=== PATIENT | female | born 1975 | race Caucasian/White ===

== ENCOUNTER 2017-01-28 07:38 | Inpatient (IN) | payer MEDICARE, OTHER ==
[~2017-01-28] VITALS: Ht 162.6 cm; Wt 118.2 kg
[2017-01-28] VITALS (16 sets, daily range): BP systolic 86–174; BP diastolic 74–104; PULSE 77–117; RESP 10–33; Ht 162.6 cm; Wt 118.2 kg
[~2017-01-28 07:38] MED LIST: CEFAZOLIN 1 GM INJ ONE
[2017-01-28] MEDS ORDERED: CARI350T29 PO (08:25)
[2017-01-28] MEDS ORDERED: HYDR-902 PO (08:25)
[2017-01-28] MEDS ORDERED: DIAZ10TA4 PO (08:25)
[2017-01-28] MEDS ORDERED: NORT75CA PO (08:26)
[2017-01-28] MEDS ORDERED: PRAZ2CAP2 PO (08:26)
[2017-01-28] MEDS ORDERED: BUPIVACAINE 0.25% (MPF) 30 ML INJ ONE (09:27)
[2017-01-28] MEDS ORDERED: GELATIN SIZE 100 SPONGE ONE (09:27)
[2017-01-28] MEDS ORDERED: THROMBIN 5000 UNIT VIAL ONE (09:28)
[2017-01-28] MEDS ORDERED: GLYCOPYRROLATE 0.4 MG INJ ONE ×3 (09:31→09:35)
[2017-01-28] MEDS ORDERED: LIDOCAINE 2% (SDV) 5 ML INJ ONE (09:31)
[2017-01-28] MEDS ORDERED: PROPOFOL 20 ML ONE (09:31)
[2017-01-28] MEDS ORDERED: MEPERIDINE 100 MG INJ ONE (09:31)
[2017-01-28] MEDS ORDERED: NEOSTIGMINE 3 MG/3 ML SYRINGE ONE ×2 (09:31→09:35)
[2017-01-28] MEDS ORDERED: ROCURONIUM 50 MG INJ ONE ×3 (09:31→11:40)
[2017-01-28] MEDS ORDERED: SUCCINYLCHOLINE CHLORIDE 100 MG/5 ML SYG IV ONE (09:31)
[2017-01-28] MEDS ORDERED: ONDANSETRON 4 MG INJ ONE (09:35)
[2017-01-28] MEDS ORDERED: METOCLOPRAMIDE 10 MG INJ ONE (09:35)
--- NOTE | 2017-01-28 09:44 | HPN ---
Date/Time of Note Date/Time of Note DATE: 01/28/17 TIME: 09:42 Interval H&P Admission Note Pt. seen H&P reviewed: No system changes Neurosurgery Preop Note No Significant Change Extensive d/w patient in detail at preop appointment about all available options including surgery vs no surgery. Overall risk/complications 3-5% overall thoroughly discussed. All questions answered and no guarantees given. Dispo: ICU RUPA REYES MD Jan 28, 2017 09:44
[2017-01-28] MEDS ORDERED: POLYMYXIN/BACITRACIN 1L IRRIG ONE (09:58)
[2017-01-28] MEDS ORDERED: DEXAMETHASONE 4 MG/ML 1 ML INJ ONE (11:23)
[2017-01-28] MEDS ORDERED: ROPIVACAINE 0.5 % 30 ML VIAL ONE (11:29)
[2017-01-28] MEDS ORDERED: PHENYLephrine (100 MCG/ML) 5ML SYG ONE (12:07)
--- NOTE | 2017-01-28 12:13 | RADRPT ---
PROCEDURE: XR Cervical Spine. CLINICAL INDICATION: POSTERIOR CERVICAL LAMI AND FORAMINOTOMIES W/INSTRUMENTATION TECHNIQUE: Single limited intraorbital lateral view. The image was reviewed on a PACS workstation. COMPARISON: None. FINDINGS: The patient demonstrates posterior instrumentation, with localization at the C2-C3 level and retract ors at the C3-C6 levels. There is reversal of the cervical lordosis and mild anterolisthesis at C3-C 4. The lower cervical spine is not well seen. IMPRESSION: Single intraoperative limited lateral view, with posterior instrumentation as noted. Images obtained: 1 RPTAT: DD .Chaitanya oPlo MD, MD Date Time Electronically viewed and signed by .Chaitanya Polo MD, MD on 01/28/2017 12:12 .T/
--- NOTE | 2017-01-28 13:12 | OPPN ---
Date/Time of Note Date/Time of Note DATE: 01/28/17 TIME: 13:11 Operative Report Preoperative Diagnosis Cervical Myelopathy Postoperative Diagnosis same Operation/Procedure Performed PCDF C3-7 Surgeon see signature line community relations assistant UDAY Jay, ACNP-BC Anesthesia: general Estimated blood loss: 50 - 100 ml's Transfusion Required none Specimen none Grafts/Implants none Complications none RUPA REYES MD Jan 28, 2017 13:12
[2017-01-28] MEDS: DOCUSATE SODIUM 100 MG CAP PO SCH ×2 (13:30→21:00)
[2017-01-28] MEDS ORDERED: CEFAZOLIN 1 GM/50 ML (PMX) 50 ML IVPB SCH (13:30)
[2017-01-28] MEDS ORDERED: NALOXONE (0.4 MG/ML) INJ IV PRN (13:30)
[2017-01-28] MEDS: HYDROmorphONE 0.5 MG/0.5 ML SYG IV PRN ×3 (13:35→14:00)
[2017-01-28] MEDS ORDERED: FENTAnyl 50 MCG/ML VIAL IV PRN ×2 (14:00)
[2017-01-28] MEDS ORDERED: LABETALOL HCL 20MG INJ IV PRN (14:00)
[2017-01-28] MEDS ORDERED: HYDROmorphONE 0.5 MG/0.5 ML SYG IV PRN (14:00)
[2017-01-28] MEDS ORDERED: hydrALAzine 20 MG INJ IV PRN (14:00)
[2017-01-28] MEDS ORDERED: EPHEDrine SULFATE 50 MG/5 ML SYG IV PRN (14:00)
[2017-01-28] MEDS: NS + KCL 20 MEQ 1,000 ML IV SCH (14:04)
[2017-01-28] MEDS: HYDROmorphONE 1 MG/ML SYG IV PRN ×2 (14:12→14:38)
--- NOTE | 2017-01-28 14:20 | HP ---
Date/Time of Note Date/Time of Note DATE: 01/28/17 TIME: 14:09 Assessment/Plan VTE Prophylaxis VTE Prophylaxis Intervention: SCD's Lines/Catheters IV Catheter Type (from Nrsg): A Line Assessment/Plan Assessment/Plan -Cervical myelopathy and cervical disc displacement, s/p posterior cervical laminectomy and foraminotomies with instrumental fusion of C3-C7. Continue ICU care TRAVEL ATTENDANTS Dilaudid for pain and Zofran as needed for nausea. Follow up surgical recommendations. -Depression -Morbid obesity with BMI 44.7. Further recommendations based on clinical course. Plan of care discussed with Dr. Zhu HPI/ROS Admit Date/Time Admit Date/Time Jan 28, 2017 at 07:38 Hx of Present Illness The patient is 41-year-old female with cervical myelopathy and cervical disc displacement. Patient was evaluated by Dr. Jordan in the neurosurgery consultation. Patient was brought to the hospital and underwent posterior cervical laminectomy and foraminotomies with instrumental fusion of C3-C7. Patient is admitted to intensive care unit for further management. Patient is currently a complaints of severe pain and unable to provide detailed medical history. ROS Per HPI PMH/Family/Social Past Medical History Chronic back pain Past Surgical History Status post cholecystectomy status post hysterectomy status post lumbar and cervical spine surgeries Family History Significant Family History: no pertinent family hx Social History Alcohol Use: none Smoking Status: Never smoker Drug Use: none Exam/Review of Systems Vital Signs Vitals Vital Signs Date Time Temp Pulse Resp B/P Pulse Ox O2 Delivery O2 Flow Rate FiO2 01/28/17 13:39 98.0 01/28/17 09:14 99 18 147/90 100 Exam Constitutional: alert, oriented Head: normocephalic Neck: other, supple Respiratory: normal air movement Cardiovascular: nl pulses, regular rate and rhythm Gastrointestinal: non-tender, soft Musculoskeletal: nl extremities to inspection Extremities: normal pulses Neurological: nl mental status Skin: nl turgor Medications Medications Current Medications Cefazolin Sodium (Ancef 1 Gm/50 ml (Pmx)) 50 ml @ 100 mls/hr Q6 IVPB ; Start 01/28/17 at 13:30; Stop 01/29/17 at 06:29 Docusate Sodium (Colace) 100 mg BID PO ; Start 01/28/17 at 13:30 Hydromorphone HCl (Dilaudid TRAVEL ATTENDANTS) Q4PCA IV ; Start 01/28/17 at 13:30 Naloxone HCl 0.2 mg 0.2 mg Q2M PRN IV RR 8 BREATHS/MIN OR LESS; Start at 13:30 Potassium Chloride/Sodium Chloride (NS-KCl 20 Meq) 1,000 ml @ 100 mls/hr Q10H IV Last administered on 01/28/17t 14:04; Admin Dose 100 MLS/HR; Start at 13:30 JÚNIOR DOLAN Jan 28, 2017 14:20
[2017-01-28] MEDS: FENTAnyl 50 MCG/ML VIAL IV PRN ×2 (14:52→18:10)
[2017-01-28] MEDS: HYDROmorphONE 0.2 MG/ML PCA IV SCH ×2 (15:03→20:10)
[2017-01-28] MEDS: CEFAZOLIN 1 GM/50 ML (PMX) 50 ML IVPB SCH (18:16)
--- NOTE | 2017-01-28 18:18 | RADRPT ---
PROCEDURE: CT Cervical Spine without contrast. CLINICAL INDICATION: Postoperative fusion TECHNIQUE: A CT of the cervical spine was performed on a CT scanner utilizing thin section axial images from the skull base through the thoracic inlet. Sagittal and coronal reformatted images were made. The CTDIvol is 36.84 mGy and the DLP is 849.37 mGycm. One or more of the following dose redu ction techniques were utilized: Automated exposure control, adjustment of the mA and/or kV accordin g to patient size, use of iterative reconstruction technique. COMPARISON: No prior studies are available for comparison. FINDINGS: Anterior cervical discectomy and fusion of C 5 through C7 with intact posterior fusion of C3-C7 with intact posterior fusion rods and lateral mass screws and decompression laminectomies from C3-C7. St raightening of the cervical spine. No evidence of vertebral body subluxation or dislocation. Surgica l drain in place within the midline posterior surgical bed . Gas and postsurgical changes within the posterior midline soft tissues and laminectomy bed. No fracture is evident. C1-2: Normal atlanto-occipital and atlantoaxial articulation. C2-3: The disc is normal in height. No significant disk bulge or protrusion is evident. There is no central canal stenosis or foraminal narrowing. C3-4: Mild disc space narrowing Mild left foraminal stenosis without significant right foraminal megan nosis. Decompression laminectomy. C4-5: Intact ACDF with normal alignment. Decompression laminectomy without foraminal stenosis. C5-6: Intact ACDF with normal alignment. Decompression laminectomy without foraminal stenosis. C6-7: Intact ACDF with normal alignment . Decompression laminectomy without foraminal stenosis. C7-T1: Intact ACDF with normal alignment. Decompression laminectomy without foraminal stenosis. The prevertebral soft tissues are unremarkable. The lung apices demonstrate left apical pleuroparenc hymal thickening. IMPRESSION: 1. Intact anterior cervical discectomy and fusion of C5-C7 with posterior decompression laminectomie s, lateral mass screws and posterior fusion rods from C3-C7 with surgical drain within the midline s urgical bed. 2. Mild left foraminal stenosis C3-C4. No right foraminal stenosis. Decompression laminectomy. 3. No prevertebral soft tissue abnormality. RPTAT:AAJJ Sanchez Flores Physician Date Time Electronically viewed and signed by Sanhcez Flores Physician on 01/28/2017 18:18 ROWENA/
[2017-01-28] MEDS ORDERED: INFLUENZA VIRUS VACCINE 0.5 ML (DISPENSING) IM* ONE (20:30)
[2017-01-28] MEDS ORDERED: HYDROmorphONE 0.2 MG/ML PCA IV ONE (22:40)
[2017-01-28] MEDS ORDERED: HYDROmorphONE 1 MG/ML SYG IV ONE (22:55)
[2017-01-29] VITALS (17 sets, daily range): BP systolic 102–165; BP diastolic 55–144; PULSE 81–120; RESP 10–23
[2017-01-29] MEDS: HYDROmorphONE 0.2 MG/ML PCA IV SCH ×6 (00:17→22:16)
[2017-01-29] MEDS: CEFAZOLIN 1 GM/50 ML (PMX) 50 ML IVPB SCH ×3 (00:37→11:42)
[2017-01-29] MEDS: NS + KCL 20 MEQ 1,000 ML IV SCH ×2 (00:41→09:53)
[2017-01-29 06:26] LABS: BASOPHIL # 0.1 10^3/ul (0.0-0.1); BASOPHILS % 0.4 % (0.0-2.0); EOSINOPHILS % 0.2 % (0.0-7.0); HEMATOCRIT 34.8 % (37.0-47.0); HEMOGLOBIN 11.1 g/dl (12.0-16.0); LYMPHOCYTES # 2.8 10^3/ul (0.8-2.9); LYMPHOCYTES % 21.7 % (15.0-51.0); MEAN CORPUSCULAR HEMOGLOBIN 29.8 pg (29.0-33.0); MEAN CORPUSCULAR HGB CONC 31.9 g/dl (32.0-37.0); MEAN CORPUSCULAR VOLUME 93.5 fl (82.0-101.0); MEAN PLATELET VOLUME 9.8 fl (7.4-10.4); MONOCYTE # 1.2 10^3/ul (0.3-0.9); MONOCYTES % 9.2 % (0.0-11.0); NEUTROPHIL # 8.7 10^3/ul (1.6-7.5); NEUTROPHILS % 68.1 % (39.0-77.0); PLATELET COUNT 349 10^3/UL (140-415); RED BLOOD COUNT 3.72 10^6/ul (4.20-5.40); WHITE BLOOD COUNT 12.8 10^3/ul (4.8-10.8)
[2017-01-29] MEDS ORDERED: HYDROmorphONE 0.2 MG/ML PCA IV SCH ×2 (06:30→09:00)
[2017-01-29 07:09] LABS: CALCIUM 8.7 mg/dl (8.4-10.2); CREATININE 0.71 mg/dl (0.44-1.00); POTASSIUM 4.2 mmol/L (3.5-5.1)
[2017-01-29] MEDS: ACETAMINOPHEN 325 MG TAB PO PRN ×3 (07:53→23:57)
[2017-01-29] MEDS ORDERED: HYDROCODONE/APAP (10/325) TAB PO PRN (08:00)
[2017-01-29] MEDS: CARISOPRODOL 350 MG TAB PO PRN ×2 (08:01→15:49)
[2017-01-29] MEDS: DIAZEPAM 5 MG TAB PO PRN (08:01)
[2017-01-29] MEDS: DOCUSATE SODIUM 100 MG CAP PO SCH ×2 (08:01→20:31)
--- NOTE | 2017-01-29 09:12 | PN ---
Date/Time of Note Date/Time of Note DATE: 01/29/17 TIME: 09:09 Assessment/Plan VTE Prophylaxis VTE Prophylaxis Intervention: SCD's Lines/Catheters IV Catheter Type (from Nrsg): A Line Central line still needed: No Urinary Cath still in place: No Assessment/Plan Assessment/Plan s/p pcdf c3-7. POD #[address] post op ct cspine stable with well placed lateral mass screws plan dc jamey in am pt/ot RN to order aspen collar okay to downgrade from NS point of view Subjective 24 Hr Interval Summary Free Text/Dictation S: s/p PCDF C3-7. POD #1 doing well bilat UE strength improving JAMEY with moderate drainage Exam/Review of Systems Vital Signs Vitals Vital Signs Date Time Temp Pulse Resp B/P Pulse Ox O2 Delivery O2 Flow Rate FiO2 01/29/17 06:09 20 01/29/17 05:00 100 155/107 95 Nasal Cannula 01/29/17 04:00 98.8 01/28/17 20:00 4.0 Intake and Output 01/28/17 01/28/17 01/29/17 15:00 23:00 07:00 Intake Total 650 ml 860 ml 900 ml Output Total 260 ml 680 ml 400 ml Balance 390 ml 180 ml 500 ml Exam vss [id number] perrl fc x 4 , improving strength surgical site: CDI Results Result Diagram: 01/29/17 0554 01/29/17 0554 Results 24 hrs Laboratory Tests Test 01/29/17 05:54 White Blood Count 12.8 H Red Blood Count 3.72 L Hemoglobin 11.1 L Hematocrit 34.8 L Mean Corpuscular Volume 93.5 Mean Corpuscular Hemoglobin 29.8 Mean Corpuscular Hemoglobin Concent 31.9 L Red Cell Distribution Width 13.0 Platelet Count 349 Mean Platelet Volume 9.8 Neutrophils % 68.1 Lymphocytes % 21.7 Monocytes % 9.2 Eosinophils % 0.2 Basophils % 0.4 Nucleated Red Blood Cells % 0.0 Neutrophils # 8.7 H Lymphocytes # 2.8 Monocytes # 1.2 H Eosinophils # 0.0 Basophils # 0.1 Nucleated Red Blood Cells # 0.0 Sodium Level 145 H Potassium Level 4.2 Chloride Level 109 Carbon Dioxide Level 29 Anion Gap 11 Blood Urea Nitrogen 9 Creatinine 0.71 Glucose Level 89 Calcium Level 8.7 Medications Medications Current Medications Docusate Sodium (Colace) 100 mg BID PO Last administered on 01/29/17 08:01; Admin Dose 100 MG; Start 01/28/17 at 13:30 Naloxone HCl 0.2 mg 0.2 mg Q2M PRN IV RR 8 BREATHS/MIN OR LESS; Start at 13:30 Potassium Chloride/Sodium Chloride 1,000 ml @ 100 mls/hr Q10H IV Last administered on 01/29/17 00:41; Admin Dose 100 MLS/HR; Start 01/28/17 at 13: 30 Cefazolin Sodium (Ancef 1 Gm/50 ml (Pmx)) 50 ml @ 100 mls/hr Q6H IVPB Last administered on 01/29/17 05:59; Admin Dose 100 MLS/HR; Start 01/28/17 at 17: 00; Stop 01/29/17 at 11:29 Acetaminophen (Tylenol Tab) 650 mg Q4H PRN PO PAIN AND OR ELEVATED TEMP Last administered on 01/29/17 07:53; Admin Dose 650 MG; Start 01/29/17 at 08:00 Carisoprodol (Soma) 350 mg Q8 PRN PO MUSCLE SPASMS Last administered on 08:01; Admin Dose 350 MG; Start 01/29/17 at 08:00 Diazepam (Valium) 10 mg DAILY PRN PO MUSCLE SPASMS Last administered on 08:01; Admin Dose 10 MG; Start 01/29/17 at 08:00 Acetaminophen/ Hydrocodone Bitart ([place] (10/325)) 1 tab Q12 PRN PO SEVERE PAIN LEVEL 7-10; Start 01/29/17 at 08:00; Status UNV Nortriptyline HCl (Aventyl) 75 mg HS PO ; Start 01/29/17 at 21:00 Prazosin HCl (Minipres) 2 mg HS PO ; Start 01/29/17 at 21:00 Hydromorphone HCl (Dilaudid PANTRY STEWARD/STEWARDESS) give one mg dilau... Q4PCA IV ; Start at 09:00; Status UNV OLAYINKA COLIN NP Jan 29, 2017 09:12
[2017-01-29] MEDS ORDERED: ACETAMINOPHEN 1000MG/100ML IV 100 ML IVPB PRN (10:30)
[2017-01-29] MEDS ORDERED: NORTRIPTYLINE 25 MG CAP PO ONE (10:30)
[2017-01-29] MEDS ORDERED: PRAZOSIN 1 MG CAP PO ONE (10:30)
[2017-01-29] MEDS ORDERED: hydrALAzine 20 MG INJ IV PRN (10:30)
[2017-01-29] MEDS ORDERED: KETOROLAC 30 MG INJ ONE (11:39)
[2017-01-29] MEDS: 1/2 NS + KCL 20 MEQ 1,000 ML IV SCH ×2 (11:42→17:45)
[2017-01-29] MEDS: KETOROLAC 30 MG INJ IV PRN ×2 (11:42→17:55)
[2017-01-29] MEDS ORDERED: CEPASTAT LOZENGE MT PRN (13:00)
[2017-01-29] MEDS: NORTRIPTYLINE 25 MG CAP PO SCH (20:31)
[2017-01-29] MEDS ORDERED: PRAZOSIN 1 MG CAP PO SCH (21:00)
[2017-01-30 02:23] VITALS: BP 126/72; RESP 18
[2017-01-30] MEDS: KETOROLAC 30 MG INJ IV PRN ×4 (04:21→23:40)
[2017-01-30] MEDS: HYDROmorphONE 0.2 MG/ML PCA IV SCH (04:38)
[2017-01-30] MEDS: 1/2 NS + KCL 20 MEQ 1,000 ML IV SCH ×2 (06:12→19:55)
[2017-01-30 07:50] VITALS: BP 138/60; RESP 20
[2017-01-30] MEDS: DOCUSATE SODIUM 100 MG CAP PO SCH ×2 (08:31→21:15)
[2017-01-30] MEDS: ACETAMINOPHEN 325 MG TAB PO PRN (08:31)
[2017-01-30] MEDS: CARISOPRODOL 350 MG TAB PO PRN (08:31)
[2017-01-30 09:01] LABS: BASOPHIL # 0.1 10^3/ul (0.0-0.1); BASOPHILS % 0.5 % (0.0-2.0); EOSINOPHILS # 0.5 10^3/ul (0.0-0.5); EOSINOPHILS % 3.8 % (0.0-7.0); HEMATOCRIT 35.9 % (37.0-47.0); HEMOGLOBIN 11.6 g/dl (12.0-16.0); LYMPHOCYTES # 2.7 10^3/ul (0.8-2.9); LYMPHOCYTES % 22.6 % (15.0-51.0); MEAN CORPUSCULAR HEMOGLOBIN 30.1 pg (29.0-33.0); MEAN CORPUSCULAR HGB CONC 32.3 g/dl (32.0-37.0); MEAN PLATELET VOLUME 9.8 fl (7.4-10.4); MONOCYTE # 0.9 10^3/ul (0.3-0.9); MONOCYTES % 7.4 % (0.0-11.0); NEUTROPHIL # 7.9 10^3/ul (1.6-7.5); NEUTROPHILS % 65.4 % (39.0-77.0); PLATELET COUNT 331 10^3/UL (140-415); RED BLOOD COUNT 3.86 10^6/ul (4.20-5.40); RED CELL DISTRIBUTION WIDTH 12.2 % (11.5-14.5)
[2017-01-30 09:24] LABS: CALCIUM 8.6 mg/dl (8.4-10.2); CREATININE 0.71 mg/dl (0.44-1.00); MAGNESIUM 1.9 mg/dl (1.7-2.5); POTASSIUM 4.5 mmol/L (3.5-5.1)
[2017-01-30] MEDS: HYDROCODONE/APAP (10/325) TAB PO PRN ×4 (10:10→22:31)
[2017-01-30] MEDS: HYDROmorphONE 1 MG/ML SYG IV PRN ×3 (11:25→19:50)
[2017-01-30 15:18] VITALS: BP 132/70; RESP 18
--- NOTE | 2017-01-30 15:57 | PN ---
Date/Time of Note Date/Time of Note DATE: 01/30/17 TIME: 15:54 Assessment/Plan VTE Prophylaxis VTE Prophylaxis Intervention: SCD's Lines/Catheters IV Catheter Type (from Nrsg): Peripheral IV Urinary Cath still in place: Yes Reason Cath still needed: urinary retention Assessment/Plan Assessment/Plan -Cervical myelopathy and cervical disc displacement - s/p posterior cervical laminectomy and foraminotomies with instrumental fusion of C3-C7. - Dilaudid for pain and Zofran as needed for nausea. - Follow up surgical recommendations. -Depression -Morbid obesity with BMI 44.7. - dietary consult Further recommendations based on clinical course. Plan of care discussed with Dr. Zhu Subjective 24 Hr Interval Summary Free Text/Dictation c/o neck pain, got pain med, cont to monitor, afebrile, wbc sightly elevated, dw staff Constitutional: requiring IVF Eyes: no complaints Respiratory: no complaints Cardiovascular: no complaints Gastrointestinal: no complaints Musculoskeletal: neck pain Exam/Review of Systems Vital Signs Vitals Vital Signs Date Time Temp Pulse Resp B/P Pulse Ox O2 Delivery O2 Flow Rate FiO2 01/30/17 15:18 98.2 96 18 132/70 96 01/29/17 20:10 Nasal Cannula 2.0 Intake and Output 01/29/17 01/29/17 01/30/17 15:00 23:00 07:00 Intake Total 1545 ml 375 ml 1480 ml Output Total 655 ml 635 ml 2640 ml Balance 890 ml -260 ml -1160 ml Exam Constitutional: alert, well developed Neck: other (sp cervica rediculopathy- derssing noted- intact, ROWENA loretta - bloody drainage noted) Respiratory: clear to auscultation, diminished breath sounds Cardiovascular: nl pulses, other (s1s2) Gastrointestinal: non-tender, soft Musculoskeletal: nl extremities to inspection Extremities: normal pulses Neurological: nl mental status, nl speech Results Result Diagram: 01/30/17 0831 01/30/17 0832 Results 24 hrs Laboratory Tests Test 01/30/17 08:31 01/30/17 08:32 White Blood Count 12.0 H Red Blood Count 3.86 L Hemoglobin 11.6 L Hematocrit 35.9 L Mean Corpuscular Volume 93.0 Mean Corpuscular Hemoglobin 30.1 Mean Corpuscular Hemoglobin Concent 32.3 Red Cell Distribution Width 12.2 Platelet Count 331 Mean Platelet Volume 9.8 Neutrophils % 65.4 Lymphocytes % 22.6 Monocytes % 7.4 Eosinophils % 3.8 Basophils % 0.5 Nucleated Red Blood Cells % 0.0 Neutrophils # 7.9 H Lymphocytes # 2.7 Monocytes # 0.9 Eosinophils # 0.5 Basophils # 0.1 Nucleated Red Blood Cells # 0.0 Sodium Level 141 Potassium Level 4.5 Chloride Level 100 Carbon Dioxide Level 33 H Anion Gap 13 Blood Urea Nitrogen 7 Creatinine 0.71 Glucose Level 94 Calcium Level 8.6 Magnesium Level 1.9 Medications Medications Current Medications Docusate Sodium (Colace) 100 mg BID PO Last administered on 01/30/17 08:31; Admin Dose 100 MG; Start 01/28/17 at 13:30 Naloxone HCl (Narcan) 0.2 mg Q2M PRN IV RR 8 BREATHS/MIN OR LESS; Start at 13:30 Acetaminophen (Tylenol Tab) 650 mg Q4H PRN PO PAIN AND OR ELEVATED TEMP Last administered on 01/30/17 08:31; Admin Dose 650 MG; Start 01/29/17 at 08:00 Carisoprodol (Soma) 350 mg Q8 PRN PO MUSCLE SPASMS Last administered on 08:31; Admin Dose 350 MG; Start 01/29/17 at 08:00 Diazepam (Valium) 10 mg DAILY PRN PO MUSCLE SPASMS Last administered on 08:01; Admin Dose 10 MG; Start 01/29/17 at 08:00 Acetaminophen/ Hydrocodone Bitart ([place] (10/325)) 1 tab Q12H PRN PO SEVERE PAIN LEVEL 7-10; Start 01/29/17 at 08:00; Status Future Hold Nortriptyline HCl (Aventyl) 75 mg HS PO Last administered on 01/29/17 20:31; Admin Dose 75 MG; Start 01/29/17 at 21:00 Carvedilol (Coreg) 3.125 mg BID PO Last administered on 01/30/17 08:31; Admin Dose 3.125 MG; Start 01/29/17 at 10:30 Hydralazine HCl 10 mg 10 mg Q4H PRN IV SBP>160, DBP>100; Start 01/29/17 at 10: 30 Potassium Chloride/Sodium Chloride (1/2 NS + KCl 20 Meq) 1,000 ml @ 75 mls/hr [id number] IV Last administered on 01/30/17 06:12; Admin Dose 75 MLS/HR; Start 01/29/17 at 11:00 Ketorolac Tromethamine (Toradol) 30 mg Q6H PRN IV PAIN Last administered on 10:38; Admin Dose 30 MG; Start 01/29/17 at 12:00; Stop 02/01/17 at 11: 59 Phenol (Cepastat Lozenge) 1 lozenge Q1H PRN MT SORE THROAT; Start 01/29/17 at 13:00 Hydromorphone HCl (Dilaudid) 1 mg Q4H PRN IV SEVERE PAIN LEVEL 7-10 Last administered on 01/30/17 15:27; Admin Dose 1 MG; Start 01/30/17 at 09:20 Acetaminophen/ Hydrocodone Bitart ([place] (10/325)) 1 tab Q4H PRN PO PAIN LEVEL 1-6 Last administered on 01/30/17 13:34; Admin Dose 1 TAB; Start 01/30/17 at 09:20 ANTIONE GARCIA Jan 30, 2017 15:57
--- NOTE | 2017-01-30 19:17 | PN ---
Date/Time of Note Date/Time of Note DATE: 01/30/17 TIME: 19:17 Assessment/Plan VTE Prophylaxis VTE Prophylaxis Intervention: SCD's Lines/Catheters IV Catheter Type (from Nrsg): Saline Lock Central line still needed: No Urinary Cath still in place: No Assessment/Plan Assessment/Plan Impression s/p PCDF C3-7. POD #2 Pt did well with pt/ot x 2 Pt on dilaudid iv, toradol, norco, and states pain still uncontrolled Plan pt/ot collar when oob x 6 weeks dc jamey drain Pain Management consult in am CT cspine in am Subjective 24 Hr Interval Summary Free Text/Dictation S: s/p PCDF C3-7 . POD #2 Exam/Review of Systems Vital Signs Vitals Vital Signs Date Time Temp Pulse Resp B/P Pulse Ox O2 Delivery O2 Flow Rate FiO2 01/30/17 15:18 98.2 96 18 132/70 96 01/29/17 20:10 Nasal Cannula 2.0 Intake and Output 01/29/17 01/29/17 01/30/17 15:00 23:00 07:00 Intake Total 1545 ml 375 ml 1480 ml Output Total 655 ml 635 ml 2640 ml Balance 890 ml -260 ml -1160 ml Exam Neurological: other (MS: AAOX4 CN: PERRL M: fC x 4 ) Results Result Diagram: 01/30/17 0831 01/30/17 0832 Results 24 hrs Laboratory Tests Test 01/30/17 08:31 01/30/17 08:32 White Blood Count 12.0 H Red Blood Count 3.86 L Hemoglobin 11.6 L Hematocrit 35.9 L Mean Corpuscular Volume 93.0 Mean Corpuscular Hemoglobin 30.1 Mean Corpuscular Hemoglobin Concent 32.3 Red Cell Distribution Width 12.2 Platelet Count 331 Mean Platelet Volume 9.8 Neutrophils % 65.4 Lymphocytes % 22.6 Monocytes % 7.4 Eosinophils % 3.8 Basophils % 0.5 Nucleated Red Blood Cells % 0.0 Neutrophils # 7.9 H Lymphocytes # 2.7 Monocytes # 0.9 Eosinophils # 0.5 Basophils # 0.1 Nucleated Red Blood Cells # 0.0 Sodium Level 141 Potassium Level 4.5 Chloride Level 100 Carbon Dioxide Level 33 H Anion Gap 13 Blood Urea Nitrogen 7 Creatinine 0.71 Glucose Level 94 Calcium Level 8.6 Magnesium Level 1.9 Medications Medications Current Medications Docusate Sodium (Colace) 100 mg BID PO Last administered on 01/30/17 08:31; Admin Dose 100 MG; Start 01/28/17 at 13:30 Naloxone HCl (Narcan) 0.2 mg Q2M PRN IV RR 8 BREATHS/MIN OR LESS; Start at 13:30 Acetaminophen (Tylenol Tab) 650 mg Q4H PRN PO PAIN AND OR ELEVATED TEMP Last administered on 01/30/17 08:31; Admin Dose 650 MG; Start 01/29/17 at 08:00 Carisoprodol (Soma) 350 mg Q8 PRN PO MUSCLE SPASMS Last administered on 08:31; Admin Dose 350 MG; Start 01/29/17 at 08:00 Diazepam (Valium) 10 mg DAILY PRN PO MUSCLE SPASMS Last administered on 08:01; Admin Dose 10 MG; Start 01/29/17 at 08:00 Acetaminophen/ Hydrocodone Bitart ([place] (10/325)) 1 tab Q12H PRN PO SEVERE PAIN LEVEL 7-10; Start 01/29/17 at 08:00; Status Future Hold Nortriptyline HCl (Aventyl) 75 mg HS PO Last administered on 01/29/17 20:31; Admin Dose 75 MG; Start 01/29/17 at 21:00 Carvedilol (Coreg) 3.125 mg BID PO Last administered on 01/30/17 08:31; Admin Dose 3.125 MG; Start 01/29/17 at 10:30 Hydralazine HCl 10 mg 10 mg Q4H PRN IV SBP>160, DBP>100; Start 01/29/17 at 10: 30 Potassium Chloride/Sodium Chloride (1/2 NS + KCl 20 Meq) 1,000 ml @ 75 mls/hr [id number] IV Last administered on 01/30/17 06:12; Admin Dose 75 MLS/HR; Start 01/29/17 at 11:00 Ketorolac Tromethamine (Toradol) 30 mg Q6H PRN IV PAIN Last administered on 17:06; Admin Dose 30 MG; Start 01/29/17 at 12:00; Stop 11/21/17 at 11: 59 Phenol (Cepastat Lozenge) 1 lozenge Q1H PRN MT SORE THROAT; Start 01/29/17 at 13:00 Hydromorphone HCl (Dilaudid) 1 mg Q4H PRN IV SEVERE PAIN LEVEL 7-10 Last administered on 01/30/17 15:27; Admin Dose 1 MG; Start 01/30/17 at 09:20 Acetaminophen/ Hydrocodone Bitart ([place] (10325)) 1 tab Q4H PRN PO PAIN LEVEL 1-6 Last administered on 01/30/17 18:31; Admin Dose 1 TAB; Start 01/30/17 at 09:20 OLAYINKA COLIN CORPORATE DRIVER Jan 30, 2017 19:17
[2017-01-30] MEDS: oxyCODONE (CR) 20 MG TAB [oxyCONTIN] PO SCH ×2 (19:48→20:43)
[2017-01-30 20:25] VITALS: BP 138/89; RESP 20
[2017-01-30] MEDS: NORTRIPTYLINE 25 MG CAP PO SCH (21:15)
[2017-01-30] MEDS: DIAZEPAM 5 MG TAB PO PRN (23:46)
[2017-01-31] MEDS: HYDROmorphONE 1 MG/ML SYG IV PRN ×4 (03:34→20:21)
[2017-01-31 05:06] LABS: BASOPHIL # 0.1 10^3/ul (0.0-0.1); BASOPHILS % 0.5 % (0.0-2.0); EOSINOPHILS # 0.6 10^3/ul (0.0-0.5); EOSINOPHILS % 6.1 % (0.0-7.0); HEMATOCRIT 35.8 % (37.0-47.0); LYMPHOCYTES # 2.8 10^3/ul (0.8-2.9); LYMPHOCYTES % 27.2 % (15.0-51.0); MEAN CORPUSCULAR HEMOGLOBIN 30.4 pg (29.0-33.0); MEAN CORPUSCULAR HGB CONC 33.5 g/dl (32.0-37.0); MEAN CORPUSCULAR VOLUME 90.6 fl (82.0-101.0); MONOCYTE # 0.8 10^3/ul (0.3-0.9); MONOCYTES % 7.9 % (0.0-11.0); PLATELET COUNT 344 10^3/UL (140-415); RED BLOOD COUNT 3.95 10^6/ul (4.20-5.40); RED CELL DISTRIBUTION WIDTH 12.3 % (11.5-14.5); WHITE BLOOD COUNT 10.3 10^3/ul (4.8-10.8)
[2017-01-31] MEDS: HYDROCODONE/APAP (10/325) TAB PO PRN ×4 (05:24→22:11)
[2017-01-31 05:37] LABS: CALCIUM 8.9 mg/dl (8.4-10.2); CREATININE 0.72 mg/dl (0.44-1.00)
--- NOTE | 2017-01-31 07:30 | PN ---
DATE: 01/29/2017 SUBJECTIVE AND INTERVAL HISTORY: The patient is a 41-year-old female status post surgery for cervic al myelopathy. The patient underwent posterior cervical laminectomy and foraminotomy with instrumen tation fusion C3 through C7. The patient had significant postoperative pain yesterday and I had to increase her baseline Dilaudid COREMAKING SUPERVISOR. After giving a bolus of 1 mg Dilaudid, the patient's postoperat laurie pain has improved now, but she is complaining of a headache. We will give a trial of IV Tylenol and if it does not work, we will try Toradol. The patient denies any chest pain, is breathi ng comfortably. No reported abdominal pain. No reported vomiting, no report of any focal weakness. The patient is able to move all extremities. PHYSICAL EXAMINATION: GENERAL: The patient is conscious, awake. VITAL SIGNS: Temperature 98.3, pulse 100, respirations 18, blood pressure 140/95, O2 sat 98% on 2 l iters nasal cannula. HENT: Conjunctivae and lids normal. Nose and ears normal. NECK: No obvious mass. CHEST: Fairly clear. No use of accessory muscles. CARDIOVASCULAR: S1, S2 normal. No murmur. ABDOMEN: Soft, nontender. Bowel sounds. EXTREMITIES: No leg edema. Pedal pulses palpable. SKIN: Without acute rash. NEUROLOGIC: The patient is awake, alert, follows simple commands and moves all extremities. LABORATORY DATA: Sodium 145, potassium 4.2, BUN 9, creatinine 0.7, glucose 89, calcium 8.7. WBC 12 .8, hemoglobin 11.1, platelets 349. IMPRESSION: 1. Cervical myelopathy and cervical disk displacement, status post posterior cervical laminectomy a nd fusion C3 through C7. 2. Depression. 3. Hypertension. 4. Obesity. PLAN: The patient prior to admission was on prazosin for hypertension. Blood pressure is still out of control. We will add beta dewayne. Due to hypernatremia, we will change her IV fluid to half N S. We will continue Dilaudid COREMAKING SUPERVISOR for now. We will also add IV hydralazine on p.r.n. basis. Plan o f care discussed with nursing staff and the patient's daughter. We will monitor in ICU. Total critical care time spent 30 minutes. Dictated By: LEILA TOSCANO/DIAZ Conf#: [id number] DID#: [id number] CC: RUPA REYES MD;*[facility]*
[2017-01-31] MEDS: KETOROLAC 30 MG INJ IV PRN ×3 (07:36→19:37)
[2017-01-31 07:42] VITALS: BP 141/76; RESP 18
[2017-01-31] MEDS: oxyCODONE (CR) 20 MG TAB [oxyCONTIN] PO SCH ×2 (08:22→21:00)
[2017-01-31] MEDS: DOCUSATE SODIUM 100 MG CAP PO SCH ×2 (08:22→21:00)
--- NOTE | 2017-01-31 11:28 | RADRPT ---
PROCEDURE: CT Cervical Spine without intravenous contrast CLINICAL INDICATION: Pain following neck surgery. COMPARISON: CT from 01/28/2017. TECHNIQUE: Axial noncontrast CT images of the cervical spine with coronal and sagittal reformats. DOSE ESTIMATE: CTDI vol = 30 mGy. DLP = 661 mGy-cm. One or more of the following dose reduction te chniques were used: automated exposure control, adjustment of the mA and/or kV according to patient size, or use of iterative reconstruction. FINDINGS: Alignment: The usual cervical lordosis is straightened. No subluxation. Vertebrae: Bilateral laminectomies and posterior fusion of C3 - C7 using rods and bilateral articula r mass screws. Anterior cervical discectomy and interbody fusion of C5-C7. Interval removal of epidu ral drain.No hardware fracture. No suspicious mauricio-hardware lucency. Discs: Mild disc height loss at C4-C5 and C7-T1. Degenerative change: C2-C3 : No uncovertebral or facet joint arthropathy. No central canal or foraminal narrowing. C3-C4 : Mild anterior endplate spurring. No foraminal narrowing. The spinal canal is decompressed. C4-C5 : Mild anterior endplate spurring. No foraminal narrowing. The spinal canal is decompressed. C5-C6 : No foraminal narrowing. The spinal canal is decompressed. C6-C7 : No foraminal narrowing. The spinal canal is decompressed. C7-T1 : No foraminal narrowing. The spinal canal is decompressed. Paraspinal soft tissues: Expected surgical related changes including subcutaneous edema and emphysem a. A midline fluid collection at C7-T1 measures approximately 3.2 x 3.0 x 3.8 cm, presumably a posto perative seroma. This collection appears new since 01/28/2017. Visualized posterior fossa: Normal. Visualized neck: Normal. Visualized lung apices: Normal. Additional comment: None. IMPRESSION: 1. Expected changes related to anterior cervical discectomy and fusion of C5-C7 and posterior fusio n of C3 - C7. 2. Interval removal of epidural drain. 3. New fluid collection within the midline paraspinous soft tissues of C7-T1 measuring about 3.2 x 3 .0 x 3.8 cm, presumably a surgical-related seroma. Infection cannot be excluded on the basis of imag ing alone. RPTAT: PP Angeles Gordon Physician Date Time Electronically viewed and signed by Angeles Gordon Physician on 01/31/2017 11:28 LG/
[2017-01-31] MEDS: 1/2 NS + KCL 20 MEQ 1,000 ML IV SCH (12:08)
[2017-01-31 16:05] VITALS: BP 133/80; RESP 18
[2017-01-31] MEDS: ACETAMINOPHEN 325 MG TAB PO PRN (18:24)
[2017-01-31 18:44] VITALS: BP 122/77; PULSE 87; RESP 17
--- NOTE | 2017-01-31 19:35 | RADRPT ---
PROCEDURE: XR Chest AP portable CLINICAL INDICATION: Fever TECHNIQUE: An AP portable radiograph of the chest was submitted. COMPARISON: None. FINDINGS: Support Hardware: None Cardiovascular: The cardiovascular silhouette appears unremarkable. Lung Mccracken: The lung mccracken appear clear with no nodule, alveolar infiltrate, or interstitial promi nence evident. Pleural Spaces: No pneumothorax or pleural effusion is identified. Osseous Structures: A compression plate and fixation rods project through the inferior cervical spin e. Mild degenerative changes are seen to the thoracic spine. Soft Tissues: The soft tissues appear generous. IMPRESSION: 1. Fixation hardware projects to the inferior cervical spine and degenerative thoracic spine change s are noted. 2. No evidence of acute cardiopulmonary disease. Physician Nata Date Time Electronically viewed and signed by Kristi Thakkar Physician on 01/31/2017 19:35 RH/
[2017-01-31 20:00] VITALS: BP 129/65; RESP 20
[2017-01-31 20:26] LABS: BASOPHILS % 0.3 % (0.0-2.0); EOSINOPHILS # 0.7 10^3/ul (0.0-0.5); EOSINOPHILS % 6.7 % (0.0-7.0); HEMATOCRIT 36.4 % (37.0-47.0); HEMOGLOBIN 12.1 g/dl (12.0-16.0); LYMPHOCYTES # 2.4 10^3/ul (0.8-2.9); LYMPHOCYTES % 22.2 % (15.0-51.0); MEAN CORPUSCULAR HGB CONC 33.2 g/dl (32.0-37.0); MEAN CORPUSCULAR VOLUME 90.1 fl (82.0-101.0); MEAN PLATELET VOLUME 9.7 fl (7.4-10.4); MONOCYTE # 0.9 10^3/ul (0.3-0.9); MONOCYTES % 8.6 % (0.0-11.0); NEUTROPHIL # 6.7 10^3/ul (1.6-7.5); NEUTROPHILS % 61.9 % (39.0-77.0); PLATELET COUNT 383 10^3/UL (140-415); RED BLOOD COUNT 4.04 10^6/ul (4.20-5.40); RED CELL DISTRIBUTION WIDTH 12.3 % (11.5-14.5); WHITE BLOOD COUNT 10.8 10^3/ul (4.8-10.8)
[2017-01-31 20:36] LABS: ADD UMIC YES; UR ASCORBIC ACID NEGATIVE (NEGATIVE); UR BACTERIA FEW /HPF (NONE SEEN); UR BILIRUBIN (Dip) NEGATIVE (NEGATIVE); UR BLOOD (Dip) 2+ mg/dL (NEGATIVE); UR CLARITY CLEAR (CLEAR); UR COLOR STRAW (YELLOW); UR GLUCOSE (Dip) NEGATIVE (NEGATIVE); UR KETONES (Dip) NEGATIVE (NEGATIVE); UR LEUKOCYTE ESTERASE (Dip) NEGATIVE Leu/ul (NEGATIVE); UR NITRITE (Dip) NEGATIVE (NEGATIVE); UR RBC 6 /HPF (0-5); UR SPECIFIC GRAVITY (Dip) 1.004 (1.003-1.030); UR TOTAL PROTEIN (Dip) NEGATIVE (NEGATIVE); UR UROBILINOGEN (Dip) NEGATIVE (NEGATIVE)
[2017-01-31] MEDS: NORTRIPTYLINE 25 MG CAP PO SCH (21:00)
[2017-02-01] MEDS: HYDROmorphONE 1 MG/ML SYG IV PRN ×6 (00:28→19:53)
[2017-02-01] MEDS: KETOROLAC 30 MG INJ IV PRN ×2 (02:24→10:24)
[2017-02-01 02:25] VITALS: BP 121/75; RESP 20
[2017-02-01 07:35] VITALS: BP 139/87; RESP 19
[2017-02-01] MEDS: DOCUSATE SODIUM 100 MG CAP PO SCH (08:36)
[2017-02-01] MEDS: oxyCODONE (CR) 20 MG TAB [oxyCONTIN] PO SCH (08:37)
[2017-02-01] MEDS: 1/2 NS + KCL 20 MEQ 1,000 ML IV SCH (08:43)
[2017-02-01 10:17] LABS: CALCIUM 9.1 mg/dl (8.4-10.2); CREATININE 0.74 mg/dl (0.44-1.00); POTASSIUM 4.1 mmol/L (3.5-5.1)
[2017-02-01] MEDS: DIAZEPAM 5 MG TAB PO PRN (12:46)
--- NOTE | 2017-02-01 14:13 | PN ---
Date/Time of Note Date/Time of Note DATE: 02/01/17 TIME: 14:10 Assessment/Plan VTE Prophylaxis VTE Prophylaxis Intervention: SCD's Lines/Catheters IV Catheter Type (from Nrs): Peripheral IV Urinary Cath still in place: No Assessment/Plan Chief Complaint/Hosp Course Patient's continues to complain of significant amount of pain, continues on OxyContin and Dilaudid. Pending pain management consult from Dr. Pabon. Assessment/Plan -Cervical myelopathy and cervical disc displacement, s/p posterior cervical laminectomy and foraminotomies with instrumental fusion of C3-C7. Dilaudid for pain and Zofran as needed for nausea. Follow up surgical recommendations. -Hypertension, continue Coreg. -Depression -Morbid obesity with BMI 44.7. Further recommendations based on clinical course. Plan of care discussed with Dr. Zhu Problems: Exam/Review of Systems Vital Signs Vitals Vital Signs Date Time Temp Pulse Resp B/P Pulse Ox O2 Delivery O2 Flow Rate FiO2 02/01/17 07:35 98.0 102 19 139/87 98 01/31/17 18:44 Room Air 01/29/17 20:10 2.0 Intake and Output 01/31/17 01/31/17 02/01/17 14:59 22:59 06:59 Intake Total 400 ml 1710 ml 1100 ml Output Total 1550 ml 200 ml Balance 400 ml 160 ml 900 ml Results Result Diagram: 01/31/17201402/01/17 0931 Results 24 hrs Laboratory Tests Test 01/31/17 18:15 01/31/17 20:15 02/01/17 09:31 Urine Color STRAW Urine Clarity CLEAR Urine pH 7.0 Urine Specific [place] 1.004 Urine Ketones NEGATIVE Urine Nitrite NEGATIVE Urine Bilirubin NEGATIVE Urine Urobilinogen NEGATIVE Urine Leukocyte Esterase NEGATIVE Urine Microscopic RBC 6 H Urine Microscopic WBC 1 Urine Bacteria FEW A Urine Hemoglobin 2+ H Urine Glucose NEGATIVE Urine Total Protein NEGATIVE White Blood Count 10.8 Red Blood Count 4.04 L Hemoglobin 12.1 Hematocrit 36.4 L Mean Corpuscular Volume 90.1 Mean Corpuscular Hemoglobin 30.0 Mean Corpuscular Hemoglobin Concent 33.2 Red Cell Distribution Width 12.3 Platelet Count 383 Mean Platelet Volume 9.7 Neutrophils % 61.9 Lymphocytes % 22.2 Monocytes % 8.6 Eosinophils % 6.7 Basophils % 0.3 Nucleated Red Blood Cells % 0.0 Neutrophils # 6.7 Lymphocytes # 2.4 Monocytes # 0.9 Eosinophils # 0.7 H Basophils # 0.0 Nucleated Red Blood Cells # 0.0 Sodium Level 139 Potassium Level 4.1 Chloride Level 100 Carbon Dioxide Level 33 H Anion Gap 10 Blood Urea Nitrogen 8 Creatinine 0.74 Glucose Level 93 Calcium Level 9.1 Medications Medications Current Medications Docusate Sodium (Colace) 100 mg BID PO Last administered on 02/01/17 08:36; Admin Dose 100 MG; Start 01/28/17 at 13:30 Naloxone HCl (Narcan) 0.2 mg Q2M PRN IV RR 8 BREATHS/MIN OR LESS; Start at 13:30 Acetaminophen (Tylenol Tab) 650 mg Q4H PRN PO PAIN AND OR ELEVATED TEMP Last administered on 01/31/17 18:24; Admin Dose 650 MG; Start 01/29/17 at 08:00 Carisoprodol (Soma) 350 mg Q8 PRN PO MUSCLE SPASMS Last administered on 08:31; Admin Dose 350 MG; Start 01/29/17 at 08:00 Diazepam (Valium) 10 mg DAILY PRN PO MUSCLE SPASMS Last administered on 12:46; Admin Dose 10 MG; Start 01/29/17 at 08:00 Acetaminophen/ Hydrocodone Bitart ([place] (10/325)) 1 tab Q12H PRN PO SEVERE PAIN LEVEL 7-10; Start 01/29/17 at 08:00; Status Future Hold Nortriptyline HCl (Aventyl) 75 mg HS PO Last administered on 01/31/17 21:00; Admin Dose 75 MG; Start 01/29/17 at 21:00 Carvedilol (Coreg) 3.125 mg BID PO Last administered on 02/01/17 08:37; Admin Dose 3.125 MG; Start 01/29/17 at 10:30 Hydralazine HCl 10 mg 10 mg Q4H PRN IV SBP>160, DBP>100; Start 01/29/17 at 10: 30 Potassium Chloride/Sodium Chloride (1/2 NS + KCl 20 Meq) 1,000 ml @ 50 mls/hr Q20H IV Last administered on 02/01/17 08:43; Admin Dose 50 MLS/HR; Start at 11:00 Phenol (Cepastat Lozenge) 1 lozenge Q1H PRN MT SORE THROAT Last administered on 01/30/17 19:55; Admin Dose 1 LOZENGE; Start 01/29/17 at 13:00 Hydromorphone HCl (Dilaudid) 1 mg Q4H PRN IV SEVERE PAIN LEVEL 7-10 Last administered on 02/01/17 12:33; Admin Dose 1 MG; Start 01/30/17 at 09:20 Acetaminophen/ Hydrocodone Bitart ([place] (10/325)) 1 tab Q4H PRN PO PAIN LEVEL 1-6 Last administered on 01/31/17 22:11; Admin Dose 1 TAB; Start 01/30/17 at 09:20 Oxycodone HCl (Oxycontin) 20 mg BID PO Last administered on 02/01/17 08:37; Admin Dose 20 MG; Start 01/30/17 at 20:00 JÚNIOR DOLAN Feb 01, 2017 14:13
--- NOTE | 2017-02-01 14:37 | PN ---
Date/Time of Note Date/Time of Note DATE: 02/01/17 TIME: 14:37 Assessment/Plan VTE Prophylaxis VTE Prophylaxis Intervention: SCD's Lines/Catheters IV Catheter Type (from Nrsg): Peripheral IV Central line still needed: No Urinary Cath still in place: No Assessment/Plan Assessment/Plan s/p PCDF C3-7 Pt appears calm but states pain is still 9/10 Surgical site appears CDI Follow up CT cspine shows expected surgical changes Hardware intact high opiate tolerance. plan cont supportive care IS x 10 pt/ot with collar x 6 weeks pain management consult pending rehab vs home okay with NS once pain controlled follow up with Dr. Jordan in 2weeks Subjective 24 Hr Interval Summary Free Text/Dictation S: s/p PCDF C3-7. Upon entering room pt appeared calm but states " Im in so much pain" denies new focal weakness and/or radic to ext. surgical site: CDI Exam/Review of Systems Vital Signs Vitals Vital Signs Date Time Temp Pulse Resp B/P Pulse Ox O2 Delivery O2 Flow Rate FiO2 02/01/17 07:35 98.0 102 19 139/87 98 01/31/17 18:44 Room Air 01/29/17 20:10 2.0 Intake and Output 01/31/17 01/31/17 02/01/17 15:00 23:00 07:00 Intake Total 400 ml 1710 ml 1100 ml Output Total 1550 ml 200 ml Balance 400 ml 160 ml 900 ml Exam Neurological: other (MS: [id number] CN: Perrl M; FC x 4 , 5/5 strength Surgical site: CDI ) Results Result Diagram: 01/31/17201402/01/17 0931 Results 24 hrs Laboratory Tests Test 01/31/17 18:15 01/31/17 20:15 02/01/17 09:31 Urine Color STRAW Urine Clarity CLEAR Urine pH 7.0 Urine Specific [place] 1.004 Urine Ketones NEGATIVE Urine Nitrite NEGATIVE Urine Bilirubin NEGATIVE Urine Urobilinogen NEGATIVE Urine Leukocyte Esterase NEGATIVE Urine Microscopic RBC 6 H Urine Microscopic WBC 1 Urine Bacteria FEW A Urine Hemoglobin 2+ H Urine Glucose NEGATIVE Urine Total Protein NEGATIVE White Blood Count 10.8 Red Blood Count 4.04 L Hemoglobin 12.1 Hematocrit 36.4 L Mean Corpuscular Volume 90.1 Mean Corpuscular Hemoglobin 30.0 Mean Corpuscular Hemoglobin Concent 33.2 Red Cell Distribution Width 12.3 Platelet Count 383 Mean Platelet Volume 9.7 Neutrophils % 61.9 Lymphocytes % 22.2 Monocytes % 8.6 Eosinophils % 6.7 Basophils % 0.3 Nucleated Red Blood Cells % 0.0 Neutrophils # 6.7 Lymphocytes # 2.4 Monocytes # 0.9 Eosinophils # 0.7 H Basophils # 0.0 Nucleated Red Blood Cells # 0.0 Sodium Level 139 Potassium Level 4.1 Chloride Level 100 Carbon Dioxide Level 33 H Anion Gap 10 Blood Urea Nitrogen 8 Creatinine 0.74 Glucose Level 93 Calcium Level 9.1 Medications Medications Current Medications Docusate Sodium (Colace) 100 mg BID PO Last administered on 02/01/17 08:36; Admin Dose 100 MG; Start 01/28/17 at 13:30 Naloxone HCl (Narcan) 0.2 mg Q2M PRN IV RR 8 BREATHS/MIN OR LESS; Start at 13:30 Acetaminophen (Tylenol Tab) 650 mg Q4H PRN PO PAIN AND OR ELEVATED TEMP Last administered on 01/31/17 18:24; Admin Dose 650 MG; Start 01/29/17 at 08:00 Carisoprodol (Soma) 350 mg Q8 PRN PO MUSCLE SPASMS Last administered on 08:31; Admin Dose 350 MG; Start 01/29/17 at 08:00 Diazepam (Valium) 10 mg DAILY PRN PO MUSCLE SPASMS Last administered on 12:46; Admin Dose 10 MG; Start 01/29/17 at 08:00 Acetaminophen/ Hydrocodone Bitart ([place] (10/325)) 1 tab Q12H PRN PO SEVERE PAIN LEVEL 7-10; Start 01/29/17 at 08:00; Status Future Hold Nortriptyline HCl (Aventyl) 75 mg HS PO Last administered on 01/31/17 21:00; Admin Dose 75 MG; Start 01/29/17 at 21:00 Carvedilol (Coreg) 3.125 mg BID PO Last administered on 02/01/17 08:37; Admin Dose 3.125 MG; Start 01/29/17 at 10:30 Hydralazine HCl 10 mg 10 mg Q4H PRN IV SBP>160, DBP>100; Start 01/29/17 at 10: 30 Potassium Chloride/Sodium Chloride (1/2 NS + KCl 20 Meq) 1,000 ml @ 50 mls/hr Q20H IV Last administered on 02/01/17 08:43; Admin Dose 50 MLS/HR; Start at 11:00 Phenol (Cepastat Lozenge) 1 lozenge Q1H PRN MT SORE THROAT Last administered on 01/30/17 19:55; Admin Dose 1 LOZENGE; Start 01/29/17 at 13:00 Hydromorphone HCl (Dilaudid) 1 mg Q4H PRN IV SEVERE PAIN LEVEL 7-10 Last administered on 02/01/17 12:33; Admin Dose 1 MG; Start 01/30/17 at 09:20 Acetaminophen/ Hydrocodone Bitart ([place] (10/325)) 1 tab Q4H PRN PO PAIN LEVEL 1-6 Last administered on 01/31/17 22:11; Admin Dose 1 TAB; Start 01/30/17 at 09:20 Oxycodone HCl (Oxycontin) 20 mg BID PO Last administered on 02/01/17 08:37; Admin Dose 20 MG; Start 01/30/17 at 20:00 OLAYINKA COLIN NP Feb 01, 2017 14:37
[2017-02-01 14:53] VITALS: BP 126/73; RESP 18
[2017-02-01] MEDS ORDERED: HYDROmorphONE 2 MG TAB PO PRN (16:30)
[2017-02-01 19:50] VITALS: BP 141/74; PULSE 100; RESP 18
[2017-02-01] MEDS: ACETAMINOPHEN 325 MG TAB PO PRN (19:57)
[2017-02-01 20:00] VITALS: BP 141/74; RESP 18
[2017-02-01 20:20] VITALS: BP 131/79
[2017-02-01] MEDS ORDERED: oxyCODONE (CR) 15 MG TAB [oxyCONTIN] PO SCH (21:00)
[2017-02-01] MEDS ORDERED: DULOXETINE 30 MG CAP DR PO SCH (21:00)
[2017-02-01] MEDS ORDERED: NORTRIPTYLINE 25 MG CAP PO SCH (21:00)
[2017-02-01] MEDS ORDERED: oxyCODONE (CR) 20 MG TAB [oxyCONTIN] PO SCH ×2 (21:00)
--- NOTE | 2017-02-02 17:21 | DS ---
Date/Time of Note Date/Time of Note DATE: 02/02/17 TIME: 17:20 Discharge Summary Admission/Discharge Info Admit Date/Time Jan 28, 2017 at 07:38 Discharge Date/Time Feb 01, 2017 at 21:00 Patient Condition: Stable Hx of Present Illness The patient is 41-year-old female with cervical myelopathy and cervical disc displacement. Patient was evaluated by Dr. Jordan in the neurosurgery consultation. Patient was brought to the hospital and underwent posterior cervical laminectomy and foraminotomies with instrumental fusion of C3-C7. Patient is admitted to intensive care unit for further management. Patient is currently a complaints of severe pain and unable to provide detailed medical history. Hospital Course Patient transferred to acute rehabilitation unit -Cervical myelopathy and cervical disc displacement, s/p posterior cervical laminectomy and foraminotomies with instrumental fusion of C3-C7. Dilaudid for pain and Zofran as needed for nausea. Follow up surgical recommendations. -Hypertension, continue Coreg. -Depression -Morbid obesity with BMI 44.7. Home Meds Reported Medications Nortriptyline Hcl* (Nortriptyline Hcl*) 75 Mg Capsule, 75 MG PO HS, TAB 01/28/17 Prazosin Hcl* (Prazosin Hcl*) 2 Mg Capsule, 2 MG PO HS, CAP 01/28/17 Diazepam* (Diazepam*) 10 Mg Tablet, 10 MG PO DAILY Y for MUSCLE SPASMS, TAB 01/28/17 Carisoprodol* (Carisoprodol*) 350 Mg Tablet, 350 MG PO Q8 Y for MUSCLE SPASMS, TAB 01/28/17 Hydrocodone/Acetaminophen ([place] 10-325 Tablet) 1 Each Tablet, 1 EACH PO Q12 Y for SEVERE PAIN LEVEL 7-10, TAB 01/28/17 Primary Care Provider John Green Time spent on discharge: > 30 minutes JÚNIOR DOLAN Feb 02, 2017 17:21
== END 2017-02-01 21:00 | disposition short-term general hospital (02) | DRG 472 ==
LOC: REC 07:38 → ICU 13:32 → MS1 01-29 15:02
PROVIDERS: ADMIT Neurological Surgery; ATTEND Neurological Surgery
PROC: 01N10ZZ Release Cervical Nerve, Open Approach (ICD-10-PCS; 2017-01-28)
PROC: 4A11X4G Monitoring of Peripheral Nervous Electrical Activity, Intraoperative, External Approach (ICD-10-PCS; 2017-01-28)
PROC: 0RG2071 Fusion of 2 or more Cervical Vertebral Joints with Autologous Tissue Substitute, Posterior Approach, Posterior Column, Open Approach (ICD-10-PCS; principal; 2017-01-28 09:30)
DX: M50.01 Cervical disc disorder with myelopathy, high cervical region (principal); Z68.41 Body mass index [BMI] 40.0-44.9, adult; I10 Essential (primary) hypertension; M54.12 Radiculopathy, cervical region; G89.18 Other acute postprocedural pain; E66.01 Morbid (severe) obesity due to excess calories; F32.9 Major depressive disorder, single episode, unspecified; Z71.3 Dietary counseling and surveillance
CPT/HCPCS: 71010; 72020; 72125; 80048; 81001; 83735; 85025; 86850; 86900; 86901; 87086; 90686; 97116; 97161; 97530; J0131; J0690; J1100; J1170; J1644; J1885; J2175; J2370; J2405; J2710; J2765; J2795; J3010; J3480

== ENCOUNTER 2017-02-01 21:00 | Inpatient (IN) | payer MEDICARE, OTHER ==
[~2017-02-01] VITALS: Ht 160 cm; Wt 118.0 kg
[~2017-02-01 21:00] MED LIST changes: +CARI350T29 PO; -CEFAZOLIN 1 GM INJ ONE; +DIAZ10TA4 PO; +HYDR-902 PO; +NORT75CA PO; +PRAZ2CAP2 PO
[2017-02-01] MEDS ORDERED: hydrALAzine 20 MG INJ IV PRN (22:00)
[2017-02-01] MEDS ORDERED: NALOXONE (0.4 MG/ML) INJ IV PRN (22:00)
[2017-02-01] MEDS ORDERED: 1/2 NS + KCL 20 MEQ 1,000 ML IV SCH (22:00)
[2017-02-01 22:03] VITALS: BP 133/80; RESP 20
[2017-02-01] MEDS: DULOXETINE 30 MG CAP DR PO SCH (22:03)
[2017-02-01] MEDS: DOCUSATE SODIUM 100 MG CAP PO SCH (22:03)
[2017-02-01] MEDS: oxyCODONE (CR) 10 MG TAB [oxyCONTIN] PO SCH (22:04)
[2017-02-01] MEDS ORDERED: oxyCODONE (CR) 15 MG TAB [oxyCONTIN] PO SCH (22:30)
[2017-02-01] MEDS: NORTRIPTYLINE 25 MG CAP PO SCH (22:42)
[2017-02-01] MEDS ORDERED: BISACODYL 10 MG SUPP PR PRN (23:00)
[2017-02-01] MEDS ORDERED: MAGNESIUM HYDROXIDE 30ML CUP PO PRN (23:00)
[2017-02-01] MEDS: HYDROmorphONE 1 MG/ML SYG IV PRN (23:19)
[2017-02-02] MEDS ORDERED: CEPASTAT LOZENGE MT PRN (00:30)
[2017-02-02] MEDS ORDERED: **FLU VACCINE PREVIOUSLY DISPENSED XX PRN (00:30)
[2017-02-02 03:48] VITALS: BP 120/74; PULSE 104; RESP 20
[2017-02-02] MEDS: HYDROmorphONE 1 MG/ML SYG IV PRN ×6 (03:48→23:41)
[2017-02-02 05:49] VITALS: Ht 160 cm; Wt 118.0 kg
[2017-02-02 06:57] LABS: BASOPHILS % 0.3 % (0.0-2.0); EOSINOPHILS # 0.9 10^3/ul (0.0-0.5); EOSINOPHILS % 8.9 % (0.0-7.0); HEMATOCRIT 34.1 % (37.0-47.0); HEMOGLOBIN 11.2 g/dl (12.0-16.0); LYMPHOCYTES # 2.7 10^3/ul (0.8-2.9); LYMPHOCYTES % 25.9 % (15.0-51.0); MEAN CORPUSCULAR HGB CONC 32.8 g/dl (32.0-37.0); MEAN CORPUSCULAR VOLUME 91.4 fl (82.0-101.0); MEAN PLATELET VOLUME 9.7 fl (7.4-10.4); MONOCYTE # 1.1 10^3/ul (0.3-0.9); NEUTROPHIL # 5.7 10^3/ul (1.6-7.5); NEUTROPHILS % 54.4 % (39.0-77.0); PLATELET COUNT 365 10^3/UL (140-415); RED BLOOD COUNT 3.73 10^6/ul (4.20-5.40); RED CELL DISTRIBUTION WIDTH 12.5 % (11.5-14.5); WHITE BLOOD COUNT 10.5 10^3/ul (4.8-10.8)
[2017-02-02 07:23] LABS: ALBUMIN 3.4 g/dl (3.3-4.9); ALBUMIN/GLOBULIN RATIO 1.03; BILIRUBIN,INDIRECT 0.3 mg/dl (0-1.1); BILIRUBIN,TOTAL 0.3 mg/dl (0.2-1.3); CALCIUM 8.7 mg/dl (8.4-10.2); CREATININE 0.74 mg/dl (0.44-1.00); POTASSIUM 4.5 mmol/L (3.5-5.1); TOTAL PROTEIN 6.7 g/dl (6.1-8.1)
[2017-02-02 07:30] VITALS: BP 122/57; RESP 18
[2017-02-02] MEDS: DOCUSATE SODIUM 100 MG CAP PO SCH ×2 (08:39→21:28)
[2017-02-02] MEDS: DULOXETINE 30 MG CAP DR PO SCH ×2 (08:40→21:27)
[2017-02-02] MEDS: LACTULOSE 30ML CUP PO PRN (08:40)
[2017-02-02] MEDS: oxyCODONE (CR) 10 MG TAB [oxyCONTIN] PO SCH ×2 (08:40→21:28)
[2017-02-02] MEDS: HYDROmorphONE 2 MG TAB PO PRN ×2 (09:52→14:06)
[2017-02-02] MEDS ORDERED: HYDROCODONE/APAP (10/325) TAB PO PRN (10:00)
--- NOTE | 2017-02-02 10:34 | CONS ---
DATE OF ADMISSION: 02/01/2017 DATE OF CONSULTATION: 02/02/2017 TYPE OF CONSULTATION: Rehabilitation post-admission physician evaluation REHABILITATION PRIMARY DIAGNOSIS: Cervical myelopathy status post decompressive laminectomy and fusion. ACTIVE COMORBIDITIES: 1. Acute pain syndrome. 2. Constipation. 3. Morbid obesity. 4. Depression. 5. Hypertension. 6. History of lumbar surgery. 7. History of cholecystectomy. 8. History of hysterectomy. 9. Impairments in self-care and mobility. HISTORY OF PRESENT ILLNESS: The patient is a 41-year-old right-handed female with a history of depression, morbid obesity, hypertension, and notable cervical myelopathy who had been noting increasing pain, in addition to weakness and impairments in self-care and mobility despite conservative measures. The patient underwent a posterior cervical laminectomy, foraminotomy and fusion with postoperative course notable for significant pain, constipation , and impairments in self-care and mobility as compared to baseline. The patient has been cleared to transfer to the rehabilitation unit for comprehensive interdisciplinary rehab care. FUNCTIONAL HISTORY: Prior to recent events, she was independent in self-care tasks and mobility. Currently, she requires moderate assist for self-care and mobility tasks. I have reviewed the preadmission screen and patient's current functional status is consistent with the preadmission screen. SOCIAL HISTORY: The patient reports living at home with family and hopes to return there upon discharge. PAST MEDICAL HISTORY: 1. Obesity. 2. Hypertension. 3. History of lumbar surgery. 4. History of cholecystectomy. 5. History of hysterectomy. CURRENT MEDICATIONS: 1. Tylenol p.r.n. 2. Coreg 3.125 mg p.o. b.i.d. 3. Valium p.r.n. 4. Colace 100 mg b.i.d. 5. Dilaudid p.r.n. 6. q.h.s. 7. OxyContin. 8. Cymbalta 30 mg b.i.d. ALLERGIES: THE PATIENT WITH NO KNOWN DRUG ALLERGIES. PHYSICAL EXAMINATION: VITAL SIGNS: The patient is currently afebrile. Stable vital signs. HEENT: The extraocular motions are intact. Oropharynx is clear. NECK: Supple. LUNGS: Clear anteriorly. CARDIAC: S1, S2. ABDOMEN: Soft, nontender, positive bowel sounds. NEUROLOGIC: She is awake and alert and oriented x3. She can follow simple 1- step commands. Cranial nerves are grossly intact. She has antigravity strength in the left upper and bilateral lower extremities. She does have decreased forward flexion and abduction on the right. PLAN: The patient has been admitted for comprehensive interdisciplinary acute rehab and is anticipated to tolerate 3 hours of daily therapy in divided doses for at least 5/7 days a week. The treatment plan will include: 1. Physical therapy to focus on bed mobility, transfers and household ambulation with the goal of having the patient reach a standby assist level. 2. Occupational therapy to focus on hygiene, grooming, dressing, bathing and toileting activities with the goal of having the patient reach a standby assist level. 3. Rehabilitation nursing for carryover of therapeutic interventions, the goal of continent of bowel and bladder, and the goal of pain adequately managed on oral medications. REHABILITATION BARRIER: Pain. INTERVENTION FOR BARRIER: Interdisciplinary approach. ESTIMATED LENGTH OF STAY: 10 days. DISPOSITION GOAL: Home. I acknowledge that I performed a full physical examination on this patient within 24 hours of admission to the rehabilitation unit and believe the patient is a good candidate for comprehensive interdisciplinary rehab care and is anticipated to make reasonable goals in a reasonable period of time as outlined above. Dictated By: NANNETTE GARRETT/DIAZ Conf#: [id number] DID#: [id number] MTDD
[2017-02-02 14:00] VITALS: BP 123/58; RESP 20
--- NOTE | 2017-02-02 17:19 | HP ---
Date/Time of Note Date/Time of Note DATE: 02/02/17 TIME: 17:13 Assessment/Plan VTE Prophylaxis VTE Prophylaxis Intervention: SCD's Lines/Catheters IV Catheter Type (from Nrs): [place] Urinary Cath still in place: No Assessment/Plan Chief Complaint/Hosp Course Assessment/Plan -Cervical myelopathy and cervical disc displacement, s/p posterior cervical laminectomy and foraminotomies with instrumental fusion of C3-C7. -Hypertension, continue Coreg. -Depression -Morbid obesity with BMI 44.7. -Acute on chronic back pain. Further recommendations based on clinical course. Plan of care discussed with Dr. Zhu Problems: HPI/ROS Admit Date/Time Admit Date/Time Feb 01, 2017 at 21:00 Hx of Present Illness The patient is 41-year-old female with cervical myelopathy and cervical disc displacement. Patient underwent posterior cervical laminectomy and foraminotomies with instrumental fusion of C3-C7 by Dr. Jordan on 01/31. Patient experienced significant pain postoperatively and was evaluated by parking line painter. patient underwent physical therapy evaluation was noted to have mobility impairment. Patient is admitted to acute rehabilitation center for further physical and occupational therapy. ROS Point review of system is negative unless what mentioned in HPI PMH/Family/Social Past Medical History Chronic back pain Past Surgical History Status post cholecystectomy, status post hysterectomy, status post cervical and lumbar spine surgery Family History Significant Family History: no pertinent family hx Social History Alcohol Use: none Smoking Status: Never smoker Drug Use: none Exam/Review of Systems Vital Signs Vitals Vital Signs Date Time Temp Pulse Resp B/P Pulse Ox O2 Delivery O2 Flow Rate FiO2 02/02/17 14:00 98.7 75 20 123/58 91 02/02/17 03:48 Room Air Intake and Output 02/01/17 02/01/17 02/02/17 15:00 23:00 07:00 Intake Total 400 ml Output Total 750 ml Balance -350 ml Exam Constitutional: alert, oriented Head: atraumatic, normocephalic Neck: other (This post surgery) Respiratory: clear to auscultation Cardiovascular: nl pulses Gastrointestinal: non-tender, soft Extremities: normal pulses Neurological: nl mental status Skin: nl turgor Labs Result Diagram: 02/02/17 0647 02/02/17 0648 Medications Medications Current Medications Docusate Sodium (Colace) 100 mg BID PO Last administered on 02/02/17 08:39; Admin Dose 100 MG; Start 02/01/17 at 22:00 Hydralazine HCl (Apresoline) 10 mg Q4H PRN IV SBP>160, DBP>100; Start at 22:00 Hydromorphone HCl (Dilaudid) 1 mg Q4H PRN IV SEVERE PAIN LEVEL 7-10 Last administered on 02/02/17 15:18; Admin Dose 1 MG; Start 02/01/17 at 22:00 Naloxone HCl (Narcan) 0.2 mg Q2M PRN IV RR 8 BREATHS/MIN OR LESS; Start at 22:00 Nortriptyline HCl (Aventyl) 25 mg HS PO Last administered on 02/01/17 22:42; Admin Dose 25 MG; Start 02/01/17 at 22:30 Acetaminophen (Tylenol Tab) 650 mg Q4H PRN PO PAIN AND OR ELEVATED TEMP; Start 02/01/17 at 22:00 Carvedilol (Coreg) 3.125 mg BID PO Last administered on 02/02/17 08:40; Admin Dose 3.125 MG; Start 02/01/17 at 22:00 Diazepam (Valium) 10 mg DAILY PRN PO MUSCLE SPASMS; Start 02/01/17 at 22:00 Duloxetine HCl (Cymbalta) 30 mg BID PO Last administered on 02/02/17 08:40; Admin Dose 30 MG; Start 02/01/17 at 22:00 Oxycodone HCl (Oxycontin) 30 mg BID PO Last administered on 02/02/17 08:40; Admin Dose 30 MG; Start 02/01/17 at 22:00 Senna (Senokot) 1 tab HS PO ; Start 02/02/17 at 21:00 Magnesium Hydroxide (Milk Of Mag) 30 ml BID PRN PO CONSTIPATION; Start at 23:00 Lactulose (Enulose) 20 gm DAILY PRN PO CONSTIPATION Last administered on 08:40; Admin Dose 20 GM; Start 02/01/17 at 23:00 Bisacodyl (Dulcolax Supp) 10 mg DAILY PRN [place] CONSTIPATION; Start 02/01/17 at 23:00 Miscellaneous Information (Flu Vaccine Previously Dispensed) FLU VACCINE PREVIOU... NOTE PRN XX NOTE; Start 02/02/17 at 00:30 Phenol (Cepastat Lozenge) 1 lozenge Q1H PRN MT SORE THROAT; Start 02/02/17 at 00:30 Hydromorphone HCl (Dilaudid) 2 mg Q4H PRN PO PAIN Last administered on t 14:06; Admin Dose 2 MG; Start 02/02/17 at 10:00 JÚNIOR DOLAN Feb 02, 2017 17:19
[2017-02-02] MEDS: DIAZEPAM 5 MG TAB PO PRN (17:43)
[2017-02-02 20:00] VITALS: BP 108/62; RESP 18
[2017-02-02] MEDS: NORTRIPTYLINE 25 MG CAP PO SCH (21:27)
[2017-02-02] MEDS: SENNA TAB PO SCH (21:28)
[2017-02-03 02:10] VITALS: BP 118/65; RESP 18
[2017-02-03] MEDS: HYDROmorphONE 1 MG/ML SYG IV PRN ×5 (04:09→21:37)
--- NOTE | 2017-02-03 06:27 | CONS ---
Date/Time of Note Date/Time of Note DATE: 02/03/17 TIME: 06:17 Assessment/Plan Assessment/Plan Additional Assessment/Plan 1. Severe myelopathy of the cervical spine #2 status post C-spine surgical stabilization #3 acute on chronic pain control [id number] #4 obesity #5 hyperlipidemia We will start patient off on OxyContin 15 mg p.o. twice daily continue with p.o. Dilaudid at this time will not adjust Dilaudid until patient has taken OxyContin for 4 half-lives. Consultation Date/Type/Reason Admit Date/Time Feb 01, 2017 at 21:00 Type of Consultation: Pain management Hx of Present Illness 41-year-old female status post cervical spine surgical procedure please refer to the dictated note by orthopedics. Patient complains of severe posterior spine discomfort she described in the spasmy type pain which is radiating down into her right shoulder. She describes the pain is 9/10 with medications 5/10 but medications do not last more than 2 hours intravenously. Denies any side effects associated with current pain control medications of nausea vomiting dizziness diplopia disorientation. Patient was taking [id number] pain control medications and on a bad day [place] for pain management. She has had 2 prior surgical procedures of her cervical spine this time precipitated by increasing right arm discomfort and muscle weakness. There is no past medical history of suicide suicidal ideation purposeful oversedation she is non-smoker nondrinker she does not appear to be unkempt she is not asked for frequent early renewals of her current pain control medication I do not get the impression uses pain medication response to situational stressors she is not asked for certain pain control medications there is no past medical history of alcohol or drug abuse pain control is difficult at this time she states not controlling her pain is interfering with her physical function she is not participating in physical therapy effectively. Her sleeping patterns and her mood is depressed secondary to the above overall functioning is poor. Current pain control medications include p.o. and IV Dilaudid in addition to Toradol. Social History Alcohol Use: none Smoking Status: Never smoker Drug Use: none Exam/Review of Systems Vital Signs Vitals Vital Signs Date Time Temp Pulse Resp B/P Pulse Ox O2 Delivery O2 Flow Rate FiO2 02/03/17 02:10 98.4 87 18 118/65 95 02/02/17 03:48 Room Air Intake and Output 02/02/17 02/02/17 02/03/17 15:00 23:00 07:00 Intake Total 300 ml 960 ml Balance 300 ml 960 ml Exam Constitutional: distress Psych: anxiety, No confusion, No depression, No nl mood/affect, No no complaints, No other, No suicidal Neck: bruits, jvd, masses, non-tender, nuchal rigidity, other, supple, thyromegaly Cardiovascular: nl pulses, regular rate and rhythm Gastrointestinal: nl liver, spleen, non-tender, soft Neurological: [employer]ER II-XII intact, nl mental status, nl speech, nl strength, No DTR's symmetric, No confused, No focal weakness, No lethargic, No numbness , No other, No reflexes, No unresponsive Results Result Diagram: 02/02/17 0647 02/02/17 0648 Results 24 hrs Laboratory Tests Test 02/02/17 06:47 02/02/17 06:48 White Blood Count 10.5 Red Blood Count 3.73 L Hemoglobin 11.2 L Hematocrit 34.1 L Mean Corpuscular Volume 91.4 Mean Corpuscular Hemoglobin 30.0 Mean Corpuscular Hemoglobin Concent 32.8 Red Cell Distribution Width 12.5 Platelet Count 365 Mean Platelet Volume 9.7 Neutrophils % 54.4 Lymphocytes % 25.9 Monocytes % 10.0 Eosinophils % 8.9 H Basophils % 0.3 Nucleated Red Blood Cells % 0.0 Neutrophils # 5.7 Lymphocytes # 2.7 Monocytes # 1.1 H Eosinophils # 0.9 H Basophils # 0.0 Nucleated Red Blood Cells # 0.0 Sodium Level 139 Potassium Level 4.5 Chloride Level 100 Carbon Dioxide Level 33 H Anion Gap 11 Blood Urea Nitrogen 8 Creatinine 0.74 Glucose Level 112 Calcium Level 8.7 Total Bilirubin 0.3 Direct Bilirubin 0.00 Indirect Bilirubin 0.3 Aspartate Amino Transf (AST/SGOT) 76 H Alanine Aminotransferase (ALT/SGPT) 82 H Alkaline Phosphatase 119 Total Protein 6.7 Albumin 3.4 Globulin 3.30 H Albumin/Globulin Ratio 1.03 Medications Medications Current Medications Docusate Sodium (Colace) 100 mg BID PO Last administered on 02/02/17t 21:28; Admin Dose 100 MG; Start 02/01/17 at 22:00 Hydralazine HCl (Apresoline) 10 mg Q4H PRN IV SBP>160, DBP>100; Start at 22:00 Hydromorphone HCl (Dilaudid) 1 mg Q4H PRN IV SEVERE PAIN LEVEL 7-10 Last administered on 02/03/17 04:09; Admin Dose 1 MG; Start 02/01/17 at 22:00 Naloxone HCl (Narcan) 0.2 mg Q2M PRN IV RR 8 BREATHS/MIN OR LESS; Start at 22:00 Nortriptyline HCl (Aventyl) 25 mg HS PO Last administered on 02/02/17 21:27; Admin Dose 25 MG; Start 02/01/17 at 22:30 Acetaminophen (Tylenol Tab) 650 mg Q4H PRN PO PAIN AND OR ELEVATED TEMP; Start 02/01/17 at 22:00 Carvedilol (Coreg) 3.125 mg BID PO Last administered on 02/02/17 21:31; Admin Dose 3.125 MG; Start 02/01/17 at 22:00 Diazepam (Valium) 10 mg DAILY PRN PO MUSCLE SPASMS Last administered on 17:43; Admin Dose 10 MG; Start 02/01/17 at 22:00 Duloxetine HCl (Cymbalta) 30 mg BID PO Last administered on 02/02/17 21:27; Admin Dose 30 MG; Start 02/01/17 at 22:00 Oxycodone HCl (Oxycontin) 30 mg BID PO Last administered on 02/02/17 21:28; Admin Dose 30 MG; Start 02/01/17 at 22:00 Senna (Senokot) 1 tab HS PO Last administered on 02/02/17 21:28; Admin Dose 1 TAB; Start 02/02/17 at 21:00 Magnesium Hydroxide (Milk Of Mag) 30 ml BID PRN PO CONSTIPATION; Start at 23:00 Lactulose (Enulose) 20 gm DAILY PRN PO CONSTIPATION Last administered on 08:40; Admin Dose 20 GM; Start 02/01/17 at 23:00 Bisacodyl (Dulcolax Supp) 10 mg DAILY PRN [place] CONSTIPATION; Start 02/01/17 at 23:00 Miscellaneous Information (Flu Vaccine Previously Dispensed) FLU VACCINE PREVIOU... NOTE PRN XX NOTE; Start 02/02/17 at 00:30 Phenol (Cepastat Lozenge) 1 lozenge Q1H PRN [place] SORE THROAT; Start 02/02/17 at 00:30 Hydromorphone HCl (Dilaudid) 2 mg Q4H PRN PO PAIN Last administered on t 14:06; Admin Dose 2 MG; Start 02/02/17 at 10:00 BRUCE WISE Feb 03, 2017 06:27
[2017-02-03 07:00] VITALS: BP 115/90; RESP 18
[2017-02-03] MEDS: HYDROmorphONE 2 MG TAB PO PRN ×3 (07:10→23:27)
[2017-02-03] MEDS: DOCUSATE SODIUM 100 MG CAP PO SCH ×2 (08:29→20:09)
[2017-02-03] MEDS: DULOXETINE 30 MG CAP DR PO SCH ×2 (08:29→20:10)
[2017-02-03] MEDS: oxyCODONE (CR) 10 MG TAB [oxyCONTIN] PO SCH ×2 (08:29→20:15)
--- NOTE | 2017-02-03 10:10 | CONS ---
Date/Time of Note Date/Time of Note DATE: 02/03/17 TIME: 10:09 Consult Date/Type/Reason Admit Date/Time Feb 01, 2017 at 21:00 Initial Consult Date Type of Consultation: Pain management Objective Vital Signs Date Time Temp Pulse Resp B/P Pulse Ox O2 Delivery O2 Flow Rate FiO2 02/03/17 02:10 98.4 87 18 118/65 95 02/02/17 03:48 Room Air Intake and Output 02/02/17 02/02/17 02/03/17 15:00 23:00 07:00 Intake Total 300 ml 960 ml 1100 ml Output Total 600 ml Balance 300 ml 960 ml 500 ml Results/Medications Result Diagram: 02/02/17 0647 02/02/17 0648 Medications Current Medications Docusate Sodium (Colace) 100 mg BID PO Last administered on 02/03/17 08:29; Admin Dose 100 MG; Start 02/01/17 at 22:00 Hydralazine HCl (Apresoline) 10 mg Q4H PRN IV SBP>160, DBP>100; Start at 22:00 Hydromorphone HCl (Dilaudid) 1 mg Q4H PRN IV SEVERE PAIN LEVEL 7-10 Last administered on 02/03/17 08:28; Admin Dose 1 MG; Start 02/01/17 at 22:00 Naloxone HCl (Narcan) 0.2 mg Q2M PRN IV RR 8 BREATHS/MIN OR LESS; Start at 22:00 Nortriptyline HCl (Aventyl) 25 mg HS PO Last administered on 02/02/17 21:27; Admin Dose 25 MG; Start 02/01/17 at 22:30 Acetaminophen (Tylenol Tab) 650 mg Q4H PRN PO PAIN AND OR ELEVATED TEMP; Start 02/01/17 at 22:00 Carvedilol (Coreg) 3.125 mg BID PO Last administered on 02/03/17 08:28; Admin Dose 3.125 MG; Start 02/01/17 at 22:00 Diazepam (Valium) 10 mg DAILY PRN PO MUSCLE SPASMS Last administered on 17:43; Admin Dose 10 MG; Start 02/01/17 at 22:00 Duloxetine HCl (Cymbalta) 30 mg BID PO Last administered on 02/03/17 08:29; Admin Dose 30 MG; Start 02/01/17 at 22:00 Oxycodone HCl (Oxycontin) 30 mg BID PO Last administered on 02/03/17 08:29; Admin Dose 30 MG; Start 02/01/17 at 22:00 Senna (Senokot) 1 tab HS PO Last administered on 02/02/17 21:28; Admin Dose 1 TAB; Start 02/02/17 at 21:00 Magnesium Hydroxide (Milk Of Mag) 30 ml BID PRN PO CONSTIPATION; Start at 23:00 Lactulose (Enulose) 20 gm DAILY PRN PO CONSTIPATION Last administered on 08:40; Admin Dose 20 GM; Start 02/01/17 at 23:00 Bisacodyl (Dulcolax Supp) 10 mg DAILY PRN [place] CONSTIPATION Last administered on 02/03/17 10:06; Admin Dose 10 MG; Start 02/01/17 at 23:00 Miscellaneous Information (Flu Vaccine Previously Dispensed) FLU VACCINE PREVIOU... NOTE PRN XX NOTE; Start 02/02/17 at 00:30 Phenol (Cepastat Lozenge) 1 lozenge Q1H PRN [place] SORE THROAT; Start 02/02/17 at 00:30 Hydromorphone HCl (Dilaudid) 2 mg Q4H PRN PO PAIN Last administered on 07:10; Admin Dose 2 MG; Start 02/02/17 at 10:00 Assessment/Plan Additional Assessment/Plan Rehab- Cervical myelopathy status post decompressive laminectomy and fusion. Continue interdisciplinary rehab program Acute pain syndrome. Constipation-bowel program Morbid obesity. Depression. Hypertension. History of lumbar surgery. History of cholecystectomy. History of hysterectomy. NANNETTE LAZARO MD Feb 03, 2017 10:10
--- NOTE | 2017-02-03 11:05 | PN ---
Date/Time of Note Date/Time of Note DATE: 02/03/17 TIME: 11:01 Assessment/Plan Lines/Catheters IV Catheter Type (from Nrsg): Saline Lock Urinary Cath still in place: No Assessment/Plan Assessment/Plan -Cervical myelopathy and cervical disc displacement, s/p posterior cervical laminectomy and foraminotomies with instrumental fusion of C3-C7. -Hypertension, continue Coreg. -Depression -Morbid obesity with BMI 44.7. -Acute on chronic back pain. Further recommendations based on clinical course. Plan of care discussed with Dr. Zhu Subjective 24 Hr Interval Summary Free Text/Dictation resting in bed, feels dizzy when standing up, getting PT. DW STAFF ENT: no complaints Respiratory: no complaints Cardiovascular: no complaints Genitourinary: no complaints Musculoskeletal: neck pain Exam/Review of Systems Vital Signs Vitals Vital Signs Date Time Temp Pulse Resp B/P Pulse Ox O2 Delivery O2 Flow Rate FiO2 02/03/17 02:10 98.4 87 18 118/65 95 02/02/17 03:48 Room Air Intake and Output 02/02/17 02/02/17 02/03/17 14:59 22:59 06:59 Intake Total 300 ml 960 ml 1100 ml Output Total 600 ml Balance 300 ml 960 ml 500 ml Exam Constitutional: alert, oriented, well developed Neck: other (s/p posterior cervical laminectomy and foraminotomies with instrumental fusion of C3-C7. No dressing.) Respiratory: clear to auscultation, diminished breath sounds Cardiovascular: nl pulses Gastrointestinal: non-tender, soft Musculoskeletal: nl extremities to inspection Extremities: normal pulses Neurological: nl mental status, nl speech Results Result Diagram: 02/02/17 0647 02/02/17 0648 Medications Medications Current Medications Docusate Sodium (Colace) 100 mg BID PO Last administered on 02/03/17 08:29; Admin Dose 100 MG; Start 02/01/17 at 22:00 Hydralazine HCl (Apresoline) 10 mg Q4H PRN IV SBP>160, DBP>100; Start at 22:00 Hydromorphone HCl (Dilaudid) 1 mg Q4H PRN IV SEVERE PAIN LEVEL 7-10 Last administered on 02/03/17 08:28; Admin Dose 1 MG; Start 02/01/17 at 22:00 Naloxone HCl (Narcan) 0.2 mg Q2M PRN IV RR 8 BREATHS/MIN OR LESS; Start at 22:00 Nortriptyline HCl (Aventyl) 25 mg HS PO Last administered on 02/02/17 21:27; Admin Dose 25 MG; Start 02/01/17 at 22:30 Acetaminophen (Tylenol Tab) 650 mg Q4H PRN PO PAIN AND OR ELEVATED TEMP; Start 02/01/17 at 22:00 Carvedilol (Coreg) 3.125 mg BID PO Last administered on 02/03/17 08:28; Admin Dose 3.125 MG; Start 02/01/17 at 22:00 Diazepam (Valium) 10 mg DAILY PRN PO MUSCLE SPASMS Last administered on 17:43; Admin Dose 10 MG; Start 02/01/17 at 22:00 Duloxetine HCl (Cymbalta) 30 mg BID PO Last administered on 02/03/17 08:29; Admin Dose 30 MG; Start 02/01/17 at 22:00 Oxycodone HCl (Oxycontin) 30 mg BID PO Last administered on 02/03/17 08:29; Admin Dose 30 MG; Start 02/01/17 at 22:00 Senna (Senokot) 1 tab HS PO Last administered on 02/02/17 21:28; Admin Dose 1 TAB; Start 02/02/17 at 21:00 Magnesium Hydroxide (Milk Of Mag) 30 ml BID PRN PO CONSTIPATION; Start at 23:00 Lactulose (Enulose) 20 gm DAILY PRN PO CONSTIPATION Last administered on 08:40; Admin Dose 20 GM; Start 02/01/17 at 23:00 Bisacodyl (Dulcolax Supp) 10 mg DAILY PRN [place] CONSTIPATION Last administered on 02/03/17 10:06; Admin Dose 10 MG; Start 02/01/17 at 23:00 Miscellaneous Information (Flu Vaccine Previously Dispensed) FLU VACCINE PREVIOU... NOTE PRN XX NOTE; Start 02/02/17 at 00:30 Phenol (Cepastat Lozenge) 1 lozenge Q1H PRN [place] SORE THROAT; Start 02/02/17 at 00:30 Hydromorphone HCl (Dilaudid) 2 mg Q4H PRN PO PAIN Last administered on t 07:10; Admin Dose 2 MG; Start 02/02/17 at 10:00 ANTIONE GARCIA Feb 03, 2017 11:05
[2017-02-03] MEDS: ACETAMINOPHEN 325 MG TAB PO PRN (11:26)
[2017-02-03 14:00] VITALS: BP 112/66; RESP 18
[2017-02-03 19:33] VITALS: BP 100/62; RESP 19
[2017-02-03] MEDS: SENNA TAB PO SCH (20:09)
[2017-02-03] MEDS: NORTRIPTYLINE 25 MG CAP PO SCH (20:16)
[2017-02-03] MEDS: DIAZEPAM 5 MG TAB PO PRN (23:27)
[2017-02-04] MEDS: HYDROmorphONE 1 MG/ML SYG IV PRN ×3 (01:51→22:05)
[2017-02-04 02:34] VITALS: BP 124/66; RESP 19
[2017-02-04 07:30] VITALS: BP 122/65; RESP 18
[2017-02-04] MEDS: HYDROmorphONE 2 MG TAB PO PRN ×2 (07:38→12:41)
[2017-02-04] MEDS ORDERED: HYDROmorphONE 1 MG/ML SYG IV STA (08:14)
--- NOTE | 2017-02-04 08:33 | CONS ---
Date/Time of Note Date/Time of Note DATE: 02/04/17 TIME: 08:32 Consult Date/Type/Reason Admit Date/Time Feb 01, 2017 at 21:00 Type of Consultation: Pain management Subjective Needs encouragement for activities Did have the results with bowel program Objective Abdomen soft Vital Signs Date Time Temp Pulse Resp B/P Pulse Ox O2 Delivery O2 Flow Rate FiO2 02/04/17 02:34 98.7 89 19 124/66 99 02/02/17 03:48 Room Air Intake and Output 02/03/17 02/03/17 02/04/17 15:00 23:00 07:00 Intake Total 1800 ml 300 ml Output Total 900 ml 1500 ml Balance 900 ml -1200 ml Results/Medications Result Diagram: 02/02/17 0647 02/02/17 0648 Medications Current Medications Docusate Sodium (Colace) 100 mg BID PO Last administered on 02/03/17 20:09; Admin Dose 100 MG; Start 02/01/17 at 22:00 Hydralazine HCl (Apresoline) 10 mg Q4H PRN IV SBP>160, DBP>100; Start at 22:00 Hydromorphone HCl (Dilaudid) 1 mg Q4H PRN IV SEVERE PAIN LEVEL 7-10 Last administered on 02/04/17 05:56; Admin Dose 1 MG; Start 02/01/17 at 22:00 Naloxone HCl (Narcan) 0.2 mg Q2M PRN IV RR 8 BREATHS/MIN OR LESS; Start at 22:00 Nortriptyline HCl (Aventyl) 25 mg HS PO Last administered on 02/03/17 20:16; Admin Dose 25 MG; Start 02/01/17 at 22:30 Acetaminophen (Tylenol Tab) 650 mg Q4H PRN PO PAIN AND OR ELEVATED TEMP Last administered on 02/03/17 11:26; Admin Dose 650 MG; Start 02/01/17 at 22:00 Carvedilol (Coreg) 3.125 mg BID PO Last administered on 02/03/17 08:28; Admin Dose 3.125 MG; Start 02/01/17 at 22:00 Diazepam (Valium) 10 mg DAILY PRN PO MUSCLE SPASMS Last administered on 23:27; Admin Dose 10 MG; Start 02/01/17 at 22:00 Duloxetine HCl (Cymbalta) 30 mg BID PO Last administered on 02/03/17 20:10; Admin Dose 30 MG; Start 02/01/17 at 22:00 Oxycodone HCl (Oxycontin) 30 mg BID PO Last administered on 02/03/17 20:15; Admin Dose 30 MG; Start 02/01/17 at 22:00 Senna (Senokot) 1 tab HS PO Last administered on 02/03/17 20:09; Admin Dose 1 TAB; Start 02/02/17 at 21:00 Magnesium Hydroxide (Milk Of Mag) 30 ml BID PRN PO CONSTIPATION Last administered on 02/04/17 06:01; Admin Dose 30 ML; Start 02/01/17 at 23:00 Lactulose (Enulose) 20 gm DAILY PRN PO CONSTIPATION Last administered on 08:40; Admin Dose 20 GM; Start 02/01/17 at 23:00 Bisacodyl (Dulcolax Supp) 10 mg DAILY PRN [place] CONSTIPATION Last administered on 02/03/17 10:06; Admin Dose 10 MG; Start 02/01/17 at 23:00 Miscellaneous Information (Flu Vaccine Previously Dispensed) FLU VACCINE PREVIOU... NOTE PRN XX NOTE; Start 02/02/17 at 00:30 Phenol (Cepastat Lozenge) 1 lozenge Q1H PRN [place] SORE THROAT; Start 02/02/17 at 00:30 Hydromorphone HCl (Dilaudid) 2 mg Q4H PRN PO PAIN Last administered on 07:38; Admin Dose 2 MG; Start 02/02/17 at 10:00 Hydromorphone HCl (Dilaudid) 2 mg Q4H PRN IV PAIN; Start 02/04/17 at 08:30 Assessment/Plan Additional Assessment/Plan Rehab- Cervical myelopathy status post decompressive laminectomy and fusion. Continue interdisciplinary rehab program with encouragement for all activities and premedication prior to therapies Acute pain syndrome-adjusted pain medications for increased participation Constipation-bowel program Morbid obesity. Depression. Hypertension. History of lumbar surgery. History of cholecystectomy. History of hysterectomy. NANNETTE LAZARO MD Feb 04, 2017 08:33
[2017-02-04] MEDS: oxyCODONE (CR) 10 MG TAB [oxyCONTIN] PO SCH ×2 (09:35→20:31)
[2017-02-04] MEDS: DOCUSATE SODIUM 100 MG CAP PO SCH ×2 (09:35→20:30)
[2017-02-04] MEDS: DULOXETINE 30 MG CAP DR PO SCH ×2 (09:36→20:31)
[2017-02-04] MEDS: HYDROmorphONE 2 MG/ML SYG IV PRN ×3 (10:01→17:59)
--- NOTE | 2017-02-04 12:57 | PN ---
Date/Time of Note Date/Time of Note DATE: 02/04/17 TIME: 12:55 Assessment/Plan VTE Prophylaxis VTE Prophylaxis Intervention: SCD's Lines/Catheters IV Catheter Type (from Nrs): Saline Lock Urinary Cath still in place: No Assessment/Plan Chief Complaint/Hosp Course Assessment/Plan -Cervical myelopathy and cervical disc displacement, s/p posterior cervical laminectomy and foraminotomies with instrumental fusion of C3-C7. -Hypertension, continue Coreg. -Depression -Morbid obesity with BMI 44.7. -Acute on chronic back pain. -Urine cultures positive for ESBL E. coli, patient denies any dysuria has a history of ESBL E. coli in the past, most likely colonization. Further recommendations based on clinical course. Plan of care discussed with Dr. Zhu Problems: Exam/Review of Systems Vital Signs Vitals Vital Signs Date Time Temp Pulse Resp B/P Pulse Ox O2 Delivery O2 Flow Rate FiO2 02/04/17 07:30 97.9 77 18 122/65 95 02/02/17 03:48 Room Air Intake and Output 02/03/17 02/03/17 02/04/17 15:00 23:00 07:00 Intake Total 1800 ml 300 ml Output Total 900 ml 1500 ml Balance 900 ml -1200 ml Exam Constitutional: alert, oriented Neck: other (s/p surgery) Respiratory: clear to auscultation Cardiovascular: nl pulses Gastrointestinal: non-tender, soft Extremities: normal pulses Results Result Diagram: 02/02/17 0647 02/02/17 0648 Medications Medications Current Medications Docusate Sodium (Colace) 100 mg BID PO Last administered on 02/04/17 09:35; Admin Dose 100 MG; Start 02/01/17 at 22:00 Hydralazine HCl (Apresoline) 10 mg Q4H PRN IV SBP>160, DBP>100; Start at 22:00 Hydromorphone HCl (Dilaudid) 1 mg Q4H PRN IV SEVERE PAIN LEVEL 7-10 Last administered on 02/04/17 05:56; Admin Dose 1 MG; Start 02/01/17 at 22:00 Naloxone HCl (Narcan) 0.2 mg Q2M PRN IV RR 8 BREATHS/MIN OR LESS; Start at 22:00 Nortriptyline HCl (Aventyl) 25 mg HS PO Last administered on 02/03/17 20:16; Admin Dose 25 MG; Start 02/01/17 at 22:30 Acetaminophen (Tylenol Tab) 650 mg Q4H PRN PO PAIN AND OR ELEVATED TEMP Last administered on 02/03/17 11:26; Admin Dose 650 MG; Start 02/01/17 at 22:00 Carvedilol (Coreg) 3.125 mg BID PO Last administered on 02/04/17 09:36; Admin Dose 3.125 MG; Start 02/01/17 at 22:00 Diazepam (Valium) 10 mg DAILY PRN PO MUSCLE SPASMS Last administered on 23:27; Admin Dose 10 MG; Start 02/01/17 at 22:00 Duloxetine HCl (Cymbalta) 30 mg BID PO Last administered on 02/04/17 09:36; Admin Dose 30 MG; Start 02/01/17 at 22:00 Oxycodone HCl (Oxycontin) 30 mg BID PO Last administered on 02/04/17 09:35; Admin Dose 30 MG; Start 02/01/17 at 22:00 Senna (Senokot) 1 tab HS PO Last administered on 02/03/17 20:09; Admin Dose 1 TAB; Start 02/02/17 at 21:00 Magnesium Hydroxide (Milk Of Mag) 30 ml BID PRN PO CONSTIPATION Last administered on 02/04/17 06:01; Admin Dose 30 ML; Start 02/01/17 at 23:00 Lactulose (Enulose) 20 gm DAILY PRN PO CONSTIPATION Last administered on 08:40; Admin Dose 20 GM; Start 02/01/17 at 23:00 Bisacodyl (Dulcolax Supp) 10 mg DAILY PRN [place] CONSTIPATION Last administered on 02/03/17 10:06; Admin Dose 10 MG; Start 02/01/17 at 23:00 Miscellaneous Information (Flu Vaccine Previously Dispensed) FLU VACCINE PREVIOU... NOTE PRN XX NOTE; Start 02/02/17 at 00:30 Phenol (Cepastat Lozenge) 1 lozenge Q1H PRN [place] SORE THROAT; Start 02/02/17 at 00:30 Hydromorphone HCl (Dilaudid) 2 mg Q4H PRN PO PAIN Last administered on 12:41; Admin Dose 2 MG; Start 02/02/17 at 10:00 Hydromorphone HCl (Dilaudid) 2 mg Q4H PRN IV PAIN Last administered on 10:01; Admin Dose 2 MG; Start 02/04/17 at 08:30 JÚNIOR DOLAN Feb 04, 2017 12:57
[2017-02-04 14:00] VITALS: BP 104/60; RESP 20
[2017-02-04 20:00] VITALS: BP 107/63; RESP 18
[2017-02-04] MEDS: NORTRIPTYLINE 25 MG CAP PO SCH (20:30)
[2017-02-04] MEDS: SENNA TAB PO SCH (20:30)
[2017-02-05 02:00] VITALS: BP 120/65; RESP 18
[2017-02-05] MEDS: HYDROmorphONE 1 MG/ML SYG IV PRN ×5 (02:02→22:03)
[2017-02-05 07:30] VITALS: BP 116/82; RESP 20
[2017-02-05 08:00] VITALS: BP 116/80; RESP 20
[2017-02-05] MEDS: HYDROmorphONE 2 MG TAB PO PRN (08:10)
[2017-02-05] MEDS: DOCUSATE SODIUM 100 MG CAP PO SCH ×2 (08:39→20:30)
[2017-02-05] MEDS: DULOXETINE 30 MG CAP DR PO SCH ×2 (08:39→20:30)
[2017-02-05] MEDS: oxyCODONE (CR) 10 MG TAB [oxyCONTIN] PO SCH ×2 (08:40→20:30)
[2017-02-05] MEDS: HYDROmorphONE 2 MG/ML SYG IV PRN (10:05)
--- NOTE | 2017-02-05 10:13 | CONS ---
Date/Time of Note Date/Time of Note DATE: 02/05/17 TIME: 10:12 Consult Date/Type/Reason Admit Date/Time Feb 01, 2017 at 21:00 Type of Consultation: Pain management Subjective Patient requires encouragement for activities Objective pulm-cta min assist ambulation with PT Vital Signs Date Time Temp Pulse Resp B/P Pulse Ox O2 Delivery O2 Flow Rate FiO2 02/05/17 07:30 97.9 81 20 116/82 95 02/02/17 03:48 Room Air Intake and Output 02/04/17 02/04/17 02/05/17 15:00 23:00 07:00 Intake Total 980 ml 1050 ml Balance 980 ml 1050 ml Results/Medications Result Diagram: 02/02/17 0647 02/02/17 0648 Medications Current Medications Docusate Sodium (Colace) 100 mg BID PO Last administered on 02/05/17 08:39; Admin Dose 100 MG; Start 02/01/17 at 22:00 Hydralazine HCl (Apresoline) 10 mg Q4H PRN IV SBP>160, DBP>100; Start at 22:00 Hydromorphone HCl (Dilaudid) 1 mg Q4H PRN IV SEVERE PAIN LEVEL 7-10 Last administered on 02/05/17 06:01; Admin Dose 1 MG; Start 02/01/17 at 22:00 Naloxone HCl (Narcan) 0.2 mg Q2M PRN IV RR 8 BREATHS/MIN OR LESS; Start at 22:00 Nortriptyline HCl (Aventyl) 25 mg HS PO Last administered on 02/04/17 20:30; Admin Dose 25 MG; Start 02/01/17 at 22:30 Acetaminophen (Tylenol Tab) 650 mg Q4H PRN PO PAIN AND OR ELEVATED TEMP Last administered on 02/03/17 11:26; Admin Dose 650 MG; Start 02/01/17 at 22:00 Carvedilol (Coreg) 3.125 mg BID PO Last administered on 02/05/17 08:40; Admin Dose 3.125 MG; Start 02/01/17 at 22:00 Diazepam (Valium) 10 mg DAILY PRN PO MUSCLE SPASMS Last administered on 23:27; Admin Dose 10 MG; Start 02/01/17 at 22:00 Duloxetine HCl (Cymbalta) 30 mg BID PO Last administered on 02/05/17 08:39; Admin Dose 30 MG; Start 02/01/17 at 22:00 Oxycodone HCl (Oxycontin) 30 mg BID PO Last administered on 02/05/17 08:40; Admin Dose 30 MG; Start 02/01/17 at 22:00 Senna (Senokot) 1 tab HS PO Last administered on 02/04/17 20:30; Admin Dose 1 TAB; Start 02/02/17 at 21:00 Magnesium Hydroxide (Milk Of Mag) 30 ml BID PRN PO CONSTIPATION Last administered on 02/04/17 06:01; Admin Dose 30 ML; Start 02/01/17 at 23:00 Lactulose (Enulose) 20 gm DAILY PRN PO CONSTIPATION Last administered on 08:40; Admin Dose 20 GM; Start 02/01/17 at 23:00 Bisacodyl (Dulcolax Supp) 10 mg DAILY PRN [place] CONSTIPATION Last administered on 02/03/17 10:06; Admin Dose 10 MG; Start 02/01/17 at 23:00 Miscellaneous Information (Flu Vaccine Previously Dispensed) FLU VACCINE PREVIOU... NOTE PRN XX NOTE; Start 02/02/17 at 00:30 Phenol (Cepastat Lozenge) 1 lozenge Q1H PRN [place] SORE THROAT; Start 02/02/17 at 00:30 Hydromorphone HCl (Dilaudid) 2 mg Q4H PRN PO PAIN Last administered on 08:10; Admin Dose 2 MG; Start 02/02/17 at 10:00 Hydromorphone HCl (Dilaudid) 2 mg QAM PRN IV PAIN Last administered on 10:05; Admin Dose 2 MG; Start 02/05/17 at 09:00 Assessment/Plan Additional Assessment/Plan Rehab- Cervical myelopathy status post decompressive laminectomy and fusion. Continue rehab with premedication prior to therapies. Improved participation today Acute pain syndrome- still adjusting pain medications Constipation-bowel program Morbid obesity. Depression. Hypertension. History of lumbar surgery. History of cholecystectomy. History of hysterectomy. NANNETTE LAZARO MD Feb 05, 2017 10:13
[2017-02-05] MEDS: ACETAMINOPHEN 325 MG TAB PO PRN (12:28)
--- NOTE | 2017-02-05 12:28 | PN ---
Date/Time of Note Date/Time of Note DATE: 02/05/17 TIME: 12:27 Assessment/Plan VTE Prophylaxis VTE Prophylaxis Intervention: other Lines/Catheters IV C[facility] Type ([facility] Saline Lock Urinary Cath still in place: No Assessment/Plan Chief Complaint/Hosp Course -Cervical myelopathy and cervical disc displacement, s/p posterior cervical laminectomy and foraminotomies with instrumental fusion of C3-C7. -Hypertension, continue Coreg. -Depression -Morbid obesity with BMI 44.7. -Acute on chronic back pain. -Urine cultures positive for ESBL E. coli, patient denies any dysuria has a history of ESBL E. coli in the past, most likely colonization. Problems: Subjective 24 Hr Interval Summary Free Text/Dictation Patient complain of pain in neck and shoulders. Exam/Review of Systems Vital Signs Vitals Vital Signs Date Time Temp Pulse Resp B/P Pulse Ox O2 Delivery O2 Flow Rate FiO2 02/05/17 08:00 97.9 20 116/80 95 Room Air 02/05/17 07:30 81 Intake and Output 02/04/17 02/04/17 02/05/17 15:00 23:00 07:00 Intake Total 980 ml 1050 ml Balance 980 ml 1050 ml Exam Constitutional: well developed Head: atraumatic, normocephalic Neck: supple Respiratory: clear to auscultation Cardiovascular: regular rate and rhythm Gastrointestinal: non-tender, soft Extremities: normal pulses Results Result Diagram: 02/02/17 0647 02/02/17 0648 Medications Medications Current Medications Docusate Sodium (Colace) 100 mg BID PO Last administered on 02/05/17 08:39; Admin Dose 100 MG; Start 02/01/17 at 22:00 Hydralazine HCl (Apresoline) 10 mg Q4H PRN IV SBP>160, DBP>100; Start at 22:00 Hydromorphone HCl (Dilaudid) 1 mg Q4H PRN IV SEVERE PAIN LEVEL 7-10 Last administered on 02/05/17 06:01; Admin Dose 1 MG; Start 02/01/17 at 22:00 Naloxone HCl (Narcan) 0.2 mg Q2M PRN IV RR 8 BREATHS/MIN OR LESS; Start at 22:00 Nortriptyline HCl (Aventyl) 25 mg HS PO Last administered on 02/04/17 20:30; Admin Dose 25 MG; Start 02/01/17 at 22:30 Acetaminophen (Tylenol Tab) 650 mg Q4H PRN PO PAIN AND OR ELEVATED TEMP Last administered on 02/03/17 11:26; Admin Dose 650 MG; Start 02/01/17 at 22:00 Carvedilol (Coreg) 3.125 mg BID PO Last administered on 02/05/17 08:40; Admin Dose 3.125 MG; Start 02/01/17 at 22:00 Diazepam (Valium) 10 mg DAILY PRN PO MUSCLE SPASMS Last administered on 23:27; Admin Dose 10 MG; Start 02/01/17 at 22:00 Duloxetine HCl (Cymbalta) 30 mg BID PO Last administered on 02/05/17 08:39; Admin Dose 30 MG; Start 02/01/17 at 22:00 Oxycodone HCl (Oxycontin) 30 mg BID PO Last administered on 02/05/17 08:40; Admin Dose 30 MG; Start 02/01/17 at 22:00 Senna (Senokot) 1 tab HS PO Last administered on 02/04/17 20:30; Admin Dose 1 TAB; Start 02/02/17 at 21:00 Magnesium Hydroxide (Milk Of Mag) 30 ml BID PRN PO CONSTIPATION Last administered on 02/04/17 06:01; Admin Dose 30 ML; Start 02/01/17 at 23:00 Lactulose (Enulose) 20 gm DAILY PRN PO CONSTIPATION Last administered on 08:40; Admin Dose 20 GM; Start 02/01/17 at 23:00 Bisacodyl (Dulcolax Supp) 10 mg DAILY PRN [place] CONSTIPATION Last administered on 02/03/17 10:06; Admin Dose 10 MG; Start 02/01/17 at 23:00 Miscellaneous Information (Flu Vaccine Previously Dispensed) FLU VACCINE PREVIOU... NOTE PRN XX NOTE; Start 02/02/17 at 00:30 Phenol (Cepastat Lozenge) 1 lozenge Q1H PRN [place] SORE THROAT; Start 02/02/17 at 00:30 Hydromorphone HCl (Dilaudid) 2 mg Q4H PRN PO PAIN Last administered on 08:10; Admin Dose 2 MG; Start 02/02/17 at 10:00 Hydromorphone HCl (Dilaudid) 2 mg QAM PRN IV PAIN Last administered on 10:05; Admin Dose 2 MG; Start 02/05/17 at 09:00 SISSY GOMES Feb 05, 2017 12:28
[2017-02-05 20:03] VITALS: BP 147/80; RESP 18
[2017-02-05] MEDS: NORTRIPTYLINE 25 MG CAP PO SCH (20:29)
[2017-02-05] MEDS: SENNA TAB PO SCH (20:30)
[2017-02-06] MEDS: HYDROmorphONE 1 MG/ML SYG IV PRN ×4 (01:56→20:03)
[2017-02-06 08:00] VITALS: BP 116/62; RESP 18
[2017-02-06] MEDS: DOCUSATE SODIUM 100 MG CAP PO SCH ×2 (08:33→20:06)
[2017-02-06] MEDS: DULOXETINE 30 MG CAP DR PO SCH ×2 (08:34→20:05)
[2017-02-06] MEDS: oxyCODONE (CR) 10 MG TAB [oxyCONTIN] PO SCH ×2 (08:34→21:08)
[2017-02-06] MEDS: HYDROmorphONE 2 MG/ML SYG IV PRN ×3 (09:37→16:11)
--- NOTE | 2017-02-06 12:13 | PN ---
Date/Time of Note Date/Time of Note DATE: 02/06/17 TIME: 12:13 Assessment/Plan VTE Prophylaxis VTE Prophylaxis Intervention: other Lines/Catheters IV Catheter Type (from Nrs): Saline Lock Urinary Cath still in place: No Assessment/Plan Chief Complaint/Hosp Course -Cervical myelopathy and cervical disc displacement, s/p posterior cervical laminectomy and foraminotomies with instrumental fusion of C3-C7. -Hypertension, continue Coreg. -Depression -Morbid obesity with BMI 44.7. -Acute on chronic back pain. -Urine cultures positive for ESBL E. coli, patient denies any dysuria has a history of ESBL E. coli in the past, most likely colonization. Problems: Subjective 24 Hr Interval Summary Free Text/Dictation Patient complains of pain at site of incision, on pain medications still Exam/Review of Systems Vital Signs Vitals Vital Signs Date Time Temp Pulse Resp B/P Pulse Ox O2 Delivery O2 Flow Rate FiO2 02/06/17 08:00 97.8 18 116/62 Room Air 02/05/17 20:03 90 98 Intake and Output 02/05/17 02/05/17 02/06/17 15:00 23:00 07:00 Intake Total 500 ml Balance 500 ml Exam Constitutional: well developed Head: atraumatic, normocephalic Neck: supple Respiratory: clear to auscultation Cardiovascular: regular rate and rhythm Gastrointestinal: non-tender, soft Extremities: normal pulses Results Result Diagram: 02/02/17 0647 02/02/17 0648 Medications Medications Current Medications Docusate Sodium (Colace) 100 mg BID PO Last administered on 02/06/17 08:33; Admin Dose 100 MG; Start 02/01/17 at 22:00 Hydralazine HCl (Apresoline) 10 mg Q4H PRN IV SBP>160, DBP>100; Start at 22:00 Hydromorphone HCl (Dilaudid) 1 mg Q4H PRN IV SEVERE PAIN LEVEL 7-10 Last administered on 02/06/17 06:03; Admin Dose 1 MG; Start 02/01/17 at 22:00 Naloxone HCl (Narcan) 0.2 mg Q2M PRN IV RR 8 BREATHS/MIN OR LESS; Start at 22:00 Nortriptyline HCl (Aventyl) 25 mg HS PO Last administered on 02/05/17 20:29; Admin Dose 25 MG; Start 02/01/17 at 22:30 Acetaminophen (Tylenol Tab) 650 mg Q4H PRN PO PAIN AND OR ELEVATED TEMP Last administered on 02/05/17 12:28; Admin Dose 650 MG; Start 02/01/17 at 22:00 Carvedilol (Coreg) 3.125 mg BID PO Last administered on 02/06/17 08:34; Admin Dose 3.125 MG; Start 02/01/17 at 22:00 Diazepam (Valium) 10 mg DAILY PRN PO MUSCLE SPASMS Last administered on 23:27; Admin Dose 10 MG; Start 02/01/17 at 22:00 Duloxetine HCl (Cymbalta) 30 mg BID PO Last administered on 02/06/17 08:34; Admin Dose 30 MG; Start 02/01/17 at 22:00 Oxycodone HCl (Oxycontin) 30 mg BID PO Last administered on 02/06/17 08:34; Admin Dose 30 MG; Start 02/01/17 at 22:00 Senna (Senokot) 1 tab HS PO Last administered on 02/04/17 20:30; Admin Dose 1 TAB; Start 02/02/17 at 21:00 Magnesium Hydroxide (Milk Of Mag) 30 ml BID PRN PO CONSTIPATION Last administered on 02/04/17 06:01; Admin Dose 30 ML; Start 02/01/17 at 23:00 Lactulose (Enulose) 20 gm DAILY PRN PO CONSTIPATION Last administered on 08:40; Admin Dose 20 GM; Start 02/01/17 at 23:00 Bisacodyl (Dulcolax Supp) 10 mg DAILY PRN [place] CONSTIPATION Last administered on 02/03/17 10:06; Admin Dose 10 MG; Start 02/01/17 at 23:00 Miscellaneous Information (Flu Vaccine Previously Dispensed) FLU VACCINE PREVIOU... NOTE PRN XX NOTE; Start 02/02/17 at 00:30 Phenol (Cepastat Lozenge) 1 lozenge Q1H PRN [place] SORE THROAT; Start 02/02/17 at 00:30 Hydromorphone HCl (Dilaudid) 2 mg Q4H PRN PO PAIN Last administered on 08:10; Admin Dose 2 MG; Start 02/02/17 at 10:00 Hydromorphone HCl (Dilaudid) 2 mg QAM PRN IV PAIN Last administered on 09:37; Admin Dose 2 MG; Start 02/05/17 at 09:00 SISSY GOMES Feb 06, 2017 12:13
[2017-02-06] MEDS: DIAZEPAM 5 MG TAB PO PRN (16:11)
[2017-02-06 19:40] VITALS: BP 118/61; RESP 18
[2017-02-06] MEDS: NORTRIPTYLINE 25 MG CAP PO SCH (20:05)
[2017-02-06] MEDS: SENNA TAB PO SCH (20:06)
[2017-02-07] MEDS: HYDROmorphONE 1 MG/ML SYG IV PRN ×5 (00:09→22:30)
[2017-02-07 04:09] VITALS: BP 102/65; RESP 16
[2017-02-07] MEDS: HYDROmorphONE 2 MG/ML SYG IV PRN ×2 (07:56→10:59)
[2017-02-07 08:01] VITALS: BP 124/69; PULSE 73; RESP 18
[2017-02-07] MEDS: DOCUSATE SODIUM 100 MG CAP PO SCH ×2 (08:38→20:14)
[2017-02-07] MEDS: oxyCODONE (CR) 10 MG TAB [oxyCONTIN] PO SCH ×2 (08:39→20:19)
[2017-02-07] MEDS: DULOXETINE 30 MG CAP DR PO SCH ×2 (08:39→20:14)
--- NOTE | 2017-02-07 12:19 | CONS ---
Date/Time of Note Date/Time of Note DATE: 02/07/17 TIME: 12:18 Consult Date/Type/Reason Admit Date/Time Feb 01, 2017 at 21:00 Type of Consultation: Pain management Objective Vital Signs Date Time Temp Pulse Resp B/P Pulse Ox O2 Delivery O2 Flow Rate FiO2 02/07/17 08:01 97.9 73 18 124/69 97 Room Air Intake and Output 02/06/17 02/06/17 02/07/17 15:00 23:00 07:00 Intake Total 600 ml 400 ml Balance 600 ml 400 ml INTERDISCIPLINARY TEAM CONFERENCE BOWEL- Cont BLADDER-Cont SKIN- intact OT- DRESSING-min/mod BATHING-min//mod TOILETING-min/mod PT- BED MOBILITY-min TRANSFERS-min AMBULATION-min 100 A/P- Interdisciplinary team conference held today. Please see interdisciplinary sheet. Working toward d.c. on 02/16 with post discharge follow up of physical therapy, occupational therapy. Results/Medications Medications Current Medications Docusate Sodium (Colace) 100 mg BID PO Last administered on 02/07/17 08:38; Admin Dose 100 MG; Start 02/01/17 at 22:00 Hydralazine HCl (Apresoline) 10 mg Q4H PRN IV SBP>160, DBP>100; Start at 22:00 Hydromorphone HCl (Dilaudid) 1 mg Q4H PRN IV SEVERE PAIN LEVEL 7-10 Last administered on 02/07/17 04:06; Admin Dose 1 MG; Start 02/01/17 at 22:00 Naloxone HCl (Narcan) 0.2 mg Q2M PRN IV RR 8 BREATHS/MIN OR LESS; Start at 22:00 Nortriptyline HCl (Aventyl) 25 mg HS PO Last administered on 02/06/17 20:05; Admin Dose 25 MG; Start 02/01/17 at 22:30 Acetaminophen (Tylenol Tab) 650 mg Q4H PRN PO PAIN AND OR ELEVATED TEMP Last administered on 02/05/17 12:28; Admin Dose 650 MG; Start 02/01/17 at 22:00 Carvedilol (Coreg) 3.125 mg BID PO Last administered on 02/07/17 08:39; Admin Dose 3.125 MG; Start 02/01/17 at 22:00 Diazepam (Valium) 10 mg DAILY PRN PO MUSCLE SPASMS Last administered on 16:11; Admin Dose 10 MG; Start 02/01/17 at 22:00 Duloxetine HCl (Cymbalta) 30 mg BID PO Last administered on 02/07/17 08:39; Admin Dose 30 MG; Start 02/01/17 at 22:00 Oxycodone HCl (Oxycontin) 30 mg BID PO Last administered on 02/07/17 08:39; Admin Dose 30 MG; Start 02/01/17 at 22:00 Senna (Senokot) 1 tab HS PO Last administered on 02/04/17 20:30; Admin Dose 1 TAB; Start 02/02/17 at 21:00 Magnesium Hydroxide (Milk Of Mag) 30 ml BID PRN PO CONSTIPATION Last administered on 02/04/17 06:01; Admin Dose 30 ML; Start 02/01/17 at 23:00 Lactulose (Enulose) 20 gm DAILY PRN PO CONSTIPATION Last administered on 08:40; Admin Dose 20 GM; Start 02/01/17 at 23:00 Bisacodyl (Dulcolax Supp) 10 mg DAILY PRN [place] CONSTIPATION Last administered on 02/03/17 10:06; Admin Dose 10 MG; Start 02/01/17 at 23:00 Miscellaneous Information (Flu Vaccine Previously Dispensed) FLU VACCINE PREVIOU... NOTE PRN XX NOTE; Start 02/02/17 at 00:30 Phenol (Cepastat Lozenge) 1 lozenge Q1H PRN [place] SORE THROAT; Start 02/02/17 at 00:30 Hydromorphone HCl (Dilaudid) 2 mg Q4H PRN PO PAIN Last administered on 08:10; Admin Dose 2 MG; Start 02/02/17 at 10:00 Hydromorphone HCl (Dilaudid) 2 mg QAM PRN IV PAIN Last administered on 10:59; Admin Dose 2 MG; Start 02/05/17 at 09:00 NANNETTE LAZARO MD Feb 07, 2017 12:19
[2017-02-07] MEDS: HYDROmorphONE 2 MG TAB PO PRN (17:32)
--- NOTE | 2017-02-07 17:45 | PN ---
Date/Time of Note Date/Time of Note DATE: 02/07/17 TIME: 17:43 Assessment/Plan VTE Prophylaxis VTE Prophylaxis Intervention: SCD's Lines/Catheters [facility] Type [facility] Saline Lock Urinary Cath still in place: No Assessment/Plan Chief Complaint/Hosp Course Pt denies any dysuria, participate in physical therapy was improvement Assessment/Plan -Cervical myelopathy and cervical disc displacement, s/p posterior cervical laminectomy and foraminotomies with instrumental fusion of C3-C7. -Hypertension, continue Coreg. -Depression -Morbid obesity with BMI 44.7. -Acute on chronic back pain. -Urine cultures positive for ESBL E. coli, patient denies any dysuria has a history of ESBL E. coli in the past,repeat cultures negative Further recommendations based on clinical course. Plan of care discussed with Dr. Zhu Problems: Exam/Review of Systems Vital Signs Vitals Vital Signs Date Time Temp Pulse Resp B/P Pulse Ox O2 Delivery O2 Flow Rate FiO2 02/07/17 08:01 97.9 73 18 124/69 97 Room Air Intake and Output 02/06/17 02/06/17 02/07/17 15:00 23:00 07:00 Intake Total 600 ml 400 ml Balance 600 ml 400 ml Exam Constitutional: alert, oriented Neck: other (s/p surgery) Respiratory: clear to auscultation Cardiovascular: nl pulses Gastrointestinal: non-tender, soft Extremities: normal pulses Medications Medications Current Medications Docusate Sodium (Colace) 100 mg BID PO Last administered on 02/07/17 08:38; Admin Dose 100 MG; Start 02/01/17 at 22:00 Hydralazine HCl (Apresoline) 10 mg Q4H PRN IV SBP>160, DBP>100; Start at 22:00 Hydromorphone HCl (Dilaudid) 1 mg Q4H PRN IV SEVERE PAIN LEVEL 7-10 Last administered on 02/07/17 14:20; Admin Dose 1 MG; Start 02/01/17 at 22:00 Naloxone HCl (Narcan) 0.2 mg Q2M PRN IV RR 8 BREATHS/MIN OR LESS; Start at 22:00 Nortriptyline HCl (Aventyl) 25 mg HS PO Last administered on 02/06/17 20:05; Admin Dose 25 MG; Start 02/01/17 at 22:30 Acetaminophen (Tylenol Tab) 650 mg Q4H PRN PO PAIN AND OR ELEVATED TEMP Last administered on 02/05/17 12:28; Admin Dose 650 MG; Start 02/01/17 at 22:00 Carvedilol (Coreg) 3.125 mg BID PO Last administered on 02/07/17 08:39; Admin Dose 3.125 MG; Start 02/01/17 at 22:00 Diazepam (Valium) 10 mg DAILY PRN PO MUSCLE SPASMS Last administered on 16:11; Admin Dose 10 MG; Start 02/01/17 at 22:00 Duloxetine HCl (Cymbalta) 30 mg BID PO Last administered on 02/07/17 08:39; Admin Dose 30 MG; Start 02/01/17 at 22:00 Oxycodone HCl (Oxycontin) 30 mg BID PO Last administered on 02/07/17 08:39; Admin Dose 30 MG; Start 02/01/17 at 22:00 Senna (Senokot) 1 tab HS PO Last administered on 02/04/17 20:30; Admin Dose 1 TAB; Start 02/02/17 at 21:00 Magnesium Hydroxide (Milk Of Mag) 30 ml BID PRN PO CONSTIPATION Last administered on 02/04/17 06:01; Admin Dose 30 ML; Start 02/01/17 at 23:00 Lactulose (Enulose) 20 gm DAILY PRN PO CONSTIPATION Last administered on 08:40; Admin Dose 20 GM; Start 02/01/17 at 23:00 Bisacodyl (Dulcolax Supp) 10 mg DAILY PRN [place] CONSTIPATION Last administered on 02/03/17 10:06; Admin Dose 10 MG; Start 02/01/17 at 23:00 Miscellaneous Information (Flu Vaccine Previously Dispensed) FLU VACCINE PREVIOU... NOTE PRN XX NOTE; Start 02/02/17 at 00:30 Phenol (Cepastat Lozenge) 1 lozenge Q1H PRN MT SORE THROAT; Start 02/02/17 at 00:30 Hydromorphone HCl (Dilaudid) 2 mg Q4H PRN PO PAIN Last administered on 17:32; Admin Dose 2 MG; Start 02/02/17 at 10:00 Hydromorphone HCl (Dilaudid) 2 mg QAM PRN IV PAIN Last administered on t 10:59; Admin Dose 2 MG; Start 02/05/17 at 09:00 JÚNIOR DOLAN Feb 07, 2017 17:45
[2017-02-07 20:00] VITALS: BP 110/66; PULSE 84; RESP 18
[2017-02-07] MEDS: SENNA TAB PO SCH (20:15)
[2017-02-07] MEDS: NORTRIPTYLINE 25 MG CAP PO SCH (20:15)
[2017-02-08 02:00] VITALS: BP 134/74; PULSE 84; RESP 16
[2017-02-08] MEDS: HYDROmorphONE 1 MG/ML SYG IV PRN ×5 (02:36→20:41)
[2017-02-08] MEDS: HYDROmorphONE 2 MG/ML SYG IV PRN (08:05)
[2017-02-08 09:00] VITALS: BP 123/67; PULSE 88; RESP 20
[2017-02-08] MEDS: DULOXETINE 30 MG CAP DR PO SCH ×2 (09:41→20:35)
[2017-02-08] MEDS: oxyCODONE (CR) 10 MG TAB [oxyCONTIN] PO SCH ×2 (09:42→20:35)
[2017-02-08] MEDS: DOCUSATE SODIUM 100 MG CAP PO SCH ×2 (09:43→20:34)
--- NOTE | 2017-02-08 11:13 | CONS ---
Date/Time of Note Date/Time of Note DATE: 02/08/17 TIME: 11:09 Consult Date/Type/Reason Admit Date/Time Feb 01, 2017 at 21:00 Type of Consultation: Pain management Subjective Patient reportsshe would like to go home tomorrow. She has family able to assist at home. Objective pulm-cta sba ambulation with PT Vital Signs Date Time Temp Pulse Resp B/P Pulse Ox O2 Delivery O2 Flow Rate FiO2 02/08/17 02:00 97.5 84 16 134/74 96 Room Air Intake and Output 02/07/17 02/07/17 02/08/17 15:00 23:00 07:00 Intake Total 1200 ml 500 ml Balance 1200 ml 500 ml Results/Medications Medications Current Medications Docusate Sodium (Colace) 100 mg BID PO Last administered on 02/08/17 09:43; Admin Dose 100 MG; Start 02/01/17 at 22:00 Hydralazine HCl (Apresoline) 10 mg Q4H PRN IV SBP>160, DBP>100; Start at 22:00 Hydromorphone HCl (Dilaudid) 1 mg Q4H PRN IV SEVERE PAIN LEVEL 7-10 Last administered on 02/08/17 06:38; Admin Dose 1 MG; Start 02/01/17 at 22:00 Naloxone HCl (Narcan) 0.2 mg Q2M PRN IV RR 8 BREATHS/MIN OR LESS; Start at 22:00 Nortriptyline HCl (Aventyl) 25 mg HS PO Last administered on 02/07/17 20:15; Admin Dose 25 MG; Start 02/01/17 at 22:30 Acetaminophen (Tylenol Tab) 650 mg Q4H PRN PO PAIN AND OR ELEVATED TEMP Last administered on 02/05/17 12:28; Admin Dose 650 MG; Start 02/01/17 at 22:00 Carvedilol (Coreg) 3.125 mg BID PO Last administered on 02/08/17 09:43; Admin Dose 3.125 MG; Start 02/01/17 at 22:00 Diazepam (Valium) 10 mg DAILY PRN PO MUSCLE SPASMS Last administered on 16:11; Admin Dose 10 MG; Start 02/01/17 at 22:00 Duloxetine HCl (Cymbalta) 30 mg BID PO Last administered on 02/08/17 09:41; Admin Dose 30 MG; Start 02/01/17 at 22:00 Oxycodone HCl (Oxycontin) 30 mg BID PO Last administered on 02/08/17 09:42; Admin Dose 30 MG; Start 02/01/17 at 22:00 Senna (Senokot) 1 tab HS PO Last administered on 02/07/17 20:15; Admin Dose 1 TAB; Start 02/02/17 at 21:00 Magnesium Hydroxide (Milk Of Mag) 30 ml BID PRN PO CONSTIPATION Last administered on 02/04/17 06:01; Admin Dose 30 ML; Start 02/01/17 at 23:00 Lactulose (Enulose) 20 gm DAILY PRN PO CONSTIPATION Last administered on 08:40; Admin Dose 20 GM; Start 02/01/17 at 23:00 Bisacodyl (Dulcolax Supp) 10 mg DAILY PRN [place] CONSTIPATION Last administered on 02/03/17 10:06; Admin Dose 10 MG; Start 02/01/17 at 23:00 Miscellaneous Information (Flu Vaccine Previously Dispensed) FLU VACCINE PREVIOU... NOTE PRN XX NOTE; Start 02/02/17 at 00:30 Phenol (Cepastat Lozenge) 1 lozenge Q1H PRN MT SORE THROAT; Start 02/02/17 at 00:30 Hydromorphone HCl (Dilaudid) 2 mg Q4H PRN PO PAIN Last administered on 17:32; Admin Dose 2 MG; Start 02/02/17 at 10:00 Hydromorphone HCl (Dilaudid) 2 mg QAM PRN IV PAIN Last administered on 08:05; Admin Dose 2 MG; Start 02/05/17 at 09:00 Assessment/Plan Additional Assessment/Plan Rehab- Cervical myelopathy status post decompressive laminectomy and fusion. Work towards home tomorrow with family Constipation-results with bowel program Morbid obesity. Depression. Hypertension. History of lumbar surgery. History of cholecystectomy. History of hysterectomy. NANNETTE LAZARO MD Feb 08, 2017 11:13
[2017-02-08] MEDS: HYDROmorphONE 2 MG TAB PO PRN (18:08)
--- NOTE | 2017-02-08 18:27 | PN ---
Date/Time of Note Date/Time of Note DATE: 02/08/17 TIME: 18:25 Assessment/Plan VTE Prophylaxis VTE Prophylaxis Intervention: SCD's Lines/Catheters IV Catheter Type (from Nrs): Saline Lock Urinary Cath still in place: No Assessment/Plan Chief Complaint/Hosp Course Pt is a small area of skin opening on surgical incision patient's complains of increased pain, started on broad-spectrum antibiotics by neurosurgery Assessment/Plan -Cervical myelopathy and cervical disc displacement, s/p posterior cervical laminectomy and foraminotomies with instrumental fusion of C3-C7. -Hypertension, continue Coreg. -Depression -Morbid obesity with BMI 44.7. -Acute on chronic back pain. -Urine cultures positive for ESBL E. coli, patient denies any dysuria has a history of ESBL E. coli in the past,repeat cultures negative Further recommendations based on clinical course. Plan of care discussed with Dr. Zhu Problems: Exam/Review of Systems Vital Signs Vitals Vital Signs Date Time Temp Pulse Resp B/P Pulse Ox O2 Delivery O2 Flow Rate FiO2 02/08/17 09:00 98.1 88 20 123/67 95 Room Air Intake and Output 02/07/17 02/07/17 02/08/17 14:59 22:59 06:59 Intake Total 1200 ml 500 ml Balance 1200 ml 500 ml Exam Constitutional: alert, oriented Neck: other (s/p surgery) Respiratory: clear to auscultation Cardiovascular: nl pulses Gastrointestinal: non-tender, soft Extremities: normal pulses Medications Medications Current Medications Docusate Sodium (Colace) 100 mg BID PO Last administered on 02/08/17 09:43; Admin Dose 100 MG; Start 02/01/17 at 22:00 Hydralazine HCl (Apresoline) 10 mg Q4H PRN IV SBP>160, DBP>100; Start at 22:00 Hydromorphone HCl (Dilaudid) 1 mg Q4H PRN IV SEVERE PAIN LEVEL 7-10 Last administered on 02/08/17 16:41; Admin Dose 1 MG; Start 02/01/17 at 22:00 Naloxone HCl (Narcan) 0.2 mg Q2M PRN IV RR 8 BREATHS/MIN OR LESS; Start at 22:00 Nortriptyline HCl (Aventyl) 25 mg HS PO Last administered on 02/07/17 20:15; Admin Dose 25 MG; Start 02/01/17 at 22:30 Acetaminophen (Tylenol Tab) 650 mg Q4H PRN PO PAIN AND OR ELEVATED TEMP Last administered on 02/05/17 12:28; Admin Dose 650 MG; Start 02/01/17 at 22:00 Carvedilol (Coreg) 3.125 mg BID PO Last administered on 02/08/17 09:43; Admin Dose 3.125 MG; Start 02/01/17 at 22:00 Diazepam (Valium) 10 mg DAILY PRN PO MUSCLE SPASMS Last administered on 16:11; Admin Dose 10 MG; Start 02/01/17 at 22:00 Duloxetine HCl (Cymbalta) 30 mg BID PO Last administered on 02/08/17 09:41; Admin Dose 30 MG; Start 02/01/17 at 22:00 Oxycodone HCl (Oxycontin) 30 mg BID PO Last administered on 02/08/17 09:42; Admin Dose 30 MG; Start 02/01/17 at 22:00 Senna (Senokot) 1 tab HS PO Last administered on 02/07/17 20:15; Admin Dose 1 TAB; Start 02/02/17 at 21:00 Magnesium Hydroxide (Milk Of Mag) 30 ml BID PRN PO CONSTIPATION Last administered on 02/04/17 06:01; Admin Dose 30 ML; Start 02/01/17 at 23:00 Lactulose (Enulose) 20 gm DAILY PRN PO CONSTIPATION Last administered on 08:40; Admin Dose 20 GM; Start 02/01/17 at 23:00 Bisacodyl (Dulcolax Supp) 10 mg DAILY PRN [place] CONSTIPATION Last administered on 02/03/17 10:06; Admin Dose 10 MG; Start 02/01/17 at 23:00 Miscellaneous Information (Flu Vaccine Previously Dispensed) FLU VACCINE PREVIOU... NOTE PRN XX NOTE; Start 02/02/17 at 00:30 Phenol (Cepastat Lozenge) 1 lozenge Q1H PRN MT SORE THROAT; Start 02/02/17 at 00:30 Hydromorphone HCl (Dilaudid) 2 mg Q4H PRN PO PAIN Last administered on 18:08; Admin Dose 2 MG; Start 02/02/17 at 10:00 Hydromorphone HCl 2 mg 2 mg QAM PRN IV PAIN Last administered on 02/08/17 08: 05; Admin Dose 2 MG; Start 02/05/17 at 09:00 Cefazolin Sodium/ Dextrose (Ancef 2 Gm/50 ml (Pmx)) 50 ml @ 100 mls/hr Q8 IVPB ; Start 02/08/17 at 22:00; Stop 02/11/17 at 21:59 JÚNIOR DOLAN Feb 08, 2017 18:27
[2017-02-08] MEDS: SENNA TAB PO SCH (20:34)
[2017-02-08] MEDS: NORTRIPTYLINE 25 MG CAP PO SCH (20:35)
[2017-02-08 20:38] VITALS: BP 117/73; PULSE 78; RESP 18
[2017-02-08] MEDS: CEFAZOLIN 2 GM/50 ML (PMX) 50 ML IVPB SCH (22:05)
[2017-02-09] MEDS: HYDROmorphONE 1 MG/ML SYG IV PRN ×5 (00:38→22:50)
[2017-02-09 02:07] VITALS: BP 101/61; PULSE 71; RESP 18
[2017-02-09] MEDS: CEFAZOLIN 2 GM/50 ML (PMX) 50 ML IVPB SCH ×3 (05:37→21:35)
[2017-02-09] MEDS: HYDROmorphONE 2 MG/ML SYG IV PRN ×3 (07:57→13:01)
[2017-02-09 08:00] VITALS: BP 126/76; PULSE 76; RESP 18
[2017-02-09] MEDS: DOCUSATE SODIUM 100 MG CAP PO SCH ×2 (09:11→21:33)
[2017-02-09] MEDS: DULOXETINE 30 MG CAP DR PO SCH ×2 (09:11→21:34)
[2017-02-09] MEDS: oxyCODONE (CR) 10 MG TAB [oxyCONTIN] PO SCH ×2 (09:11→21:35)
--- NOTE | 2017-02-09 12:33 | PN ---
Date/Time of Note Date/Time of Note DATE: 02/09/17 TIME: 12:30 Assessment/Plan VTE Prophylaxis VTE Prophylaxis Intervention: SCD's Lines/Catheters IV C[facility]ter Type (from [facility] Saline Lock Urinary Cath still in place: No Assessment/Plan Chief Complaint/Hosp Course Pt is a small area of skin opening on surgical incision, complains of pain, continues to participate in physical therapy Assessment/Plan -Cervical myelopathy and cervical disc displacement, s/p posterior cervical laminectomy and foraminotomies with instrumental fusion of C3-C7. -Possible soft tissue infection at the surgical site, patient was evaluated by neurosurgeon, will continue antibiotics and intravenous and topical. -Hypertension, continue Coreg. -Depression -Morbid obesity with BMI 44.7. -Acute on chronic back pain. -Urine cultures positive for ESBL E. coli, patient denies any dysuria has a history of ESBL E. coli in the past,repeat cultures negative Further recommendations based on clinical course. Plan of care discussed with Dr. Zhu Problems: Exam/Review of Systems Vital Signs Vitals Vital Signs Date Time Temp Pulse Resp B/P Pulse Ox O2 Delivery O2 Flow Rate FiO2 02/09/17 08:00 98.3 76 18 126/76 98 Room Air Intake and Output 02/08/17 02/08/17 02/09/17 15:00 23:00 07:00 Intake Total 450 ml Balance 450 ml Exam Constitutional: alert, oriented Neck: other (s/p surgery,) Respiratory: clear to auscultation Cardiovascular: nl pulses Gastrointestinal: non-tender, soft Extremities: normal pulses Medications Medications Current Medications Docusate Sodium (Colace) 100 mg BID PO Last administered on 02/09/17 09:11; Admin Dose 100 MG; Start 02/01/17 at 22:00 Hydralazine HCl (Apresoline) 10 mg Q4H PRN IV SBP>160, DBP>100; Start at 22:00 Hydromorphone HCl (Dilaudid) 1 mg Q4H PRN IV SEVERE PAIN LEVEL 7-10 Last administered on 02/09/17 04:44; Admin Dose 1 MG; Start 02/01/17 at 22:00 Naloxone HCl (Narcan) 0.2 mg Q2M PRN IV RR 8 BREATHS/MIN OR LESS; Start at 22:00 Nortriptyline HCl (Aventyl) 25 mg HS PO Last administered on 02/08/17 20:35; Admin Dose 25 MG; Start 02/01/17 at 22:30 Acetaminophen (Tylenol Tab) 650 mg Q4H PRN PO PAIN AND OR ELEVATED TEMP Last administered on 02/05/17 12:28; Admin Dose 650 MG; Start 02/01/17 at 22:00 Carvedilol (Coreg) 3.125 mg BID PO Last administered on 02/09/17 09:12; Admin Dose 3.125 MG; Start 02/01/17 at 22:00 Diazepam (Valium) 10 mg DAILY PRN PO MUSCLE SPASMS Last administered on 16:11; Admin Dose 10 MG; Start 02/01/17 at 22:00 Duloxetine HCl (Cymbalta) 30 mg BID PO Last administered on 02/09/17 09:11; Admin Dose 30 MG; Start 02/01/17 at 22:00 Oxycodone HCl (Oxycontin) 30 mg BID PO Last administered on 02/09/17 09:11; Admin Dose 30 MG; Start 02/01/17 at 22:00 Senna (Senokot) 1 tab HS PO Last administered on 02/08/17 20:34; Admin Dose 1 TAB; Start 02/02/17 at 21:00 Magnesium Hydroxide (Milk Of Mag) 30 ml BID PRN PO CONSTIPATION Last administered on 02/04/17 06:01; Admin Dose 30 ML; Start 02/01/17 at 23:00 Lactulose (Enulose) 20 gm DAILY PRN PO CONSTIPATION Last administered on 08:40; Admin Dose 20 GM; Start 02/01/17 at 23:00 Bisacodyl (Dulcolax Supp) 10 mg DAILY PRN [place] CONSTIPATION Last administered on 02/03/17 10:06; Admin Dose 10 MG; Start 02/01/17 at 23:00 Miscellaneous Information (Flu Vaccine Previously Dispensed) FLU VACCINE PREVIOU... NOTE PRN XX NOTE; Start 02/02/17 at 00:30 Phenol (Cepastat Lozenge) 1 lozenge Q1H PRN [place] SORE THROAT; Start 02/02/17 at 00:30 Hydromorphone HCl (Dilaudid) 2 mg Q4H PRN PO PAIN Last administered on 18:08; Admin Dose 2 MG; Start 02/02/17 at 10:00 Hydromorphone HCl 2 mg 2 mg QAM PRN IV PAIN LEVEL 7-10 Last administered on 10:45; Admin Dose 2 MG; Start 02/05/17 at 09:00 Cefazolin Sodium/ Dextrose (Ancef 2 Gm/50 ml (Pmx)) 50 ml @ 100 mls/hr Q8 IVPB Last administered on 02/09/17 05:37; Admin Dose 100 MLS/HR; Start 02/08/17 at 22:00; Stop 02/11/17 at 21:59 Neomycin/ Polymyxin/ Bacitracin (Neosporin Topical Oint) 1 applic TID TOP ; Start 02/09/17 at 13:00 JÚNIOR DOLAN Feb 09, 2017 12:33
--- NOTE | 2017-02-09 12:53 | CONS ---
Date/Time of Note Date/Time of Note DATE: 02/09/17 TIME: 12:53 Consult Date/Type/Reason Admit Date/Time Feb 01, 2017 at 21:00 Type of Consultation: Pain management Subjective RN reports patient with slight wound dehiscence and drainage Objective min assist transfer cga ambulation Vital Signs Date Time Temp Pulse Resp B/P Pulse Ox O2 Delivery O2 Flow Rate FiO2 02/09/17 08:00 98.3 76 18 126/76 98 Room Air Intake and Output 02/08/17 02/08/17 02/09/17 15:00 23:00 07:00 Intake Total 450 ml Balance 450 ml Results/Medications Medications Current Medications Docusate Sodium (Colace) 100 mg BID PO Last administered on 02/09/17 09:11; Admin Dose 100 MG; Start 02/01/17 at 22:00 Hydralazine HCl (Apresoline) 10 mg Q4H PRN IV SBP>160, DBP>100; Start at 22:00 Hydromorphone HCl (Dilaudid) 1 mg Q4H PRN IV SEVERE PAIN LEVEL 7-10 Last administered on 02/09/17 04:44; Admin Dose 1 MG; Start 02/01/17 at 22:00 Naloxone HCl (Narcan) 0.2 mg Q2M PRN IV RR 8 BREATHS/MIN OR LESS; Start at 22:00 Nortriptyline HCl (Aventyl) 25 mg HS PO Last administered on 02/08/17 20:35; Admin Dose 25 MG; Start 02/01/17 at 22:30 Acetaminophen (Tylenol Tab) 650 mg Q4H PRN PO PAIN AND OR ELEVATED TEMP Last administered on 02/05/17 12:28; Admin Dose 650 MG; Start 02/01/17 at 22:00 Carvedilol (Coreg) 3.125 mg BID PO Last administered on 02/09/17 09:12; Admin Dose 3.125 MG; Start 02/01/17 at 22:00 Diazepam (Valium) 10 mg DAILY PRN PO MUSCLE SPASMS Last administered on 16:11; Admin Dose 10 MG; Start 02/01/17 at 22:00 Duloxetine HCl (Cymbalta) 30 mg BID PO Last administered on 02/09/17 09:11; Admin Dose 30 MG; Start 02/01/17 at 22:00 Oxycodone HCl (Oxycontin) 30 mg BID PO Last administered on 02/09/17 09:11; Admin Dose 30 MG; Start 02/01/17 at 22:00 Senna (Senokot) 1 tab HS PO Last administered on 02/08/17 20:34; Admin Dose 1 TAB; Start 02/02/17 at 21:00 Magnesium Hydroxide (Milk Of Mag) 30 ml BID PRN PO CONSTIPATION Last administered on 02/04/17 06:01; Admin Dose 30 ML; Start 02/01/17 at 23:00 Lactulose (Enulose) 20 gm DAILY PRN PO CONSTIPATION Last administered on 08:40; Admin Dose 20 GM; Start 02/01/17 at 23:00 Bisacodyl (Dulcolax Supp) 10 mg DAILY PRN [place] CONSTIPATION Last administered on 02/03/17 10:06; Admin Dose 10 MG; Start 02/01/17 at 23:00 Miscellaneous Information (Flu Vaccine Previously Dispensed) FLU VACCINE PREVIOU... NOTE PRN XX NOTE; Start 02/02/17 at 00:30 Phenol (Cepastat Lozenge) 1 lozenge Q1H PRN [place] SORE THROAT; Start 02/02/17 at 00:30 Hydromorphone HCl (Dilaudid) 2 mg Q4H PRN PO PAIN Last administered on 18:08; Admin Dose 2 MG; Start 02/02/17 at 10:00 Hydromorphone HCl 2 mg 2 mg QAM PRN IV PAIN LEVEL 7-10 Last administered on 10:45; Admin Dose 2 MG; Start 02/05/17 at 09:00 Cefazolin Sodium/ Dextrose (Ancef 2 Gm/50 ml (Pmx)) 50 ml @ 100 mls/hr Q8 IVPB Last administered on 02/09/17 05:37; Admin Dose 100 MLS/HR; Start 02/08/17 at 22:00; Stop 02/11/17 at 21:59 Neomycin/ Polymyxin/ Bacitracin (Neosporin Topical Oint) 1 applic TID TOP ; Start 02/09/17 at 13:00 Assessment/Plan Additional Assessment/Plan Rehab- Cervical myelopathy status post decompressive laminectomy and fusion. Hold discharge due to wound drainage. Continue activities as tolerated ID- abx due to wound drainage. GI-continue bowel program Morbid obesity. Depression. Hypertension. History of lumbar surgery. History of cholecystectomy. History of hysterectomy. NANNETTE LAZARO MD Feb 09, 2017 12:53
[2017-02-09] MEDS: NEOMYC/POLYMYX/BACIT 30 GM OINT TOP SCH ×2 (13:00→21:00)
[2017-02-09] MEDS: HYDROmorphONE 2 MG TAB PO PRN (15:59)
[2017-02-09] MEDS ORDERED: HYDROmorphONE 1 MG/ML SYG IV PRN (18:00)
[2017-02-09 20:00] VITALS: BP 110/62; PULSE 80; RESP 18
[2017-02-09] MEDS: NORTRIPTYLINE 25 MG CAP PO SCH (21:33)
[2017-02-09] MEDS: SENNA TAB PO SCH (21:35)
[2017-02-10] MEDS: HYDROmorphONE 1 MG/ML SYG IV PRN ×5 (01:55→21:01)
[2017-02-10 02:00] VITALS: BP_SYST 104; BP_SYST 142; BP_DIAS 62; BP_DIAS 72; PULSE 68; PULSE 76; RESP 16; RESP 18
[2017-02-10] MEDS: CEFAZOLIN 2 GM/50 ML (PMX) 50 ML IVPB SCH ×3 (05:00→22:09)
[2017-02-10 08:00] VITALS: BP 124/88; PULSE 74; RESP 18
[2017-02-10] MEDS: HYDROmorphONE 2 MG/ML SYG IV PRN ×2 (08:12→11:02)
[2017-02-10] MEDS: DULOXETINE 30 MG CAP DR PO SCH ×2 (08:17→21:12)
[2017-02-10] MEDS: NEOMYC/POLYMYX/BACIT 30 GM OINT TOP SCH ×3 (08:17→21:13)
[2017-02-10] MEDS: DOCUSATE SODIUM 100 MG CAP PO SCH ×3 (08:17→21:12)
[2017-02-10] MEDS: oxyCODONE (CR) 10 MG TAB [oxyCONTIN] PO SCH ×2 (09:32→22:10)
--- NOTE | 2017-02-10 12:50 | CONS ---
Date/Time of Note Date/Time of Note DATE: 02/10/17 TIME: 12:49 Consult Date/Type/Reason Admit Date/Time Feb 01, 2017 at 21:00 Type of Consultation: Pain management Subjective feeling slightly better Objective pulm-cta sba/cga ambulation Vital Signs Date Time Temp Pulse Resp B/P Pulse Ox O2 Delivery O2 Flow Rate FiO2 02/10/17 08:00 98.3 74 18 124/88 97 Room Air Intake and Output 02/09/17 02/09/17 02/10/17 15:00 23:00 07:00 Intake Total 700 ml 400 ml Output Total 750 ml Balance 700 ml -350 ml Results/Medications Medications Current Medications Docusate Sodium (Colace) 100 mg BID PO Last administered on 02/09/17 21:33; Admin Dose 100 MG; Start 02/01/17 at 22:00 Hydralazine HCl (Apresoline) 10 mg Q4H PRN IV SBP>160, DBP>100; Start at 22:00 Naloxone HCl (Narcan) 0.2 mg Q2M PRN IV RR 8 BREATHS/MIN OR LESS; Start at 22:00 Nortriptyline HCl (Aventyl) 25 mg HS PO Last administered on 02/09/17 21:33; Admin Dose 25 MG; Start 02/01/17 at 22:30 Acetaminophen (Tylenol Tab) 650 mg Q4H PRN PO PAIN AND OR ELEVATED TEMP Last administered on 02/05/17 12:28; Admin Dose 650 MG; Start 02/01/17 at 22:00 Carvedilol (Coreg) 3.125 mg BID PO Last administered on 02/10/17 08:17; Admin Dose 3.125 MG; Start 02/01/17 at 22:00 Diazepam (Valium) 10 mg DAILY PRN PO MUSCLE SPASMS Last administered on 16:11; Admin Dose 10 MG; Start 02/01/17 at 22:00 Duloxetine HCl (Cymbalta) 30 mg BID PO Last administered on 02/10/17 08:17; Admin Dose 30 MG; Start 02/01/17 at 22:00 Oxycodone HCl (Oxycontin) 30 mg BID PO Last administered on 02/10/17 09:32; Admin Dose 30 MG; Start 02/01/17 at 22:00 Senna (Senokot) 1 tab HS PO Last administered on 02/09/17 21:35; Admin Dose 1 TAB; Start 02/02/17 at 21:00 Magnesium Hydroxide (Milk Of Mag) 30 ml BID PRN PO CONSTIPATION Last administered on 02/04/17 06:01; Admin Dose 30 ML; Start 02/01/17 at 23:00 Lactulose (Enulose) 20 gm DAILY PRN PO CONSTIPATION Last administered on 08:40; Admin Dose 20 GM; Start 02/01/17 at 23:00 Bisacodyl (Dulcolax Supp) 10 mg DAILY PRN [place] CONSTIPATION Last administered on 02/03/17 10:06; Admin Dose 10 MG; Start 02/01/17 at 23:00 Miscellaneous Information (Flu Vaccine Previously Dispensed) FLU VACCINE PREVIOU... NOTE PRN XX NOTE; Start 02/02/17 at 00:30 Phenol (Cepastat Lozenge) 1 lozenge Q1H PRN [place] SORE THROAT; Start 02/02/17 at 00:30 Hydromorphone HCl (Dilaudid) 2 mg Q4H PRN PO PAIN Last administered on 15:59; Admin Dose 2 MG; Start 02/02/17 at 10:00 Hydromorphone HCl 2 mg 2 mg QAM PRN IV PAIN LEVEL 7-10 Last administered on 11:02; Admin Dose 2 MG; Start 02/05/17 at 09:00 Cefazolin Sodium/ Dextrose (Ancef 2 Gm/50 ml (Pmx)) 50 ml @ 100 mls/hr Q8 IVPB Last administered on 02/10/17 05:00; Admin Dose 100 MLS/HR; Start 02/08/17 at 22:00; Stop 02/11/17 at 21:59 Neomycin/ Polymyxin/ Bacitracin (Neosporin Topical Oint) 1 applic TID TOP Last administered on 02/10/17 08:17; Admin Dose 1 APPLIC; Start 02/09/17 at 13:00 Hydromorphone HCl (Dilaudid) 1 mg Q3H PRN IV SEVERE PAIN LEVEL 7-10 Last administered on 02/10/17 04:57; Admin Dose 1 MG; Start 02/09/17 at 16:00 Assessment/Plan Additional Assessment/Plan Rehab- Cervical myelopathy status post decompressive laminectomy and fusion. Continue rehab activities as tolerated Integ- continue abx and woundcare GI-continue bowel program Morbid obesity. Depression. Hypertension. History of lumbar surgery. History of cholecystectomy. History of hysterectomy. NANNETTE LAZARO MD Feb 10, 2017 12:50
--- NOTE | 2017-02-10 14:46 | PN ---
Date/Time of Note Date/Time of Note DATE: 02/10/17 TIME: 14:45 Assessment/Plan VTE Prophylaxis VTE Prophylaxis Intervention: SCD's Lines/Catheters IV Catheter Type (from Nrs): Saline Lock Urinary Cath still in place: No Assessment/Plan Chief Complaint/Hosp Course Pt is a small area of skin opening on surgical incision with small amount of drainage, complains of pain still requiring IV Dilaudid, participates in physical therapy Assessment/Plan -Cervical myelopathy and cervical disc displacement, s/p posterior cervical laminectomy and foraminotomies with instrumental fusion of C3-C7. -Possible soft tissue infection at the surgical site, patient was evaluated by neurosurgeon, will continue antibiotics and intravenous and topical. -Hypertension, continue Coreg. -Depression -Morbid obesity with BMI 44.7. -Acute on chronic back pain. -Urine cultures positive for ESBL E. coli, patient denies any dysuria has a history of ESBL E. coli in the past,repeat cultures negative Further recommendations based on clinical course. Plan of care discussed with Dr. Zhu Problems: Exam/Review of Systems Vital Signs Vitals Vital Signs Date Time Temp Pulse Resp B/P Pulse Ox O2 Delivery O2 Flow Rate FiO2 02/10/17 08:00 98.3 74 18 124/88 97 Room Air Intake and Output 02/09/17 02/09/17 02/10/17 14:59 22:59 06:59 Intake Total 700 ml 400 ml Output Total 750 ml Balance 700 ml -350 ml Exam Constitutional: alert, oriented Neck: other (s/p surgery) Respiratory: clear to auscultation Cardiovascular: nl pulses Gastrointestinal: non-tender, soft Extremities: normal pulses Medications Medications Current Medications Docusate Sodium (Colace) 100 mg BID PO Last administered on 02/09/17 21:33; Admin Dose 100 MG; Start 02/01/17 at 22:00 Hydralazine HCl (Apresoline) 10 mg Q4H PRN IV SBP>160, DBP>100; Start at 22:00 Naloxone HCl (Narcan) 0.2 mg Q2M PRN IV RR 8 BREATHS/MIN OR LESS; Start at 22:00 Nortriptyline HCl (Aventyl) 25 mg HS PO Last administered on 02/09/17 21:33; Admin Dose 25 MG; Start 02/01/17 at 22:30 Acetaminophen (Tylenol Tab) 650 mg Q4H PRN PO PAIN AND OR ELEVATED TEMP Last administered on 02/05/17 12:28; Admin Dose 650 MG; Start 02/01/17 at 22:00 Carvedilol (Coreg) 3.125 mg BID PO Last administered on 02/10/17 08:17; Admin Dose 3.125 MG; Start 02/01/17 at 22:00 Diazepam (Valium) 10 mg DAILY PRN PO MUSCLE SPASMS Last administered on 16:11; Admin Dose 10 MG; Start 02/01/17 at 22:00 Duloxetine HCl (Cymbalta) 30 mg BID PO Last administered on 02/10/17 08:17; Admin Dose 30 MG; Start 02/01/17 at 22:00 Oxycodone HCl (Oxycontin) 30 mg BID PO Last administered on 02/10/17 09:32; Admin Dose 30 MG; Start 02/01/17 at 22:00 Senna (Senokot) 1 tab HS PO Last administered on 02/09/17 21:35; Admin Dose 1 TAB; Start 02/02/17 at 21:00 Magnesium Hydroxide (Milk Of Mag) 30 ml BID PRN PO CONSTIPATION Last administered on 02/04/17 06:01; Admin Dose 30 ML; Start 02/01/17 at 23:00 Lactulose (Enulose) 20 gm DAILY PRN PO CONSTIPATION Last administered on 08:40; Admin Dose 20 GM; Start 02/01/17 at 23:00 Bisacodyl (Dulcolax Supp) 10 mg DAILY PRN [place] CONSTIPATION Last administered on 02/03/17 10:06; Admin Dose 10 MG; Start 02/01/17 at 23:00 Miscellaneous Information (Flu Vaccine Previously Dispensed) FLU VACCINE PREVIOU... NOTE PRN XX NOTE; Start 02/02/17 at 00:30 Phenol (Cepastat Lozenge) 1 lozenge Q1H PRN [place] SORE THROAT; Start 02/02/17 at 00:30 Hydromorphone HCl (Dilaudid) 2 mg Q4H PRN PO PAIN Last administered on 15:59; Admin Dose 2 MG; Start 02/02/17 at 10:00 Hydromorphone HCl 2 mg 2 mg QAM PRN IV PAIN LEVEL 7-10 Last administered on 11:02; Admin Dose 2 MG; Start 02/05/17 at 09:00 Cefazolin Sodium/ Dextrose (Ancef 2 Gm/50 ml (Pmx)) 50 ml @ 100 mls/hr Q8 IVPB Last administered on 02/10/17 14:22; Admin Dose 100 MLS/HR; Start 02/08/17 at 22:00; Stop 02/11/17 at 21:59 Neomycin/ Polymyxin/ Bacitracin (Neosporin Topical Oint) 1 applic TID TOP Last administered on 02/10/17 08:17; Admin Dose 1 APPLIC; Start 02/09/17 at 13:00 Hydromorphone HCl (Dilaudid) 1 mg Q3H PRN IV SEVERE PAIN LEVEL 7-10 Last administered on 02/10/17 04:57; Admin Dose 1 MG; Start 02/09/17 at 16:00 JÚNIOR DOLAN Feb 10, 2017 14:46
[2017-02-10 20:00] VITALS: BP 100/57; PULSE 74; RESP 18
[2017-02-10] MEDS: NORTRIPTYLINE 25 MG CAP PO SCH (21:11)
[2017-02-10] MEDS: SENNA TAB PO SCH (21:12)
[2017-02-11] MEDS: HYDROmorphONE 1 MG/ML SYG IV PRN ×7 (00:04→23:25)
[2017-02-11 02:00] VITALS: BP 96/69; PULSE 86; RESP 16
[2017-02-11] MEDS: CEFAZOLIN 2 GM/50 ML (PMX) 50 ML IVPB SCH ×2 (06:13→14:27)
[2017-02-11 08:01] VITALS: BP 110/64; PULSE 77; RESP 18
[2017-02-11] MEDS: NEOMYC/POLYMYX/BACIT 30 GM OINT TOP SCH ×3 (08:41→20:25)
[2017-02-11] MEDS: DULOXETINE 30 MG CAP DR PO SCH ×2 (08:41→20:24)
[2017-02-11] MEDS: LACTULOSE 30ML CUP PO PRN (08:41)
[2017-02-11] MEDS: HYDROmorphONE 2 MG/ML SYG IV PRN ×2 (08:41→11:34)
[2017-02-11] MEDS: DOCUSATE SODIUM 100 MG CAP PO SCH ×2 (08:42→20:24)
[2017-02-11] MEDS: oxyCODONE (CR) 10 MG TAB [oxyCONTIN] PO SCH ×2 (08:43→21:29)
--- NOTE | 2017-02-11 12:31 | CONS ---
Date/Time of Note Date/Time of Note DATE: 02/11/17 TIME: 12:30 Consult Date/Type/Reason Admit Date/Time Feb 01, 2017 at 21:00 Type of Consultation: Pain management Subjective Overall functional status improving Objective sba transfer and ambulation Vital Signs Date Time Temp Pulse Resp B/P Pulse Ox O2 Delivery O2 Flow Rate FiO2 02/11/17 08:01 98.3 77 18 110/64 96 Room Air Intake and Output 02/10/17 02/10/17 02/11/17 15:00 23:00 07:00 Intake Total 1650 ml 770 ml Output Total 900 ml Balance 1650 ml -130 ml Results/Medications Medications Current Medications Docusate Sodium (Colace) 100 mg BID PO Last administered on 02/11/17 08:42; Admin Dose 100 MG; Start 02/01/17 at 22:00 Hydralazine HCl (Apresoline) 10 mg Q4H PRN IV SBP>160, DBP>100; Start at 22:00 Naloxone HCl (Narcan) 0.2 mg Q2M PRN IV RR 8 BREATHS/MIN OR LESS; Start at 22:00 Nortriptyline HCl (Aventyl) 25 mg HS PO Last administered on 02/10/17 21:11; Admin Dose 25 MG; Start 02/01/17 at 22:30 Acetaminophen (Tylenol Tab) 650 mg Q4H PRN PO PAIN AND OR ELEVATED TEMP Last administered on 02/05/17 12:28; Admin Dose 650 MG; Start 02/01/17 at 22:00 Carvedilol (Coreg) 3.125 mg BID PO Last administered on 02/11/17 08:42; Admin Dose 3.125 MG; Start 02/01/17 at 22:00 Diazepam (Valium) 10 mg DAILY PRN PO MUSCLE SPASMS Last administered on 16:11; Admin Dose 10 MG; Start 02/01/17 at 22:00 Duloxetine HCl (Cymbalta) 30 mg BID PO Last administered on 02/11/17 08:41; Admin Dose 30 MG; Start 02/01/17 at 22:00 Oxycodone HCl (Oxycontin) 30 mg BID PO Last administered on 02/11/17 08:43; Admin Dose 30 MG; Start 02/01/17 at 22:00 Senna (Senokot) 1 tab HS PO Last administered on 02/10/17 21:12; Admin Dose 1 TAB; Start 02/02/17 at 21:00 Magnesium Hydroxide (Milk Of Mag) 30 ml BID PRN PO CONSTIPATION Last administered on 02/04/17 06:01; Admin Dose 30 ML; Start 02/01/17 at 23:00 Lactulose (Enulose) 20 gm DAILY PRN PO CONSTIPATION Last administered on 08:41; Admin Dose 20 GM; Start 02/01/17 at 23:00 Bisacodyl (Dulcolax Supp) 10 mg DAILY PRN [place] CONSTIPATION Last administered on 02/03/17 10:06; Admin Dose 10 MG; Start 02/01/17 at 23:00 Miscellaneous Information (Flu Vaccine Previously Dispensed) FLU VACCINE PREVIOU... NOTE PRN XX NOTE; Start 02/02/17 at 00:30 Phenol (Cepastat Lozenge) 1 lozenge Q1H PRN [place] SORE THROAT; Start 02/02/17 at 00:30 Hydromorphone HCl (Dilaudid) 2 mg Q4H PRN PO PAIN Last administered on 15:59; Admin Dose 2 MG; Start 02/02/17 at 10:00 Hydromorphone HCl 2 mg 2 mg QAM PRN IV PAIN LEVEL 7-10 Last administered on 11:34; Admin Dose 2 MG; Start 02/05/17 at 09:00 Cefazolin Sodium/ Dextrose (Ancef 2 Gm/50 ml (Pmx)) 50 ml @ 100 mls/hr Q8 IVPB Last administered on 02/11/17 06:13; Admin Dose 100 MLS/HR; Start 02/08/17 at 22:00; Stop 02/11/17 at 21:59 Neomycin/ Polymyxin/ Bacitracin (Neosporin Topical Oint) 1 applic TID TOP Last administered on 02/11/17 08:41; Admin Dose 1 APPLIC; Start 02/09/17 at 13:00 Hydromorphone HCl (Dilaudid) 1 mg Q3H PRN IV SEVERE PAIN LEVEL 7-10 Last administered on 02/11/17 06:13; Admin Dose 1 MG; Start 02/09/17 at 16:00 Assessment/Plan Additional Assessment/Plan Rehab- Cervical myelopathy status post decompressive laminectomy and fusion. Steady progress with rehab program. Pain- encourge po pain meds versus IV. Integ- continue abx and woundcare GI-continue bowel program Morbid obesity. Depression. Hypertension. History of lumbar surgery. History of cholecystectomy. History of hysterectomy. NANNETTE LAZARO MD Feb 11, 2017 12:31
--- NOTE | 2017-02-11 14:47 | PN ---
Date/Time of Note Date/Time of Note DATE: 02/11/17 TIME: 14:46 Assessment/Plan VTE Prophylaxis VTE Prophylaxis Intervention: SCD's Lines/Catheters IV [facility] Type [facility] Saline Lock Urinary Cath still in place: No Assessment/Plan Chief Complaint/Hosp Course Neurosurgery Progress Note Pt seen and examined Wound evaluated, appears to have slight superficial wound infection Plan wound care consult triple ointment antibx with wound care Ancef x 72 hours Problems: Exam/Review of Systems Vital Signs Vitals Vital Signs Date Time Temp Pulse Resp B/P Pulse Ox O2 Delivery O2 Flow Rate FiO2 02/11/17 08:01 98.3 77 18 110/64 96 Room Air Intake and Output 02/10/17 02/10/17 02/11/17 15:00 23:00 07:00 Intake Total 1650 ml 770 ml Output Total 900 ml Balance 1650 ml -130 ml Medications Medications Current Medications Docusate Sodium (Colace) 100 mg BID PO Last administered on 02/11/17 08:42; Admin Dose 100 MG; Start 02/01/17 at 22:00 Hydralazine HCl (Apresoline) 10 mg Q4H PRN IV SBP>160, DBP>100; Start at 22:00 Naloxone HCl (Narcan) 0.2 mg Q2M PRN IV RR 8 BREATHS/MIN OR LESS; Start at 22:00 Nortriptyline HCl (Aventyl) 25 mg HS PO Last administered on 02/10/17 21:11; Admin Dose 25 MG; Start 02/01/17 at 22:30 Acetaminophen (Tylenol Tab) 650 mg Q4H PRN PO PAIN AND OR ELEVATED TEMP Last administered on 02/05/17 12:28; Admin Dose 650 MG; Start 02/01/17 at 22:00 Carvedilol (Coreg) 3.125 mg BID PO Last administered on 02/11/17 08:42; Admin Dose 3.125 MG; Start 02/01/17 at 22:00 Diazepam (Valium) 10 mg DAILY PRN PO MUSCLE SPASMS Last administered on 16:11; Admin Dose 10 MG; Start 02/01/17 at 22:00 Duloxetine HCl (Cymbalta) 30 mg BID PO Last administered on 02/11/17 08:41; Admin Dose 30 MG; Start 02/01/17 at 22:00 Oxycodone HCl (Oxycontin) 30 mg BID PO Last administered on 02/11/17 08:43; Admin Dose 30 MG; Start 02/01/17 at 22:00 Senna (Senokot) 1 tab HS PO Last administered on 02/10/17 21:12; Admin Dose 1 TAB; Start 02/02/17 at 21:00 Magnesium Hydroxide (Milk Of Mag) 30 ml BID PRN PO CONSTIPATION Last administered on 02/04/17 06:01; Admin Dose 30 ML; Start 02/01/17 at 23:00 Lactulose (Enulose) 20 gm DAILY PRN PO CONSTIPATION Last administered on 08:41; Admin Dose 20 GM; Start 02/01/17 at 23:00 Bisacodyl (Dulcolax Supp) 10 mg DAILY PRN [place] CONSTIPATION Last administered on 02/03/17 10:06; Admin Dose 10 MG; Start 02/01/17 at 23:00 Miscellaneous Information (Flu Vaccine Previously Dispensed) FLU VACCINE PREVIOU... NOTE PRN XX NOTE; Start 02/02/17 at 00:30 Phenol (Cepastat Lozenge) 1 lozenge Q1H PRN [place] SORE THROAT; Start 02/02/17 at 00:30 Hydromorphone HCl (Dilaudid) 2 mg Q4H PRN PO PAIN Last administered on 15:59; Admin Dose 2 MG; Start 02/02/17 at 10:00 Hydromorphone HCl 2 mg 2 mg QAM PRN IV PAIN LEVEL 7-10 Last administered on 11:34; Admin Dose 2 MG; Start 02/05/17 at 09:00 Cefazolin Sodium/ Dextrose (Ancef 2 Gm/50 ml (Pmx)) 50 ml @ 100 mls/hr Q8 IVPB Last administered on 02/11/17 14:27; Admin Dose 100 MLS/HR; Start 02/08/17 at 22:00; Stop 02/11/17 at 21:59 Neomycin/ Polymyxin/ Bacitracin (Neosporin Topical Oint) 1 applic TID TOP Last administered on 12/1/17at 14:27; Admin Dose 1 APPLIC; Start 02/09/17 at 13:00 Hydromorphone HCl (Dilaudid) 1 mg Q3H PRN IV SEVERE PAIN LEVEL 7-10 Last administered on 02/11/17t 14:27; Admin Dose 1 MG; Start 02/09/17 at 16:00 RUPA REYES MD Feb 11, 2017 14:47
[2017-02-11 16:13] VITALS: BP 98/56; RESP 18
--- NOTE | 2017-02-11 17:27 | PN ---
Date/Time of Note Date/Time of Note DATE: 02/11/17 TIME: 17:25 Assessment/Plan VTE Prophylaxis VTE Prophylaxis Intervention: SCD's Lines/Catheters IV [facility] Type (from [facility] Saline Lock Urinary Cath still in place: No Assessment/Plan Chief Complaint/Hosp Course Patient stated some improvement in pain, continue physical therapy Assessment/Plan -Cervical myelopathy and cervical disc displacement, s/p posterior cervical laminectomy and foraminotomies with instrumental fusion of C3-C7. -Possible soft tissue infection at the surgical site, patient was evaluated by neurosurgeon, continue intravenous and topical antibiotics. -Hypertension, continue Coreg. -Depression -Morbid obesity with BMI 44.7. -Acute on chronic back pain. -Urine cultures positive for ESBL E. coli, patient denies any dysuria has a history of ESBL E. coli in the past,repeat cultures negative Further recommendations based on clinical course. Plan of care discussed with Dr. Zhu Problems: Exam/Review of Systems Vital Signs Vitals Vital Signs Date Time Temp Pulse Resp B/P Pulse Ox O2 Delivery O2 Flow Rate FiO2 02/11/17 16:13 97.9 72 18 98/56 93 02/11/17 08:01 Room Air Intake and Output 02/10/17 02/10/17 02/11/17 15:00 23:00 07:00 Intake Total 1650 ml 770 ml Output Total 900 ml Balance 1650 ml -130 ml Exam Constitutional: alert, oriented Neck: other (s/p surgery) Respiratory: clear to auscultation Cardiovascular: nl pulses Gastrointestinal: non-tender, soft Extremities: normal pulses Medications Medications Current Medications Docusate Sodium (Colace) 100 mg BID PO Last administered on 02/11/17 08:42; Admin Dose 100 MG; Start 02/01/17 at 22:00 Hydralazine HCl (Apresoline) 10 mg Q4H PRN IV SBP>160, DBP>100; Start at 22:00 Naloxone HCl (Narcan) 0.2 mg Q2M PRN IV RR 8 BREATHS/MIN OR LESS; Start at 22:00 Nortriptyline HCl (Aventyl) 25 mg HS PO Last administered on 02/10/17 21:11; Admin Dose 25 MG; Start 02/01/17 at 22:30 Acetaminophen (Tylenol Tab) 650 mg Q4H PRN PO PAIN AND OR ELEVATED TEMP Last administered on 02/05/17 12:28; Admin Dose 650 MG; Start 02/01/17 at 22:00 Carvedilol (Coreg) 3.125 mg BID PO Last administered on 02/11/17 08:42; Admin Dose 3.125 MG; Start 02/01/17 at 22:00 Diazepam (Valium) 10 mg DAILY PRN PO MUSCLE SPASMS Last administered on 16:11; Admin Dose 10 MG; Start 02/01/17 at 22:00 Duloxetine HCl (Cymbalta) 30 mg BID PO Last administered on 02/11/17 08:41; Admin Dose 30 MG; Start 02/01/17 at 22:00 Oxycodone HCl (Oxycontin) 30 mg BID PO Last administered on 02/11/17 08:43; Admin Dose 30 MG; Start 02/01/17 at 22:00 Senna (Senokot) 1 tab HS PO Last administered on 02/10/17 21:12; Admin Dose 1 TAB; Start 02/02/17 at 21:00 Magnesium Hydroxide (Milk Of Mag) 30 ml BID PRN PO CONSTIPATION Last administered on 02/04/17 06:01; Admin Dose 30 ML; Start 02/01/17 at 23:00 Lactulose (Enulose) 20 gm DAILY PRN PO CONSTIPATION Last administered on 08:41; Admin Dose 20 GM; Start 02/01/17 at 23:00 Bisacodyl (Dulcolax Supp) 10 mg DAILY PRN [place] CONSTIPATION Last administered on 02/03/17 10:06; Admin Dose 10 MG; Start 02/01/17 at 23:00 Miscellaneous Information (Flu Vaccine Previously Dispensed) FLU VACCINE PREVIOU... NOTE PRN XX NOTE; Start 02/02/17 at 00:30 Phenol (Cepastat Lozenge) 1 lozenge Q1H PRN [place] SORE THROAT; Start 02/02/17 at 00:30 Hydromorphone HCl (Dilaudid) 2 mg Q4H PRN PO PAIN Last administered on 15:59; Admin Dose 2 MG; Start 02/02/17 at 10:00 Hydromorphone HCl 2 mg 2 mg QAM PRN IV PAIN LEVEL 7-10 Last administered on 11:34; Admin Dose 2 MG; Start 02/05/17 at 09:00 Cefazolin Sodium/ Dextrose (Ancef 2 Gm/50 ml (Pmx)) 50 ml @ 100 mls/hr Q8 IVPB Last administered on 02/11/17 14:27; Admin Dose 100 MLS/HR; Start 02/08/17 at 22:00; Stop 02/11/17 at 21:59 Neomycin/ Polymyxin/ Bacitracin (Neosporin Topical Oint) 1 applic TID TOP Last administered on 02/11/17 14:27; Admin Dose 1 APPLIC; Start 02/09/17 at 13:00 Hydromorphone HCl (Dilaudid) 1 mg Q3H PRN IV SEVERE PAIN LEVEL 7-10 Last administered on 02/11/17 14:27; Admin Dose 1 MG; Start 02/09/17 at 16:00 JÚNIOR DOLAN Feb 11, 2017 17:27
[2017-02-11 20:09] VITALS: BP 110/58; RESP 18
[2017-02-11] MEDS: NORTRIPTYLINE 25 MG CAP PO SCH (20:24)
[2017-02-11] MEDS: SENNA TAB PO SCH (20:25)
[2017-02-12 02:00] VITALS: BP 108/60; RESP 18
[2017-02-12] MEDS: HYDROmorphONE 1 MG/ML SYG IV PRN ×6 (02:33→23:28)
[2017-02-12 07:30] VITALS: BP 131/71; RESP 20
[2017-02-12 08:00] VITALS: BP 131/71; PULSE 83; RESP 20
[2017-02-12] MEDS: HYDROmorphONE 2 MG/ML SYG IV PRN ×2 (08:32→11:26)
[2017-02-12] MEDS: DULOXETINE 30 MG CAP DR PO SCH ×2 (08:32→20:45)
[2017-02-12] MEDS: oxyCODONE (CR) 10 MG TAB [oxyCONTIN] PO SCH ×3 (08:33→21:55)
[2017-02-12] MEDS: DOCUSATE SODIUM 100 MG CAP PO SCH ×2 (08:34→20:46)
[2017-02-12] MEDS: NEOMYC/POLYMYX/BACIT 30 GM OINT TOP SCH ×3 (08:40→20:47)
--- NOTE | 2017-02-12 11:22 | CONS ---
Date/Time of Note Date/Time of Note DATE: 02/12/17 TIME: :22 Consult Date/Type/Reason Admit Date/Time Feb 01, 2017 at 21:00 Type of Consultation: Pain management Subjective Overall improving Objective pulm-cta sba ambulation Vital Signs Date Time Temp Pulse Resp B/P Pulse Ox O2 Delivery O2 Flow Rate FiO2 02/12/17 07:30 98.1 83 20 131/71 97 02/11/17 08:01 Room Air Intake and Output 02/11/17 02/11/17 02/12/17 14:59 22:59 06:59 Intake Total 50 ml 1150 ml 800 ml Balance 50 ml 1150 ml 800 ml Results/Medications Medications Current Medications Docusate Sodium (Colace) 100 mg BID PO Last administered on 02/12/17 08:34; Admin Dose 100 MG; Start 02/01/17 at 22:00 Hydralazine HCl (Apresoline) 10 mg Q4H PRN IV SBP>160, DBP>100; Start at 22:00 Naloxone HCl (Narcan) 0.2 mg Q2M PRN IV RR 8 BREATHS/MIN OR LESS; Start at 22:00 Nortriptyline HCl (Aventyl) 25 mg HS PO Last administered on 02/11/17 20:24; Admin Dose 25 MG; Start 02/01/17 at 22:30 Acetaminophen (Tylenol Tab) 650 mg Q4H PRN PO PAIN AND OR ELEVATED TEMP Last administered on 02/05/17 12:28; Admin Dose 650 MG; Start 02/01/17 at 22:00 Carvedilol (Coreg) 3.125 mg BID PO Last administered on 02/12/17 08:34; Admin Dose 3.125 MG; Start 02/01/17 at 22:00 Diazepam (Valium) 10 mg DAILY PRN PO MUSCLE SPASMS Last administered on 16:11; Admin Dose 10 MG; Start 02/01/17 at 22:00 Duloxetine HCl (Cymbalta) 30 mg BID PO Last administered on 02/12/17 08:32; Admin Dose 30 MG; Start 02/01/17 at 22:00 Senna (Senokot) 1 tab HS PO Last administered on 11/30/17at 21:12; Admin Dose 1 TAB; Start 02/02/17 at 21:00 Magnesium Hydroxide (Milk Of Mag) 30 ml BID PRN PO CONSTIPATION Last administered on 02/04/17 06:01; Admin Dose 30 ML; Start 02/01/17 at 23:00 Lactulose (Enulose) 20 gm DAILY PRN PO CONSTIPATION Last administered on 08:41; Admin Dose 20 GM; Start 02/01/17 at 23:00 Bisacodyl (Dulcolax Supp) 10 mg DAILY PRN [place] CONSTIPATION Last administered on 02/03/17 10:06; Admin Dose 10 MG; Start 02/01/17 at 23:00 Miscellaneous Information (Flu Vaccine Previously Dispensed) FLU VACCINE PREVIOU... NOTE PRN XX NOTE; Start 02/02/17 at 00:30 Phenol (Cepastat Lozenge) 1 lozenge Q1H PRN [place] SORE THROAT; Start 02/02/17 at 00:30 Hydromorphone HCl (Dilaudid) 2 mg Q4H PRN PO PAIN Last administered on 15:59; Admin Dose 2 MG; Start 02/02/17 at 10:00 Hydromorphone HCl (Dilaudid) 2 mg QAM PRN IV PAIN LEVEL 7-10 Last administered on 02/12/17 08:32; Admin Dose 2 MG; Start 02/05/17 at 09:00 Neomycin/ Polymyxin/ Bacitracin (Neosporin Topical Oint) 1 applic TID TOP Last administered on 02/12/17 08:40; Admin Dose 1 APPLIC; Start 02/09/17 at 13:00 Hydromorphone HCl (Dilaudid) 1 mg Q3H PRN IV SEVERE PAIN LEVEL 7-10 Last administered on 02/12/17 05:27; Admin Dose 1 MG; Start 02/09/17 at 16:00 Oxycodone HCl (Oxycontin) 20 mg Q8 PO ; Start 02/12/17 at 14:00 Assessment/Plan Additional Assessment/Plan Rehab- Cervical myelopathy s/p lami Progressing well with rehab pain- transitioning to oral meds HTn obesity NANNETTE LAZARO MD Feb 12, 2017 11:22
[2017-02-12 14:00] VITALS: BP 118/68; RESP 18
[2017-02-12] MEDS ORDERED: oxyCODONE (CR) 20 MG TAB [oxyCONTIN] PO SCH (14:00)
--- NOTE | 2017-02-12 15:19 | PN ---
Date/Time of Note Date/Time of Note DATE: 02/12/17 TIME: 15:17 Assessment/Plan Lines/Catheters IV Catheter Type (from [facility]): Saline Lock Urinary Cath still in place: No Assessment/Plan Assessment/Plan -Cervical myelopathy and cervical disc displacement, s/p posterior cervical laminectomy and foraminotomies with instrumental fusion of C3-C7. -Possible soft tissue infection at the surgical site, patient was evaluated by neurosurgeon, continue intravenous and topical antibiotics. -Hypertension, continue Coreg. -Depression -Morbid obesity with BMI 44.7. -Acute on chronic back pain. -Urine cultures positive for ESBL E. coli, patient denies any dysuria has a history of ESBL E. coli in the past,repeat cultures negative Further recommendations based on clinical course. Plan of care discussed with Dr. Zhu Subjective 24 Hr Interval Summary Free Text/Dictation - nad - afebrile - possible DC on Tuesday - no new issues reported overnight. - dw staff Respiratory: no complaints Cardiovascular: no complaints Gastrointestinal: no complaints Genitourinary: no complaints Musculoskeletal: no complaints Neurologic: other Exam/Review of Systems Vital Signs Vitals Vital Signs Date Time Temp Pulse Resp B/P Pulse Ox O2 Delivery O2 Flow Rate FiO2 02/12/17 08:00 98.1 83 20 131/71 97 Room Air Intake and Output 02/11/17 02/11/17 02/12/17 14:59 22:59 06:59 Intake Total 50 ml 1150 ml 800 ml Balance 50 ml 1150 ml 800 ml Exam Neck: other Respiratory: clear to auscultation, diminished breath sounds Cardiovascular: nl pulses Gastrointestinal: non-tender, soft Medications Medications Current Medications Docusate Sodium (Colace) 100 mg BID PO Last administered on 02/12/17 08:34; Admin Dose 100 MG; Start 02/01/17 at 22:00 Hydralazine HCl (Apresoline) 10 mg Q4H PRN IV SBP>160, DBP>100; Start at 22:00 Naloxone HCl (Narcan) 0.2 mg Q2M PRN IV RR 8 BREATHS/MIN OR LESS; Start at 22:00 Nortriptyline HCl (Aventyl) 25 mg HS PO Last administered on 02/11/17 20:24; Admin Dose 25 MG; Start 02/01/17 at 22:30 Acetaminophen (Tylenol Tab) 650 mg Q4H PRN PO PAIN AND OR ELEVATED TEMP Last administered on 02/05/17 12:28; Admin Dose 650 MG; Start 02/01/17 at 22:00 Carvedilol (Coreg) 3.125 mg BID PO Last administered on 02/12/17 08:34; Admin Dose 3.125 MG; Start 02/01/17 at 22:00 Diazepam (Valium) 10 mg DAILY PRN PO MUSCLE SPASMS Last administered on 16:11; Admin Dose 10 MG; Start 02/01/17 at 22:00 Duloxetine HCl (Cymbalta) 30 mg BID PO Last administered on 02/12/17 08:32; Admin Dose 30 MG; Start 02/01/17 at 22:00 Senna (Senokot) 1 tab HS PO Last administered on 02/10/17 21:12; Admin Dose 1 TAB; Start 02/02/17 at 21:00 Magnesium Hydroxide (Milk Of Mag) 30 ml BID PRN PO CONSTIPATION Last administered on 02/04/17 06:01; Admin Dose 30 ML; Start 02/01/17 at 23:00 Lactulose (Enulose) 20 gm DAILY PRN PO CONSTIPATION Last administered on 08:41; Admin Dose 20 GM; Start 02/01/17 at 23:00 Bisacodyl (Dulcolax Supp) 10 mg DAILY PRN [place] CONSTIPATION Last administered on 02/03/17 10:06; Admin Dose 10 MG; Start 02/01/17 at 23:00 Miscellaneous Information (Flu Vaccine Previously Dispensed) FLU VACCINE PREVIOU... NOTE PRN XX NOTE; Start 02/02/17 at 00:30 Phenol (Cepastat Lozenge) 1 lozenge Q1H PRN [place] SORE THROAT; Start 02/02/17 at 00:30 Hydromorphone HCl (Dilaudid) 2 mg Q4H PRN PO PAIN Last administered on 15:59; Admin Dose 2 MG; Start 02/02/17 at 10:00 Hydromorphone HCl (Dilaudid) 2 mg QAM PRN IV PAIN LEVEL 7-10 Last administered on 02/12/17 11:26; Admin Dose 2 MG; Start 02/05/17 at 09:00 Neomycin/ Polymyxin/ Bacitracin (Neosporin Topical Oint) 1 applic TID TOP Last administered on 02/12/17 13:00; Admin Dose 1 APPLIC; Start 02/09/17 at 13:00 Hydromorphone HCl (Dilaudid) 1 mg Q3H PRN IV SEVERE PAIN LEVEL 7-10 Last administered on 02/12/17 14:31; Admin Dose 1 MG; Start 02/09/17 at 16:00 Oxycodone HCl (Oxycontin) 20 mg Q8 PO ; Start 02/12/17 at 14:00 ANTIONE GARCIA Feb 12, 2017 15:19
[2017-02-12 20:01] VITALS: BP 117/67; RESP 18
[2017-02-12] MEDS: NORTRIPTYLINE 25 MG CAP PO SCH (20:45)
[2017-02-12] MEDS: SENNA TAB PO SCH (20:46)
[2017-02-13] MEDS: HYDROmorphONE 1 MG/ML SYG IV PRN ×8 (02:26→23:25)
[2017-02-13 02:52] VITALS: BP 99/58; RESP 18
[2017-02-13] MEDS: oxyCODONE (CR) 10 MG TAB [oxyCONTIN] PO SCH ×3 (06:34→21:59)
[2017-02-13] MEDS: DOCUSATE SODIUM 100 MG CAP PO SCH ×2 (08:33→20:27)
[2017-02-13] MEDS: NEOMYC/POLYMYX/BACIT 30 GM OINT TOP SCH ×3 (08:35→20:26)
[2017-02-13] MEDS: DULOXETINE 30 MG CAP DR PO SCH ×2 (08:35→20:27)
[2017-02-13 08:37] VITALS: BP 114/72; PULSE 101; RESP 18
--- NOTE | 2017-02-13 15:32 | PN ---
Date/Time of Note Date/Time of Note DATE: 02/13/17 TIME: 15:30 Assessment/Plan Lines/Catheters IV Catheter Type (from Nrs): Saline Lock Urinary Cath still in place: No Assessment/Plan Assessment/Plan -Cervical myelopathy and cervical disc displacement, s/p posterior cervical laminectomy and foraminotomies with instrumental fusion of C3-C7. -Possible soft tissue infection at the surgical site, patient was evaluated by neurosurgeon, continue intravenous and topical antibiotics. -Hypertension, continue Coreg. -Depression -Morbid obesity with BMI 44.7. -Acute on chronic back pain. -Urine cultures positive for ESBL E. coli, patient denies any dysuria has a history of ESBL E. coli in the past,repeat cultures negative Subjective 24 Hr Interval Summary Free Text/Dictation - nad; afebrile -seems c omfortable.c/o neck pain on movements , beeter at rest - possible DC on Tuesday - no new issues reported overnight. - dw staff Exam/Review of Systems Vital Signs Vitals Vital Signs Date Time Temp Pulse Resp B/P Pulse Ox O2 Delivery O2 Flow Rate FiO2 02/13/17 08:37 98.5 101 18 114/72 95 Room Air Intake and Output 02/12/17 02/12/17 02/13/17 15:00 23:00 07:00 Intake Total 680 ml 360 ml Balance 680 ml 360 ml Medications Medications Current Medications Docusate Sodium (Colace) 100 mg BID PO Last administered on 02/13/17 08:33; Admin Dose 100 MG; Start 02/01/17 at 22:00 Hydralazine HCl (Apresoline) 10 mg Q4H PRN IV SBP>160, DBP>100; Start at 22:00 Naloxone HCl (Narcan) 0.2 mg Q2M PRN IV RR 8 BREATHS/MIN OR LESS; Start at 22:00 Nortriptyline HCl (Aventyl) 25 mg HS PO Last administered on 02/12/17 20:45; Admin Dose 25 MG; Start 02/01/17 at 22:30 Acetaminophen (Tylenol Tab) 650 mg Q4H PRN PO PAIN AND OR ELEVATED TEMP Last administered on 02/05/17 12:28; Admin Dose 650 MG; Start 02/01/17 at 22:00 Carvedilol (Coreg) 3.125 mg BID PO Last administered on 02/13/17 08:34; Admin Dose 3.125 MG; Start 02/01/17 at 22:00 Diazepam (Valium) 10 mg DAILY PRN PO MUSCLE SPASMS Last administered on 16:11; Admin Dose 10 MG; Start 02/01/17 at 22:00 Duloxetine HCl (Cymbalta) 30 mg BID PO Last administered on 02/13/17 08:35; Admin Dose 30 MG; Start 02/01/17 at 22:00 Senna (Senokot) 1 tab HS PO Last administered on 02/10/17 21:12; Admin Dose 1 TAB; Start 02/02/17 at 21:00 Magnesium Hydroxide (Milk Of Mag) 30 ml BID PRN PO CONSTIPATION Last administered on 02/04/17 06:01; Admin Dose 30 ML; Start 02/01/17 at 23:00 Lactulose (Enulose) 20 gm DAILY PRN PO CONSTIPATION Last administered on 08:41; Admin Dose 20 GM; Start 02/01/17 at 23:00 Bisacodyl (Dulcolax Supp) 10 mg DAILY PRN [place] CONSTIPATION Last administered on 02/03/17 10:06; Admin Dose 10 MG; Start 02/01/17 at 23:00 Miscellaneous Information (Flu Vaccine Previously Dispensed) FLU VACCINE PREVIOU... NOTE PRN XX NOTE; Start 02/02/17 at 00:30 Phenol (Cepastat Lozenge) 1 lozenge Q1H PRN [place] SORE THROAT; Start 02/02/17 at 00:30 Hydromorphone HCl (Dilaudid) 2 mg Q4H PRN PO PAIN Last administered on 15:59; Admin Dose 2 MG; Start 02/02/17 at 10:00 Hydromorphone HCl (Dilaudid) 2 mg QAM PRN IV PAIN LEVEL 7-10 Last administered on 02/12/17 11:26; Admin Dose 2 MG; Start 02/05/17 at 09:00 Neomycin/ Polymyxin/ Bacitracin (Neosporin Topical Oint) 1 applic TID TOP Last administered on 02/13/17 12:46; Admin Dose 1 APPLIC; Start 02/09/17 at 13:00 Hydromorphone HCl (Dilaudid) 1 mg Q3H PRN IV SEVERE PAIN LEVEL 7-10 Last administered on 02/13/17 14:28; Admin Dose 1 MG; Start 02/09/17 at 16:00 Oxycodone HCl (Oxycontin) 20 mg Q8 PO Last administered on 02/13/17 13:57; Admin Dose 20 MG; Start 02/12/17 at 14:00 ANTIONE GARCIA Feb 13, 2017 15:32
[2017-02-13 20:00] VITALS: BP 115/56; RESP 18
[2017-02-13] MEDS: NORTRIPTYLINE 25 MG CAP PO SCH (20:27)
[2017-02-13] MEDS: SENNA TAB PO SCH (20:27)
[2017-02-14 02:00] VITALS: BP 123/69; RESP 18
[2017-02-14] MEDS: HYDROmorphONE 2 MG/ML SYG IV PRN ×2 (02:30→08:31)
[2017-02-14] MEDS: HYDROmorphONE 1 MG/ML SYG IV PRN ×2 (05:38→11:47)
[2017-02-14] MEDS: oxyCODONE (CR) 10 MG TAB [oxyCONTIN] PO SCH (06:17)
[2017-02-14 08:00] VITALS: BP 124/61; RESP 18
[2017-02-14] MEDS: NEOMYC/POLYMYX/BACIT 30 GM OINT TOP SCH ×2 (08:31→11:49)
[2017-02-14] MEDS: DOCUSATE SODIUM 100 MG CAP PO SCH (08:31)
[2017-02-14] MEDS: DULOXETINE 30 MG CAP DR PO SCH (08:31)
--- NOTE | 2017-02-14 12:28 | PN ---
Date/Time of Note Date/Time of Note DATE: 02/14/17 TIME: 12:28 Assessment/Plan VTE Prophylaxis VTE Prophylaxis Intervention: SCD's Lines/Catheters IV [facility] Type (from [facility]): Saline Lock Urinary Cath still in place: No Assessment/Plan Chief Complaint/Hosp Course Patient remains hemodynamically stable, pain is well controlled. Assessment/Plan -Cervical myelopathy and cervical disc displacement, s/p posterior cervical laminectomy and foraminotomies with instrumental fusion of C3-C7. -Possible soft tissue infection at the surgical site, patient was evaluated by neurosurgeon, continue intravenous and topical antibiotics. -Hypertension, continue Coreg. -Depression -Morbid obesity with BMI 44.7. -Acute on chronic back pain. -Urine cultures positive for ESBL E. coli, patient denies any dysuria has a history of ESBL E. coli in the past,repeat cultures negative Further recommendations based on clinical course. Plan of care discussed with Dr. Zhu Problems: Exam/Review of Systems Vital Signs Vitals Vital Signs Date Time Temp Pulse Resp B/P Pulse Ox O2 Delivery O2 Flow Rate FiO2 02/14/17 02:00 98.2 75 18 123/69 96 02/13/17 08:37 Room Air Intake and Output 02/13/17 02/13/17 02/14/17 15:00 23:00 07:00 Intake Total 1600 ml 350 ml Output Total 1200 ml 600 ml Balance 400 ml -250 ml Exam Constitutional: alert, oriented Neck: other (s/p surgery) Respiratory: clear to auscultation Cardiovascular: nl pulses Gastrointestinal: non-tender, soft Extremities: normal pulses Medications Medications Current Medications Docusate Sodium (Colace) 100 mg BID PO Last administered on 02/14/17 08:31; Admin Dose 100 MG; Start 02/01/17 at 22:00 Hydralazine HCl (Apresoline) 10 mg Q4H PRN IV SBP>160, DBP>100; Start at 22:00 Naloxone HCl (Narcan) 0.2 mg Q2M PRN IV RR 8 BREATHS/MIN OR LESS; Start at 22:00 Nortriptyline HCl (Aventyl) 25 mg HS PO Last administered on 02/13/17 20:27; Admin Dose 25 MG; Start 02/01/17 at 22:30 Acetaminophen (Tylenol Tab) 650 mg Q4H PRN PO PAIN AND OR ELEVATED TEMP Last administered on 02/05/17 12:28; Admin Dose 650 MG; Start 02/01/17 at 22:00 Carvedilol (Coreg) 3.125 mg BID PO Last administered on 02/14/17 08:31; Admin Dose 3.125 MG; Start 02/01/17 at 22:00 Diazepam (Valium) 10 mg DAILY PRN PO MUSCLE SPASMS Last administered on 16:11; Admin Dose 10 MG; Start 02/01/17 at 22:00 Duloxetine HCl (Cymbalta) 30 mg BID PO Last administered on 02/14/17 08:31; Admin Dose 30 MG; Start 02/01/17 at 22:00 Senna (Senokot) 1 tab HS PO Last administered on 02/13/17 20:27; Admin Dose 1 TAB; Start 02/02/17 at 21:00 Magnesium Hydroxide (Milk Of Mag) 30 ml BID PRN PO CONSTIPATION Last administered on 02/04/17 06:01; Admin Dose 30 ML; Start 02/01/17 at 23:00 Lactulose (Enulose) 20 gm DAILY PRN PO CONSTIPATION Last administered on 08:41; Admin Dose 20 GM; Start 02/01/17 at 23:00 Bisacodyl (Dulcolax Supp) 10 mg DAILY PRN [place] CONSTIPATION Last administered on 02/03/17 10:06; Admin Dose 10 MG; Start 02/01/17 at 23:00 Miscellaneous Information (Flu Vaccine Previously Dispensed) FLU VACCINE PREVIOU... NOTE PRN XX NOTE; Start 02/02/17 at 00:30 Phenol (Cepastat Lozenge) 1 lozenge Q1H PRN [place] SORE THROAT; Start 02/02/17 at 00:30 Hydromorphone HCl (Dilaudid) 2 mg Q4H PRN PO PAIN Last administered on 15:59; Admin Dose 2 MG; Start 02/02/17 at 10:00 Hydromorphone HCl (Dilaudid) 2 mg QAM PRN IV PAIN LEVEL 7-10 Last administered on 02/14/17 08:31; Admin Dose 2 MG; Start 02/05/17 at 09:00 Neomycin/ Polymyxin/ Bacitracin (Neosporin Topical Oint) 1 applic TID TOP Last administered on 02/14/17 11:49; Admin Dose 1 APPLIC; Start 02/09/17 at 13:00 Hydromorphone HCl (Dilaudid) 1 mg Q3H PRN IV SEVERE PAIN LEVEL 7-10 Last administered on 02/14/17 11:47; Admin Dose 1 MG; Start 02/09/17 at 16:00 Oxycodone HCl (Oxycontin) 20 mg Q8 PO Last administered on 02/14/17 06:17; Admin Dose 20 MG; Start 02/12/17 at 14:00 JÚNIOR DOLAN Feb 14, 2017 12:28
--- NOTE | 2017-02-14 13:14 | DS ---
Date/Time of Note Date/Time of Note DATE: 02/14/17 TIME: 13:14 Discharge Summary Admission/Discharge Info Admit Date/Time Feb 01, 2017 at 21:00 Discharge Date/Time Discharge Diagnosis 1. Cervical myelopathy status post decompressive laminectomy and fusion. 2. Acute pain syndrome, improved 3. Morbid obesity. 4. Depression. 5. Hypertension. 6. History of lumbar surgery. 7. History of cholecystectomy. 8. History of hysterectomy. 9. Improvements in self-care and mobility. Patient Condition: Good Hospital Course Patient was admitted for comprehensive interdisciplinary acute rehabilitation. Patient made steady functional gains and improved from a mod level to a Supervised level for self care and mobility, including ambulating over 150 feet with the use of a front wheeled walker. Patient is being discharged home with recommendations for home health PT and OT follow up. DME recommendations: FWW; BSC; Shower Chair Patient will follow up with PMD upon DC. Home Meds Reported Medications Nortriptyline Hcl* (Nortriptyline Hcl*) 75 Mg Capsule, 75 MG PO HS, TAB 01/28/17 Prazosin Hcl* (Prazosin Hcl*) 2 Mg Capsule, 2 MG PO HS, CAP 01/28/17 Diazepam* (Diazepam*) 10 Mg Tablet, 10 MG PO DAILY Y for MUSCLE SPASMS, TAB 01/28/17 Carisoprodol* (Carisoprodol*) 350 Mg Tablet, 350 MG PO Q8 Y for MUSCLE SPASMS, TAB 01/28/17 Hydrocodone/Acetaminophen ([place] 10-325 Tablet) 1 Each Tablet, 1 EACH PO Q12 Y for SEVERE PAIN LEVEL 7-10, TAB 01/28/17 Primary Care Provider NANNETTE Walter MD Feb 14, 2017 13:14
== END 2017-02-14 13:15 | disposition home health service (06) | DRG 560 ==
LOC: VRC 21:00
PROVIDERS: ADMIT Internal Medicine; ATTEND Internal Medicine
DX: Z47.89 Encounter for other orthopedic aftercare (principal); Z68.42 Body mass index [BMI] 45.0-49.9, adult; I10 Essential (primary) hypertension; K59.00 Constipation, unspecified; E66.01 Morbid (severe) obesity due to excess calories; F32.9 Major depressive disorder, single episode, unspecified; Z74.09 Other reduced mobility; R52 Pain, unspecified; M54.9 Dorsalgia, unspecified; G89.29 Other chronic pain; L08.89 Other specified local infections of the skin and subcutaneous tissue
CPT/HCPCS: 80053; 85025; 87081; 87086; 97110; 97112; 97116; 97150; 97167; 97530; 97535; A4310; J0690; J1170; J3480

== ENCOUNTER 2017-02-17 14:15 | Inpatient (IN) | payer MEDICARE, OTHER ==
[~2017-02-17] VITALS: Ht 162.6 cm; Wt 119.6 kg
--- NOTE | 2017-02-17 16:50 | ERD ---
ER Documentation Chief Complaint Chief Complaint sent by for admission infected wound surgical site (c-spine) HPI 41-year-old female with a history of hypertension, depression, morbid obesity with a history of cervical myelopathy and disc disease who is status post cervical laminectomy and foraminotomies C3-C7 presents to the ED complaining of worsening pain. Moderate to severe, sharp, achy, nonradiating cervical pain which is minimally relieved by Dilaudid and oxycodone. Pain is exacerbated by any kind of movement. Patient was seen by neurosurgery, Dr. Jordan earlier today and referred to the ED for further evaluation of wound infection. Since surgery she has had numbness left upper extremity which is unchanged. No new weakness or numbness. Denies chest pain, palpitations, cough, shortness of breath, abdominal pain, nausea, vomiting, dysuria or polyuria. But no fevers. ROS All systems reviewed and are negative except as per history of present illness. Medications Home Meds Reported Medications Nortriptyline Hcl* (Nortriptyline Hcl*) 75 Mg Capsule, 75 MG PO HS, TAB 01/28/17 Prazosin Hcl* (Prazosin Hcl*) 2 Mg Capsule, 2 MG PO HS, CAP 01/28/17 Diazepam* (Diazepam*) 10 Mg Tablet, 10 MG PO DAILY Y for MUSCLE SPASMS, TAB 01/28/17 Carisoprodol* (Carisoprodol*) 350 Mg Tablet, 350 MG PO Q8 Y for MUSCLE SPASMS, TAB 01/28/17 Hydrocodone/Acetaminophen ([place] 10-325 Tablet) 1 Each Tablet, 1 EACH PO Q12 Y for SEVERE PAIN LEVEL 7-10, TAB 01/28/17 Allergies Allergies: Coded Allergies: No Known Allergy (Unverified , 02/17/17) PMhx/Soc Reviewed in chart. As per HPI. History of Surgery: Yes (s/p cervical laminectomy + fusion c3-c7 ) Anesthesia Reaction: No Hx Neurological Disorder: No Hx Respiratory Disorders: No Hx Cardiac Disorders: Yes (HTN) Hx Psychiatric Problems: Yes (DEPRESSION) Hx Miscellaneous Medical Probl: Yes (morbid obesity, HTN, lumbar spinal surgery ) Hx Alcohol Use: No Hx Substance Use: No Hx Tobacco Use: No FmHx Family history relevant to presenting complaint. Physical Exam Vitals Vital Signs Date Time Temp Pulse Resp B/P Pulse Ox O2 Delivery O2 Flow Rate FiO2 02/17/17 16:45 104 15 149/88 97 Room Air 02/17/17 14:19 99.3 110 18 138/96 96 Physical Exam Const: Alert, moderate distress due to pain. Head: Atraumatic Eyes: Normal Conjunctiva ENT: Normal External Ears, Nose and Mouth. Neck: Posterior incision with tenderness, erythema and induration at approximately C4. No fluctuance or purulent drainage. Resp: Clear to auscultation bilaterally Cardio: Regular rate and rhythm, no murmurs Abd: Soft, obese, non tender, non distended. Normal bowel sounds Skin: No petechiae or rashes Back: No midline or flank tenderness Ext: No cyanosis, or edema Neur: Awake and alert cranial nerves II through XII are grossly intact. Psych: Normal Mood and Affect Result Diagram: 02/18/17 0600 02/18/17 0600 Results 24 hrs Laboratory Tests Test 02/17/17 16:50 02/17/17 17:00 White Blood Count 8.510^3/ul Red Blood Count 4.0310^6/ul Hemoglobin 12.0g/dl Hematocrit 37.7% Mean Corpuscular Volume 93.5fl Mean Corpuscular Hemoglobin 29.8pg Mean Corpuscular Hemoglobin Concent 31.8g/dl Red Cell Distribution Width 12.4% Platelet Count 75836^3/UL Mean Platelet Volume 10.3fl Neutrophils % 36.1% Lymphocytes % 39.1% Monocytes % 8.3% Eosinophils % 15.6% Basophils % 0.7% Nucleated Red Blood Cells % 0.0/100WBC Neutrophils # 3.110^3/ul Lymphocytes # 3.310^3/ul Monocytes # 0.710^3/ul Eosinophils # 1.310^3/ul Basophils # 0.110^3/ul Nucleated Red Blood Cells # 0.010^3/ul Prothrombin Time 14.3Sec Prothrombin Time Ratio 1.1 INR International Normalized Ratio 1.09 Activated Partial Thromboplast Time 30.3Sec Sodium Level 141mmol/L Potassium Level 3.9mmol/L Chloride Level 98mmol/L Carbon Dioxide Level 32mmol/L Anion Gap 15 Blood Urea Nitrogen 5mg/dl Creatinine 0.74mg/dl Glucose Level 107mg/dl Lactic Acid Level 2.9mmol/L Calcium Level 9.1mg/dl Total Bilirubin 0.0mg/dl Direct Bilirubin 0.00mg/dl Indirect Bilirubin 0.0mg/dl Aspartate Amino Transf (AST/SGOT) 35IU/L Alanine Aminotransferase (ALT/SGPT) 43IU/L Alkaline Phosphatase 160IU/L Total Protein 6.9g/dl Albumin 3.7g/dl Globulin 3.20g/dl Albumin/Globulin Ratio 1.15 Urine Color YELLOW Urine Clarity SLIGHTLY CLOUDY Urine pH 5.0 Urine Specific [place] 1.023 Urine Ketones TRACEmg/dL Urine Nitrite NEGATIVEmg/dL Urine Bilirubin NEGATIVEmg/dL Urine Urobilinogen 1+mg/dL Urine Leukocyte Esterase TRACELeu/ul Urine Microscopic RBC 26/HPF Urine Microscopic WBC 4/HPF Urine Squamous Epithelial Cells FEW/HPF Urine Bacteria FEW/HPF Urine Mucus FEW/HPF Urine Hemoglobin 2+mg/dL Urine Glucose NEGATIVEmg/dL Urine Total Protein NEGATIVEmg/dl Current Medications Medications (Trade) Dose Ordered Sig/Tuyet Route PRN Reason Start Time Stop Time Status Last Admin Dose Admin Levofloxacin/ Dextrose 100 ml @ 100 mls/hr ONCE STAT IVPB 02/17/17 16:57 02/17/17 17:56 DC 02/17/17 17:09 Vancomycin HCl (Vancocin) 250 ml @ 125 mls/hr ONCE STAT IVPB 02/17/17 16:57 02/17/17 18:56 DC 02/17/17 18:12 Hydromorphone HCl (Dilaudid) 1 mg ONCE STAT IV 02/17/17 16:57 02/17/17 17:00 DC 02/17/17 17:09 IMAGING: Chest AP portable: Status post cervical fusion. Cardiac silhouette is normal. The costophrenic angles are clear. No effusions or infiltrates. EP interpretation: No acute disease. PROCEDURE: CT Cervical Spine without contrast. CLINICAL INDICATION: Postoperative fluid collection, abscess. TECHNIQUE: A CT of the cervical spine was performed without intravenous contrast. Coronal and sagittal reformats were generated. DICOM images are available. CTDIvol: 22.24 mGy. DLP: 501.55 mGy-cm. One or more of the following dose reduction techniques were used: - Automated exposure control. - Adjustment of the mA and/or kV according to patient size. - Use of iterative reconstruction technique. COMPARISON: 01/31/2017 FINDINGS: There is a normal cervical lordosis. There is grade 1 C2 anterolisthesis (2 mm) . The vertebral body heights are maintained. No fracture or subluxation is seen. The patient is status post anterior cervical discectomy and fusion from C5-C7. There is also been wide posterior decompression and posterior fusion from C3-C7. There is borderline spinal canal stenosis at C2-C3. No significant neural foraminal narrowing is identified along the cervical spine. There are postoperative changes along the posterior neck at the operative levels. No fluid collection is identified. IMPRESSION: 1. Status post wide posterior decompression and posterior fusion from C3-C7. There are postoperative changes along the posterior neck at the operative levels. No fluid collection is identified, although evaluation for a small fluid collection is limited in a noncontrast CT scan. This could be further evaluated with contrast enhanced MRI if clinically warranted. 2. Status post anterior cervical discectomy and fusion from C5-C7. 3. Grade 1 C2 anterolisthesis and borderline spinal canal stenosis at C2-C3. RPTAT: HTAR .Shahid Call MD, MD Date Time Electronically viewed and signed by .Shahid Call MD, MD on 02/17/2017 17:36 .R/ Procedures/MDM DOCUMENTS REVIEWED: ED nurse, prior records. [employer] DECISION MAKIN-year-old female with a history of hypertension, depression, morbid obesity with a history of cervical myelopathy and disc disease who is status post cervical laminectomy and foraminotomies C3-C7 presents to the ED complaining of worsening pain. Tachycardia but no other criteria for systemic inflammatory response syndrome. Sepsis criteria as lactate is 2.9. Repeat 1.1. No hypotension or criteria for septic shock. Source is postop wound infection however osteomyelitis is not ruled out. No CT evidence of wound collection or abscess. Time of recognition of severe sepsis/ septic shock: 17:40. Within 3 hours NS 30cc/kg bolus completed and antibiotics initiated after cultures. Patient's infectious symptoms have not stabilized and the patient is at risk of rapid decompensation. The patient will be admitted for careful hydration, antibiotic therapy, and infectious source control. CRITICAL CARE TIME: Close monitoring and treatment of vital signs, cardiorespiratory, and neurologic status, while maintaining tight balance of fluid, respiratory, and cardiac interventions. This includes the administration of emergency fluid management while maintaining close respiratory support as well as the provision of immediate and broad-spectrum antibiotic therapy, while performing a simultaneous assessment for possible sources in order to direct targeted therapy. This time includes discussing the case with the patient and the patient's family. This time also includes the consideration for invasive and chemical support to prevent cardiopulmonary collapse. This time does not include all procedures stated elsewhere in this record. This time also includes reviewing old records, labs and radiological studies. This time includes examining and re-examining the patient. Additionally, this time also includes arranging care with admitting and consulting physicians. Total critical care time: 30 minutes. Counseled patient regarding diagnosis, diagnostic results and plan for admission. CALLS/CONSULTS: Time 17:50, Dr. Jordan, Recommends IV antibiotics and admission CALLS/CONSULTS: Time 16:54, Dr. Zhu, agrees with plan for admission to [facility]. PATIENT CARE TRANSITIONED: Time: 18:00, Dr. Zhu. Departure Diagnosis: Primary Impression: Severe sepsis Additional Impressions: Postoperative wound infection Encounter type: initial encounter Qualified Code: T81.4XXA - Postoperative wound infection, initial encounter Neck pain Condition: Serious TRAVIS MTZ MD Feb 17, 2017 16:45 include all procedures stated elsewhere in this record. This time also includes reviewing old records, labs and radiological studies. This time includes examining and re-examining the patient. Additionally, this time also includes arranging care with admitting and consulting physicians. Total critical care time: 30 minutes. Counseled patient regarding diagnosis, diagnostic results and plan for admission. CALLS/CONSULTS: Time 17:50, Dr. Jordan Recommends IV antibiotics and admission CALLS/CONSULTS: Time 16:54, Dr. Zhu, agrees with plan for admission to [facility]. PATIENT CARE TRANSITIONED: Time: 18:00, Dr. Zhu. Departure Diagnosis: Primary Impression: Severe sepsis Additional Impressions: Postoperative wound infection Encounter type: initial encounter Qualified Code: T81.4XXA - Postoperative wound infection, initial encounter Neck pain Condition: Serious TRAVIS MTZ MD Feb 17, 2017 16:45
[2017-02-17] MEDS ORDERED: HYDROmorphONE 1 MG/ML SYG IV STA (16:57)
[2017-02-17] MEDS ORDERED: VANCOMYCIN 1 GM (PMX) 250 ML IVPB STA (16:57)
[2017-02-17] MEDS ORDERED: LEVOFLOXACIN 500MG/D5W (PMX) 100 ML IVPB STA (16:57)
--- NOTE | 2017-02-17 17:21 | RADRPT ---
PROCEDURE: Chest x-ray CLINICAL INDICATION: Shortness of breath TECHNIQUE: Chest single view COMPARISON: None FINDINGS: The heart is normal in size. The pulmonary vessels are normal in caliber. The lungs are clear. Th e costophrenic angles are sharp. The visualized bony thorax is unremarkable. IMPRESSION: No acute cardiopulmonary disease. Cervical spine fusion RPTAT: HH .Cong Duval MD, Date Time Electronically viewed and signed by .Cong Duval MD, on 02/17/2017 17:20 .W/
[2017-02-17 17:24] LABS: ADD UMIC YES; UR ASCORBIC ACID NEGATIVE (NEGATIVE); UR BACTERIA FEW /HPF (NONE SEEN); UR BILIRUBIN (Dip) NEGATIVE (NEGATIVE); UR BLOOD (Dip) 2+ mg/dL (NEGATIVE); UR CLARITY SLIGHTLY CLOUDY (CLEAR); UR COLOR YELLOW (YELLOW); UR GLUCOSE (Dip) NEGATIVE (NEGATIVE); UR KETONES (Dip) TRACE mg/dL (NEGATIVE); UR LEUKOCYTE ESTERASE (Dip) TRACE Leu/ul (NEGATIVE); UR MUCUS FEW /HPF (NONE SEEN); UR NITRITE (Dip) NEGATIVE (NEGATIVE); UR RBC 26 /HPF (0-5); UR SPECIFIC GRAVITY (Dip) 1.023 (1.003-1.030); UR SQUAMOUS EPITHELIAL CELL FEW /HPF (FEW); UR TOTAL PROTEIN (Dip) NEGATIVE (NEGATIVE); UR UROBILINOGEN (Dip) 1+ mg/dL (NEGATIVE)
[2017-02-17 17:25] LABS: BASOPHIL # 0.1 10^3/ul (0.0-0.1); BASOPHILS % 0.7 % (0.0-2.0); EOSINOPHILS # 1.3 10^3/ul (0.0-0.5); EOSINOPHILS % 15.6 % (0.0-7.0); HEMATOCRIT 37.7 % (37.0-47.0); LYMPHOCYTES # 3.3 10^3/ul (0.8-2.9); LYMPHOCYTES % 39.1 % (15.0-51.0); MEAN CORPUSCULAR HEMOGLOBIN 29.8 pg (29.0-33.0); MEAN CORPUSCULAR HGB CONC 31.8 g/dl (32.0-37.0); MEAN CORPUSCULAR VOLUME 93.5 fl (82.0-101.0); MEAN PLATELET VOLUME 10.3 fl (7.4-10.4); MONOCYTE # 0.7 10^3/ul (0.3-0.9); MONOCYTES % 8.3 % (0.0-11.0); NEUTROPHIL # 3.1 10^3/ul (1.6-7.5); NEUTROPHILS % 36.1 % (39.0-77.0); PLATELET COUNT 330 10^3/UL (140-415); RED BLOOD COUNT 4.03 10^6/ul (4.20-5.40); RED CELL DISTRIBUTION WIDTH 12.4 % (11.5-14.5); WHITE BLOOD COUNT 8.5 10^3/ul (4.8-10.8)
[2017-02-17] MEDS ORDERED: ONDANSETRON 4 MG INJ IV PRN (17:30)
[2017-02-17] MEDS ORDERED: ACETAMINOPHEN 325 MG TAB PO PRN (17:30)
[2017-02-17 17:36] LABS: INR 1.09; PROTIME 14.3 Sec (11.9-14.9); PT RATIO 1.1
--- NOTE | 2017-02-17 17:36 | RADRPT ---
PROCEDURE: CT Cervical Spine without contrast. CLINICAL INDICATION: Postoperative fluid collection, abscess. TECHNIQUE: A CT of the cervical spine was performed without intravenous contrast. Coronal and sag ittal reformats were generated. DICOM images are available. CTDIvol: 22.24 mGy. DLP: 501.55 mGy-cm. One or more of the following dose reduction techniques were used: - Automated exposure control. - Adjustment of the mA and/or kV according to patient size. - Use of iterative reconstruction technique. COMPARISON: 01/31/2017 FINDINGS: There is a normal cervical lordosis. There is grade 1 C2 anterolisthesis (2 mm). The vertebral body heights are maintained. No fracture or subluxation is seen. The patient is status post anterior cervical discectomy and fusion from C5-C7. There is also been wi de posterior decompression and posterior fusion from C3-C7. There is borderline spinal canal stenosis at C2-C3. No significant neural foraminal narrowing is acosta ntified along the cervical spine. There are postoperative changes along the posterior neck at the operative levels. No fluid collectio n is identified. IMPRESSION: 1. Status post wide posterior decompression and posterior fusion from C3-C7. There are postoperativ e changes along the posterior neck at the operative levels. No fluid collection is identified, altho ugh evaluation for a small fluid collection is limited in a noncontrast CT scan. This could be furth er evaluated with contrast enhanced MRI if clinically warranted. 2. Status post anterior cervical discectomy and fusion from C5-C7. 3. Grade 1 C2 anterolisthesis and borderline spinal canal stenosis at C2-C3. RPTAT: HTAR .Shahid Call MD, Date Time Electronically viewed and signed by .Shahid Call MD, on 02/17/2017 17:36 .R/
[2017-02-17 17:37] LABS: ALBUMIN 3.7 g/dl (3.3-4.9); ALBUMIN/GLOBULIN RATIO 1.15; CALCIUM 9.1 mg/dl (8.4-10.2); CREATININE 0.74 mg/dl (0.44-1.00); PARTIAL THROMBOPLASTIN TIME 30.3 Sec (25.0-35.0); POTASSIUM 3.9 mmol/L (3.5-5.1); TOTAL PROTEIN 6.9 g/dl (6.1-8.1)
[2017-02-17] MEDS ORDERED: SODIUM CHLORIDE 0.9% 1L BAG IV* STA (17:46)
[2017-02-17 18:18] VITALS: BP 154/73; PULSE 91; RESP 20
[2017-02-17] MEDS ORDERED: VANCOMYCIN IV PER PHARMACY XX SCH (19:00)
[2017-02-17 19:53] VITALS: Ht 162.6 cm; Wt 119.6 kg
[2017-02-17 20:00] VITALS: BP 128/61; PULSE 102; RESP 20
[2017-02-17] MEDS ORDERED: VITAMIN A & D 5 GM OINT PACKET TOP ONE (20:02)
[2017-02-17] MEDS: DEXTROSE 5%-0.45% NACL 1,000 ML IV SCH (20:09)
[2017-02-17] MEDS: LEVOFLOXACIN 500MG/D5W (PMX) 100 ML IVPB SCH (20:09)
[2017-02-17] MEDS ORDERED: HYDROmorphONE 0.5 MG/0.5 ML SYG IV STA (20:22)
[2017-02-17] MEDS ORDERED: VANCOMYCIN 1 GM in NS 250 ML IVPB SCH (21:00)
--- NOTE | 2017-02-17 21:58 | HP ---
Date/Time of Note Date/Time of Note DATE: 02/17/17 TIME: 21:48 Assessment/Plan VTE Prophylaxis VTE Prophylaxis Intervention: other Lines/Catheters IV Catheter Type (from Nrsg): Peripheral IV Assessment/Plan Assessment/Plan - Severe sepsis sec to wound infection - admit to [facility] - ID consult- Dr Costello notified - S/p cervical laminectomy + fusion c3-c7 - Postoperative wound infection - on Vanco/Levo - wound care - Neck pain sec to wound - pain meds - Hypertension- stable - Hx Depression - no acute issue - Morbid obesity - weight management - SCD for DVT prophylaxis - PPI for GI prophylaxis Dw Dr Zhu/staff HPI/ROS Admit Date/Time Admit Date/Time Feb 17, 2017 at 17:25 Hx of Present Illness This is a 41-year-old female with past history of hypertension, depression, morbid obesity, cervical myelopathy and disc disease, status post cervical laminectomy and foraminotomies C3-C7 is admitted with c/o worsening neck pain. Patient described her pain as moderate to severe, sharp, achy, nonradiating cervical pain relieved by Dilaudid and oxycodone. Per patient , her pain Pain is exacerbated by any kind of movement. Patient was seen by neurosurgery, Dr. Jordan and he referred her to hospital for further evaluation of wound infection. Patient also c/o left upper extremity numbness which is unchanged. Refused any new weakness or numbness. During assessment, patient denies fever, chills, palpitations, chest pain, palpitations, cough, shortness of breath, abdominal pain, nausea, vomiting, dysuria or polyuria. Patient is admitted under Dr Zhu for further evaluation and treatment. ROS All systems reviewed and are negative except as per history of present illness. Allergies No Known Allergy (Unverified , 02/17/17) ROS Respiratory: no complaints Cardiovascular: no complaints Gastrointestinal: no complaints Genitourinary: no complaints Musculoskeletal: neck pain PMH/Family/Social Past Medical History PMhx/Soc Anesthesia Reaction: No Hx Neurological Disorder: No Hx Respiratory Disorders: No Hx Cardiac Disorders: Yes (HTN) Hx Psychiatric Problems: Yes (DEPRESSION) Hx Miscellaneous Medical Probl: Yes (morbid obesity, HTN, lumbar spinal surgery ) Hx Alcohol Use: No Hx Substance Use: No Hx Tobacco Use: No FmHx Family history relevant to presenting complaint. Past Surgical History s/p cervical laminectomy + fusion c3-c7 Family History Significant Family History: other Social History Alcohol Use: none Smoking Status: Never smoker Drug Use: none Exam/Review of Systems Vital Signs Vitals Vital Signs Date Time Temp Pulse Resp B/P Pulse Ox O2 Delivery O2 Flow Rate FiO2 02/17/17 20:00 98.2 102 20 128/61 100 Room Air Exam Constitutional: alert, well developed Psych: nl mood/affect Respiratory: clear to auscultation, normal air movement Cardiovascular: nl pulses, other (s1s2) Gastrointestinal: non-tender, soft Musculoskeletal: other, range of motion Neurological: other Labs Result Diagram: 02/17/17164902/17/171649 Medications Medications Current Medications Levofloxacin/ Dextrose 100 ml @ 100 mls/hr Q24H IVPB Last administered on 02/17 20:09; Admin Dose 100 MLS/HR; Start 02/17/17 at 20:00 Dextrose/Sodium Chloride (D5-1/2ns) 1,000 ml @ 50 mls/hr Q20H IV Last administered on 02/17/17 20:09; Admin Dose 50 MLS/HR; Start 02/17/17 at 20:00 Pantoprazole 40 mg 40 mg DAILY@06 IV ; Start 02/18/17 at 06:00 Vancomycin HCl 250 ml @ 125 mls/hr ONCE IVPB ; Start 02/17/17 at 21:00; Stop 02/17/17 at 23:56 Vancomycin HCl/ Sodium Chloride (Vancocin/NS) 250 ml @ 83.333 mls/ hr Q12H IVPB ; Start 02/18/17 at 06:00 Procedures Procedures PROCEDURE: CT Cervical Spine without contrast. CLINICAL INDICATION: Postoperative fluid collection, abscess. TECHNIQUE: A CT of the cervical spine was performed without intravenous contrast. Coronal and sagittal reformats were generated. DICOM images are available. CTDIvol: 22.24 mGy. DLP: 501.55 mGy-cm. One or more of the following dose reduction techniques were used: - Automated exposure control. - Adjustment of the mA and/or kV according to patient size. - Use of iterative reconstruction technique. COMPARISON: 01/31/2017 FINDINGS: There is a normal cervical lordosis. There is grade 1 C2 anterolisthesis (2 mm) . The vertebral body heights are maintained. No fracture or subluxation is seen. The patient is status post anterior cervical discectomy and fusion from C5-C7. There is also been wide posterior decompression and posterior fusion from C3-C7. There is borderline spinal canal stenosis at C2-C3. No significant neural foraminal narrowing is identified along the cervical spine. There are postoperative changes along the posterior neck at the operative levels. No fluid collection is identified. IMPRESSION: 1. Status post wide posterior decompression and posterior fusion from C3-C7. There are postoperative changes along the posterior neck at the operative levels. No fluid collection is identified, although evaluation for a small fluid collection is limited in a noncontrast CT scan. This could be further evaluated with contrast enhanced MRI if clinically warranted. 2. Status post anterior cervical discectomy and fusion from C5-C7. 3. Grade 1 C2 anterolisthesis and borderline spinal canal stenosis at C2-C3. ANTIONE GARCIA Feb 17, 2017 21:58
[2017-02-17] MEDS ORDERED: HYDROmorphONE 0.5 MG/0.5 ML SYG IV PRN (22:00)
[2017-02-17] MEDS ORDERED: DIAZEPAM 5 MG TAB PO PRN (22:00)
[2017-02-17] MEDS ORDERED: CARISOPRODOL 350 MG TAB PO PRN (22:00)
[2017-02-17] MEDS: HYDROCODONE/APAP (10/325) TAB PO PRN (23:03)
[2017-02-18] MEDS: HYDROmorphONE 1 MG/ML SYG IV PRN ×7 (00:39→23:10)
[2017-02-18 02:00] VITALS: BP 104/55; RESP 19
[2017-02-18] MEDS: NORTRIPTYLINE 25 MG CAP PO SCH ×2 (02:01→20:22)
[2017-02-18] MEDS: PRAZOSIN 1 MG CAP PO SCH ×2 (02:01→20:22)
[2017-02-18] MEDS: VANCOMYCIN 1.5 GM in SOD CHLORIDE 0.9% 250 ML IVPB SCH ×2 (05:58→18:23)
[2017-02-18] MEDS: PANTOPRAZOLE 40 MG INJ IV SCH (05:58)
[2017-02-18 06:26] LABS: BASOPHILS % 0.4 % (0.0-2.0); EOSINOPHILS # 1.2 10^3/ul (0.0-0.5); EOSINOPHILS % 14.8 % (0.0-7.0); HEMATOCRIT 34.2 % (37.0-47.0); LYMPHOCYTES # 2.6 10^3/ul (0.8-2.9); LYMPHOCYTES % 32.2 % (15.0-51.0); MEAN CORPUSCULAR HEMOGLOBIN 30.1 pg (29.0-33.0); MEAN CORPUSCULAR HGB CONC 32.2 g/dl (32.0-37.0); MEAN CORPUSCULAR VOLUME 93.7 fl (82.0-101.0); MEAN PLATELET VOLUME 10.3 fl (7.4-10.4); MONOCYTE # 0.9 10^3/ul (0.3-0.9); MONOCYTES % 10.9 % (0.0-11.0); NEUTROPHIL # 3.3 10^3/ul (1.6-7.5); NEUTROPHILS % 41.3 % (39.0-77.0); PLATELET COUNT 287 10^3/UL (140-415); RED BLOOD COUNT 3.65 10^6/ul (4.20-5.40); RED CELL DISTRIBUTION WIDTH 12.5 % (11.5-14.5)
[2017-02-18 07:16] LABS: CALCIUM 8.4 mg/dl (8.4-10.2); CREATININE 0.76 mg/dl (0.44-1.00); POTASSIUM 3.9 mmol/L (3.5-5.1)
[2017-02-18 08:04] VITALS: BP 104/56; RESP 20
[2017-02-18 15:30] VITALS: BP 117/59; RESP 19
[2017-02-18] MEDS: DEXTROSE 5%-0.45% NACL 1,000 ML IV SCH (16:00)
--- NOTE | 2017-02-18 16:50 | CONS ---
Date/Time of Note Date/Time of Note DATE: 02/18/17 TIME: 16:41 Assessment/Plan Assessment/Plan Chief Complaint/Hosp Course 1. Possible mild post-op cellulitis 2. s/p s/p posterior cervical laminectomy and foraminotomies with instrumental fusion of C3-C7 3. hx of obesity R: cont. current empiric abx monitor crcl closely procalc wound cx mrsa screen will follow closely with you Problems: Consultation Date/Type/Reason Admit Date/Time Feb 17, 2017 at 17:25 Date of Consultation: Feb 18, 2017 Reason for Consultation abx recs; s/p recent cervical laminectomy and some post op erythema noted Referring Provider: LEILA PERES MD Hx of Present Illness This is a very pleasant 41 yo female with a pmh of obesity s/p recent cervical laminectomy, recent admit at [facility] who has been admitted with concern for possible erythema at surgical site. She was recently given a short course of Keflex. She has noticed increased pain over last several days and was seen at her Neurosurgeons office. She has undergone CT scan w/o e/o abscess. She is on empiric Vanco/Levaquin Constitutional: other (pain at neck) Eyes: no complaints ENT: no complaints Respiratory: no complaints Cardiovascular: no complaints Gastrointestinal: no complaints Genitourinary: no complaints Musculoskeletal: no complaints Skin: no complaints Neurologic: no complaints Social History Smoking Status: Never smoker Exam/Review of Systems Vital Signs Vitals Vital Signs Date Time Temp Pulse Resp B/P Pulse Ox O2 Delivery O2 Flow Rate FiO2 02/18/17 08:04 98.9 89 20 104/56 96 02/17/17 20:00 Room Air Intake and Output 02/17/17 02/17/17 02/18/17 15:00 23:00 07:00 Intake Total 300 ml 1070 ml Balance 300 ml 1070 ml Exam Constitutional: alert, oriented Psych: nl mood/affect, no complaints Head: normocephalic Eyes: EOMI, nl conjunctiva Neck: supple Respiratory: clear to auscultation Cardiovascular: regular rate and rhythm Gastrointestinal: soft Results Result Diagram: 02/18/17 0600 02/18/17 0600 Results 24 hrs Laboratory Tests Test 02/17/17 16:50 02/17/17 17:00 02/17/17 19:20 02/17/17 21:00 White Blood Count 8.5 Red Blood Count 4.03 L Hemoglobin 12.0 Hematocrit 37.7 Mean Corpuscular Volume 93.5 Mean Corpuscular Hemoglobin 29.8 Mean Corpuscular Hemoglobin Concent 31.8 L Red Cell Distribution Width 12.4 Platelet Count 330 Mean Platelet Volume 10.3 Neutrophils % 36.1 L Lymphocytes % 39.1 Monocytes % 8.3 Eosinophils % 15.6 H Basophils % 0.7 Nucleated Red Blood Cells % 0.0 Neutrophils # 3.1 Lymphocytes # 3.3 H Monocytes # 0.7 Eosinophils # 1.3 H Basophils # 0.1 Nucleated Red Blood Cells # 0.0 Prothrombin Time 14.3 Prothrombin Time Ratio 1.1 INR International Normalized Ratio 1.09 Activated Partial Thromboplast Time 30.3 Sodium Level 141 Potassium Level 3.9 Chloride Level 98 Carbon Dioxide Level 32 H Anion Gap 15 Blood Urea Nitrogen 5 L Creatinine 0.74 Glucose Level 107 Lactic Acid Level 2.9 *H 1.1 1.9 Calcium Level 9.1 Total Bilirubin 0.0 L Direct Bilirubin 0.00 Indirect Bilirubin 0.0 Aspartate Amino Transf (AST/SGOT) 35 Alanine Aminotransferase (ALT/SGPT) 43 Alkaline Phosphatase 160 H Total Protein 6.9 Albumin 3.7 Globulin 3.20 Albumin/Globulin Ratio 1.15 Urine Color YELLOW Urine Clarity SLIGHTLY CLOUDY A Urine pH 5.0 Urine Specific [place] 1.023 Urine Ketones TRACE A Urine Nitrite NEGATIVE Urine Bilirubin NEGATIVE Urine Urobilinogen 1+ H Urine Leukocyte Esterase TRACE A Urine Microscopic RBC 26 H Urine Microscopic WBC 4 Urine Squamous Epithelial Cells FEW Urine Bacteria FEW A Urine Mucus FEW A Urine Hemoglobin 2+ H Urine Glucose NEGATIVE Urine Total Protein NEGATIVE Test 02/18/17 06:00 White Blood Count 8.0 Red Blood Count 3.65 L Hemoglobin 11.0 L Hematocrit 34.2 L Mean Corpuscular Volume 93.7 Mean Corpuscular Hemoglobin 30.1 Mean Corpuscular Hemoglobin Concent 32.2 Red Cell Distribution Width 12.5 Platelet Count 287 Mean Platelet Volume 10.3 Neutrophils % 41.3 Lymphocytes % 32.2 Monocytes % 10.9 Eosinophils % 14.8 H Basophils % 0.4 Nucleated Red Blood Cells % 0.0 Neutrophils # 3.3 Lymphocytes # 2.6 Monocytes # 0.9 Eosinophils # 1.2 H Basophils # 0.0 Nucleated Red Blood Cells # 0.0 Sodium Level 141 Potassium Level 3.9 Chloride Level 105 Carbon Dioxide Level 29 Anion Gap 11 Blood Urea Nitrogen 4 L Creatinine 0.76 Glucose Level 106 Calcium Level 8.4 Medications Medications Current Medications Levofloxacin/ Dextrose 100 ml @ 100 mls/hr Q24H IVPB Last administered on 02/17 20:09; Admin Dose 100 MLS/HR; Start 02/17/17 at 20:00 Dextrose/Sodium Chloride (D5-1/2ns) 1,000 ml @ 50 mls/hr Q20H IV Last administered on 02/17/17 20:09; Admin Dose 50 MLS/HR; Start 02/17/17 at 20:00 Pantoprazole 40 mg 40 mg DAILY@06 IV Last administered on 02/18/17 05:58; Admin Dose 40 MG; Start 02/18/17 at 06:00 Vancomycin HCl/ Sodium Chloride (Vancocin/NS) 250 ml @ 83.333 mls/ hr Q12H IVPB Last administered on 02/18/17 05:58; Admin Dose 83.333 MLS/HR; Start 02/18/17 at 06:00 Carisoprodol (Soma) 350 mg Q8 PRN PO MUSCLE SPASMS; Start 02/17/17 at 22:00 Diazepam (Valium) 10 mg DAILY PRN PO MUSCLE SPASMS; Start 02/17/17 at 22:00 Acetaminophen/ Hydrocodone Bitart ([place] (10/325)) 1 tab Q12 PRN PO SEVERE PAIN LEVEL 7-10 Last administered on 02/17/17 23:03; Admin Dose 1 TAB; Start 02/17/17 at 22:00 Nortriptyline HCl (Aventyl) 75 mg HS PO Last administered on 02/18/17 02:01; Admin Dose 75 MG; Start 02/17/17 at 22:00 Prazosin HCl (Minipres) 2 mg HS PO Last administered on 02/18/17 02:01; Admin Dose 2 MG; Start 02/17/17 at 22:00 Hydromorphone HCl (Dilaudid) 1 mg Q4H PRN IV pain Last administered on 13:03; Admin Dose 1 MG; Start 02/18/17 at 00:30 Miscellaneous Information (*Rx Drug Level Order Reminder*) 1 ONCE ONCE XX ; Start 02/19/17 at 05:00; Stop 02/19/17 at 05:01 ROBIN ROSSI MD Feb 18, 2017 16:49
--- NOTE | 2017-02-18 17:09 | PN ---
Date/Time of Note Date/Time of Note DATE: 02/18/17 TIME: 17:07 Assessment/Plan VTE Prophylaxis VTE Prophylaxis Intervention: SCD's Lines/Catheters IV Catheter Type (from Nrs): Peripheral IV Assessment/Plan Chief Complaint/Hosp Course Patient does complains of neck pain, denies any chest pain denies shortness of breath. Assessment/Plan -Postop soft tissue infection, continue broad-spectrum antibiotics. Dr. Costello is following in infection disease consultation. -S/p posterior cervical laminectomy and foraminotomies with instrumental fusion of C3-C7. -Hypertension, continue Coreg. -Depression -Morbid obesity with BMI 45. -Acute on chronic back pain. Further recommendations based on clinical course. Plan of care discussed with Dr. Zhu Problems: Exam/Review of Systems Vital Signs Vitals Vital Signs Date Time Temp Pulse Resp B/P Pulse Ox O2 Delivery O2 Flow Rate FiO2 02/18/17 08:04 98.9 89 20 104/56 96 02/17/17 20:00 Room Air Intake and Output 02/17/17 02/17/17 02/18/17 15:00 23:00 07:00 Intake Total 300 ml 1070 ml Balance 300 ml 1070 ml Exam Constitutional: alert, oriented Head: normocephalic Neck: other (Posterior neck incision with small amount of drainage) Respiratory: normal air movement Cardiovascular: nl pulses Gastrointestinal: non-tender, soft Extremities: normal pulses Results Result Diagram: 02/18/17 0600 02/18/17 0600 Results 24 hrs Laboratory Tests Test 02/17/17 19:20 02/17/17 21:00 02/18/17 06:00 Lactic Acid Level 1.1 1.9 White Blood Count 8.0 Red Blood Count 3.65 L Hemoglobin 11.0 L Hematocrit 34.2 L Mean Corpuscular Volume 93.7 Mean Corpuscular Hemoglobin 30.1 Mean Corpuscular Hemoglobin Concent 32.2 Red Cell Distribution Width 12.5 Platelet Count 287 Mean Platelet Volume 10.3 Neutrophils % 41.3 Lymphocytes % 32.2 Monocytes % 10.9 Eosinophils % 14.8 H Basophils % 0.4 Nucleated Red Blood Cells % 0.0 Neutrophils # 3.3 Lymphocytes # 2.6 Monocytes # 0.9 Eosinophils # 1.2 H Basophils # 0.0 Nucleated Red Blood Cells # 0.0 Sodium Level 141 Potassium Level 3.9 Chloride Level 105 Carbon Dioxide Level 29 Anion Gap 11 Blood Urea Nitrogen 4 L Creatinine 0.76 Glucose Level 106 Calcium Level 8.4 Medications Medications Current Medications Levofloxacin/ Dextrose 100 ml @ 100 mls/hr Q24H IVPB Last administered on 02/17 20:09; Admin Dose 100 MLS/HR; Start 02/17/17 at 20:00 Dextrose/Sodium Chloride (D5-1/2ns) 1,000 ml @ 50 mls/hr Q20H IV Last administered on 02/17/17 20:09; Admin Dose 50 MLS/HR; Start 02/17/17 at 20:00 Pantoprazole 40 mg 40 mg DAILY@06 IV Last administered on 02/18/17 05:58; Admin Dose 40 MG; Start 02/18/17 at 06:00 Vancomycin HCl/ Sodium Chloride (Vancocin/NS) 250 ml @ 83.333 mls/ hr Q12H IVPB Last administered on 02/18/17 05:58; Admin Dose 83.333 MLS/HR; Start 02/18/17 at 06:00 Carisoprodol (Soma) 350 mg Q8 PRN PO MUSCLE SPASMS; Start 02/17/17 at 22:00 Diazepam (Valium) 10 mg DAILY PRN PO MUSCLE SPASMS; Start 02/17/17 at 22:00 Acetaminophen/ Hydrocodone Bitart ([place] (10/325)) 1 tab Q12 PRN PO SEVERE PAIN LEVEL 7-10 Last administered on 02/17/17 23:03; Admin Dose 1 TAB; Start 02/17/17 at 22:00 Nortriptyline HCl (Aventyl) 75 mg HS PO Last administered on 02/18/17 02:01; Admin Dose 75 MG; Start 02/17/17 at 22:00 Prazosin HCl (Minipres) 2 mg HS PO Last administered on 02/18/17 02:01; Admin Dose 2 MG; Start 02/17/17 at 22:00 Hydromorphone HCl (Dilaudid) 1 mg Q4H PRN IV pain Last administered on 16:59; Admin Dose 1 MG; Start 02/18/17 at 00:30 Miscellaneous Information (*Rx Drug Level Order Reminder*) 1 ONCE ONCE XX ; Start 02/19/17 at 05:00; Stop 02/19/17 at 05:01 JÚNIOR DOLAN Feb 18, 2017 17:09
[2017-02-18 20:00] VITALS: BP 133/66; RESP 20
[2017-02-18] MEDS: LEVOFLOXACIN 500MG/D5W (PMX) 100 ML IVPB SCH (20:21)
[2017-02-19 02:00] VITALS: BP 165/78; RESP 20
[2017-02-19] MEDS: HYDROmorphONE 1 MG/ML SYG IV PRN ×7 (02:38→21:03)
[2017-02-19] MEDS: DEXTROSE 5%-0.45% NACL 1,000 ML IV SCH ×2 (02:40→12:00)
[2017-02-19 03:35] VITALS: BP 134/69
[2017-02-19] MEDS: PANTOPRAZOLE 40 MG INJ IV SCH (05:38)
[2017-02-19] MEDS: VANCOMYCIN 1.5 GM in SOD CHLORIDE 0.9% 250 ML IVPB SCH ×2 (05:40→18:40)
[2017-02-19 06:58] LABS: BASOPHILS % 0.5 % (0.0-2.0); EOSINOPHILS # 1.4 10^3/ul (0.0-0.5); EOSINOPHILS % 21.4 % (0.0-7.0); HEMATOCRIT 32.9 % (37.0-47.0); HEMOGLOBIN 10.8 g/dl (12.0-16.0); LYMPHOCYTES # 2.3 10^3/ul (0.8-2.9); LYMPHOCYTES % 36.2 % (15.0-51.0); MEAN CORPUSCULAR HEMOGLOBIN 30.2 pg (29.0-33.0); MEAN CORPUSCULAR HGB CONC 32.8 g/dl (32.0-37.0); MEAN CORPUSCULAR VOLUME 91.9 fl (82.0-101.0); MEAN PLATELET VOLUME 10.6 fl (7.4-10.4); MONOCYTE # 0.4 10^3/ul (0.3-0.9); MONOCYTES % 6.3 % (0.0-11.0); NEUTROPHIL # 2.3 10^3/ul (1.6-7.5); NEUTROPHILS % 35.4 % (39.0-77.0); PLATELET COUNT 299 10^3/UL (140-415); RED BLOOD COUNT 3.58 10^6/ul (4.20-5.40); RED CELL DISTRIBUTION WIDTH 12.4 % (11.5-14.5); WHITE BLOOD COUNT 6.5 10^3/ul (4.8-10.8)
[2017-02-19 07:47] VITALS: BP 158/82; RESP 22
[2017-02-19 07:54] LABS: ANION GAP 9 (8-16); CALCIUM 8.7 mg/dl (8.4-10.2); CARBON DIOXIDE 31 mmol/L (21-31); CHLORIDE 105 mmol/L (97-110); CREATININE 0.63 mg/dl (0.44-1.00); GLUCOSE 109 mg/dl (70-220); POTASSIUM 3.3 mmol/L (3.5-5.1); SODIUM 142 mmol/L (135-144)
[2017-02-19 07:55] LABS: BLOOD UREA NITROGEN < 2 mg/dl (7-20)
[2017-02-19] MEDS: HYDROCODONE/APAP (10/325) TAB PO PRN (08:34)
--- NOTE | 2017-02-19 10:37 | PN ---
Date/Time of Note Date/Time of Note DATE: 02/19/17 TIME: 10:37 Assessment/Plan VTE Prophylaxis VTE Prophylaxis Intervention: other Lines/Catheters IV Catheter Type (from Nrsg): Peripheral IV Assessment/Plan Chief Complaint/Hosp Course Severe sepsis - admit to [facility] - id CONSULT- Dr Costello notified Postoperative wound infection - Vanco/Levo Neck pain - pain meds - SCD - PPI Problems: Subjective 24 Hr Interval Summary Free Text/Dictation Patient complain of pain in neck Exam/Review of Systems Vital Signs Vitals Vital Signs Date Time Temp Pulse Resp B/P Pulse Ox O2 Delivery O2 Flow Rate FiO2 02/19/17 07:47 97.9 88 22 158/82 95 02/17/17 20:00 Room Air Intake and Output 02/18/17 02/18/17 02/19/17 14:59 22:59 06:59 Intake Total 1430 ml 1833 ml Balance 1430 ml 1833 ml Exam Constitutional: well developed Head: atraumatic, normocephalic Neck: supple Respiratory: diminished breath sounds Cardiovascular: regular rate and rhythm Gastrointestinal: non-tender, soft Extremities: normal pulses Results Result Diagram: 02/19/17 0555 02/19/17 0555 Results 24 hrs Laboratory Tests Test 02/19/17 05:55 White Blood Count 6.5 Red Blood Count 3.58 L Hemoglobin 10.8 L Hematocrit 32.9 L Mean Corpuscular Volume 91.9 Mean Corpuscular Hemoglobin 30.2 Mean Corpuscular Hemoglobin Concent 32.8 Red Cell Distribution Width 12.4 Platelet Count 299 Mean Platelet Volume 10.6 H Neutrophils % 35.4 L Lymphocytes % 36.2 Monocytes % 6.3 Eosinophils % 21.4 H Basophils % 0.5 Nucleated Red Blood Cells % 0.0 Neutrophils # 2.3 Lymphocytes # 2.3 Monocytes # 0.4 Eosinophils # 1.4 H Basophils # 0.0 Nucleated Red Blood Cells # 0.0 Sodium Level 142 Potassium Level 3.3 L Chloride Level 105 Carbon Dioxide Level 31 Anion Gap 9 Blood Urea Nitrogen < 2 L Creatinine 0.63 Glucose Level 109 Calcium Level 8.7 Medications Medications Current Medications Levofloxacin/ Dextrose 100 ml @ 100 mls/hr Q24H IVPB Last administered on 02/18t 20:21; Admin Dose 100 MLS/HR; Start 02/17/17 at 20:00 Dextrose/Sodium Chloride (D5-1/2ns) 1,000 ml @ 50 mls/hr Q20H IV Last administered on 02/19/17 02:40; Admin Dose 50 MLS/HR; Start 02/17/17 at 20:00 Pantoprazole 40 mg 40 mg DAILY@06 IV Last administered on 02/19/17 05:38; Admin Dose 40 MG; Start 02/18/17 at 06:00 Vancomycin HCl/ Sodium Chloride (Vancocin/NS) 250 ml @ 83.333 mls/ hr Q12H IVPB Last administered on 02/19/17 05:40; Admin Dose 83.333 MLS/HR; Start 02/18/17 at 06:00 Carisoprodol (Soma) 350 mg Q8 PRN PO MUSCLE SPASMS; Start 02/17/17 at 22:00 Diazepam (Valium) 10 mg DAILY PRN PO MUSCLE SPASMS; Start 02/17/17 at 22:00 Acetaminophen/ Hydrocodone Bitart ([place] (10/325)) 1 tab Q12 PRN PO SEVERE PAIN LEVEL 7-10 Last administered on 02/19/17 08:34; Admin Dose 1 TAB; Start 02/17/17 at 22:00 Nortriptyline HCl (Aventyl) 75 mg HS PO Last administered on 02/18/17 20:22; Admin Dose 75 MG; Start 02/17/17 at 22:00 Prazosin HCl (Minipres) 2 mg HS PO Last administered on 02/18/17 20:22; Admin Dose 2 MG; Start 02/17/17 at 22:00 Hydromorphone HCl (Dilaudid) 1 mg Q3 PRN IV pain Last administered on 08:49; Admin Dose 1 MG; Start 02/18/17 at 18:00 SISSY GOMES Feb 19, 2017 10:37
--- NOTE | 2017-02-19 13:14 | CONS ---
Date/Time of Note Date/Time of Note DATE: 02/19/17 TIME: 12:51 Assessment/Plan Assessment/Plan Additional Assessment/Plan - Possible mild post-op cellulitis - on Vanco/ Levofloxacin - s/p s/p posterior cervical laminectomy and foraminotomies with instrumental fusion of C3-C7 - URINE CULTURE Final Organism 1 LACTOBACILLUS SPECIES COLONY COUNT >100,000 CFU/ml - hx of obesity -Hypokalemia- replace per PMD R: cont. current empiric abx monitor crcl closely procalcitonin in am wound cx- pending mrsa screen- pending Dw gaston Juares/ Dr Cotton Consultation Date/Type/Reason Admit Date/Time Feb 17, 2017 at 17:25 Initial Consult Date 02/18/17 Referring Provider: LEILA PERES MD 24 HR Interval Summary Free Text/Dictation -c/o neck incision pain - afebrile - wbc wnl - uRINE C/S showed Lactobacillus >100,000 CFU/ml - Wound c/s pending - no events reported overnight Detailed Summary Respiratory: no complaints Cardiovascular: no complaints Gastrointestinal: no complaints Genitourinary: no complaints Musculoskeletal: neck pain (incsional pain) Exam/Review of Systems Vital Signs Vitals Vital Signs Date Time Temp Pulse Resp B/P Pulse Ox O2 Delivery O2 Flow Rate FiO2 02/19/17 07:47 97.9 88 22 158/82 95 02/17/17 20:00 Room Air Intake and Output 02/18/17 02/18/17 02/19/17 15:00 23:00 07:00 Intake Total 1430 ml 1833 ml Balance 1430 ml 1833 ml Exam Constitutional: alert, oriented Respiratory: clear to auscultation, diminished breath sounds Cardiovascular: nl pulses Gastrointestinal: non-tender, soft Musculoskeletal: nl extremities to inspection Extremities: normal pulses Neurological: nl mental status, nl speech Results Result Diagram: 02/19/17 0555 02/19/17 0555 Results 24 hrs Laboratory Tests Test 02/19/17 05:55 White Blood Count 6.5 Red Blood Count 3.58 L Hemoglobin 10.8 L Hematocrit 32.9 L Mean Corpuscular Volume 91.9 Mean Corpuscular Hemoglobin 30.2 Mean Corpuscular Hemoglobin Concent 32.8 Red Cell Distribution Width 12.4 Platelet Count 299 Mean Platelet Volume 10.6 H Neutrophils % 35.4 L Lymphocytes % 36.2 Monocytes % 6.3 Eosinophils % 21.4 H Basophils % 0.5 Nucleated Red Blood Cells % 0.0 Neutrophils # 2.3 Lymphocytes # 2.3 Monocytes # 0.4 Eosinophils # 1.4 H Basophils # 0.0 Nucleated Red Blood Cells # 0.0 Sodium Level 142 Potassium Level 3.3 L Chloride Level 105 Carbon Dioxide Level 31 Anion Gap 9 Blood Urea Nitrogen < 2 L Creatinine 0.63 Glucose Level 109 Calcium Level 8.7 Medications Medications Current Medications Levofloxacin/ Dextrose 100 ml @ 100 mls/hr Q24H IVPB Last administered on 02/18 20:21; Admin Dose 100 MLS/HR; Start 02/17/17 at 20:00 Dextrose/Sodium Chloride (D5-1/2ns) 1,000 ml @ 50 mls/hr Q20H IV Last administered on 02/19/17 02:40; Admin Dose 50 MLS/HR; Start 02/17/17 at 20:00 Pantoprazole 40 mg 40 mg DAILY@06 IV Last administered on 02/19/17 05:38; Admin Dose 40 MG; Start 02/18/17 at 06:00 Vancomycin HCl/ Sodium Chloride (Vancocin/NS) 250 ml @ 83.333 mls/ hr Q12H IVPB Last administered on 02/19/17 05:40; Admin Dose 83.333 MLS/HR; Start 02/18/17 at 06:00 Carisoprodol (Soma) 350 mg Q8 PRN PO MUSCLE SPASMS; Start 02/17/17 at 22:00 Diazepam (Valium) 10 mg DAILY PRN PO MUSCLE SPASMS; Start 02/17/17 at 22:00 Acetaminophen/ Hydrocodone Bitart ([place] (10/325)) 1 tab Q12 PRN PO SEVERE PAIN LEVEL 7-10 Last administered on 02/19/17 08:34; Admin Dose 1 TAB; Start 02/17/17 at 22:00 Nortriptyline HCl (Aventyl) 75 mg HS PO Last administered on 02/18/17 20:22; Admin Dose 75 MG; Start 02/17/17 at 22:00 Prazosin HCl (Minipres) 2 mg HS PO Last administered on 02/18/17 20:22; Admin Dose 2 MG; Start 02/17/17 at 22:00 Hydromorphone HCl (Dilaudid) 1 mg Q3 PRN IV pain Last administered on 12:09; Admin Dose 1 MG; Start 02/18/17 at 18:00 ANTIONE GARCIA Feb 19, 2017 13:02
[2017-02-19] MEDS ORDERED: POTASSIUM CHLORIDE (SR) 20 MEQ TAB PO ONE (13:30)
[2017-02-19 17:50] VITALS: BP 148/71; RESP 18
[2017-02-19] MEDS: NORTRIPTYLINE 25 MG CAP PO SCH (21:18)
[2017-02-19] MEDS: PRAZOSIN 1 MG CAP PO SCH (21:22)
[2017-02-19] MEDS: LEVOFLOXACIN 500MG/D5W (PMX) 100 ML IVPB SCH (21:22)
[2017-02-19 21:23] VITALS: BP 131/65; PULSE 85; RESP 18
[2017-02-20] MEDS: HYDROmorphONE 1 MG/ML SYG IV PRN ×8 (00:05→21:56)
[2017-02-20 02:30] VITALS: BP 127/71; PULSE 90; RESP 18
[2017-02-20] MEDS: VANCOMYCIN 1.5 GM in SOD CHLORIDE 0.9% 250 ML IVPB SCH ×2 (06:01→18:23)
[2017-02-20] MEDS: PANTOPRAZOLE 40 MG INJ IV SCH (06:01)
--- NOTE | 2017-02-20 10:54 | PN ---
Date/Time of Note Date/Time of Note DATE: 02/20/17 TIME: 10:53 Assessment/Plan VTE Prophylaxis VTE Prophylaxis Intervention: other Lines/Catheters IV Catheter Type (from Nrsg): Peripheral IV Assessment/Plan Chief Complaint/Hosp Course Severe sepsis - admit to [facility] - id CONSULT- Dr Costello notified Postoperative wound infection - Vanco/Levo Neck pain - pain meds - SCD - PPI Problems: Subjective 24 Hr Interval Summary Free Text/Dictation Patient has pain, not well controlled with current regimen Exam/Review of Systems Vital Signs Vitals Vital Signs Date Time Temp Pulse Resp B/P Pulse Ox O2 Delivery O2 Flow Rate FiO2 02/20/17 02:30 98.8 90 18 127/71 93 Room Air Intake and Output 02/19/17 02/19/17 02/20/17 15:00 23:00 07:00 Intake Total 2009 ml 540 ml Balance 2009 ml 540 ml Exam Constitutional: well developed Head: atraumatic, normocephalic Neck: supple Respiratory: clear to auscultation Cardiovascular: regular rate and rhythm Gastrointestinal: non-tender, soft Extremities: normal pulses Results Result Diagram: 02/19/17 0555 02/19/17 0555 Results 24 hrs Laboratory Tests Test 02/19/17 17:12 Vancomycin Level Trough 13.3 Medications Medications Current Medications Levofloxacin/ Dextrose 100 ml @ 100 mls/hr Q24H IVPB Last administered on 02/19 21:22; Admin Dose 100 MLS/HR; Start 02/17/17 at 20:00 Dextrose/Sodium Chloride (D5-1/2ns) 1,000 ml @ 50 mls/hr Q20H IV Last administered on 02/19/17 02:40; Admin Dose 50 MLS/HR; Start 02/17/17 at 20:00 Pantoprazole 40 mg 40 mg DAILY@06 IV Last administered on 02/20/17 06:01; Admin Dose 40 MG; Start 02/18/17 at 06:00 Vancomycin HCl/ Sodium Chloride (Vancocin/NS) 250 ml @ 83.333 mls/ hr Q12H IVPB Last administered on 02/20/17 06:01; Admin Dose 83.333 MLS/HR; Start at 06:00 Carisoprodol (Soma) 350 mg Q8 PRN PO MUSCLE SPASMS; Start 02/17/17 at 22:00 Diazepam (Valium) 10 mg DAILY PRN PO MUSCLE SPASMS; Start 02/17/17 at 22:00 Acetaminophen/ Hydrocodone Bitart ([place] (10)) 1 tab Q12 PRN PO SEVERE PAIN LEVEL 7-10 Last administered on 02/19/17 08:34; Admin Dose 1 TAB; Start 02/17/17 at 22:00 Nortriptyline HCl (Aventyl) 75 mg HS PO Last administered on 02/19/17 21:18; Admin Dose 75 MG; Start 02/17/17 at 22:00 Prazosin HCl (Minipres) 2 mg HS PO Last administered on 02/19/17 21:22; Admin Dose 2 MG; Start 02/17/17 at 22:00 Hydromorphone HCl (Dilaudid) 1 mg Q3 PRN IV pain Last administered on 09:06; Admin Dose 1 MG; Start 02/18/17 at 18:00 SISSY GOMES Feb 20, 2017 10:54
--- NOTE | 2017-02-20 12:18 | CONS ---
Date/Time of Note Date/Time of Note DATE: 02/20/17 TIME: 11:57 Assessment/Plan Assessment/Plan Additional Assessment/Plan - Possible mild post-op cellulitis - on Vanco/ Levofloxacin - Neck Wound showed No methicillin resistant staphylococcus aureus isolated - Procalcitonin - talked to lab - pending - s/p s/p posterior cervical laminectomy and foraminotomies with instrumental fusion of C3-C7 - URINE CULTURE Final - Organism 1 LACTOBACILLUS SPECIES COLONY COUNT >100,000 CFU/ml - hx of obesity -Hypokalemia- replace per PMD on 02/19/2017. No labs today - Neck Wound culture- talked to lab -pending R: cont. current empiric abx monitor cr cl closely procalcitonin - fu wound cx- pending mrsa screen- negative will follow closely with you Dw [place] ni/ Dr Cotton Consultation Date/Type/Reason Admit Date/Time Feb 17, 2017 at 17:25 Initial Consult Date 02/18/17 Referring Provider: LEILA PERES MD 24 HR Interval Summary Free Text/Dictation - afebrile - c/o neck pain- incisional pain, pain med inbreed by PMD- effective - talked to lab- procalcitonin- pending - wound culture received- result pending - no new events resorted overnight Detailed Summary Respiratory: no complaints Cardiovascular: no complaints Gastrointestinal: no complaints Genitourinary: no complaints Musculoskeletal: neck pain (inscional pain) Exam/Review of Systems Vital Signs Vitals Vital Signs Date Time Temp Pulse Resp B/P Pulse Ox O2 Delivery O2 Flow Rate FiO2 02/20/17 02:30 98.8 90 18 127/71 93 Room Air Intake and Output 02/19/17 02/19/17 02/20/17 15:00 23:00 07:00 Intake Total 2009 ml 540 ml Balance 2009 ml 540 ml Exam Constitutional: alert, oriented Psych: nl mood/affect Respiratory: diminished breath sounds, normal air movement Cardiovascular: nl pulses Gastrointestinal: non-tender, soft Musculoskeletal: nl extremities to inspection Extremities: normal pulses Neurological: nl mental status Results Result Diagram: 02/19/17 0555 02/19/17 0555 Results 24 hrs Laboratory Tests Test 02/19/17 17:12 Vancomycin Level Trough 13.3 Imaging Free Text/Dictation No methicillin resistant staphylococcus aureus isolated Medications Medications Current Medications Levofloxacin/ Dextrose 100 ml @ 100 mls/hr Q24H IVPB Last administered on 02/19 21:22; Admin Dose 100 MLS/HR; Start 02/17/17 at 20:00 Dextrose/Sodium Chloride (D5-1/2ns) 1,000 ml @ 50 mls/hr Q20H IV Last administered on 02/19/17 02:40; Admin Dose 50 MLS/HR; Start 02/17/17 at 20:00 Pantoprazole 40 mg 40 mg DAILY@06 IV Last administered on 02/20/17 06:01; Admin Dose 40 MG; Start 02/18/17 at 06:00 Vancomycin HCl/ Sodium Chloride (Vancocin/NS) 250 ml @ 83.333 mls/ hr Q12H IVPB Last administered on 02/20/17 06:01; Admin Dose 83.333 MLS/HR; Start at 06:00 Carisoprodol (Soma) 350 mg Q8 PRN PO MUSCLE SPASMS; Start 02/17/17 at 22:00 Diazepam (Valium) 10 mg DAILY PRN PO MUSCLE SPASMS; Start 02/17/17 at 22:00 Acetaminophen/ Hydrocodone Bitart ([place] (10/325)) 1 tab Q12 PRN PO SEVERE PAIN LEVEL 7-10 Last administered on 02/19/17 08:34; Admin Dose 1 TAB; Start 02/17/17 at 22:00 Nortriptyline HCl (Aventyl) 75 mg HS PO Last administered on 02/19/17 21:18; Admin Dose 75 MG; Start 02/17/17 at 22:00 Prazosin HCl (Minipres) 2 mg HS PO Last administered on 02/19/17 21:22; Admin Dose 2 MG; Start 02/17/17 at 22:00 Hydromorphone HCl (Dilaudid) 1.5 mg Q3 PRN IV pain; Start 02/20/17 at 11:00 ANTIONE GARCIA Feb 20, 2017 12:13
[2017-02-20] MEDS: DEXTROSE 5%-0.45% NACL 1,000 ML IV SCH (13:06)
[2017-02-20 20:00] VITALS: BP 129/72; RESP 18
[2017-02-20] MEDS: NORTRIPTYLINE 25 MG CAP PO SCH (21:03)
[2017-02-20] MEDS: PRAZOSIN 1 MG CAP PO SCH (21:03)
[2017-02-20] MEDS: LEVOFLOXACIN 500MG/D5W (PMX) 100 ML IVPB SCH (21:04)
[2017-02-21] MEDS: HYDROmorphONE 1 MG/ML SYG IV PRN ×6 (00:56→16:00)
[2017-02-21 02:22] VITALS: BP 143/88; RESP 18
[2017-02-21] MEDS: DEXTROSE 5%-0.45% NACL 1,000 ML IV SCH (03:22)
[2017-02-21] MEDS: VANCOMYCIN 1.5 GM in SOD CHLORIDE 0.9% 250 ML IVPB SCH (05:56)
[2017-02-21] MEDS: PANTOPRAZOLE 40 MG INJ IV SCH (05:56)
[2017-02-21 06:13] LABS: CREATININE 0.73 mg/dl (0.44-1.00)
[2017-02-21 08:00] VITALS: BP 129/73; RESP 16
[2017-02-21] MEDS ORDERED: HYDROmorphONE 2 MG/ML SYG ONE ×2 (12:59→15:53)
--- NOTE | 2017-02-21 13:11 | CONS ---
Date/Time of Note Date/Time of Note DATE: 02/21/17 TIME: 13:10 Assessment/Plan Assessment/Plan Chief Complaint/Hosp Course - Possible mild post-op cellulitis - Procalcitonin - talked to lab - pending - s/p s/p posterior cervical laminectomy and foraminotomies with instrumental fusion of C3-C7 - URINE CULTURE Final - Organism 1 LACTOBACILLUS SPECIES COLONY COUNT >100,000 CFU/ml - hx of obesity -Hypokalemia- replace per PMD on 02/19/2017. No labs today - Neck Wound culture- talked to lab -pending R: change to Keflex x 5- 7 more days ok for d/c from id standpoint probiotics Problems: Consultation Date/Type/Reason Admit Date/Time Feb 17, 2017 at 17:25 Initial Consult Date 02/18/17 Referring Provider: LEILA PERES MD 24 HR Interval Summary Free Text/Dictation she states she feels much better today. She is still having pain but it is much better. Exam/Review of Systems Vital Signs Vitals Vital Signs Date Time Temp Pulse Resp B/P Pulse Ox O2 Delivery O2 Flow Rate FiO2 02/21/17 08:00 98.7 85 16 129/73 94 02/20/17 02:30 Room Air Intake and Output 02/20/17 02/20/17 02/21/17 15:00 23:00 07:00 Intake Total 450 ml 1500 ml 1000 ml Balance 450 ml 1500 ml 1000 ml Exam Constitutional: alert, oriented, well developed Psych: nl mood/affect, no complaints Head: atraumatic, normocephalic Eyes: EOMI, PERRL, nl conjunctiva, nl lids, nl sclera ENMT: nl external ears & nose, nl lips & teeth, nl nasal mucosa & septum Respiratory: clear to auscultation, normal air movement Cardiovascular: nl pulses, regular rate and rhythm Gastrointestinal: nl liver, spleen, non-tender, soft Skin: other (wound cdi) Results Result Diagram: 02/19/17 0555 02/21/17 0522 Results 24 hrs Laboratory Tests Test 02/21/17 05:22 Blood Urea Nitrogen 3 L Creatinine 0.73 Medications Medications Current Medications Levofloxacin/ Dextrose 100 ml @ 100 mls/hr Q24H IVPB Last administered on t 21:04; Admin Dose 100 MLS/HR; Start 02/17/17 at 20:00 Dextrose/Sodium Chloride (D5-1/2ns) 1,000 ml @ 50 mls/hr Q20H IV Last administered on 02/20/17 13:06; Admin Dose 50 MLS/HR; Start 02/17/17 at 20:00 Pantoprazole 40 mg 40 mg DAILY@06 IV Last administered on 02/21/17 05:56; Admin Dose 40 MG; Start 02/18/17 at 06:00 Vancomycin HCl/ Sodium Chloride (Vancocin/NS) 250 ml @ 83.333 mls/ hr Q12H IVPB Last administered on 02/21/17 05:56; Admin Dose 83.333 MLS/HR; Start at 06:00 Carisoprodol (Soma) 350 mg Q8 PRN PO MUSCLE SPASMS; Start 02/17/17 at 22:00 Diazepam (Valium) 10 mg DAILY PRN PO MUSCLE SPASMS; Start 02/17/17 at 22:00 Acetaminophen/ Hydrocodone Bitart ([place] (10/325)) 1 tab Q12 PRN PO SEVERE PAIN LEVEL 7-10 Last administered on 02/19/17 08:34; Admin Dose 1 TAB; Start 02/17/17 at 22:00 Nortriptyline HCl (Aventyl) 75 mg HS PO Last administered on 02/20/17 21:03; Admin Dose 75 MG; Start 02/17/17 at 22:00 Prazosin HCl (Minipres) 2 mg HS PO Last administered on 02/20/17 21:03; Admin Dose 2 MG; Start 02/17/17 at 22:00 Hydromorphone HCl (Dilaudid) 1.5 mg Q3 PRN IV pain Last administered on 13:02; Admin Dose 1.5 MG; Start 02/20/17 at 11:00 ROBIN ROSSI MD Feb 21, 2017 13:11
[2017-02-21 14:34] VITALS: BP 135/87; RESP 18
[2017-02-21] MEDS ORDERED: CEPH500C PO (15:36)
[2017-02-21] MEDS ORDERED: CEPHALEXIN 500 MG CAP PO SCH (18:00)
--- NOTE | 2017-02-21 21:48 | DS ---
Date/Time of Note Date/Time of Note DATE: 02/21/17 TIME: 21:46 Discharge Summary Admission/Discharge Info Admit Date/Time Feb 17, 2017 at 17:25 Discharge Date/Time Feb 21, 2017 at 16:25 Patient Condition: Stable Hx of Present Illness The patient is a 41-year-old female with a history of hypertension, depression, morbid obesity with a history of cervical myelopathy and disc disease who is status post cervical laminectomy and foraminotomies C3-C7 presents to the ED complaining of worsening pain. Moderate to severe, sharp, achy, nonradiating cervical pain which is minimally relieved by Dilaudid and oxycodone. Pain is exacerbated by any kind of movement. Patient was seen by neurosurgery, Dr. Jordan earlier today and referred to the ED for further evaluation of wound infection. Since surgery she has had numbness left upper extremity which is unchanged. No new weakness or numbness. Denies chest pain, palpitations, cough , shortness of breath, abdominal pain, nausea, vomiting, dysuria or polyuria. But no fevers. Hospital Course -Postop soft tissue infection, continue broad-spectrum antibiotics. Dr. Costello is following in infection disease consultation. -S/p posterior cervical laminectomy and foraminotomies with instrumental fusion of C3-C7. -Hypertension, continue Coreg. -Depression -Morbid obesity with BMI 45. -Acute on chronic back pain. Plan of care discussed with Dr. Zhu [place] Meds Active Scripts Cephalexin* (Cephalexin*) 500 Mg Capsule, 500 MG PO Q6 for 7 Days, CAP Prov:CAMDEN DOLANLANA 02/21/17 Reported Medications Nortriptyline Hcl* (Nortriptyline Hcl*) 75 Mg Capsule, 75 MG PO HS, TAB 01/28/17 Prazosin Hcl* (Prazosin Hcl*) 2 Mg Capsule, 2 MG PO HS, CAP 01/28/17 Diazepam* (Diazepam*) 10 Mg Tablet, 10 MG PO DAILY Y for MUSCLE SPASMS, TAB 01/28/17 Carisoprodol* (Carisoprodol*) 350 Mg Tablet, 350 MG PO Q8 Y for MUSCLE SPASMS, TAB 01/28/17 Hydrocodone/Acetaminophen ([place] 10-325 Tablet) 1 Each Tablet, 1 EACH PO Q12 Y for SEVERE PAIN LEVEL 7-10, TAB 01/28/17 Follow-up Plan f/up with Dr Jordan in 2 weeks. Primary Care Provider Margarita Young Time spent on discharge: > 30 minutes Pending Labs Laboratory Tests Test 02/21/17 05:22 Blood Urea Nitrogen 3mg/dl (7-20) Creatinine 0.73mg/dl (0.44-1.00) JÚNIOR DOLAN Feb 21, 2017 21:48
== END 2017-02-21 16:25 | disposition home or self-care (01) | DRG 863 ==
LOC: E/R 14:15 → MS2 17:25
PROVIDERS: ADMIT Internal Medicine; ATTEND Internal Medicine
DX: T81.4XXA Infection following a procedure, initial encounter (principal); Z68.42 Body mass index [BMI] 45.0-49.9, adult; I10 Essential (primary) hypertension; L03.221 Cellulitis of neck; E66.01 Morbid (severe) obesity due to excess calories; E87.6 Hypokalemia; M54.9 Dorsalgia, unspecified; G89.29 Other chronic pain; F32.9 Major depressive disorder, single episode, unspecified
CPT/HCPCS: 36415; 71010; 72125; 80048; 80053; 80202; 81001; 82565; 83605; 84145; 84520; 85025; 85610; 85730; 87040; 87070; 87081; 87086; 96374; 96375; C9113; J1170; J1956; J3370; J7030; J7042; J7050

== ENCOUNTER 2018-07-27 05:44 | Inpatient (IN) | payer MEDICARE, OTHER ==
[2018-07-27] VITALS (27 sets, daily range): BP systolic 100–143; BP diastolic 62–92; PULSE 70–120; RESP 13–22; Ht 162.6 cm; Wt 73.3 kg
[~2018-07-27] VITALS: Ht 162.6 cm; Wt 73.3 kg
[~2018-07-27 05:44] MED LIST changes: +CEPH500C PO; +HYDR-3980 PO; -HYDR-902 PO
[2018-07-27] MEDS ORDERED: GELATIN SIZE 100 SPONGE ONE (06:53)
[2018-07-27] MEDS ORDERED: THROMBIN 5000 UNIT VIAL ONE (06:53)
[2018-07-27] MEDS ORDERED: SURGIFOAM POWDER 1 GM KIT ONE (06:53)
[2018-07-27] MEDS ORDERED: POLYMYXIN/BACITRACIN 1L IRRIG ONE (06:54)
[2018-07-27] MEDS ORDERED: ROPIVACAINE 0.5 % 30 ML VIAL ONE (06:54)
[2018-07-27] MEDS ORDERED: EPHEDrine 25 MG/5 ML SYG ONE (07:00)
[2018-07-27] MEDS ORDERED: PHENYLephrine (100 MCG/ML) 10ML SYG ONE (07:00)
[2018-07-27] MEDS ORDERED: CARI350T29 PO (07:14)
[2018-07-27] MEDS ORDERED: HYDR4TAB51 PO (07:14)
[2018-07-27] MEDS ORDERED: HYDR-3980 PO (07:15)
--- NOTE | 2018-07-27 07:33 | PREAC ---
Date/Time of Note Date/Time of Note DATE: 07/27/18 TIME: 07:32 Anesthesia Eval and Record Evaluation Time Pre-Procedure Interview DATE: 07/27/18 TIME: 07:32 Age 43 Sex female NPO: 8 hrs Preoperative diagnosis [id number] stenosis Planned procedure [id number] bilateral discectomy/decompression Past Medical History Past Medical History: None Surgery & Anesthesia Issues No known issue Meds Anticoagulation: No Beta Alisha within 24 hr: No Reason Beta Alisha not given: Pt. not on B-Alisha Reported Medications Hydrocodone/Acetaminophen ([place] 10-325 Tablet) 1 Each Tablet, 1 EACH PO Q4 PRN for PAIN, TAB 07/27/18 Hydromorphone Hcl* (Dilaudid*) 4 Mg Tablet, 4 MG PO Q4H PRN for PAIN, TAB 07/27/18 Carisoprodol* (Carisoprodol*) 350 Mg Tablet, 350 MG PO Q6 PRN for MUSCLE SPASMS, TAB 07/27/18 Discontinued Reported Medications Nortriptyline Hcl* (Nortriptyline Hcl*) 75 Mg Capsule, 75 MG PO HS, TAB 01/28/17 Prazosin Hcl* (Prazosin Hcl*) 2 Mg Capsule, 2 MG PO HS, CAP 01/28/17 Diazepam* (Diazepam*) 10 Mg Tablet, 10 MG PO DAILY PRN for MUSCLE SPASMS, TAB 01/28/17 Carisoprodol* (Carisoprodol*) 350 Mg Tablet, 350 MG PO Q8 PRN for MUSCLE SPASMS, TAB 01/28/17 Hydrocodone/Acetaminophen ([place] 10-325 Tablet) 1 Each Tablet, 1 EACH PO Q12 PRN for SEVERE PAIN LEVEL 7-10, TAB 01/28/17 Discontinued Scripts Cephalexin* (Cephalexin*) 500 Mg Capsule, 500 MG PO Q6 for 7 Days, CAP Prov:PHILLIPJÚNIOR BETTS 02/21/17 Meds reviewed: Yes Allergies Coded Allergies: No Known Allergy (Unverified , 07/27/18) Allergies Reviewed: Yes Labs/Studies Labs Reviewed: Reviewed by anesthesiologist Result Diagram: 07/27/1815 07/27/1815 Laboratory Tests 07/27/18 06:15 Blood Bank Test 07/27/18 06:15 Antibody Screen NEGATIVE Blood Type O POSITIVE test: N/A Pre-procedure Exam Last vitals Vital Signs Date Temp Pulse Resp B/P (MAP) Pulse Ox O2 O2 Flow FiO2 Time Delivery Rate 07/27/18 98.2 85 18 143/83 98 Room Air 06:30 (103) Airway: Adequate mouth opening, Adequate thyromental dist Mallampati: Mallampati IV Teeth: Normal Lung: Normal Heart: Normal ASA Physical Status ASA physical status: 2 Emergency: None Pre-operative Attestations Prior to commencing anesthesia and surgery, the patient was re-evaluated, there was verification of: *The patient's identity *The results of appropriate recent lab work and preoperative vital signs *The above evaluation not changing prior to induction *Anesthetic plan, risk benefits, alternative and complications discussed with patient/family; questions answered; patient/family understands, accepts and wishes to proceed. LEVI VALERIO DO July 27, 2018 07:33
[2018-07-27] MEDS ORDERED: ONDANSETRON 4 MG INJ ONE (07:49)
[2018-07-27] MEDS ORDERED: LIDOCAINE 1% (MDV) 20 ML INJ ONE (07:49)
[2018-07-27] MEDS ORDERED: MIDAZOLAM 1 MG/ML 2 ML INJ ONE (07:49)
[2018-07-27] MEDS ORDERED: SUCCINYLCHOLINE CHLORIDE 100 MG/5 ML SYG IV ONE (07:49)
[2018-07-27] MEDS ORDERED: DEXAMETHASONE 4 MG/ML 5 ML INJ ONE (07:49)
[2018-07-27] MEDS ORDERED: CEFAZOLIN 1 GM INJ ONE (07:49)
[2018-07-27] MEDS ORDERED: PROPOFOL 20 ML ONE (07:49)
[2018-07-27] MEDS ORDERED: ROCURONIUM 50 MG INJ ONE (07:49)
[2018-07-27] MEDS ORDERED: HYDROmorphONE 1 MG/5 ML IV SYRINGE IV PRN ×3 (08:00)
--- NOTE | 2018-07-27 08:25 | HPN ---
Date/Time of Note Date/Time of Note DATE: 07/27/18 TIME: 08:23 Interval H&P Admission Note Pt. seen H&P reviewed: No system changes Neurosurgery Preop Note Patient seen and examined Extensive d/w patient about all available options including surgery vs no surgery. Overall risk/complications 3-5% overall as preprinted in my office consent form thoroughly discussed. All Questions answered and no guarantees given Pt agrees and would like to proceed. RUPA REYES MD July 27, 2018 08:25
--- NOTE | 2018-07-27 11:02 | OPPN ---
Date/Time of Note Date/Time of Note DATE: 07/27/18 TIME: 10:59 Operative Report Preoperative Diagnosis Mechanical LBP with LE Radiculopathy Postoperative Diagnosis Same Operation/Procedure Performed 1. L5-S1 Lumbar Hardware removal 2. Left L5-S1 decompression 3. Left L4-5 Interbody fusion 4. Bilateral L4-S1 ISF Placement. Surgeon see signature line patient services assistant UDAY Jay, ACNP-BC Anesthesia: general Estimated blood loss: 50 - 100 ml's Transfusion Required none Specimen 1. L4-5 & L5-S1 Disc 2. Bones and ligaments 3. Explant Grafts/Implants none Complications none RUPA REYES MD July 27, 2018 11:02
[2018-07-27] MEDS ORDERED: FENTAnyl 50 MCG/ML VIAL ONE (11:06)
--- NOTE | 2018-07-27 11:19 | PAC ---
Date/Time of Note Date/Time of Note DATE: 07/27/18 TIME: 11:18 Post-Anesthesia Notes Post-Anesthesia Note Last documented vital signs Vital Signs Date Temp Pulse Resp B/P (MAP) Pulse Ox O2 O2 Flow FiO2 Time Delivery Rate 07/27/18 98.5 105 18 125/63 98 Room Air 1119 Activity: WNL Respiratory function: WNL Cardiovascular function: WNL Mental status: Baseline Pain reasonably controlled: Yes Hydration appropriate: Yes Nausea/Vomiting absent: Yes LEVI VALERIO DO July 27, 2018 11:19
[2018-07-27] MEDS ORDERED: AL HYDROX/MG HYDROX/SIMETH 30 ML CUP PO PRN (11:30)
[2018-07-27] MEDS ORDERED: ACETAMINOPHEN 325 MG TAB PO PRN (11:30)
[2018-07-27] MEDS ORDERED: NALOXONE (0.4 MG/ML) INJ IV PRN (11:30)
[2018-07-27] MEDS ORDERED: NACL 0.9% 3 ML SYG IV SCH (11:30)
[2018-07-27] MEDS ORDERED: ONDANSETRON 4 MG INJ IV PRN (11:30)
[2018-07-27] MEDS: HYDROCODONE/APAP (5/325) TAB PO PRN ×2 (11:43→23:22)
[2018-07-27] MEDS ORDERED: HYDROmorphONE 0.2 MG/ML PCA ONE (12:14)
[2018-07-27] MEDS ORDERED: HYDROmorphONE 0.2 MG/ML PCA IV SCH (12:30)
--- NOTE | 2018-07-27 13:43 | HP ---
Date/Time of Note Date/Time of Note DATE: 07/27/18 TIME: 13:40 Assessment/Plan VTE Prophylaxis SCD applied (from Nsg): Yes Pharmacological prophylaxis: NA/contraindicated Pharm contraindication: surgical contra Lines/Catheters IV Catheter Type (from Nrsg): Peripheral IV Central line still needed: Yes Urinary Cath still in place: Yes Reason Cath still needed: urinary retention Assessment/Plan Assessment/Plan -Mechanical LBP with LE Radiculopathy. Status post L5-S1 lumbar hardware removal with decompression and interbody fusion by Dr. Jordan on 07/27/2018. Continue IV fluids and postoperative antibiotics. Continue [place] Dilaudid as needed for pain and Zofran as needed for nausea. -Hx of Hypertension. -Depression -History of posterior cervical laminectomy and foraminotomies with instrumental fusion of C3-C7. -Obesity Further recommendations based on clinical course. Plan of care discussed with Dr. Zhu. Result Diagram: 07/27/18 0615 07/27/18 0615 Results 24hrs Laboratory Tests Test 07/27/18 06:15 White Blood Count 8.6 # Red Blood Count 4.29 Hemoglobin 13.0 # Hematocrit 40.3 # Mean Corpuscular Volume 93.9 Mean Corpuscular Hemoglobin 30.3 Mean Corpuscular Hemoglobin Concent 32.3 Red Cell Distribution Width 13.0 Platelet Count 351 Mean Platelet Volume 10.9 H Immature Granulocytes % 0.200 Neutrophils % 49.1 Lymphocytes % 39.0 Monocytes % 8.8 Eosinophils % 2.0 Basophils % 0.9 Nucleated Red Blood Cells % 0.0 Immature Granulocytes # 0.020 Neutrophils # 4.2 Lymphocytes # 3.3 H Monocytes # 0.8 Eosinophils # 0.2 Basophils # 0.1 Nucleated Red Blood Cells # 0.0 Prothrombin Time 13.9 Prothrombin Time Ratio 1.1 INR International Normalized Ratio 1.06 Activated Partial Thromboplast Time 28.5 Sodium Level 145 H Potassium Level 4.1 Chloride Level 108 Carbon Dioxide Level 30 Anion Gap 7 Blood Urea Nitrogen 11 Creatinine 0.62 Est Glomerular Filtrat Rate mL/min > 60 Glucose Level 98 Calcium Level 9.4 Total Bilirubin 0.5 Direct Bilirubin 0.00 Indirect Bilirubin 0.5 Aspartate Amino Transf (AST/SGOT) 33 Alanine Aminotransferase (ALT/SGPT) 27 Alkaline Phosphatase 108 Total Protein 7.4 Albumin 4.0 Globulin 3.40 H Albumin/Globulin Ratio 1.17 HPI/ROS Admit Date/Time Admit Date/Time July 27, 2018 at 05:44 Hx of Present Illness Patient is a 43-year-old female with history cervical surgery x2 and a lumbar surgery, history of hypertension, depression, and obesity. Patient was evaluated by Dr. Jordan and mechanical lower back pain with lower extremity radiculopathy. Patient was brought to the hospital and underwent-Mechanical LBP with LE Radiculopathy. Status post L5-S1 lumbar hardware removal with decompression and interbody fusion. Postoperative patient is experiencing pain and is currently on Dilaudid [place]. Patient is admitted for further evaluation and management to medical surgical floor.. PMH/Family/Social Past Medical History Medical History: hypertension, other (Back pain, history of obesity) Medications Current Medications Hydromorphone HCl (Dilaudid) 0.2 mg PACU PRN IV MILD PAIN 1-3; Start 07/27/18 at 08:00; Stop 07/27/18 at 16:00 Hydromorphone HCl (Dilaudid) 0.4 mg PACU PRN IV MOD PAIN 4-6 Last administered on 07/27/18at 11:35; Admin Dose 0.4 MG; Start 07/27/18 at 08:00; Stop 07/27/18 at 16:00 Hydromorphone HCl (Dilaudid) 0.6 mg PACU PRN IV SEVERE PAIN 7-10 Last administered on 07/27/18at 11:26; Admin Dose 0.6 MG; Start 07/27/18 at 08:00; Stop 07/27/18 at 16:00 Acetaminophen/ Hydrocodone Bitart ([place] (5/325)) 1 tab Q4H PRN PO .PAIN 1-5 Last administered on 07/27/18at 11:43; Admin Dose 1 TAB; Start 07/27/18 at 11:30 Ondansetron HCl (Zofran Inj) 4 mg Q6H PRN IV NAUSEA/VOMITING; Start 07/27/18 at 11:30 Al Hydrox/Mg Hydrox/Simethicone (Mag-Al Plus) 15 ml Q4H PRN PO .CONSTIPATION; Start 07/27/18 at 11:30 Docusate Sodium (Colace) 100 mg BID PO ; Start 07/27/18 at 11:30 Acetaminophen (Tylenol Tab) 650 mg Q4H PRN PO TEMP GREATER THAN 101F OR LINDA; Start 07/27/18 at 11:30 IV Flush (NS 3 ml) 3 ml PER PROTOCOL IV ; Start 07/27/18 at 11:30 Naloxone HCl (Narcan) 0.2 mg Q2M PRN IV RR 8 BREATHS/MIN OR LESS; Start 07/27/18 at 11:30 Potassium Chloride/Sodium Chloride 1,000 ml @ 100 mls/hr Q10H IV ; Start 07/27/18 at 11:30 Cefazolin Sodium/ Dextrose 50 ml @ 100 mls/hr Q8 IVPB ; Start 07/27/18 at 14 :00; Stop 07/29/18 at 14:00 Hydromorphone HCl (Dilaudid) 0.5 mg Q4H PRN IV SEVERE PAIN LEVEL 7-10; Start 07/27/18 at 11:30 Hydromorphone HCl (Dilaudid [place]) 6 mg Q4PCA IV Last administered on 07/27/18at 12:25; Admin Dose 6 MG; Start 07/27/18 at 12:30 Coded Allergies: No Known Allergy (Unverified , 07/27/18) Past Surgical History Past Surgical Hx: other (Status post cholecystectomy status post hysterectomy status post lumbar and cervical spine surgeries) Family History Significant Family History: other Social History Alcohol Use: none Smoking Status: Never smoker Drug Use: none Exam/Review of Systems Vital Signs Vitals Vital Signs Date Temp Pulse Resp B/P (MAP) Pulse Ox O2 O2 Flow FiO2 Time Delivery Rate 07/27/18 70 15 122/77 97 Room Air 12:57 (92) 07/27/18 98.0 11:16 Exam Constitutional: alert, oriented Head: normocephalic Neck: supple Respiratory: clear to auscultation Cardiovascular: regular rate and rhythm Gastrointestinal: soft, non-tender Musculoskeletal: other (Status post lumbar surgery, Hemovac) Extremities: normal pulses Neurological: nl mental status Skin: nl JÚNIOR Rutledge July 27, 2018 13:43
[2018-07-27] MEDS: NS + KCL 20 MEQ 1,000 ML IV SCH ×2 (14:02→20:54)
[2018-07-27] MEDS: DOCUSATE SODIUM 100 MG CAP PO SCH ×2 (14:14→20:54)
[2018-07-27] MEDS: CEFAZOLIN 2 GM/50 ML (PMX) 50 ML IVPB SCH ×2 (16:35→20:53)
[2018-07-27] MEDS: HYDROmorphONE 0.2 MG/ML PCA IV SCH (21:19)
[2018-07-27] MEDS: HYDROmorphONE 1 MG/ML SYG IV PRN (21:43)
[2018-07-28] VITALS (10 sets, daily range): BP systolic 117–130; BP diastolic 62–78; PULSE 69–94; RESP 18–20
[2018-07-28] MEDS: HYDROmorphONE 1 MG/ML SYG IV PRN ×7 (01:36→21:03)
[2018-07-28] MEDS: HYDROCODONE/APAP (5/325) TAB PO PRN ×2 (04:09→12:33)
[2018-07-28] MEDS: CEFAZOLIN 2 GM/50 ML (PMX) 50 ML IVPB SCH ×3 (05:51→21:00)
[2018-07-28] MEDS: DOCUSATE SODIUM 100 MG CAP PO SCH ×2 (08:17→20:59)
[2018-07-28] MEDS: KETOROLAC 30 MG INJ IV SCH ×4 (09:21→20:59)
--- NOTE | 2018-07-28 09:27 | PN ---
Date/Time of Note Date/Time of Note DATE: 07/28/18 TIME: 09:25 Assessment/Plan VTE Prophylaxis Risk score (from Nsg)>0 risk: 4 SCD applied (from Nsg): Yes SCD contraindicated: other Pharmacological prophylaxis: other Pharm contraindication: other Lines/Catheters IV Catheter Type (from Nrsg): Saline Lock Urinary Cath still in place: Yes Reason Cath still needed: urinary retention Assessment/Plan Assessment/Plan -Mechanical LBP with LE Radiculopathy. Status post L5-S1 lumbar hardware removal with decompression and interbody fusion by Dr. Jordan on 07/27/2018. Continue IV fluids and postoperative antibiotics. Continue [employer] Dilaudid as needed for pain and Zofran as needed for nausea. -Hx of Hypertension. -Depression -History of posterior cervical laminectomy and foraminotomies with instrumental fusion of C3-C7. -Obesity Further recommendations based on clinical course. Plan of care discussed with Dr. Zhu. Result Diagram: 07/28/18 0505 07/28/18 0505 Results 24hrs Laboratory Tests Test 07/28/18 05:05 Hemoglobin 10.2 #L Hematocrit 31.9 #L Sodium Level 141 Potassium Level 4.3 Chloride Level 107 Carbon Dioxide Level 30 Anion Gap 4 L Blood Urea Nitrogen 10 Creatinine 0.60 Est Glomerular Filtrat Rate mL/min > 60 Glucose Level 85 Calcium Level 8.5 Subjective 24 Hr Interval Summary Free Text/Dictation -c/o uncontrolled back pain but patient is on phone- doesn't see to be in pain. - concerned that she wont be able to do physical therapy 2/2 to [facility] - will get pain management consult on patient - no new events reported last night per staff Constitutional: requiring IVF Eyes: no complaints ENT: no complaints Respiratory: no complaints Cardiovascular: no complaints Gastrointestinal: no complaints Genitourinary: no complaints Musculoskeletal: bone/joint pain, restricted range of motion, other (sp bacl surgery) Skin: no complaints Exam/Review of Systems Exam Vitals Vital Signs Date Temp Pulse Resp B/P (MAP) Pulse Ox O2 O2 Flow FiO2 Time Delivery Rate 07/28/18 94 08:29 07/28/18 98.2 20 120/67 98 Room Air 07:06 (84) Intake and Output 07/27/18 07/27/18 07/28/18 1515:00 23:00 07:00 IntakeIntake Total 2000 ml 550 ml 450 ml OutputOutput Total 495 ml 900 ml 915 ml BalanceBalance 1505 ml -350 ml -465 ml Constitutional: alert, well developed Psych: nl mood/affect Eyes: nl lids, nl sclera ENMT: nl external ears & nose Neck: non-tender Respiratory: clear to auscultation Cardiovascular: nl pulses, other (S1S2) Gastrointestinal: soft, non-tender Musculoskeletal: nl extremities to inspection, joint tenderness, range of motion Extremities: normal pulses Neurological: nl mental status, nl speech, other (SP Lumbar SX- hEMOVAC) Skin: nl turgor Lymph: nontender Results Results 24hrs Laboratory Tests Test 07/28/18 05:05 Hemoglobin 10.2 #L Hematocrit 31.9 #L Sodium Level 141 Potassium Level 4.3 Chloride Level 107 Carbon Dioxide Level 30 Anion Gap 4 L Blood Urea Nitrogen 10 Creatinine 0.60 Est Glomerular Filtrat Rate mL/min > 60 Glucose Level 85 Calcium Level 8.5 Medications Medication Current Medications Acetaminophen/ Hydrocodone Bitart ([place] (5/325)) 1 tab Q4H PRN PO .PAIN 1-5 Last administered on 07/28/18at 04:09; Admin Dose 1 TAB; Start 07/27/18 at 11:30 Ondansetron HCl (Zofran Inj) 4 mg Q6H PRN IV NAUSEA/VOMITING; Start 07/27/18 at 11:30 Al Hydrox/Mg Hydrox/Simethicone (Mag-Al Plus) 15 ml Q4H PRN PO .CONSTIPATION; Start 07/27/18 at 11:30 Docusate Sodium (Colace) 100 mg BID PO Last administered on 07/28/18at 08:17; Admin Dose 100 MG; Start 07/27/18 at 11:30 Acetaminophen (Tylenol Tab) 650 mg Q4H PRN PO TEMP GREATER THAN 101F OR LINDA; Start 07/27/18 at 11:30 IV Flush (NS 3 ml) 3 ml PER PROTOCOL IV ; Start 07/27/18 at 11:30 Naloxone HCl (Narcan) 0.2 mg Q2M PRN IV RR 8 BREATHS/MIN OR LESS; Start 07/27/18 at 11:30 Potassium Chloride/Sodium Chloride 1,000 ml @ 100 mls/hr Q10H IV Last administered on 07/27/18at 20:54; Admin Dose 100 MLS/HR; Start 07/27/18 at 11:30 Cefazolin Sodium/ Dextrose 50 ml @ 100 mls/hr Q8 IVPB Last administered on 07/28/18at 05:51; Admin Dose 100 MLS/HR; Start 07/27/18 at 14:00; Stop 07/29/18 at 14:00 Hydromorphone HCl (Dilaudid) 0.5 mg Q4H PRN IV SEVERE PAIN LEVEL 7-10 Last administered on 07/28/18at 05:43; Admin Dose 0.5 MG; Start 07/27/18 at 11:30 Hydromorphone HCl (Dilaudid [employer]) 0.0 MG/ HR CONTINU... Q4PCA IV Last administered on 07/27/18at 21:19; Admin Dose 0.2 MG; Start 07/27/18 at 21:08 Ketorolac Tromethamine (Toradol) 30 mg Q4 IV ; Start 07/28/18 at 09:00; Stop 07/30/18 at 08:59 ANTIONE GARCIA July 28, 2018 09:27
[2018-07-28] MEDS: NS + KCL 20 MEQ 1,000 ML IV SCH (10:35)
--- NOTE | 2018-07-28 12:41 | RADRPT ---
Vent Rate: 73 bpm RR Interval: 820 msec ME Interval: 105 msec QRS Duration: 85 msec QT Interval: 402 msec QTC Interval: 444 msec P-R-T Alpha: 13 - 48 - 31 degrees Sinus rhythm...normal P axis, V-rate 50- 99 Electronically Signed By: David Abebe
--- NOTE | 2018-07-28 14:11 | PN ---
Date/Time of Note Date/Time of Note DATE: 07/28/18 TIME: 14:10 Assessment/Plan VTE Prophylaxis Risk score (from Nsg)>0 risk: 4 SCD applied (from Ns): Yes SCD contraindicated: low risk/ambulating Pharmacological prophylaxis: NA/contraindicated Pharm contraindication: low risk/ambulating Lines/Catheters IV Catheter Type (from Nrsg): Peripheral IV Central line still needed: No Urinary Cath still in place: Yes Reason Cath still needed: other (indicate) (dc in am ) Assessment/Plan Assessment/Plan impression s/p L5-S1 hardware removal with L4-5 interbody fusion and L4-S1 ISF placement. POD#1 doing well plan pt/ot with lso brace cont supportive care jamey drain dc'd dc tafoya in am Result Diagram: 07/28/18 0505 07/28/18 0505 Results 24hrs Laboratory Tests Test 07/28/18 05:05 Hemoglobin 10.2 #L Hematocrit 31.9 #L Sodium Level 141 Potassium Level 4.3 Chloride Level 107 Carbon Dioxide Level 30 Anion Gap 4 L Blood Urea Nitrogen 10 Creatinine 0.60 Est Glomerular Filtrat Rate mL/min > 60 Glucose Level 85 Calcium Level 8.5 Subjective 24 Hr Interval Summary Free Text/Dictation Neurosurgery Progress noted S: s/p L5-S1 Rods/Screws with L4-5 interbody fusion with ISF placement. POD #1 Exam/Review of Systems Exam Vitals Vital Signs Date Temp Pulse Resp B/P (MAP) Pulse Ox O2 O2 Flow FiO2 Time Delivery Rate 07/28/18 76 13:35 07/28/18 97.7 20 126/75 98 Room Air 11:34 (92) Intake and Output 07/27/18 07/27/18 07/28/18 1515:00 23:00 07:00 IntakeIntake Total 2000 ml 550 ml 450 ml OutputOutput Total 495 ml 900 ml 915 ml BalanceBalance 1505 ml -350 ml -465 ml Neurological: other (MS: AAOX4 CN: PERRL M: fC x 4 , no new focal def. S: improving LLE ) Results Results 24hrs Laboratory Tests Test 07/28/18 05:05 Hemoglobin 10.2 #L Hematocrit 31.9 #L Sodium Level 141 Potassium Level 4.3 Chloride Level 107 Carbon Dioxide Level 30 Anion Gap 4 L Blood Urea Nitrogen 10 Creatinine 0.60 Est Glomerular Filtrat Rate mL/min > 60 Glucose Level 85 Calcium Level 8.5 Medications Medication Current Medications Acetaminophen/ Hydrocodone Bitart ([place] (5/325)) 1 tab Q4H PRN PO .PAIN 1-5 Last administered on 07/28/18at 12:33; Admin Dose 1 TAB; Start 07/27/18 at 11:30 Ondansetron HCl (Zofran Inj) 4 mg Q6H PRN IV NAUSEA/VOMITING; Start 07/27/18 at 11:30 Al Hydrox/Mg Hydrox/Simethicone (Mag-Al Plus) 15 ml Q4H PRN PO .CONSTIPATION; Start 07/27/18 at 11:30 Docusate Sodium (Colace) 100 mg BID PO Last administered on 07/28/18at 08:17; Admin Dose 100 MG; Start 07/27/18 at 11:30 Acetaminophen (Tylenol Tab) 650 mg Q4H PRN PO TEMP GREATER THAN 101F OR LINDA; Start 07/27/18 at 11:30 IV Flush (NS 3 ml) 3 ml PER PROTOCOL IV ; Start 07/27/18 at 11:30 Naloxone HCl (Narcan) 0.2 mg Q2M PRN IV RR 8 BREATHS/MIN OR LESS; Start 07/27/18 at 11:30 Potassium Chloride/Sodium Chloride 1,000 ml @ 100 mls/hr Q10H IV Last administered on 07/28/18at 10:35; Admin Dose 100 MLS/HR; Start 07/27/18 at 11:30 Cefazolin Sodium/ Dextrose 50 ml @ 100 mls/hr Q8 IVPB Last administered on 07/28/18at 05:51; Admin Dose 100 MLS/HR; Start 07/27/18 at 14:00; Stop 07/29/18 at 14:00 Hydromorphone HCl (Dilaudid) 0.5 mg Q4H PRN IV SEVERE PAIN LEVEL 7-10 Last administered on 07/28/18at 10:35; Admin Dose 0.5 MG; Start 07/27/18 at 11:30 Hydromorphone HCl (Dilaudid RECHARGER) 0.0 MG/ HR CONTINU... Q4PCA IV Last administered on 07/27/18at 21:19; Admin Dose 0.2 MG; Start 07/27/18 at 21:08 Ketorolac Tromethamine (Toradol) 30 mg Q4 IV Last administered on 07/28/18at 09:21; Admin Dose 30 MG; Start 07/28/18 at 09:00; Stop 07/30/18 at 08:59 OLAYINKA COLIN NP July 28, 2018 14:11
[2018-07-29] VITALS (9 sets, daily range): BP systolic 107–128; BP diastolic 63–75; PULSE 82–120; RESP 17–19
[2018-07-29] MEDS: KETOROLAC 30 MG INJ IV SCH ×6 (00:59→21:06)
[2018-07-29] MEDS: HYDROmorphONE 1 MG/ML SYG IV PRN ×11 (01:00→23:07)
[2018-07-29] MEDS: HYDROmorphONE 0.2 MG/ML PCA IV SCH ×3 (04:32→22:27)
[2018-07-29] MEDS: CEFAZOLIN 2 GM/50 ML (PMX) 50 ML IVPB SCH ×2 (05:01→13:42)
[2018-07-29] MEDS: DOCUSATE SODIUM 100 MG CAP PO SCH ×2 (09:22→21:05)
--- NOTE | 2018-07-29 11:04 | PN ---
Date/Time of Note Date/Time of Note DATE: 07/29/18 TIME: 11:03 Assessment/Plan VTE Prophylaxis Risk score (from Nsg)>0 risk: 3 SCD applied (from Nsg): Yes Pharmacological prophylaxis: LMWH Lines/Catheters IV Catheter Type (from Nrsg): Saline Lock Urinary Cath still in place: Yes Reason Cath still needed: skin wounds contaminated by urine Assessment/Plan Hospital Course -Mechanical LBP with LE Radiculopathy. Status post L5-S1 lumbar hardware removal with decompression and interbody fusion by Dr. Jordan on 07/27/2018. Continue IV fluids and postoperative antibiotics. Continue [employer] Dilaudid as needed for pain and Zofran as needed for nausea. -Hx of Hypertension. -Depression -History of posterior cervical laminectomy and foraminotomies with instrumental fusion of C3-C7. -Obesity Result Diagram: 07/28/18 0505 07/28/18 0505 Subjective 24 Hr Interval Summary Free Text/Dictation Patient complains of back pain but is comfortable with pain medication Exam/Review of Systems Exam Vitals Vital Signs Date Temp Pulse Resp B/P (MAP) Pulse Ox O2 O2 Flow FiO2 Time Delivery Rate 07/29/18 120 08:01 07/29/18 18 04:44 07/29/18 98.2 113/75 98 04:00 (88) 07/28/18 Room Air 15:30 Intake and Output 07/28/18 07/28/18 07/29/18 1515:00 23:00 07:00 IntakeIntake Total 1710 ml 500 ml OutputOutput Total 2000 ml 750 ml BalanceBalance -290 ml -250 ml Constitutional: well developed Head: normocephalic, atraumatic Neck: supple Respiratory: diminished breath sounds Cardiovascular: regular rate and rhythm Gastrointestinal: soft, non-tender Extremities: normal pulses Medications Medication Current Medications Acetaminophen/ Hydrocodone Bitart ([place] (5/325)) 1 tab Q4H PRN PO .PAIN 1-5 L ast administered on 07/28/18at 12:33; Admin Dose 1 TAB; Start 07/27/18 at 11:30 Ondansetron HCl (Zofran Inj) 4 mg Q6H PRN IV NAUSEA/VOMITING; Start 07/27/18 at 11:30 Al Hydrox/Mg Hydrox/Simethicone (Mag-Al Plus) 15 ml Q4H PRN PO .CONSTIPATION; Start 07/27/18 at 11:30 Docusate Sodium (Colace) 100 mg BID PO Last administered on 07/29/18 09:22; Admin Dose 100 MG; Start 07/27/18 at 11:30 Acetaminophen (Tylenol Tab) 650 mg Q4H PRN PO TEMP GREATER THAN 101F OR LINDA; Start 07/27/18 at 11:30 IV Flush (NS 3 ml) 3 ml PER PROTOCOL IV ; Start 07/27/18 at 11:30 Naloxone HCl (Narcan) 0.2 mg Q2M PRN IV RR 8 BREATHS/MIN OR LESS; Start 07/27/18 at 11:30 Cefazolin Sodium/ Dextrose 50 ml @ 100 mls/hr Q8 IVPB Last administered on 07/29/18 05:01; Admin Dose 100 MLS/HR; Start 07/27/18 at 14:00; Stop 07/29/18 at 14:00 Hydromorphone HCl (Dilaudid [employer]) 0.0 MG/ HR CONTINU... Q4PCA IV Last administered on 07/29/18 04:32; Admin Dose 6 MG; Start 07/27/18 at 21:08 Ketorolac Tromethamine (Toradol) 30 mg Q4 IV Last administered on 07/29/18 09:22; Admin Dose 30 MG; Start 07/28/18 at 09:00; Stop 07/30/18 at 08:59 Hydromorphone HCl (Dilaudid) 0.5 mg Q2HWA PRN IV SEVERE PAIN LEVEL 7-10 Last administered on 07/29/18 10:57; Admin Dose 0.5 MG; Start 07/28/18 at 14:30 SISSY GOMES July 29, 2018 11:04
--- NOTE | 2018-07-29 18:06 | CONS ---
Assessment/Plan Assessment/Plan Assessment/Plan (Daily) History of low back pain Status post L5-S1 lumbar hardware removal with decompression interbody fusion History of hypertension History of depression Past medical history of cervical laminectomy Past history of obesity Status post gastric bypass surgery Adjust ICING MIXER to higher dose continuous as well as breakthrough dose, demand dose 0.3. However will continue with her 0.5 mg of additional Dilaudid push secondary to patient being intolerant to opioids and in extremis at this time. Consultation Date/Type/Reason Admit Date/Time July 27, 2018 at 05:44 Date/Time of Note DATE: 07/29/18 TIME: 18:03 Hx of Present Illness Chart note viewed this is a 43-year-old female who is known to get extensive surgical procedure during this hospitalization including status post L5-S1 lumbar hardware removal and decompression and interbody fusion. However she has a past medical history of fine surgery x2 and lumbar sacral surgery in the past details of which are not available at this time. Other comorbid medical problems include history of hypertension depression and obesity. As an outpatient patient was taking combination of Percocet and Dilaudid. I was asked to see patient for in management. Patient currently states that she is requiring every 2 hour dosings of IV push Dilaudid 0.5 mg which seems to work for her but the continuous dose is not keeping her pain under control in between those times. She denies nausea vomiting constipation itching mental cloudiness sweating fatigue drowsiness patient pain is 8-10. Patient states her pain control is only controlled when she has IV push which alleviated down to a pproximately a 3. Pain is interfering with her physical functioning mood and sleeping pattern overall functions is not negotiating for higher dose of pain medication just adjustments in her dosings. There is no past medical history of purposeful oversedation she does not appear to be intoxicated or unkempt in any way she is not attempting to obtain massive amounts of opioids I do not get the impression she is using pain medication response to situational stressors. Is not insisting on certain pain control medications, there is no history of contact with street drugs she is a non-smoker nondrinker no history of suicidal ideations. Constitutional: No no complaints, No improved, No chills, No diaphoresis, No disoriented, No febrile, No poor po, No requiring IVF, No requiring O2, No other Eyes: No no complaints, No pain, No discharge, No redness, No visual change, No other ENT: No no complaints, No bleeding, No pain, No congestion, No discharge, No dysphagia, No sore throat, No other Respiratory: No no complaints, No pain, No cough, No pleuritic pain, No shortness of breath, No sputum, No wheezing, No other Cardiovascular: No no complaints, No chest pain, No edema, No lightheadedness, No orthopenea, No palpitations, No paroxysmal nocturnal dyspnea, No other Gastrointestinal: other (History of gastric bypass surgery) Genitourinary: No no complaints, No bleeding, No dysuria, No discharge, No flank pain, No hematuria, No other Musculoskeletal: other (As per history of present illness) Skin: No no complaints, No bruising, No erythema, No laceration, No pruritis, No rash, No skin lesions, No other Neurologic: No no complaints, No confusion, No dizziness, No focal-weakness, No headache, No syncope, No seizure, No other Psychological: anxiety, depression Past Medical History Medical History: hypertension, other (Back pain, history of obesity) Home Meds Reported Medications Hydrocodone/Acetaminophen ([place] 10-325 Tablet) 1 Each Tablet, 1 EACH PO Q4 PRN for PAIN, TAB 07/27/18 Hydromorphone Hcl* (Dilaudid*) 4 Mg Tablet, 4 MG PO Q4H PRN for PAIN, TAB 07/27/18 Carisoprodol* (Carisoprodol*) 350 Mg Tablet, 350 MG PO Q6 PRN for MUSCLE SPASMS, TAB 07/27/18 Discontinued Reported Medications Nortriptyline Hcl* (Nortriptyline Hcl*) 75 Mg Capsule, 75 MG PO HS, TAB 01/28/17 Prazosin Hcl* (Prazosin Hcl*) 2 Mg Capsule, 2 MG PO HS, CAP 01/28/17 Diazepam* (Diazepam*) 10 Mg Tablet, 10 MG PO DAILY PRN for MUSCLE SPASMS, TAB 01/28/17 Carisoprodol* (Carisoprodol*) 350 Mg Tablet, 350 MG PO Q8 PRN for MUSCLE SPASMS, TAB 01/28/17 Hydrocodone/Acetaminophen ([place] 10-325 Tablet) 1 Each Tablet, 1 EACH PO Q12 PRN for SEVERE PAIN LEVEL 7-10, TAB 01/28/17 Discontinued Scripts Cephalexin* (Cephalexin*) 500 Mg Capsule, 500 MG PO Q6 for 7 Days, CAP Prov:JÚNIOR DOLAN 02/21/17 Medications Current Medications Acetaminophen/ Hydrocodone Bitart ([place] (5/325)) 1 tab Q4H PRN PO .PAIN 1-5 Last administered on 07/28/18at 12:33; Admin Dose 1 TAB; Start 07/27/18 at 11:30 Ondansetron HCl (Zofran Inj) 4 mg Q6H PRN IV NAUSEA/VOMITING; Start 07/27/18 at 11:30 Al Hydrox/Mg Hydrox/Simethicone (Mag-Al Plus) 15 ml Q4H PRN PO .CONSTIPATION; Start 07/27/18 at 11:30 Docusate Sodium (Colace) 100 mg BID PO Last administered on 07/29/18at 09:22; Admin Dose 100 MG; Start 07/27/18 at 11:30 Acetaminophen (Tylenol Tab) 650 mg Q4H PRN PO TEMP GREATER THAN 101F OR LINDA; Start 07/27/18 at 11:30 IV Flush (NS 3 ml) 3 ml PER PROTOCOL IV ; Start 07/27/18 at 11:30 Naloxone HCl (Narcan) 0.2 mg Q2M PRN IV RR 8 BREATHS/MIN OR LESS; Start 07/27/18 at 11:30 Hydromorphone HCl (Dilaudid ICING MIXER) 0.0 MG/ HR CONTINU... Q4PCA IV Last administered on 07/29/18at 04:32; Admin Dose 6 MG; Start 07/27/18 at 21:08 Ketorolac Tromethamine (Toradol) 30 mg Q4 IV Last administered on 07/29/18at 17:04; Admin Dose 30 MG; Start 07/28/18 at 09:00; Stop 07/30/18 at 08:59 Hydromorphone HCl (Dilaudid) 0.5 mg Q2HWA PRN IV SEVERE PAIN LEVEL 7-10 Last administered on 07/29/18at 17:04; Admin Dose 0.5 MG; Start 07/28/18 at 14:30 Allergies: Coded Allergies: No Known Allergy (Unverified , 07/27/18) Past Surgical History Past Surgical Hx: other (Status post cholecystectomy status post hysterectomy status post lumbar and cervical spine surgeries) Social History Alcohol Use: none Smoking Status: Never smoker Drug Use: none Exam/Review of Systems Exam Vitals Vital Signs Date Temp Pulse Resp B/P (MAP) Pulse Ox O2 O2 Flow FiO2 Time Delivery Rate 07/29/18 98.2 82 18 116/63 97 Room Air 16:24 (80) Intake and Output 07/28/18 07/28/18 07/29/18 1515:00 23:00 07:00 IntakeIntake Total 1710 ml 500 ml OutputOutput Total 2000 ml 750 ml BalanceBalance -290 ml -250 ml Constitutional: alert, oriented, well developed, distress Psych: anxiety Head: No normocephalic, No atraumatic, No lacerations, No hematomas, No other Eyes: No nl conjunctiva, No EOMI, No nl lids, No nl sclera, No PERRL, No icteric, No fundi, disc, No other ENMT: No nl external ears & nose, No nl lips & teeth, No nl nasal mucosa & septum, No mucosa pink and moist, No intubated, No tympanic membranes, No other Neck: No supple, No non-tender, No jvd, No bruits, No masses, No thyromegaly, No nuchal rigidity, No other Respiratory: No clear to auscultation, No normal air movement, No congested cough, No crackles/rales, No diminished breath sounds, No intercostal retraction, No labored breathing, No respirations, No tactile fremitus, No wheezing, No other Cardiovascular: No regular rate and rhythm, No nl pulses, No bruits, No shelly stolic murmur, No edema, No gallop, No irregular rhythm, No jugular venous distention (JVD), No murmurs/extra sounds, No rub, No systolic murmur, No S3, No S4, No other Gastrointestinal: No soft, No nl liver, spleen, No non-tender, No ascites, No bowel sounds, No distended, No firm, No hepatomegaly, No mass, No rebound or guarding, No splenomegaly, No surgical scars, No tender, No other Musculoskeletal: other (Per history of present illness) Neurological: No YARDAGE ESTIMATOR II-XII intact, No nl mental status, No nl speech, No nl strength, No confused, No DTR's symmetric, No focal weakness, No lethargic, No numbness, No reflexes, No unresponsive, No other Results Result Diagram: 07/28/18 0505 07/28/18 0505 Medications Medication Current Medications Acetaminophen/ Hydrocodone Bitart ([place] (5/325)) 1 tab Q4H PRN PO .PAIN 1-5 Last administered on 07/28/18at 12:33; Admin Dose 1 TAB; Start 07/27/18 at 11:30 Ondansetron HCl (Zofran Inj) 4 mg Q6H PRN IV NAUSEA/VOMITING; Start 07/27/18 at 11:30 Al Hydrox/Mg Hydrox/Simethicone (Mag-Al Plus) 15 ml Q4H PRN PO .CONSTIPATION; Start 07/27/18 at 11:30 Docusate Sodium (Colace) 100 mg BID PO Last administered on 07/29/18 09:22; Admin Dose 100 MG; Start 07/27/18 at 11:30 Acetaminophen (Tylenol Tab) 650 mg Q4H PRN PO TEMP GREATER THAN 101F OR LINDA; Start 07/27/18 at 11:30 IV Flush (NS 3 ml) 3 ml PER PROTOCOL IV ; Start 07/27/18 at 11:30 Naloxone HCl (Narcan) 0.2 mg Q2M PRN IV RR 8 BREATHS/MIN OR LESS; Start 07/27/18 at 11:30 Hydromorphone HCl (Dilaudid ICING MIXER) 0.0 MG/ HR CONTINU... Q4PCA IV Last administered on 07/29/18at 04:32; Admin Dose 6 MG; Start 07/27/18 at 21:08 Ketorolac Tromethamine (Toradol) 30 mg Q4 IV Last administered on 07/29/18at 17:04; Admin Dose 30 MG; Start 07/28/18 at 09:00; Stop 07/30/18 at 08:59 Hydromorphone HCl (Dilaudid) 0.5 mg Q2HWA PRN IV SEVERE PAIN LEVEL 7-10 Last administered on 07/29/18at 17:04; Admin Dose 0.5 MG; Start 07/28/18 at 14:30 BRUCE WISE July 29, 2018 18:06
[2018-07-30] VITALS (12 sets, daily range): BP systolic 104–119; BP diastolic 58–70; PULSE 72–99; RESP 18–20
[2018-07-30] MEDS: HYDROmorphONE 1 MG/ML SYG IV PRN ×11 (01:23→22:10)
[2018-07-30] MEDS: KETOROLAC 30 MG INJ IV SCH ×2 (01:44→05:33)
[2018-07-30] MEDS: HYDROmorphONE 0.2 MG/ML PCA IV SCH ×3 (04:19→18:02)
[2018-07-30] MEDS: DOCUSATE SODIUM 100 MG CAP PO SCH ×2 (08:39→20:04)
--- NOTE | 2018-07-30 11:35 | PN ---
Date/Time of Note Date/Time of Note DATE: 07/30/18 TIME: 11:35 Assessment/Plan VTE Prophylaxis Risk score (from Nsg)>0 risk: 3 SCD applied (from Nsg): Yes Pharmacological prophylaxis: LMWH Lines/Catheters IV Catheter Type (from Nrsg): Saline Lock Urinary Cath still in place: Yes Reason Cath still needed: skin wounds contaminated by urine Assessment/Plan Hospital Course -Mechanical LBP with LE Radiculopathy. Status post L5-S1 lumbar hardware removal with decompression and interbody fusion by Dr. Jordan on 07/27/2018. Continue IV fluids and postoperative antibiotics. Continue DIRECTOR OF ELEMENTARY EDUCATION Dilaudid as needed for pain and Zofran as needed for nausea. -Hx of Hypertension. -Depression -History of posterior cervical laminectomy and foraminotomies with instrumental fusion of C3-C7. -Obesity Result Diagram: 07/28/18 0505 07/28/18 0505 Subjective 24 Hr Interval Summary Free Text/Dictation Patient has no complaints Exam/Review of Systems Exam Vitals Vital Signs Date Temp Pulse Resp B/P (MAP) Pulse Ox O2 O2 Flow FiO2 Time Delivery Rate 07/30/18 87 08:01 07/30/18 98.0 18 106/60 96 Room Air 07:28 (75) Intake and Output 07/29/18 07/29/18 07/30/18 1515:00 23:00 07:00 IntakeIntake Total 940 ml 400 ml OutputOutput Total 1000 ml 1000 ml BalanceBalance -60 ml -600 ml Constitutional: well developed Head: normocephalic, atraumatic Neck: supple Respiratory: clear to auscultation Cardiovascular: regular rate and rhythm Gastrointestinal: soft, non-tender Extremities: normal pulses Medications Medication Current Medications Acetaminophen/ Hydrocodone Bitart ([place] (5/325)) 1 tab Q4H PRN PO .PAIN 1-5 Last administered on 07/28/18at 12:33; Admin Dose 1 TAB; Start 07/27/18 at 11:30 Ondansetron HCl (Zofran Inj) 4 mg Q6H PRN IV NAUSEA/VOMITING; Start 07/27/18 at 11:30 Al Hydrox/Mg Hydrox/Simethicone (Mag-Al Plus) 15 ml Q4H PRN PO .CONSTIPATION; Start 07/27/18 at 11:30 Docusate Sodium (Colace) 100 mg BID PO Last administered on 07/30/18at 08:39; Admin Dose 100 MG; Start 07/27/18 at 11:30 Acetaminophen (Tylenol Tab) 650 mg Q4H PRN PO TEMP GREATER THAN 101F OR LINDA; Start 07/27/18 at 11:30 IV Flush (NS 3 ml) 3 ml PER PROTOCOL IV ; Start 07/27/18 at 11:30 Naloxone HCl (Narcan) 0.2 mg Q2M PRN IV RR 8 BREATHS/MIN OR LESS; Start 07/27/18 at 11:30 Hydromorphone HCl (Dilaudid) 0.5 mg Q2HWA PRN IV SEVERE PAIN LEVEL 7-10 Last administered on 07/30/18at 09:48; Admin Dose 0.5 MG; Start 07/28/18 at 14:30 Hydromorphone HCl (Dilaudid DIRECTOR OF ELEMENTARY EDUCATION) 0.3 MG/HR CONTINUOUS R... Q4PCA IV Last administered on 07/30/18at 10:37; Admin Dose 0.3 MG; Start 07/29/18 at 18:00 SISSY GOMES July 30, 2018 11:35
[2018-07-31] VITALS (11 sets, daily range): BP systolic 102–117; BP diastolic 56–70; PULSE 78–101; RESP 16–20
[2018-07-31] MEDS: HYDROmorphONE 1 MG/ML SYG IV PRN ×12 (00:09→23:18)
[2018-07-31] MEDS: HYDROmorphONE 0.2 MG/ML PCA IV SCH ×3 (01:57→17:20)
[2018-07-31] MEDS: DOCUSATE SODIUM 100 MG CAP PO SCH ×2 (09:12→20:34)
--- NOTE | 2018-07-31 17:14 | PN ---
Date/Time of Note Date/Time of Note DATE: 07/31/18 TIME: 17:12 Assessment/Plan VTE Prophylaxis Risk score (from Ns)>0 risk: 7 SCD applied (from Ns): Yes SCD contraindicated: low risk/ambulating Pharmacological prophylaxis: NA/contraindicated Pharm contraindication: low risk/ambulating Lines/Catheters IV Catheter Type (from Nrsg): Peripheral IV Central line still needed: No Urinary Cath still in place: No Assessment/Plan Assessment/Plan impression s/p L5-S1 Hardware removal with L4-5 TLIF and L4-S1 ISF placement. doing well overall surgical site CDI on DREDGE OPERATOR SUPERVISOR Pain management team following patient requesting to leave tafoya cath Plan dc tafoya in am pain management following pt/ot LSO brace x 6 weeks when oob IS x 10 dc planning okay from NS once pain well controlled follow up with NS in 2 weeks. okay to shower in 1-2 days. Result Diagram: 07/28/18 0505 07/28/18 0505 Subjective 24 Hr Interval Summary Free Text/Dictation Neurosurgery Patient still requesting to keep tafoya cath for now no further LE radiculopathy surgical site: CDI Exam/Review of Systems Exam Vitals Vital Signs Date Temp Pulse Resp B/P (MAP) Pulse Ox O2 O2 Flow FiO2 Time Delivery Rate 07/31/18 85 16:01 07/31/18 97.9 16 107/62 95 15:24 (77) 07/31/18 Room Air 12:00 Intake and Output 07/30/18 07/30/18 07/31/18 1515:00 23:00 07:00 IntakeIntake Total 600 ml 700 ml OutputOutput Total 500 ml 2100 ml BalanceBalance 100 ml -1400 ml Neurological: other (MS: AAOX4 CN: PERRL M: FC x 4, no focal def. surgical site:CDI ) Medications Medication Current Medications Acetaminophen/ Hydrocodone Bitart ([place] (5/325)) 1 tab Q4H PRN PO .PAIN 1-5 Last administered on 07/28/18at 12:33; Admin Dose 1 TAB; Start 07/27/18 at 11:30 Ondansetron HCl (Zofran Inj) 4 mg Q6H PRN IV NAUSEA/VOMITING; Start 07/27/18 at 11:30 Al Hydrox/Mg Hydrox/Simethicone (Mag-Al Plus) 15 ml Q4H PRN PO .CONSTIPATION; Start 07/27/18 at 11:30 Docusate Sodium (Colace) 100 mg BID PO Last administered on 07/31/18at 09:12; Admin Dose 100 MG; Start 07/27/18 at 11:30 Acetaminophen (Tylenol Tab) 650 mg Q4H PRN PO TEMP GREATER THAN 101F OR LINDA; Start 07/27/18 at 11:30 IV Flush (NS 3 ml) 3 ml PER PROTOCOL IV ; Start 07/27/18 at 11:30 Naloxone HCl (Narcan) 0.2 mg Q2M PRN IV RR 8 BREATHS/MIN OR LESS; Start at 11:30 Hydromorphone HCl (Dilaudid DREDGE OPERATOR SUPERVISOR) 0.3 MG/HR CONTINUOUS R... Q4PCA IV Last administered on 07/31/18at 09:50; Admin Dose 0.3 MG; Start 07/29/18 at 18:00 Hydromorphone HCl (Dilaudid) 1 mg Q2HWA PRN IV SEVERE PAIN LEVEL 7-10 Last administered on 07/31/18at 15:12; Admin Dose 1 MG; Start 07/31/18 at 12:30 RUPA REYES MD July 31, 2018 17:14
--- NOTE | 2018-07-31 17:28 | PN ---
Date/Time of Note Date/Time of Note DATE: 07/31/18 TIME: 17:24 Assessment/Plan VTE Prophylaxis Risk score (from Ns)>0 risk: 7 SCD applied (from Ns): Yes Pharmacological prophylaxis: NA/contraindicated Pharm contraindication: surgical contra Lines/Catheters IV Catheter Type (from Nrsg): Peripheral IV Urinary Cath still in place: No Assessment/Plan Hospital Course Patient continues on VULCANIZER RUBBER PLATE Dilaudid still has significant amount of pain. Dr. Pabon is following in pain management consultation. Patient has very slow progress with PT was able to get up and make a couple of steps only. Patient gets tachycardic, continue current care. Assessment/Plan -Mechanical LBP with LE Radiculopathy. Status post L5-S1 lumbar hardware removal with decompression and interbody fusion by Dr. Jordan on 07/27/2018. Continue IV fluids and postoperative antibiotics. Continue VULCANIZER RUBBER PLATE Dilaudid as needed for pain and Zofran as needed for nausea. -Hx of Hypertension. -Depression -History of posterior cervical laminectomy and foraminotomies with instrumental fusion of C3-C7. -Obesity Further recommendations based on clinical course. Plan of care discussed with Dr. Zhu. Result Diagram: 07/28/18 0505 07/28/18 0505 Exam/Review of Systems Exam Vitals Vital Signs Date Temp Pulse Resp B/P (MAP) Pulse Ox O2 O2 Flow FiO2 Time Delivery Rate 07/31/18 85 16:01 07/31/18 97.9 16 107/62 95 15:24 (77) 07/31/18 Room Air 12:00 Intake and Output 07/30/18 07/30/18 07/31/18 1515:00 23:00 07:00 IntakeIntake Total 600 ml 700 ml OutputOutput Total 500 ml 2100 ml BalanceBalance 100 ml -1400 ml Exam Constitutional: alert, oriented Respiratory: clear to auscultation Cardiovascular: regular rate and rhythm Gastrointestinal: soft, non-tender Musculoskeletal: other (Status post lumbar surgery) Extremities: normal pulses Neurological: nl mental status Skin: nl turgor Medications Medication Current Medications Acetaminophen/ Hydrocodone Bitart ([place] (5/325)) 1 tab Q4H PRN PO .PAIN 1-5 Last administered on 07/28/18at 12:33; Admin Dose 1 TAB; Start 07/27/18 at 11:30 Ondansetron HCl (Zofran Inj) 4 mg Q6H PRN IV NAUSEA/VOMITING; Start 07/27/18 at 11:30 Al Hydrox/Mg Hydrox/Simethicone (Mag-Al Plus) 15 ml Q4H PRN PO .CONSTIPATION; Start 07/27/18 at 11:30 Docusate Sodium (Colace) 100 mg BID PO Last administered on 07/31/18at 09:12; Admin Dose 100 MG; Start 07/27/18 at 11:30 Acetaminophen (Tylenol Tab) 650 mg Q4H PRN PO TEMP GREATER THAN 101F OR LINDA; Start 07/27/18 at 11:30 IV Flush (NS 3 ml) 3 ml PER PROTOCOL IV ; Start 07/27/18 at 11:30 Naloxone HCl (Narcan) 0.2 mg Q2M PRN IV RR 8 BREATHS/MIN OR LESS; Start 07/27/18 at 11:30 Hydromorphone HCl (Dilaudid VULCANIZER RUBBER PLATE) 0.3 MG/HR CONTINUOUS R... Q4PCA IV Last administered on 07/31/18at 17:20; Admin Dose 6 MG; Start 07/29/18 at 18:00 Hydromorphone HCl (Dilaudid) 1 mg Q2HWA PRN IV SEVERE PAIN LEVEL 7-10 Last administered on 07/31/18 17:13; Admin Dose 1 MG; Start 07/31/18 at 12:30 JÚNIOR DOLAN July 31, 2018 17:28
[2018-08-01] VITALS (12 sets, daily range): BP systolic 97–124; BP diastolic 51–65; PULSE 74–99; RESP 18–20
[2018-08-01] MEDS: HYDROmorphONE 0.2 MG/ML PCA IV SCH (01:18)
[2018-08-01] MEDS: HYDROmorphONE 1 MG/ML SYG IV PRN ×6 (01:24→11:52)
--- NOTE | 2018-08-01 07:28 | CONS ---
Assessment/Plan Assessment/Plan Assessment/Plan (Daily) Stated note for hospital visit July 31, 2018 History of low back pain Status post L5-S1 lumbar hardware removal with decompression interbody fusion History of hypertension History of depression Past medical history of cervical laminectomy Past history of obesity Status post gastric bypass surgery Discussion with patient explained to her that we will need to start cutting back on the CLAIMS SUPERVISOR on August 01, 2018. She seems to be very reluctant for that her pain will recur the same severity it was prior to CLAIMS SUPERVISOR. We will switch to p.o. today low-dose anxiolytics also. Consultation Date/Type/Reason Admit Date/Time July 27, 2018 at 05:44 Initial Consult Date Date/Time of Note DATE: 08/01/18 TIME: 07:26 Exam/Review of Systems Exam Vitals Vital Signs Date Temp Pulse Resp B/P (MAP) Pulse Ox O2 O2 Flow FiO2 Time Delivery Rate 08/01/18 98.5 74 20 103/51 97 Room Air 07:22 (68) Intake and Output 07/31/18 07/31/18 08/01/18 1515:00 23:00 07:00 IntakeIntake Total 800 ml 760 ml OutputOutput Total 900 ml 1200 ml BalanceBalance -100 ml -440 ml Constitutional: alert, oriented, well developed Psych: anxiety Respiratory: clear to auscultation, normal air movement; No congested cough, No crackles/rales, No diminished breath sounds, No intercostal retraction, No labored breathing, No respirations, No tactile fremitus, No wheezing, No other Cardiovascular: regular rate and rhythm, nl pulses; No bruits, No diastolic murmur, No edema, No gallop, No irregular rhythm, No jugular venous distention (JVD), No murmurs/extra sounds, No rub, No systolic murmur, No S3, No S4, No other Neurological: CENTER MAKER HAND II-XII intact, nl mental status, nl speech, nl strength; No confused, No DTR's symmetric, No focal weakness, No lethargic, No numbness, No reflexes, No unresponsive, No other Results Result Diagram: 08/01/18 0502 08/01/18 0502 Results 24hrs Laboratory Tests Test 08/01/18 05:02 White Blood Count 6.9 Red Blood Count 3.54 L Hemoglobin 10.6 L Hematocrit 33.5 L Mean Corpuscular Volume 94.6 Mean Corpuscular Hemoglobin 29.9 Mean Corpuscular Hemoglobin Concent 31.6 L Red Cell Distribution Width 12.7 Platelet Count 331 Mean Platelet Volume 10.7 H Immature Granulocytes % 0.100 Neutrophils % 44.8 Lymphocytes % 37.5 Monocytes % 9.9 Eosinophils % 7.1 H Basophils % 0.6 Nucleated Red Blood Cells % 0.0 Immature Granulocytes # 0.010 Neutrophils # 3.1 Lymphocytes # 2.6 Monocytes # 0.7 Eosinophils # 0.5 Basophils # 0.0 Nucleated Red Blood Cells # 0.0 Sodium Level 140 Potassium Level 4.3 Chloride Level 101 Carbon Dioxide Level 34 H Anion Gap 5 Blood Urea Nitrogen 10 Creatinine 0.57 Est Glomerular Filtrat Rate mL/min > 60 Glucose Level 97 Calcium Level 8.6 Medications Medication Current Medications Acetaminophen/ Hydrocodone Bitart ([place] (5/325)) 1 tab Q4H PRN PO .PAIN 1-5 Last administered on 07/28/18at 12:33; Admin Dose 1 TAB; Start 07/27/18 at 11:30 Ondansetron HCl (Zofran Inj) 4 mg Q6H PRN IV NAUSEA/VOMITING; Start 07/27/18 at 11:30 Al Hydrox/Mg Hydrox/Simethicone (Mag-Al Plus) 15 ml Q4H PRN PO .CONSTIPATION; Start 07/27/18 at 11:30 Docusate Sodium (Colace) 100 mg BID PO Last administered on 07/31/18at 20:34; Admin Dose 100 MG; Start 07/27/18 at 11:30 Acetaminophen (Tylenol Tab) 650 mg Q4H PRN PO TEMP GREATER THAN 101F OR LINDA; Start 07/27/18 at 11:30 IV Flush (NS 3 ml) 3 ml PER PROTOCOL IV ; Start 07/27/18 at 11:30 Naloxone HCl (Narcan) 0.2 mg Q2M PRN IV RR 8 BREATHS/MIN OR LESS; Start 07/27/18 at 11:30 Hydromorphone HCl (Dilaudid CLAIMS SUPERVISOR) 0.3 MG/HR CONTINUOUS R... Q4PCA IV Last administered on 08/01/18at 01:18; Admin Dose 0.3 MG; Start 07/29/18 at 18:00 Hydromorphone HCl (Dilaudid) 1 mg Q2HWA PRN IV SEVERE PAIN LEVEL 7-10 Last administered on 08/01/18at 05:48; Admin Dose 1 MG; Start 07/31/18 at 12:30 BRUCE WISE August 01, 2018 07:28
[2018-08-01] MEDS: DOCUSATE SODIUM 100 MG CAP PO SCH ×2 (07:53→20:06)
[2018-08-01] MEDS: HYDROCODONE/APAP (5/325) TAB PO PRN (10:50)
[2018-08-01] MEDS ORDERED: HYDROmorphONE 2 MG/ML SYG IV PRN (13:00)
[2018-08-01] MEDS ORDERED: HYDROmorphONE 2 MG TAB PO PRN (16:00)
[2018-08-01] MEDS: HYDROmorphONE 2 MG/ML SYG IV PRN ×4 (16:09→22:13)
--- NOTE | 2018-08-01 18:10 | PN ---
Date/Time of Note Date/Time of Note DATE: 08/01/18 TIME: 18:07 Assessment/Plan VTE Prophylaxis Risk score (from Ns)>0 risk: 7 SCD applied (from Ns): Yes Pharmacological prophylaxis: NA/contraindicated Pharm contraindication: surgical contra Lines/Catheters IV Catheter Type (from Nrsg): Peripheral IV Urinary Cath still in place: Yes Reason Cath still needed: urinary retention Assessment/Plan Hospital Course Patient here Dilaudid DC'd continue Dilaudid as needed for pain, heart rate is better controlled. Assessment/Plan -Mechanical LBP with LE Radiculopathy. Status post L5-S1 lumbar hardware removal with decompression and interbody fusion by Dr. Jordan on 07/27/2018. Dr. Pabon is following in pain management consultation. Continue PT. -Hx of Hypertension. -Depression -History of posterior cervical laminectomy and foraminotomies with instrumental fusion of C3-C7. -Obesity Further recommendations based on clinical course. Plan of care discussed with Dr. Zhu. Result Diagram: 08/01/18 0502 08/01/18 0502 Results 24hrs Laboratory Tests Test 08/01/18 05:02 White Blood Count 6.9 Red Blood Count 3.54 L Hemoglobin 10.6 L Hematocrit 33.5 L Mean Corpuscular Volume 94.6 Mean Corpuscular Hemoglobin 29.9 Mean Corpuscular Hemoglobin Concent 31.6 L Red Cell Distribution Width 12.7 Platelet Count 331 Mean Platelet Volume 10.7 H Immature Granulocytes % 0.100 Neutrophils % 44.8 Lymphocytes % 37.5 Monocytes % 9.9 Eosinophils % 7.1 H Basophils % 0.6 Nucleated Red Blood Cells % 0.0 Immature Granulocytes # 0.010 Neutrophils # 3.1 Lymphocytes # 2.6 Monocytes # 0.7 Eosinophils # 0.5 Basophils # 0.0 Nucleated Red Blood Cells # 0.0 Sodium Level 140 Potassium Level 4.3 Chloride Level 101 Carbon Dioxide Level 34 H Anion Gap 5 Blood Urea Nitrogen 10 Creatinine 0.57 Est Glomerular Filtrat Rate mL/min > 60 Glucose Level 97 Calcium Level 8.6 Exam/Review of Systems Exam Vitals Vital Signs Date Temp Pulse Resp B/P (MAP) Pulse Ox O2 O2 Flow FiO2 Time Delivery Rate 08/01/18 120/63 17:59 (82) 08/01/18 74 16:01 08/01/18 98.6 20 96 Room Air 15:33 Intake and Output 07/31/18 07/31/18 08/01/18 1515:00 23:00 07:00 IntakeIntake Total 800 ml 760 ml OutputOutput Total 900 ml 1200 ml BalanceBalance -100 ml -440 ml Exam Constitutional: alert, oriented Respiratory: clear to auscultation Cardiovascular: regular rate and rhythm Gastrointestinal: soft, non-tender Musculoskeletal: other (Status post lumbar surgery) Extremities: normal pulses Neurological: nl mental status Skin: nl turgor Results Results 24hrs Laboratory Tests Test 08/01/18 05:02 White Blood Count 6.9 Red Blood Count 3.54 L Hemoglobin 10.6 L Hematocrit 33.5 L Mean Corpuscular Volume 94.6 Mean Corpuscular Hemoglobin 29.9 Mean Corpuscular Hemoglobin Concent 31.6 L Red Cell Distribution Width 12.7 Platelet Count 331 Mean Platelet Volume 10.7 H Immature Granulocytes % 0.100 Neutrophils % 44.8 Lymphocytes % 37.5 Monocytes % 9.9 Eosinophils % 7.1 H Basophils % 0.6 Nucleated Red Blood Cells % 0.0 Immature Granulocytes # 0.010 Neutrophils # 3.1 Lymphocytes # 2.6 Monocytes # 0.7 Eosinophils # 0.5 Basophils # 0.0 Nucleated Red Blood Cells # 0.0 Sodium Level 140 Potassium Level 4.3 Chloride Level 101 Carbon Dioxide Level 34 H Anion Gap 5 Blood Urea Nitrogen 10 Creatinine 0.57 Est Glomerular Filtrat Rate mL/min > 60 Glucose Level 97 Calcium Level 8.6 Medications Medication Current Medications Ondansetron HCl (Zofran Inj) 4 mg Q6H PRN IV NAUSEA/VOMITING; Start 07/27/18 at 11:30 Al Hydrox/Mg Hydrox/Simethicone (Mag-Al Plus) 15 ml Q4H PRN PO .CONSTIPATION; Start 07/27/18 at 11:30 Docusate Sodium (Colace) 100 mg BID PO Last administered on 08/01/18at 07:53; Admin Dose 100 MG; Start 07/27/18 at 11:30 Acetaminophen (Tylenol Tab) 650 mg Q4H PRN PO TEMP GREATER THAN 101F OR LINDA; Start 07/27/18 at 11:30 IV Flush (NS 3 ml) 3 ml PER PROTOCOL IV ; Start 07/27/18 at 11:30 Naloxone HCl (Narcan) 0.2 mg Q2M PRN IV RR 8 BREATHS/MIN OR LESS; Start 07/27/18 at 11:30 Hydromorphone HCl (Dilaudid) 2 mg Q2HWA PRN IV SEVERE PAIN LEVEL 7-10 Last administered on 08/01/18at 18:03; Admin Dose 2 MG; Start 08/01/18 at 16:00 Hydromorphone HCl (Dilaudid) 2 mg Q3H PRN PO SEVERE PAIN LEVEL 7-10; Start 08/01/18 at 16:00 JÚNIOR DOLAN August 01, 2018 18:09
[2018-08-02] VITALS (9 sets, daily range): BP systolic 96–120; BP diastolic 53–70; PULSE 67–101; RESP 18–22
[2018-08-02] MEDS: HYDROmorphONE 2 MG/ML SYG IV PRN ×12 (00:14→23:27)
[2018-08-02] MEDS: DOCUSATE SODIUM 100 MG CAP PO SCH ×2 (09:00→20:58)
--- NOTE | 2018-08-02 17:45 | PN ---
Date/Time of Note Date/Time of Note DATE: 08/02/18 TIME: 17:44 Assessment/Plan VTE Prophylaxis Risk score (from Ns)>0 risk: 6 SCD applied (from Ns): Yes Pharmacological prophylaxis: NA/contraindicated Pharm contraindication: surgical contra Lines/Catheters IV Catheter Type (from Nrsg): Saline Lock Urinary Cath still in place: No Assessment/Plan Hospital Course Patient remains in sinus rhythm, stable to transfer for medical surgical floor, continue current pain management and physical therapy. Assessment/Plan -Mechanical LBP with LE Radiculopathy. Status post L5-S1 lumbar hardware removal with decompression and interbody fusion by Dr. Jordan on 07/27/2018. Dr. Pabon is following in pain management consultation. Continue PT. -Hx of Hypertension. -Depression -History of posterior cervical laminectomy and foraminotomies with instrumental fusion of C3-C7. -Obesity Further recommendations based on clinical course. Plan of care discussed with Dr. Zhu. Result Diagram: 08/01/18 0502 08/01/18 0502 Exam/Review of Systems Exam Vitals Vital Signs Date Temp Pulse Resp B/P (MAP) Pulse Ox O2 O2 Flow FiO2 Time Delivery Rate 08/02/18 98.2 90 18 112/66 95 Room Air 14:39 (81) Intake and Output 08/01/18 08/01/18 08/02/18 1515:00 23:00 07:00 IntakeIntake Total 800 ml 600 ml OutputOutput Total 1500 ml BalanceBalance 800 ml -900 ml Exam Constitutional: alert, oriented Respiratory: clear to auscultation Cardiovascular: regular rate and rhythm Gastrointestinal: soft, non-tender Musculoskeletal: other (Status post lumbar surgery) Extremities: normal pulses Neurological: nl mental status Skin: nl turgor Medications Medication Current Medications Ondansetron HCl (Zofran Inj) 4 mg Q6H PRN IV NAUSEA/VOMITING; Start 07/27/18 at 11:30 Al Hydrox/Mg Hydrox/Simethicone (Mag-Al Plus) 15 ml Q4H PRN PO .CONSTIPATION; Start 07/27/18 at 11:30 Docusate Sodium (Colace) 100 mg BID PO Last administered on 08/02/18at 09:00; Admin Dose 100 MG; Start 07/27/18 at 11:30 Acetaminophen (Tylenol Tab) 650 mg Q4H PRN PO TEMP GREATER THAN 101F OR LINDA; Start 07/27/18 at 11:30 IV Flush (NS 3 ml) 3 ml PER PROTOCOL IV ; Start 07/27/18 at 11:30 Naloxone HCl (Narcan) 0.2 mg Q2M PRN IV RR 8 BREATHS/MIN OR LESS; Start 07/27/18 at 11:30 Hydromorphone HCl (Dilaudid) 2 mg Q2HWA PRN IV SEVERE PAIN LEVEL 7-10 Last a dministered on 08/02/18at 16:58; Admin Dose 2 MG; Start 08/01/18 at 16:00 Hydromorphone HCl (Dilaudid) 2 mg Q3H PRN PO SEVERE PAIN LEVEL 7-10; Start 08/01/18 at 16:00 JÚNIOR DOLAN August 02, 2018 17:45
[2018-08-02] MEDS ORDERED: BISACODYL (EC) 5 MG TAB PO PRN (23:00)
[2018-08-03] MEDS: HYDROmorphONE 2 MG/ML SYG IV PRN ×11 (01:30→22:01)
[2018-08-03 02:12] VITALS: BP 111/68; PULSE 76; RESP 18
[2018-08-03 07:25] VITALS: BP 96/55; PULSE 69; RESP 18
[2018-08-03] MEDS: DOCUSATE SODIUM 100 MG CAP PO SCH ×2 (08:54→20:52)
[2018-08-03 14:21] VITALS: BP 108/64; PULSE 80; RESP 18
[2018-08-03 19:15] VITALS: BP 112/67; PULSE 80; RESP 18
--- NOTE | 2018-08-03 19:22 | PN ---
Date/Time of Note Date/Time of Note DATE: 08/03/18 TIME: 19:19 Assessment/Plan VTE Prophylaxis Risk score (from Ns)>0 risk: 3 SCD applied (from Ns): Yes Pharmacological prophylaxis: NA/contraindicated Pharm contraindication: surgical contra Lines/Catheters IV Catheter Type (from Nrsg): Saline Lock Urinary Cath still in place: No Assessment/Plan Hospital Course Patient is awake alert refusing p.o. Dilaudid taking IV Dilaudid. Will encourage patient to take p.o. continue physical therapy DC Aguilera. If patient pain is well controlled on p.o. Dilaudid patient can be discharged home with home health PT. Patient refusing acute rehab. Assessment/Plan -Mechanical LBP with LE Radiculopathy. Status post L5-S1 lumbar hardware removal with decompression and interbody fusion by Dr. Jordan on 07/27/2018. Dr. Pabon is following in pain management consultation. Continue PT. -Hx of Hypertension. -Depression -History of posterior cervical laminectomy and foraminotomies with instrumental fusion of C3-C7. -Obesity Further recommendations based on clinical course. Plan of care discussed with Dr. Zhu. Result Diagram: 08/01/18 0502 08/01/18 0502 Exam/Review of Systems Exam Vitals Vital Signs Date Temp Pulse Resp B/P (MAP) Pulse Ox O2 O2 Flow FiO2 Time Delivery Rate 08/03/18 98.0 80 18 108/64 96 Room Air 14:21 (79) Intake and Output 08/02/18 08/02/18 08/03/18 1515:00 23:00 07:00 IntakeIntake Total 500 ml 560 ml OutputOutput Total 350 ml BalanceBalance 150 ml 560 ml Exam Constitutional: alert, oriented Respiratory: clear to auscultation Cardiovascular: regular rate and rhythm Gastrointestinal: soft, non-tender Musculoskeletal: other (Status post lumbar surgery) Extremities: normal pulses Neurological: nl mental status Skin: nl turgor Medications Medication Current Medications Ondansetron HCl (Zofran Inj) 4 mg Q6H PRN IV NAUSEA/VOMITING; Start 07/27/18 at 11:30 Al Hydrox/Mg Hydrox/Simethicone (Mag-Al Plus) 15 ml Q4H PRN PO .CONSTIPATION; Start 07/27/18 at 11:30 Docusate Sodium (Colace) 100 mg BID PO Last administered on 08/03/18at 08:54; Admin Dose 100 MG; Start 07/27/18 at 11:30 Acetaminophen (Tylenol Tab) 650 mg Q4H PRN PO TEMP GREATER THAN 101F OR LINDA; Start 07/27/18 at 11:30 IV Flush (NS 3 ml) 3 ml PER PROTOCOL IV ; Start 07/27/18 at 11:30 Naloxone HCl (Narcan) 0.2 mg Q2M PRN IV RR 8 BREATHS/MIN OR LESS; Start 07/27/18 at 11:30 Hydromorphone HCl (Dilaudid) 2 mg Q2HWA PRN IV SEVERE PAIN LEVEL 7-10 Last administered on 08/03/18at 17:53; Admin Dose 2 MG; Start 08/01/18 at 16:00 Hydromorphone HCl (Dilaudid) 2 mg Q3H PRN PO SEVERE PAIN LEVEL 7-10; Start 08/01/18 at 16:00 Bisacodyl (Dulcolax) 10 mg DAILY PRN PO CONSTIPATION; Start 08/02/18 at 23:00 JÚNIOR DOLAN August 03, 2018 19:22
[2018-08-04] VITALS: BP 97/56; PULSE 72; RESP 18
[2018-08-04] MEDS: HYDROmorphONE 2 MG/ML SYG IV PRN ×12 (02:02→22:18)
--- NOTE | 2018-08-04 06:33 | CONS ---
Assessment/Plan Assessment/Plan Assessment/Plan (Daily) post dated note for 08/03 History of low back pain Status post L5-S1 lumbar hardware removal with decompression interbody fusion History of hypertension History of depression Past medical history of cervical laminectomy Past history of obesity Status post gastric bypass surgery Pt is resistant with discontinuing IV opioids in spite of the fact I have told her she cannot go home on IV meds. Consultation Date/Type/Reason Admit Date/Time July 27, 2018 at 05:44 Initial Consult Date Date/Time of Note DATE: 08/04/18 TIME: 06:30 Exam/Review of Systems Exam Vitals Vital Signs Date Temp Pulse Resp B/P (MAP) Pulse Ox O2 O2 Flow FiO2 Time Delivery Rate 08/04/18 98.2 72 18 97/56 (70) 100 00:00 08/03/18 Room Air 14:21 Intake and Output 08/03/18 08/03/18 08/04/18 1515:00 23:00 07:00 IntakeIntake Total 680 ml 120 ml 942 ml OutputOutput Total 500 ml BalanceBalance 680 ml 120 ml 442 ml Constitutional: alert, oriented, well developed, other (no acute distress) Psych: anxiety Neurological: [employer] II-XII intact, nl mental status, nl speech, nl strength; No confused, No DTR's symmetric, No focal weakness, No lethargic, No numbness, No reflexes, No unresponsive, No other Results Result Diagram: 08/01/18 0502 08/01/18 0502 Medications Medication Current Medications Ondansetron HCl (Zofran Inj) 4 mg Q6H PRN IV NAUSEA/VOMITING; Start 07/27/18 at 11:30 Al Hydrox/Mg Hydrox/Simethicone (Mag-Al Plus) 15 ml Q4H PRN PO .CONSTIPATION; Start 07/27/18 at 11:30 Docusate Sodium (Colace) 100 mg BID PO Last administered on 08/03/18at 20:52; Admin Dose 100 MG; Start 07/27/18 at 11:30 Acetaminophen (Tylenol Tab) 650 mg Q4H PRN PO TEMP GREATER THAN 101F OR LINDA; Start 07/27/18 at 11:30 IV Flush (NS 3 ml) 3 ml PER PROTOCOL IV ; Start 07/27/18 at 11:30 Naloxone HCl (Narcan) 0.2 mg Q2M PRN IV RR 8 BREATHS/MIN OR LESS; Start 07/27/18 at 11:30 Hydromorphone HCl (Dilaudid) 2 mg Q2HWA PRN IV SEVERE PAIN LEVEL 7-10 Last administered on 08/04/18at 06:10; Admin Dose 2 MG; Start 08/01/18 at 16:00 Hydromorphone HCl (Dilaudid) 2 mg Q3H PRN PO SEVERE PAIN LEVEL 7-10; Start 08/01/18 at 16:00 Bisacodyl (Dulcolax) 10 mg DAILY PRN PO CONSTIPATION; Start 08/02/18 at 23:00 BRUCE WISE August 04, 2018 06:33
[2018-08-04 07:19] VITALS: BP 96/58; PULSE 64; RESP 18
[2018-08-04] MEDS: DOCUSATE SODIUM 100 MG CAP PO SCH ×2 (08:44→20:23)
--- NOTE | 2018-08-04 11:37 | PN ---
DATE: 08/04/2018 SUBJECTIVE: Patient's lower back pain seems to be getting better. The patient was seen by Dr. Cecy mckeon morning and is managing her pain medication. The patient denied any chest pain or shortness of b reath. PHYSICAL EXAMINATION: GENERAL: The patient is awake, alert. VITAL SIGNS: The patient has a low-grade fever of 99.6 last night, currently afebrile at 98.5, pulse 64, respiration 18, blood pressure 96/58, O2 99% on room air. HEENT: No eye discharge or redness. Conjunctiva normal. Oropharynx clear. NECK: No mass. CHEST: Fairly clear. CARDIOVASCULAR: S1, S2 normal. No murmur. ABDOMEN: Soft, nontender. Bowel sounds plus. EXTREMITIES: No leg edema. NEUROLOGIC: The patient is awake, alert, fairly oriented with no gross focal deficit. IMPRESSION: 1. Mechanical low back pain with the lower extremity radiculopathy, status post L5-S1 lumbar hardwar e removal with decompression and interbody fusion on 07/27/2018. 2. History of hypertension. 3. History of depression. 4. Acute blood loss. PLAN: Continue pain control. PT has been following her closely and ARU was recommended. The patien t has not made up her mind regarding transfer to ARU. We will continue in case the patient refuses. The patient was also offered a usp facility; however, she does not want to go to usp facility. Will discharge home with home health once cleared by PT. Will add iron sulfate f or acute blood loss anemia. Continue SCDs for DVT prophylaxis. As per Dr. Yarbrough patient is still resistant with discontinuing IV opiate. Will continue to follow . Dictated By: LEILA TOSCANO/DIAZ Conf#: [id number] DID#: [id number]
[2018-08-04] MEDS: FERROUS SULFATE (EC) 325 MG TAB PO SCH (11:59)
[2018-08-04 13:37] VITALS: BP 107/66; PULSE 82; RESP 18
[2018-08-04 19:10] VITALS: BP 98/57; PULSE 86; RESP 20
[2018-08-05] VITALS (7 sets, daily range): BP systolic 90–139; BP diastolic 54–73; PULSE 56–90; RESP 18–20
[2018-08-05] MEDS: HYDROmorphONE 2 MG/ML SYG IV PRN ×10 (00:22→18:42)
[2018-08-05] MEDS: DOCUSATE SODIUM 100 MG CAP PO SCH (08:48)
[2018-08-05] MEDS: FERROUS SULFATE (EC) 325 MG TAB PO SCH (08:48)
--- NOTE | 2018-08-05 17:05 | PDOCDIS ---
Discharge Instructions CONDITION [id number] Patient Condition: [id number] Stable HOME CARE INSTRUCTIONS: [id number] Diet Instructions: [id number] ACTIVITY: [id number] Activity Restrictions: [id number] Slowly Increase Activity Rest between Activity Avoid heavy lifting Do not operate Machinery Do not operate Power Tool Avoid Heavy Housework [id number] Bathing Restrictions: [id number] Sponge Bath FOLLOW UP/APPOINTMENTS Follow-up Plan FU with primary x 1 week FU with neurosx as recommended - call 911 or go to the nearest hospital if symptoms get worse Patient verbalized understanding dc instruction ANTIONE GARCIA August 05, 2018 17:05
[2018-08-05] MEDS ORDERED: DOCU-144 PO (17:06)
--- NOTE | 2018-08-05 17:07 | DS ---
Date/Time of Note Date/Time of Note DATE: 08/05/18 TIME: 17:07 Discharge Summary Admission/Discharge Info Admit Date/Time July 27, 2018 at 05:44 Discharge Date/Time Discharge Diagnosis 1. Mechanical low back pain with the lower extremity radiculopathy status post L5-S1 lumbar hardware removal with decompression and interbody fusion on 07/27/2018. 2. History of hypertension. 3. History of depression. 4. Acute blood loss. Patient Condition: Stable Hospital Course GENERAL: NAD, VSS, The patient is awake, alert. HEENT: No eye discharge or redness. Conjunctiva normal. Oropharynx clear. NECK: No mass. CHEST: Fairly clear. CARDIOVASCULAR: S1, S2 normal. No murmur. ABDOMEN: Soft, nontender. Bowel sounds plus. EXTREMITIES: No leg edema. NEUROLOGIC: The patient is awake, alert, fairly oriented with no gross focal deficit. Patient is stable ; cleared by neurosx to dc home. Dw Dr Zhu/ staff Home Meds Active Scripts Docusate Sodium* (Colace*) 100 Mg Capsule, 100 MG PO BID, #20 CAP Prov:ANTIONE GARCIA 08/05/18 Reported Medications Hydrocodone/Acetaminophen (Dolliver 10-325 Tablet) 1 Each Tablet, 1 EACH PO Q4 PRN for PAIN, TAB 07/27/18 Hydromorphone Hcl* (Dilaudid*) 4 Mg Tablet, 4 MG PO Q4H PRN for PAIN, TAB 07/27/18 Carisoprodol* (Carisoprodol*) 350 Mg Tablet, 350 MG PO Q6 PRN for MUSCLE SPASMS, TAB 07/27/18 Follow-up Plan FU with primary x 1 week FU with neurosx as recommended - call 911 or go to the nearest hospital if symptoms get worse Patient verbalized understanding dc instruction Primary Care Provider Zev Zhu MD Time spent on discharge: < 30 minutes Pending Labs Laboratory Tests Test 08/05/18 04:35 White Blood Count 6.7 10^3/ul (4.8-10.8) Red Blood Count 3.51 10^6/ul (4.20-5.40) Hemoglobin 10.5 g/dl (12.0-16.0) Hematocrit 33.1 % (37.0-47.0) Mean Corpuscular Volume 94.3 fl (82.0-101.0) Mean Corpuscular Hemoglobin 29.9 pg (29.0-33.0) Mean Corpuscular Hemoglobin Concent 31.7 g/dl (32.0-37.0) Red Cell Distribution Width 12.6 % (11.5-14.5) Platelet Count 402 10^3/UL (140-415) Mean Platelet Volume 10.6 fl (7.4-10.4) Immature Granulocytes % 0.100 % (0.001-0.429) Neutrophils % 37.8 % (39.0-77.0) Lymphocytes % 43.0 % (15.0-51.0) Monocytes % 9.4 % (0.0-11.0) Eosinophils % 8.8 % (0.0-7.0) Basophils % 0.9 % (0.0-2.0) Nucleated Red Blood Cells % 0.0 /100WBC (0.0-0.0) Immature Granulocytes # 0.010 10^3/ul (0.0-0.031) Neutrophils # 2.5 10^3/ul (1.6-7.5) Lymphocytes # 2.9 10^3/ul (0.8-2.9) Monocytes # 0.6 10^3/ul (0.3-0.9) Eosinophils # 0.6 10^3/ul (0.0-0.5) Basophils # 0.1 10^3/ul (0.0-0.1) Nucleated Red Blood Cells # 0.0 10^3/ul (0.0-0.0) Sodium Level 141 mmol/L (135-144) Potassium Level 5.0 mmol/L (3.5-5.1) Chloride Level 102 mmol/L (97-110) Carbon Dioxide Level 34 mmol/L (21-31) Anion Gap 5 (5-13) Blood Urea Nitrogen 10 mg/dl (7-20) Creatinine 0.55 mg/dl (0.44-1.00) Est Glomerular Filtrat Rate mL/min > 60 mL/min (>60) Glucose Level 89 mg/dl (70-220) Calcium Level 8.9 mg/dl (8.4-10.2) ANTIONE GARCIA August 05, 2018 17:07
== END 2018-08-05 19:20 | disposition home or self-care (01) | DRG 454 ==
LOC: REC 05:44 → 6WM 13:22 → MS1 08-02 13:38
PROVIDERS: ADMIT Internal Medicine; ATTEND Internal Medicine
PROC: 0SG03K1 Fusion of Lumbar Vertebral Joint with Nonautologous Tissue Substitute, Posterior Approach, Posterior Column, Percutaneous Approach (ICD-10-PCS; 2018-07-27)
PROC: 0SB20ZZ Excision of Lumbar Vertebral Disc, Open Approach (ICD-10-PCS; 2018-07-27)
PROC: 01NB0ZZ Release Lumbar Nerve, Open Approach (ICD-10-PCS; 2018-07-27)
PROC: 0SP304Z Removal of Internal Fixation Device from Lumbosacral Joint, Open Approach (ICD-10-PCS; 2018-07-27)
PROC: 0SG33K1 Fusion of Lumbosacral Joint with Nonautologous Tissue Substitute, Posterior Approach, Posterior Column, Percutaneous Approach (ICD-10-PCS; 2018-07-27)
PROC: 01BB0ZZ Excision of Lumbar Nerve, Open Approach (ICD-10-PCS; 2018-07-27)
PROC: 4A11X4G Monitoring of Peripheral Nervous Electrical Activity, Intraoperative, External Approach (ICD-10-PCS; 2018-07-27)
PROC: 0SG00AJ Fusion of Lumbar Vertebral Joint with Interbody Fusion Device, Posterior Approach, Anterior Column, Open Approach (ICD-10-PCS; principal; 2018-07-27 07:30)
DX: M47.26 Other spondylosis with radiculopathy, lumbar region (principal); D62 Acute posthemorrhagic anemia; E88.2 Lipomatosis, not elsewhere classified; E66.9 Obesity, unspecified; F32.9 Major depressive disorder, single episode, unspecified; G89.18 Other acute postprocedural pain; I10 Essential (primary) hypertension; Z68.27 Body mass index [BMI] 27.0-27.9, adult; Z98.1 Arthrodesis status; Z98.84 Bariatric surgery status
CPT/HCPCS: 71045; 72100; 72131; 80048; 80053; 85014; 85018; 85025; 85610; 85730; 86850; 86900; 86901; 87086; 88300; 88304; 88311; 93005; 97110; 97116; 97161; 97530; J0690; J1100; J1170; J1885; J2250; J2370; J2405; J2795; J3010; J3480

== ENCOUNTER 2018-08-12 18:05 | Emergency (ER) | payer MEDICARE, OTHER ==
[~2018-08-12] VITALS: Wt 78.0 kg
[~2018-08-12 18:05] MED LIST changes: -CEPH500C PO; -DIAZ10TA4 PO; +DOCU-144 PO; +HYDR4TAB51 PO; -NORT75CA PO; -PRAZ2CAP2 PO
[2018-08-12 18:11] VITALS: BP 149/86; PULSE 86; RESP 18
[2018-08-12] MEDS ORDERED: ONDANSETRON (ODT) 4 MG TAB ODT STA (20:25)
[2018-08-12] MEDS ORDERED: HYDROmorphONE 2 MG/ML SYG IM STA (20:25)
--- NOTE | 2018-08-12 22:14 | ERD ---
ER Documentation Chief Complaint Chief Complaint HAD BACK SURGERY 07/27 ON DILAUDID AND MORPHINE AT HOME,STILL IN PAIN HPI 43-year-old female presents with low back pain. She had surgery 2 weeks ago which is her fifth back surgery for a work injury sustained in 2006. Neurosurgeon is Dr. Reyes. Apparently she had removal of hardware with replacement. She denies any new injury. Review of medical record shows that she declined postoperative rehab facility. She is having pain despite morphine 15 mg twice a day and Dilaudid 4 mg as needed for breakthrough pain. Medical record demonstrates patient had difficulty weaning off IV opiates. ROS All systems reviewed and are negative except as per history of present illness. Medications Home Meds Active Scripts Docusate Sodium* (Colace*) 100 Mg Capsule, 100 MG PO BID, #20 CAP Prov:ANTIONE GARCIA 08/05/18 Reported Medications Hydrocodone/Acetaminophen ([place] 10-325 Tablet) 1 Each Tablet, 1 EACH PO Q4 PRN for PAIN, TAB 07/27/18 Hydromorphone Hcl* (Dilaudid*) 4 Mg Tablet, 4 MG PO Q4H PRN for PAIN, TAB 07/27/18 Carisoprodol* (Carisoprodol*) 350 Mg Tablet, 350 MG PO Q6 PRN for MUSCLE SPASMS, TAB 07/27/18 Allergies Allergies: Coded Allergies: No Known Allergy (Unverified , 07/27/18) PMhx/Soc History of Surgery: Yes (hysterectomy,tubal ligation,cervical&lumbar spine sx, gall bladder removed,) Anesthesia Reaction: No Hx Neurological Disorder: No Hx Respiratory Disorders: No Hx Cardiac Disorders: No Hx Psychiatric Problems: No Hx Miscellaneous Medical Probl: No Hx Alcohol Use: No Hx Substance Use: No Hx Tobacco Use: No FmHx Family History: No diabetes, No coronary disease, No other Physical Exam Vitals Vital Signs Date Temp Pulse Resp B/P (MAP) Pulse Ox O2 O2 Flow FiO2 Time Delivery Rate 08/12/18 98.3 86 18 149/86 99 18:11 (107) Physical Exam Const: No acute distress Head: Atraumatic Eyes: Normal Conjunctiva ENT: Normal External Ears, Nose and Mouth. Neck: Full range of motion. No meningismus. Resp: Clear to auscultation bilaterally Cardio: Regular rate and rhythm, no murmurs Abd: Soft, non tender, non distended. Normal bowel sounds Skin: No petechiae or rashes Back: No midline or flank tenderness. Healed surgical scar, no fluctuance or appreciable fluid collections. No warmth, erythema. Ext: No cyanosis, or edema Neur: Awake and alert. Patient walking at baseline with a walker. She has chronic numbness of her right lower extremity. Psych: Normal Mood and Affect Results 24 hrs Current Medications Medications Dose Sig/Tuyet Start Time Status Last (Trade) Ordered Route PRN Stop Time Admin Dose Reason Admin 2 mg ONCE STAT 08/12/18 DC 08/12/18 Hydromorphone IM 20:25 08/12/18 20:35 HCl 20:27 (Dilaudid) Ondansetron 8 mg ONCE STAT 08/12/18 DC 08/12/18 HCl (Zofran ODT 20:25 08/12/18 20:34 Odt) 20:27 Procedures/MDM Case discussed with Dr. Reyes. He recommended a CT scan. PROCEDURE: CT Lumbar Spine without contrast. CLINICAL INDICATION: Postoperative low back pain. TECHNIQUE: CT of the lumbar spine without contrast was performed. Axial images were obtained through the lumbar spine and reformatted at 2.5 mm slice thickness. Coronal and sagittal images were reformatted. DICOM images are available. One or more of the following dose reduction techniques were used: Automated exposure control, adjustment of the mA and/or kV according to patient size, use of iterative reconstruction technique. The CTDIvol = 19.23 mGy and DLP = 610.91 mGy-cm. COMPARISON: 07/28/2018 FINDINGS: Vertebral bodies: Metallic interbody fusion graft bridging the L5 and S1 vertebral bodies is again noted. There is no evidence of compression fracture, lytic or blastic lesion. Mild anterior enthesopathy is again seen. The lordosis is preserved. Conus medularis region: Normal in attenuation and termination estimated at the L1 level. T12-L1: No discogenic abnormality of significance is seen. Minimal bilateral facet arthropathy is again demonstrated. The central canal is patent. There is no evidence for foraminal stenosis. L1-L2: No discogenic abnormality of significance is seen. Moderate right facet arthropathy is again noted. The left side joint unremarkable. The ligamentum flava are normal in thickness. The central canal is patent. There is no evidence for foraminal stenosis. L2-L3: Preservation of disc stature with trace 2 mm annular disc bulging but no evidence of protrusion. There is no facet arthropathy. The ligamentum flava are normal in thickness. The central canal is patent. There is no evidence for foraminal stenosis. L3-L4: Preserved disc stature with mild 2 mm asymmetric disc bulging to the left. Mild bilateral facet arthropathy is suggested. The ligamentum flava are normal in thickness. The central canal is patent. Trace left foraminal stenosis is again suggested, the right foramen appears patent. L4-L5: Interbody graft is present slightly eccentric to the left but in satisfactory position, unchanged. Minimal disc bulging of 3 mm is again noted Metallic fusion hardware of the L4-L5 spinous processes again seen. Partial left facet resection is identified a punctate focus of gas in the region of the facet resection change, the previously seen percutaneous drainage catheters been removed. Mild right-sided facet arthropathy is present. There is no evidence of inflammatory collection. The ligamentum flava are normal in thickness. Minimal bilateral foraminal stenosis is again identified. Screw defect in the L5 vertebral body consistent with prior transpedicular screw location and removal again noted. L5-S1: Metallic vertically oriented interbody fusion graft is again seen with almost complete obliteration of the disc space. There is an osteophytic ridge of approximately 4 mm. Partial left facet resection is again noted with moderate to severe right facet arthropathy. Posterior element spinous process fusion plate and screws are again noted in satisfactory positions. The central canal is patent. Osteophyte formation contributes to moderate left and mild right foraminal stone since. Sacrum and sacroiliac joints: No abnormalities are identified, the joints are normal and symmetric. None spine related findings: Changes of prior bariatric surgery and cholecystectomy are seen. RPTAT:HJJR IMPRESSION: 1. Compared to the prior study of 07/28/2018, there has been removal of the surgical drainage catheter and punctate foci of gas are now seen in the postoperative bed of the partial left facet resection at L4-5, the findings of doubtful significance with interbody graft and spinous process fusion changes at this level as well as mild disc bulging contributing to no more than mild bilateral foraminal stenosis. 2. No abnormal intraspinal or paraspinal collections are identified on this unenhanced exam. 3. Changes prior transpedicular screw removal at the L5 and S1 levels with metallic interbody graft again noted, partial left facet resection and spinous process metallic hardware fusion, osteophyte and disc complex contributes to left greater than right foraminal stenosis without central canal narrowing. 4. Trace left L3-4 foraminal stenosis from minimal disc bulging is stable, no central canal narrowing at this level is present. Feroz Nix Physician Date Time Electronically viewed and signed by Feroz Nix Physician on 08/12/2018 22:03 JR/ CC: KINGA DIOR MD [phone] She presents with postoperative pains 2 weeks status post replacement of lumbar hardware and fusion. She also had grafting. She has no signs of infection, fluid collection, new injury. There is no signs of acute complications on CT scan. She was given Dilaudid 2 mg IM and Zofran 8 mg by mouth. Per Dr. Reyes she will be discharged home with recommended follow-up day after tomorrow as scheduled. sHe was given Toradol 30 mg IM prior to discharge. She is to return for fevers, vomiting, new worsening symptoms or with neurosurgery as directed. Patient states that she does have remaining prescriptions of her opiates at home. The patient was stable with no new complaints during the ER course. Clinically, there is no current evidence to suggest meningitis, sepsis, acute abdomen, pneumonia, stroke, acute coronary syndrome, pulmonary embolism, aortic dissection or any other emergent condition appearing to require further evaluation or hospitalization. Patient counseled regarding my diagnostic impression and care plan. Prior to discharge all questions answered. Pt agrees with treatment plan and understands strict return precautions. Pt is instructed to follow up with primary care provider within 24-48 hours. Precautionary instructions provided including instructions to return to the ER if not improving or for any worsening or changing symptoms or concerns. Disclaimer: Inadvertent spelling and grammatical errors are likely due to EHR/dictation software use and do not reflect on the overall quality of patient care. Also, please note that the electronic time recorded on this note does not necessarily reflect the actual time of the patient encounter. Departure Diagnosis: Primary Impression: Pain Additional Impression: Back pain Back pain location: low back pain Chronicity: unspecified Back pain laterality: bilateral Sciatica presence: with sciatica Sciatica laterality: sciatica of right side Qualified Codes: M54.41 - Lumbago with sciatica, right side Condition: Stable Patient Instructions: Back Pain (Acute Or Chronic), Post Op Wound Check, Pain Referrals: LEILA PERES MD (PCP) RUPA REYES MD Additional Instructions: No complications noted on CT scan. See neurosurgery as scheduled on Tuesday. Recommend continue current pain medications. Recheck for fevers, new worsening symptoms. KINGA DIOR MD Aug 12, 2018 22:14
[2018-08-12] MEDS: KETOROLAC 30 MG INJ IM STA ×2 (22:17→22:27)
== END 2018-08-12 22:20 | disposition home or self-care (01) ==
LOC: FTE 18:05
DX: G89.18 Other acute postprocedural pain (principal); M54.41 Lumbago with sciatica, right side
CPT/HCPCS: 72131; 96372; 99285; J1170; J1885

== ENCOUNTER 2018-08-16 16:05 | Inpatient (IN) | payer MEDICARE, OTHER ==
[~2018-08-16] VITALS: Ht 162.6 cm; Wt 78.8 kg
[2018-08-16] MEDS ORDERED: LACTATED RINGER'S 1,000 ML IV STA (20:13)
[2018-08-16] MEDS ORDERED: HYDROmorphONE 1 MG/ML SYG IV STA (20:13)
[2018-08-16] MEDS: FAMOTIDINE 20 MG INJ IV SCH (21:23)
[2018-08-16] MEDS ORDERED: NACL 0.9% 3 ML SYG IV SCH (21:30)
[2018-08-16] MEDS ORDERED: ONDANSETRON 4 MG INJ IV PRN (21:30)
[2018-08-16] MEDS ORDERED: HYDROmorphONE 0.5 MG/0.5 ML SYG IV PRN (21:30)
--- NOTE | 2018-08-16 22:08 | ERD ---
ER Documentation Chief Complaint Chief Complaint post op pain ( lumbar spine infusion) sent by dr venegas for admssion HPI This is a 42-year-old woman s/p L5-S1 Hardware removal with L4-5 transforaminal lumbar interbody fusion and L4-S1 intraspinous fastener placement few weeks ago presenting with continued pain despite high-dose morphine and hydromorphone use at home. She was referred here by her back surgeon Dr. Venegas for inpatient management, and further imaging. Patient states she has been feeling dizzy and has lost her balance as well. Patient denies slurred speech, no loss of consciousness, no chest pain or shortness of breath, no loss of bowel or bladder control. Patient requesting analgesics for postop back pain. ROS All systems reviewed and are negative except as per history of present illness. Medications Home Meds Active Scripts Docusate Sodium* (Colace*) 100 Mg Capsule, 100 MG PO BID, #20 CAP Prov:ANTIONE GARCIA 08/05/18 Reported Medications Hydrocodone/Acetaminophen ([place] 10-325 Tablet) 1 Each Tablet, 1 EACH PO Q4 PRN for PAIN, TAB 07/27/18 Hydromorphone Hcl* (Dilaudid*) 4 Mg Tablet, 4 MG PO Q4H PRN for PAIN, TAB 07/27/18 Carisoprodol* (Carisoprodol*) 350 Mg Tablet, 350 MG PO Q6 PRN for MUSCLE SPASMS, TAB 07/27/18 Allergies Allergies: Coded Allergies: No Known Allergy (Unverified , 07/27/18) PMhx/Soc Recent lumbar spine surgery History of Surgery: Yes (LAMINECTOMY X 5, HYSTERECTOMY, CHOLECYSTECTOMY) Anesthesia Reaction: No Hx Neurological Disorder: No Hx Respiratory Disorders: No Hx Cardiac Disorders: No Hx Psychiatric Problems: No Hx Miscellaneous Medical Probl: No Hx Alcohol Use: No Hx Substance Use: No Hx Tobacco Use: No Smoking Status: Never smoker FmHx Family History: No diabetes Physical Exam Vitals Vital Signs Date Temp Pulse Resp B/P (MAP) Pulse Ox O2 O2 Flow FiO2 Time Delivery Rate 08/16/18 98.0 83 20 120/87 100 Room Air 20:10 (98) 08/16/18 99.1 77 19 157/91 100 16:29 (113) Physical Exam Const: Well-developed will nourished no acute distress, appears comfortable, afebrile Resp: Clear to auscultation bilaterally Cardio: Regular rate and rhythm, no murmurs Abd: Soft, non tender, non distended. Skin: No petechiae or rashes. Postop incision sites appear clean and dry without any surrounding skin erythema or induration, no discharge, no wound d ehiscence Back: No midline or flank tenderness Ext: No cyanosis, or edema, calves symmetrical Neur: Awake and alert x3, no focal deficits or facial asymmetry, pupils equal round reactive to light Psych: Normal Mood and Affect Result Diagram: 08/16/18202708/16/182027 Results 24 hrs Laboratory Tests Test 08/16/18 20:28 White Blood Count 6.7 10^3/ul Red Blood Count 3.73 10^6/ul Hemoglobin 11.1 g/dl Hematocrit 34.8 % Mean Corpuscular Volume 93.3 fl Mean Corpuscular Hemoglobin 29.8 pg Mean Corpuscular Hemoglobin Concent 31.9 g/dl Red Cell Distribution Width 12.6 % Platelet Count 458 10^3/UL Mean Platelet Volume 10.2 fl Immature Granulocytes % 0.300 % Neutrophils % 38.6 % Lymphocytes % 44.9 % Monocytes % 6.3 % Eosinophils % 8.9 % Basophils % 1.0 % Nucleated Red Blood Cells % 0.0 /100WBC Immature Granulocytes # 0.020 10^3/ul Neutrophils # 2.6 10^3/ul Lymphocytes # 3.0 10^3/ul Monocytes # 0.4 10^3/ul Eosinophils # 0.6 10^3/ul Basophils # 0.1 10^3/ul Nucleated Red Blood Cells # 0.0 10^3/ul Prothrombin Time 13.7 Sec Prothrombin Time Ratio 1.1 INR International Normalized Ratio 1.04 Activated Partial Thromboplast Time 28.6 Sec Urine Color YELLOW Urine Clarity CLEAR Urine pH 6.0 Urine Specific [place] 1.012 Urine Ketones NEGATIVE mg/dL Urine Nitrite NEGATIVE mg/dL Urine Bilirubin NEGATIVE mg/dL Urine Urobilinogen NEGATIVE mg/dL Urine Leukocyte Esterase 2+ Arturo/ul Urine Microscopic RBC 4 /HPF Urine Microscopic WBC 42 /HPF Urine Squamous Epithelial Cells FEW /HPF Urine Hemoglobin 1+ mg/dL Urine Glucose NEGATIVE mg/dL Urine Total Protein NEGATIVE mg/dl Sodium Level 142 mmol/L Potassium Level 3.8 mmol/L Chloride Level 105 mmol/L Carbon Dioxide Level 30 mmol/L Anion Gap 7 Blood Urea Nitrogen 9 mg/dl Creatinine 0.72 mg/dl Est Glomerular Filtrat Rate mL/min > 60 mL/min Glucose Level 89 mg/dl Calcium Level 8.6 mg/dl Current Medications Medications Dose Sig/Tuyet Start Time Status Last (Trade) Ordered Route PRN Stop Time Admin Dose Reason Admin Lactated 1,000 ml @ Q1H STAT 08/16/18 DC 08/16/18 Ringer's 1,000 mls/hr IV 20:13 08/16/18 20:40 21:12 1 mg ONCE STAT 08/16/18 DC 08/16/18 Hydromorphone IV 20:13 08/16/18 20:40 HCl 20:14 (Dilaudid) IV Flush 3 ml PER 08/16/18 (NS 3 ml) PROTOCOL IV 21:30 Ondansetron 4 mg Q6H PRN 08/16/18 HCl (Zofran IV 21:30 Inj) NAUSEA/VOMITI NG 650 mg Q6H PRN 08/16/18 Acetaminophen PO .PAIN 1-3 21:30 (Tylenol OR TEMP Tab) 0.5 mg Q4H PRN 08/16/18 Hydromorphone IV .SEVERE 21:30 HCl PAIN 7-10 (Dilaudid) Famotidine 20 mg Q12 IV 08/16/18 08/16/18 (Pepcid Iv) 21:10 21:23 Enoxaparin 30 mg DAILY SC 08/17/18 Sodium 09:00 (Lovenox) Procedures/MDM IV line was established patient was placed on tmh teacher rhythm strip revealed a sinus rhythm at about 80 bpm with upright P and T waves. Patient was afebrile I administered hydromorphone 1 mg IV and 1 L LR x1 CBC and electrolytes were normal, coagulation profile normal. Patient will be admitted under Dr. Bard preston for continued medical management and pain control, further imaging and investigations deferred to her surgeon Departure Diagnosis: Primary Impression: Postoperative back pain Additional Impressions: Intractable pain Opioid dependence Substance use status: uncomplicated Qualified Codes: F11.20 - Opioid dependence, uncomplicated Condition: ROSSI Greer MD Aug 16, 2018 22:08
[2018-08-16] MEDS ORDERED: MORP15TA3 PO (23:48)
[2018-08-16] MEDS ORDERED: HYDR4TAB PO (23:48)
[2018-08-16] MEDS ORDERED: GABA300C16 PO (23:48)
[2018-08-16] MEDS ORDERED: TIZA2TAB PO (23:48)
[2018-08-16] MEDS ORDERED: MULTI PO (23:51)
[2018-08-17] MEDS ORDERED: HYDROmorphONE 0.5 MG/0.5 ML SYG IV ONE (00:30)
[2018-08-17 00:58] VITALS: BP 165/77; PULSE 75; RESP 20
[2018-08-17 01:25] VITALS: Ht 162.6 cm; Wt 78.8 kg
[2018-08-17] MEDS: HYDROmorphONE 1 MG/ML SYG IV PRN ×6 (04:39→21:36)
[2018-08-17 08:00] VITALS: BP 111/67; PULSE 62; RESP 17
[2018-08-17] MEDS: FAMOTIDINE 20 MG INJ IV SCH (08:39)
[2018-08-17] MEDS: ENOXAPARIN 30 MG/0.3 ML SYG SC SCH (08:42)
--- NOTE | 2018-08-17 13:31 | HP ---
Date/Time of Note Date/Time of Note DATE: 08/17/18 TIME: 13:28 Assessment/Plan VTE Prophylaxis Risk score (from Ns)>0 risk: 2 SCD applied (from Ns): Yes Pharmacological prophylaxis: LMWH Lines/Catheters IV Catheter Type (from Nrsg): Saline Lock Assessment/Plan Assessment/Plan -Intractable low back pain. Continue Roxicodone and Dilaudid as needed for pain. Dr. Pabon is asked to see patient in pain management consultation. Dr. Jordan will be following patient in neurosurgery consultation patient. Naomy bai will undergo MRI of the lumbar spine. -Opioid dependence -History of L5-S1 lumbar hardware removal with decompression and interbody fusion by Dr. Jordan on 07/27/2018 for mechanical low back pain and with lower extremity radiculopathy. -Depression -History of posterior cervical laminectomy and foraminotomies with instrumental fusion of C3-C7. -Obesity Further recommendations based on clinical course. Plan of care discussed with Dr. Zhu. Result Diagram: 08/17/18 0648 08/17/18 0648 Results 24hrs Laboratory Tests Test 08/16/18 20:28 08/17/18 06:48 White Blood Count 6.7 6.4 Red Blood Count 3.73 L 3.14 L Hemoglobin 11.1 L 9.6 L Hematocrit 34.8 L 29.7 L Mean Corpuscular Volume 93.3 94.6 Mean Corpuscular Hemoglobin 29.8 30.6 Mean Corpuscular Hemoglobin Concent 31.9 L 32.3 Red Cell Distribution Width 12.6 12.7 Platelet Count 458 H 361 # Mean Platelet Volume 10.2 10.8 H Immature Granulocytes % 0.300 0.300 Neutrophils % 38.6 L 36.0 L Lymphocytes % 44.9 45.2 Monocytes % 6.3 7.5 Eosinophils % 8.9 H 10.1 H Basophils % 1.0 0.9 Nucleated Red Blood Cells % 0.0 0.0 Immature Granulocytes # 0.020 0.020 Neutrophils # 2.6 2.3 Lymphocytes # 3.0 H 2.9 Monocytes # 0.4 0.5 Eosinophils # 0.6 H 0.7 H Basophils # 0.1 0.1 Nucleated Red Blood Cells # 0.0 0.0 Prothrombin Time 13.7 Prothrombin Time Ratio 1.1 INR International Normalized Ratio 1.04 Activated Partial Thromboplast Time 28.6 Urine Color YELLOW Urine Clarity CLEAR Urine pH 6.0 Urine Specific [place] 1.012 Urine Ketones NEGATIVE Urine Nitrite NEGATIVE Urine Bilirubin NEGATIVE Urine Urobilinogen NEGATIVE Urine Leukocyte Esterase 2+ H Urine Microscopic RBC 4 Urine Microscopic WBC 42 H Urine Squamous Epithelial Cells FEW Urine Hemoglobin 1+ H Urine Glucose NEGATIVE Urine Total Protein NEGATIVE Sodium Level 142 143 Potassium Level 3.8 3.5 Chloride Level 105 106 Carbon Dioxide Level 30 30 Anion Gap 7 7 Blood Urea Nitrogen 9 8 Creatinine 0.72 0.56 Est Glomerular Filtrat Rate mL/min > 60 > 60 Glucose Level 89 133 # Calcium Level 8.6 8.5 Hemoglobin A1c 5.4 Total Bilirubin 0.3 Direct Bilirubin 0.00 Indirect Bilirubin 0.3 Aspartate Amino Transf (AST/SGOT) 18 Alanine Aminotransferase (ALT/SGPT) 15 Alkaline Phosphatase 87 Total Protein 5.8 L Albumin 2.9 L Globulin 2.90 Albumin/Globulin Ratio 1.00 HPI/ROS Admit Date/Time Admit Date/Time Aug 16, 2018 at 21:24 Hx of Present Illness The patient is a 43-year-old female known to me from previous admission. Patient has multiple cervical and lumbar spine fusions, patient with history of hypertension depression and obesity. Patient underwent L5-S1 hardware removal with L4-5 transforaminal lumbar lumbar interbody fusion and L4-S1 intraspinal cefoxitin of placement on July 27, 2018. While in hospital patient was followed by pain management physician and underwent extensive physical therapy, and was discharged home in stable condition. Patient continues to have severe pain despite high dose of morphine at home. Patient was seen in Dr. Jordan office and was sent to emergency room for pain management and further imaging. Patient also complains of feeling dizzy and losing her balance, and weakness in left lower extremity. Patient denies any fever denies chest pain denies shortness of breath patient denies any loss of bowel or bladder control, denies slurred speech denies any loss of consciousness. ROS 12 point review of system is negative except for what mentioned in HPI PMH/Family/Social Past Medical History Per HPI Medications Current Medications IV Flush (NS 3 ml) 3 ml PER PROTOCOL IV ; Start 08/16/18 at 21:30 Ondansetron HCl (Zofran Inj) 4 mg Q6H PRN IV NAUSEA/VOMITING; Start 08/16/18 at 21:30 Acetaminophen (Tylenol Tab) 650 mg Q6H PRN PO .PAIN 1-3 OR TEMP; Start 08/16/18 at 21:30 Famotidine (Pepcid Iv) 20 mg Q12 IV Last administered on 08/17/18at 08:39; Admin Dose 20 MG; Start 08/16/18 at 21:10 Enoxaparin Sodium (Lovenox) 30 mg DAILY SC Last administered on 08/17/18at 08:42; Admin Dose 30 MG; Start 08/17/18 at 09:00 Hydromorphone HCl (Dilaudid) 1 mg Q3H PRN IV .SEVERE PAIN 7-10; Start 08/17/18 at 13:00 Coded Allergies: No Known Allergy (Unverified , 08/16/18) Past Surgical History Past Surgical Hx: other (Status post hysterectomy status post multiple cervical and lumbar spine surgeries) Family History Significant Family History: other Social History Alcohol Use: none Smoking Status: Never smoker Drug Use: none Exam/Review of Systems Vital Signs Vitals Vital Signs Date Temp Pulse Resp B/P (MAP) Pulse Ox O2 O2 Flow FiO2 Time Delivery Rate 08/17/18 98.0 62 17 111/67 99 Room Air 08:00 (82) Exam Constitutional: alert, oriented Head: normocephalic Respiratory: clear to auscultation Cardiovascular: nl pulses Gastrointestinal: soft, non-tender Musculoskeletal: nl extremities to inspection Extremities: normal pulses Neurological: nl mental status Skin: nl turgor, other (lower back surgical incision) JÚNIOR DOLAN Aug 17, 2018 13:31
[2018-08-17 14:00] VITALS: BP 116/66; PULSE 71; RESP 18
--- NOTE | 2018-08-17 15:04 | QN ---
Documentation Comment As Physician Advisor I have reviewed the chart and have determined that as of today, this patient continues to receive medically necessary care required for the diagnosis and treatment of illness or injury. There has been no unreasonable delay in the rendering of medically necessary services, and this medically necessary care requires a length of stay expected to be greater than two midnights. Additional information gained during the stay now suggests this patient should have been classified as an inpatient at the time of admission, and I will change the status to inpatient to reflect that medical judgment. Besides the notes from the medical providers, the following information was used in this determination: Severe pain requiring IV narcotics with decreasing interval, workup including CT and MRI Please call me at [phone] with questions. LONNY SPANN MD Aug 17, 2018 15:03
[2018-08-17 20:53] VITALS: BP 139/75; PULSE 46; RESP 18
[2018-08-17] MEDS: FAMOTIDINE 20 MG TAB PO SCH (21:31)
[2018-08-17 22:00] VITALS: PULSE 53
[2018-08-17] MEDS: oxyCODONE (CR) 10 MG TAB [oxyCONTIN] PO SCH (23:11)
[2018-08-18] MEDS: HYDROmorphONE 1 MG/ML SYG IV PRN ×7 (00:42→15:13)
[2018-08-18 02:11] VITALS: BP 122/69; PULSE 54; RESP 20
--- NOTE | 2018-08-18 06:11 | PN ---
Date/Time of Note Date/Time of Note DATE: 08/18/18 TIME: 06:11 Assessment/Plan VTE Prophylaxis Risk score (from Ns)>0 risk: 1 SCD applied (from Ns): Yes SCD contraindicated: other Pharmacological prophylaxis: other Lines/Catheters IV Catheter Type (from Nrsg): Saline Lock Assessment/Plan Assessment/Plan -Intractable low back pain -Opioid dependence -History of L5-S1 lumbar hardware removal with decompression and interbody fusion by Dr. Jordan on 07/27/2018 for mechanical low back pain and with lower extremity radiculopathy. -Depression -History of posterior cervical laminectomy and foraminotomies with instrumental fusion of C3-C7. -Obesity Further recommendations based on clinical course. Plan of care discussed with Dr. Zhu. Result Diagram: 08/17/18 0648 08/17/18 0648 Results 24hrs Laboratory Tests Test 08/17/18 06:48 White Blood Count 6.4 Red Blood Count 3.14 L Hemoglobin 9.6 L Hematocrit 29.7 L Mean Corpuscular Volume 94.6 Mean Corpuscular Hemoglobin 30.6 Mean Corpuscular Hemoglobin Concent 32.3 Red Cell Distribution Width 12.7 Platelet Count 361 # Mean Platelet Volume 10.8 H Immature Granulocytes % 0.300 Neutrophils % 36.0 L Lymphocytes % 45.2 Monocytes % 7.5 Eosinophils % 10.1 H Basophils % 0.9 Nucleated Red Blood Cells % 0.0 Immature Granulocytes # 0.020 Neutrophils # 2.3 Lymphocytes # 2.9 Monocytes # 0.5 Eosinophils # 0.7 H Basophils # 0.1 Nucleated Red Blood Cells # 0.0 Sodium Level 143 Potassium Level 3.5 Chloride Level 106 Carbon Dioxide Level 30 Anion Gap 7 Blood Urea Nitrogen 8 Creatinine 0.56 Est Glomerular Filtrat Rate mL/min > 60 Glucose Level 133 # Hemoglobin A1c 5.4 Calcium Level 8.5 Total Bilirubin 0.3 Direct Bilirubin 0.00 Indirect Bilirubin 0.3 Aspartate Amino Transf (AST/SGOT) 18 Alanine Aminotransferase (ALT/SGPT) 15 Alkaline Phosphatase 87 Total Protein 5.8 L Albumin 2.9 L Globulin 2.90 Albumin/Globulin Ratio 1.00 Subjective 24 Hr Interval Summary Free Text/Dictation nad; vss no events overnight dw staff ENT: no complaints Respiratory: no complaints Cardiovascular: no complaints Gastrointestinal: no complaints Genitourinary: no complaints Musculoskeletal: back pain Skin: no complaints Exam/Review of Systems Exam Vitals Vital Signs Date Temp Pulse Resp B/P (MAP) Pulse Ox O2 O2 Flow FiO2 Time Delivery Rate 08/18/18 98.1 54 20 122/69 99 02:11 (86) 08/17/18 Room Air 14:00 Intake and Output 08/17/18 08/17/18 08/18/18 1515:00 23:00 07:00 IntakeIntake Total 800 ml BalanceBalance 800 ml Constitutional: alert, well developed Psych: nl mood/affect Eyes: nl lids, nl sclera ENMT: nl external ears & nose Neck: non-tender Respiratory: clear to auscultation Cardiovascular: nl pulses, other (s1s2) Gastrointestinal: soft, non-tender Musculoskeletal: nl extremities to inspection, joint tenderness, range of motion Extremities: normal pulses Neurological: nl speech, other (alert/responsive) Skin: nl turgor Lymph: nontender Results Results 24hrs Laboratory Tests Test 08/17/18 06:48 White Blood Count 6.4 Red Blood Count 3.14 L Hemoglobin 9.6 L Hematocrit 29.7 L Mean Corpuscular Volume 94.6 Mean Corpuscular Hemoglobin 30.6 Mean Corpuscular Hemoglobin Concent 32.3 Red Cell Distribution Width 12.7 Platelet Count 361 # Mean Platelet Volume 10.8 H Immature Granulocytes % 0.300 Neutrophils % 36.0 L Lymphocytes % 45.2 Monocytes % 7.5 Eosinophils % 10.1 H Basophils % 0.9 Nucleated Red Blood Cells % 0.0 Immature Granulocytes # 0.020 Neutrophils # 2.3 Lymphocytes # 2.9 Monocytes # 0.5 Eosinophils # 0.7 H Basophils # 0.1 Nucleated Red Blood Cells # 0.0 Sodium Level 143 Potassium Level 3.5 Chloride Level 106 Carbon Dioxide Level 30 Anion Gap 7 Blood Urea Nitrogen 8 Creatinine 0.56 Est Glomerular Filtrat Rate mL/min > 60 Glucose Level 133 # Hemoglobin A1c 5.4 Calcium Level 8.5 Total Bilirubin 0.3 Direct Bilirubin 0.00 Indirect Bilirubin 0.3 Aspartate Amino Transf (AST/SGOT) 18 Alanine Aminotransferase (ALT/SGPT) 15 Alkaline Phosphatase 87 Total Protein 5.8 L Albumin 2.9 L Globulin 2.90 Albumin/Globulin Ratio 1.00 Medications Medication Current Medications IV Flush (NS 3 ml) 3 ml PER PROTOCOL IV ; Start 08/16/18 at 21:30 Ondansetron HCl (Zofran Inj) 4 mg Q6H PRN IV NAUSEA/VOMITING; Start 08/16/18 at 21:30 Acetaminophen (Tylenol Tab) 650 mg Q6H PRN PO .PAIN 1-3 OR TEMP; Start 08/16/18 at 21:30 Enoxaparin Sodium (Lovenox) 30 mg DAILY SC Last administered on 08/17/18 08:42; Admin Dose 30 MG; Start 08/17/18 at 09:00 Hydromorphone HCl (Dilaudid) 1 mg Q3H PRN IV .SEVERE PAIN 7-10 Last administered on 08/18/18 03:43; Admin Dose 1 MG; Start 08/17/18 at 13:00 Famotidine (Pepcid) 20 mg BID PO Last administered on 08/17/18at 21:31; Admin Dose 20 MG; Start 08/17/18 at 21:00 Oxycodone HCl (Oxycontin) 10 mg BID PO Last administered on 08/17/18at 23:11; Admin Dose 10 MG; Start 08/17/18 at 22:30 Docusate Sodium (Colace) 100 mg BID PO ; Start 08/18/18 at 09:00 ANTIONE GARCIA Aug 18, 2018 06:11
--- NOTE | 2018-08-18 06:12 | PN ---
Date/Time of Note Date/Time of Note DATE: 08/18/18 TIME: 06:12 Assessment/Plan VTE Prophylaxis Risk score (from Ns)>0 risk: 1 SCD applied (from Ns): Yes SCD contraindicated: other Pharmacological prophylaxis: other Pharm contraindication: other Lines/Catheters IV Catheter Type (from Nrsg): Saline Lock Assessment/Plan Assessment/Plan -Intractable low back pain - pain management follows -Opioid dependence -History of L5-S1 lumbar hardware removal with decompression and interbody fusion by Dr. Jordan on 07/27/2018 for mechanical low back pain and with lower ext remity radiculopathy. - per neurosx - pain control -Depression -History of posterior cervical laminectomy and foraminotomies with instrumental fusion of C3-C7. -Obesity Further recommendations based on clinical course. Plan of care discussed with Dr. Zhu. Result Diagram: 08/17/18 0648 08/17/18 0648 Results 24hrs Laboratory Tests Test 08/17/18 06:48 White Blood Count 6.4 Red Blood Count 3.14 L Hemoglobin 9.6 L Hematocrit 29.7 L Mean Corpuscular Volume 94.6 Mean Corpuscular Hemoglobin 30.6 Mean Corpuscular Hemoglobin Concent 32.3 Red Cell Distribution Width 12.7 Platelet Count 361 # Mean Platelet Volume 10.8 H Immature Granulocytes % 0.300 Neutrophils % 36.0 L Lymphocytes % 45.2 Monocytes % 7.5 Eosinophils % 10.1 H Basophils % 0.9 Nucleated Red Blood Cells % 0.0 Immature Granulocytes # 0.020 Neutrophils # 2.3 Lymphocytes # 2.9 Monocytes # 0.5 Eosinophils # 0.7 H Basophils # 0.1 Nucleated Red Blood Cells # 0.0 Sodium Level 143 Potassium Level 3.5 Chloride Level 106 Carbon Dioxide Level 30 Anion Gap 7 Blood Urea Nitrogen 8 Creatinine 0.56 Est Glomerular Filtrat Rate mL/min > 60 Glucose Level 133 # Hemoglobin A1c 5.4 Calcium Level 8.5 Total Bilirubin 0.3 Direct Bilirubin 0.00 Indirect Bilirubin 0.3 Aspartate Amino Transf (AST/SGOT) 18 Alanine Aminotransferase (ALT/SGPT) 15 Alkaline Phosphatase 87 Total Protein 5.8 L Albumin 2.9 L Globulin 2.90 Albumin/Globulin Ratio 1.00 Subjective 24 Hr Interval Summary Free Text/Dictation - c/o lower back pain; pain management follows - dw staff Eyes: no complaints ENT: no complaints Respiratory: no complaints Cardiovascular: no complaints Gastrointestinal: no complaints Genitourinary: no complaints Musculoskeletal: back pain Skin: no complaints Neurologic: no complaints Endocrine: no complaints Lymphatic: no complaints Psychological: no complaints Immunologic: no complaints Exam/Review of Systems Exam Vitals Vital Signs Date Temp Pulse Resp B/P (MAP) Pulse Ox O2 O2 Flow FiO2 Time Delivery Rate 08/18/18 98.1 54 20 122/69 99 02:11 (86) 08/17/18 Room Air 14:00 Intake and Output 08/17/18 08/17/18 08/18/18 1515:00 23:00 07:00 IntakeIntake Total 800 ml BalanceBalance 800 ml Constitutional: alert, well developed Psych: nl mood/affect Head: atraumatic Eyes: nl lids, nl sclera ENMT: nl external ears & nose Neck: non-tender Respiratory: clear to auscultation Cardiovascular: nl pulses Gastrointestinal: soft, non-tender Musculoskeletal: nl extremities to inspection, muscle weakness, range of motion (lower back ) Results Results 24hrs Laboratory Tests Test 08/17/18 06:48 White Blood Count 6.4 Red Blood Count 3.14 L Hemoglobin 9.6 L Hematocrit 29.7 L Mean Corpuscular Volume 94.6 Mean Corpuscular Hemoglobin 30.6 Mean Corpuscular Hemoglobin Concent 32.3 Red Cell Distribution Width 12.7 Platelet Count 361 # Mean Platelet Volume 10.8 H Immature Granulocytes % 0.300 Neutrophils % 36.0 L Lymphocytes % 45.2 Monocytes % 7.5 Eosinophils % 10.1 H Basophils % 0.9 Nucleated Red Blood Cells % 0.0 Immature Granulocytes # 0.020 Neutrophils # 2.3 Lymphocytes # 2.9 Monocytes # 0.5 Eosinophils # 0.7 H Basophils # 0.1 Nucleated Red Blood Cells # 0.0 Sodium Level 143 Potassium Level 3.5 Chloride Level 106 Carbon Dioxide Level 30 Anion Gap 7 Blood Urea Nitrogen 8 Creatinine 0.56 Est Glomerular Filtrat Rate mL/min > 60 Glucose Level 133 # Hemoglobin A1c 5.4 Calcium Level 8.5 Total Bilirubin 0.3 Direct Bilirubin 0.00 Indirect Bilirubin 0.3 Aspartate Amino Transf (AST/SGOT) 18 Alanine Aminotransferase (ALT/SGPT) 15 Alkaline Phosphatase 87 Total Protein 5.8 L Albumin 2.9 L Globulin 2.90 Albumin/Globulin Ratio 1.00 Medications Medication Current Medications IV Flush (NS 3 ml) 3 ml PER PROTOCOL IV ; Start 08/16/18 at 21:30 Ondansetron HCl (Zofran Inj) 4 mg Q6H PRN IV NAUSEA/VOMITING; Start 08/16/18 at 21:30 Acetaminophen (Tylenol Tab) 650 mg Q6H PRN PO .PAIN 1-3 OR TEMP; Start 08/16/18 at 21:30 Enoxaparin Sodium (Lovenox) 30 mg DAILY SC Last administered on 08/17/18at 08:42; Admin Dose 30 MG; Start 08/17/18 at 09:00 Hydromorphone HCl (Dilaudid) 1 mg Q3H PRN IV .SEVERE PAIN 7-10 Last administered on 08/18/18 03:43; Admin Dose 1 MG; Start 08/17/18 at 13:00 Famotidine (Pepcid) 20 mg BID PO Last administered on 08/17/18at 21:31; Admin Dose 20 MG; Start 08/17/18 at 21:00 Oxycodone HCl (Oxycontin) 10 mg BID PO Last administered on 08/17/18at 23:11; Admin Dose 10 MG; Start 08/17/18 at 22:30 Docusate Sodium (Colace) 100 mg BID PO ; Start 08/18/18 at 09:00 ANTIONE GARCIA Aug 18, 2018 06:12
[2018-08-18 07:25] VITALS: BP 139/74; PULSE 62; RESP 16
[2018-08-18] MEDS: DOCUSATE SODIUM 100 MG CAP PO SCH ×2 (09:40→21:11)
[2018-08-18] MEDS: oxyCODONE (CR) 10 MG TAB [oxyCONTIN] PO SCH (09:40)
[2018-08-18] MEDS: FAMOTIDINE 20 MG TAB PO SCH ×2 (09:40→21:11)
[2018-08-18] MEDS: ENOXAPARIN 30 MG/0.3 ML SYG SC SCH (09:43)
--- NOTE | 2018-08-18 10:26 | CONS ---
Assessment/Plan Assessment/Plan Assessment/Plan (Daily) Neurosurgery consult note HX: PCDF 01/2017, L4-5 TLIF & Removal of old screws 07/27/18 MRI /CT Lspine reviewed and noted Plan Consultation Date/Type/Reason Admit Date/Time Aug 17, 2018 at 15:00 Initial Consult Date Date/Time of Note DATE: 08/18/18 TIME: 10:23 Exam/Review of Systems Exam Vitals Vital Signs Date Temp Pulse Resp B/P (MAP) Pulse Ox O2 O2 Flow FiO2 Time Delivery Rate 08/18/18 98.3 62 16 139/74 96 Room Air 07:25 (95) Intake and Output 08/17/18 08/17/18 08/18/18 1515:00 23:00 07:00 IntakeIntake Total 800 ml BalanceBalance 800 ml Results Result Diagram: 08/18/18 0727 08/18/18 0727 Results 24hrs Laboratory Tests Test 08/18/18 07:27 White Blood Count 7.0 Red Blood Count 3.50 L Hemoglobin 10.5 L Hematocrit 32.7 L Mean Corpuscular Volume 93.4 Mean Corpuscular Hemoglobin 30.0 Mean Corpuscular Hemoglobin Concent 32.1 Red Cell Distribution Width 12.7 Platelet Count 394 Mean Platelet Volume 10.9 H Immature Granulocytes % 0.300 Neutrophils % 47.4 Lymphocytes % 36.2 Monocytes % 7.2 Eosinophils % 8.2 H Basophils % 0.7 Nucleated Red Blood Cells % 0.0 Immature Granulocytes # 0.020 Neutrophils # 3.3 Lymphocytes # 2.6 Monocytes # 0.5 Eosinophils # 0.6 H Basophils # 0.1 Nucleated Red Blood Cells # 0.0 Sodium Level 142 Potassium Level 4.0 Chloride Level 106 Carbon Dioxide Level 33 H Anion Gap 3 L Blood Urea Nitrogen 8 Creatinine 0.59 Est Glomerular Filtrat Rate mL/min > 60 Glucose Level 89 # Calcium Level 8.9 Triglycerides Level 63 Cholesterol Level 93 L LDL Cholesterol, Calculated 46 HDL Cholesterol 34 Cholesterol/HDL Ratio 2.7 Thyroid Stimulating Hormone (TSH) 0.445 L Free Thyroxine 0.79 Medications Medication Current Medications IV Flush (NS 3 ml) 3 ml PER PROTOCOL IV ; Start 08/16/18 at 21:30 Ondansetron HCl (Zofran Inj) 4 mg Q6H PRN IV NAUSEA/VOMITING; Start 08/16/18 at 21:30 Acetaminophen (Tylenol Tab) 650 mg Q6H PRN PO .PAIN 1-3 OR TEMP; Start 08/16/18 at 21:30 Enoxaparin Sodium (Lovenox) 30 mg DAILY SC Last administered on 08/18/18 09:43; Admin Dose 30 MG; Start 08/17/18 at 09:00 Hydromorphone HCl (Dilaudid) 1 mg Q3H PRN IV .SEVERE PAIN 7-10 Last administered on 08/18/18 09:44; Admin Dose 1 MG; Start 08/17/18 at 13:00 Famotidine (Pepcid) 20 mg BID PO Last administered on 08/18/18 09:40; Admin Dose 20 MG; Start 08/17/18 at 21:00 Oxycodone HCl (Oxycontin) 10 mg BID PO Last administered on 08/18/18 09:40; Admin Dose 10 MG; Start 08/17/18 at 22:30 Docusate Sodium (Colace) 100 mg BID PO Last administered on 08/18/18 09:40; Admin Dose 100 MG; Start 08/18/18 at 09:00 RUPA REYES MD Aug 18, 2018 10:26
[2018-08-18 14:10] VITALS: BP 143/80; PULSE 81; RESP 16
--- NOTE | 2018-08-18 17:12 | RADRPT ---
Echocardiogram Report Patient Name: MATTIE ARGUETALPatient ID: [id number] : 1975 (43y 5m)Study Date: 08/18/2018 8:53:47 AM Gender: FAccession #: [id number] Tech: LAWSON Location: [facility] Ref.Physician: ANTIONE GARCIA Height(Cm): BSA: Weight(Kg): Quality: GoodOrder Physician: ANTIONE GARCIA Account #: Procedures: Echocardiographic Report: Transthoracic echocardiogram with complete 2D, M-Mode, and doppler examination. Indications: Evaluate Left Ventricular function. Measurements: 2D/M Mode Doppler Measurement Value Normal Range Measurement Value Normal Range LVIDd 2D 4.0 [ 3.8 - 5.2 ] cm AV Mean Miguel 1.2 [ 70.0 - 90.0 ] cm/sec LVIDs 2D 2.8 [ 2.2 - 3.5 ] cm AV Mean PG 6.0 [ 2.0 - 4.0 ] mmHg LVPWd 2D 1.1 [ 0.6 - 0.9 ] cm AV Peak Miguel 1.6 [ 100.0 - 170.0 ] cm/sec IVSd 2D 1.1 [ 0.6 - 0.9 ] cm AV Peak PG 10.0 [ 2.0 - 9.0 ] mmHg EDV 2D 68.3 [ 46.0 - 106.0 ] ml AV VTI 30.5 cm ESV 2D 29.6 [ 14.0 - 42.0 ] ml LVOT Peak Miguel 1.1 [ 70.0 - 110.0 ] cm/sec EF 2D 56.7 [ 54.0 - 74.0 ] percent LVOT Peak PG 5.0 [ 2.0 - 6.0 ] mmHg LVOT Diam 1.9 [ 2.1 - 2.5 ] cm MV E Peak Miguel 0.9 [ 60.0 - 130.0 ] cm/sec MV A Peak Miguel 1.0 [ 100.0 - 120.0 ] cm/sec MV E/A 0.9 [ 0.8 - 1.5 ] ratio MV Decel Time 222 [ 104 - 258 ] msec Lat E` Miguel 0.1 [ 10.0 - 15.0 ] cm/sec Lateral E/E` 10.9 [ 1.0 - 2.0 ] ratio Med E` Miguel 0.1 cm/sec MV E/A 0.9 [ 0.8 - 1.5 ] ratio PV Peak Miguel 0.9 [ 40.0 - 80.0 ] cm/sec PV Peak PG 3.0 mmHg Findings: Left Ventricle: Normal left ventricular systolic function. Normal left ventricular cavity size. Normal left ventricular wall thickness. Ejection fraction is visually estimated at 55 %. Tissue Doppler/Mitral Doppler indices are consistent with impaired relaxation (Stage I diastolic dysfunction). Right Ventricle: Normal right ventricular size. Normal right ventricular systolic function. Left Atrium: The left atrium is normal in size. Right Atrium: The right atrium is normal in size. Mitral Valve: Normal appearance of the mitral valve. Trace mitral regurgitation. Aortic Valve: Normal appearance of the aortic valve. No significant aortic stenosis or insufficiency. Tricuspid Valve: Normal appearance and function of the tricuspid valve with trace physiologic regurgitation. Pulmonic Valve: Pulmonic valve not well visualized. Pericardium: Normal pericardium with no significant pericardial effusion. Aorta: Normal aortic root. IVC: Normal size and normal respiratory collapse consistent with normal right atrial pressure. Conclusions: Normal left ventricular systolic function. Normal left ventricular cavity size. Normal left ventricular wall thickness. Ejection fraction is visually estimated at 55 %. Tissue Doppler/Mitral Doppler indices are consistent with impaired relaxation (Stage I diastolic dysfunction). Normal appearance of the mitral valve. Trace mitral regurgitation. Normal appearance and function of the tricuspid valve with trace physiologic regurgitation. Electronically Signed By: Yobany Garcia 2018-08-18 17:10:58 PDT
--- NOTE | 2018-08-18 17:23 | RADRPT ---
Vent Rate: 62 bpm RR Interval: 968 msec VT Interval: 117 msec QRS Duration: 87 msec QT Interval: 427 msec QTC Interval: 434 msec P-R-T Buckhorn: 26 - 45 - 32 degrees Sinus rhythm...normal P axis, V-rate 50- 99 Electronically Signed By: Yobany Garcia
[2018-08-18] MEDS ORDERED: POLYETHYLENE GLYCOL 17 GM PACKET ONE (17:40)
[2018-08-18] MEDS ORDERED: METHYLPREDNISOLONE 40 MG INJ ONE (17:40)
[2018-08-18] MEDS ORDERED: HYDROmorphONE 0.2 MG/ML PCA ONE (17:40)
[2018-08-18] MEDS: HYDROmorphONE 0.2 MG/ML PCA IV SCH ×2 (18:06→23:14)
[2018-08-18] MEDS: POLYETHYLENE GLYCOL 17 GM PACKET PO SCH (18:26)
[2018-08-18] MEDS: METHYLPREDNISOLONE 125 MG INJ IV SCH ×2 (18:29→22:00)
--- NOTE | 2018-08-18 18:56 | CONS ---
DATE OF ADMISSION: 08/17/2018 DATE OF CONSULTATION: 08/18/2018 TYPE OF CONSULTATION: Cardiology. REASON FOR CONSULTATION: Bradycardia and hypertension. REQUESTING PHYSICIAN: Leila Peres MD HISTORY OF PRESENT ILLNESS: Ms. Brady is a 43-year-old female with a history of chronic low back pain, status post surgery on 07/27/2018 with L5 to S1 hardware removal, decompression and interbody fusion, depression, opioid dependency, who presented with complaints of ongoing back pain and left lower extremity weakness. Initially upon arrival, temperature of 99.1, blood pressure 157/91, pulse 77, respiratory rate 19, satting 100%. The patient's labs were notable for white blood cell count of 6.7, hemoglobin 11.1, platelet count 458, sodium 142, potassium 3.8, creatinine 0.7, BUN 9, LDL 46, HDL 34. INR 1.0, UA positive. The patient underwent a lumbar spine MRI revealing a left L4 to L5 transforaminal interbody fusion, small fluid collection in the left facetectomy, partial laminectomy bed, broad-based disk bulge at the level of S1 nerve root. CT of the lower spine reveals fragmentation of the posterior graft at L4 to L5 with posterior displacement, grafting into left subarticular recess and small amount of pus and soft tissue gas. The patient's electrocardiogram revealed sinus rhythm, rate of 60, normal axis, normal intervals, isolated T- wave flattening. The patient was admitted to the floor and since admit to floor has had some episodes of heart rates down to the 40s, but most recently has been back into the 60s. The patient has a low grade fever of 100.1. The patient denies chest pain, shortness of breath, dizziness, syncope. PAST MEDICAL HISTORY: As above in HPI. MEDICATIONS CURRENTLY IN HOSPITAL: 1. Oxycodone 20 mg p.o. b.i.d. 2. Dilaudid p.r.n. 3. Colace 100 mg b.i.d. 4. Pepcid 20 mg b.i.d. 5. Lovenox 40 mg subcutaneously daily. 6. Zofran p.r.n. 7. Tylenol p.r.n. ALLERGIES: NO KNOWN DRUG ALLERGIES. SOCIAL HISTORY: No current tobacco, EtOH or illicit drug use. FAMILY HISTORY: No history of sudden cardiac or early CAD. REVIEW OF SYSTEMS: As above in HPI. CONSTITUTIONAL: No fevers, chills. PULMONARY: No current shortness of breath. CARDIOVASCULAR: Intermittent bradycardia. GASTROINTESTINAL: No vomiting. GENITOURINARY: No hematuria. MUSCULOSKELETAL: Back pain. PSYCHIATRIC: No documented psych history. NEUROLOGIC: Left lower extremity weakness. PHYSICAL EXAMINATION: VITAL SIGNS: Temperature T-current 99, T-max 100.1, blood pressure 143/80, pulse 81, respiratory rate 16, satting 99%. GENERAL: The patient is alert, awake, in no acute distress. NECK: JVP is approximately 8 to 9 cm of water. CHEST: Fair air movement throughout. HEART: Regular rate and rhythm. Normal S1, S2, I/ systolic murmur, nondisplaced PMI. ABDOMEN: Positive bowel sounds, soft. EXTREMITIES: No edema, 1+ pulses bilateral posterior tibial. NEUROLOGIC: Left lower extremity weakness. LABORATORY DATA: As above in HPI. No further labs for my review at this time. IMAGING STUDIES: As above in HPI. No further imaging studies for my review at this time. ELECTROCARDIOGRAM: As above in HPI. No further electrocardiograms for my review at this time. IMPRESSION: 1. Bradycardia, intermittent with stable blood pressure at this time. 2. Abnormal electrocardiogram with isolated T-wave flattening in lead 3. 3. Hypertension, labile and episodic likely related to pain episodes. 4. Status post lumbar back surgery with ongoing back pain and left lower extremity weakness. 5. Urinary tract infection. 6. Dyslipidemia with low HDL. RECOMMENDATIONS: 1. At this time, we would check serial EKGs to assess for significant ongoing changes, to continue to discern the patient's current rhythm. 2. We will hold on any amos agents and check a TSH to be sure subclinical hyperthyroidism is not contributing to any bouts of bradyarrhythmias. 3. We will write at this time for p.r.n. antihypertensives and follow up blood pressures closely and if patient continues to have significant elevated blood pressure, we will start the patient on standing blood pressure medications. 4. Check a 2D echocardiogram to further assess ejection fraction, wall motion or major valve abnormalities. 5. Continue the patient's pain control. 6. Consider physical therapy. 7. Ongoing neurosurgical evaluation postop. Thank you for allowing me to take part in the care of this patient. I will continue to follow her along very closely with you with further recommendations to be made as the patient progresses through her inpatient hospital clinical course. Dictated By: RODRIGO MCCLELLAN/DIAZ Conf#: [id number] DID#: [id number] CC: SISSY GOMES MD; LEILA PERES MD;*EndCC* MTDD
[2018-08-18 20:17] VITALS: BP 150/80; PULSE 75; RESP 18
[2018-08-18] MEDS ORDERED: oxyCODONE (CR) 20 MG TAB [oxyCONTIN] PO SCH (21:00)
[2018-08-18] MEDS: SENNA/DOCUSATE NA (8.6MG/50MG) TAB PO SCH (21:11)
[2018-08-19 02:12] VITALS: BP 132/81; PULSE 86; RESP 18
[2018-08-19] MEDS: HYDROmorphONE 0.2 MG/ML PCA IV SCH ×5 (03:56→22:29)
[2018-08-19] MEDS: METHYLPREDNISOLONE 125 MG INJ IV SCH ×3 (06:08→21:46)
[2018-08-19 08:30] VITALS: BP 144/80; PULSE 70; RESP 18
[2018-08-19] MEDS: POLYETHYLENE GLYCOL 17 GM PACKET PO SCH (09:00)
[2018-08-19] MEDS: DOCUSATE SODIUM 100 MG CAP PO SCH ×2 (09:19→20:27)
[2018-08-19] MEDS: SENNA/DOCUSATE NA (8.6MG/50MG) TAB PO SCH ×2 (09:19→20:27)
[2018-08-19] MEDS: FAMOTIDINE 20 MG TAB PO SCH ×2 (09:19→20:27)
[2018-08-19] MEDS: ENOXAPARIN 30 MG/0.3 ML SYG SC SCH (09:20)
--- NOTE | 2018-08-19 09:50 | CONS ---
Assessment/Plan Assessment/Plan Assessment/Plan (Daily) Hx of Present Illness Patient well known to me from prior hospitalization and we presented to [facility] with lumbosacral spine pain out of control. Patient denies any radicular pain associated with this pain is been unrelenting since her last discharge quarter medical records he is missing the emergency room than one occasion. Describes the pain is 10 over 10 not alleviated with any current pain control medications. Last hospitalization she regarded DESKTOP PUBLISHER pump or workup was being completed patient states that she seen her neurosurgeon who is told her that she has screws that have been dislodged from prior surgery and she will probably need another surgical intervention. With current pain control medication she still very uncomfortable she denies nausea vomiting fevers chills warning signs itching mental cloudiness wedding fatigue pelvic anesthesia, incontinence of urine or feces, recent febrile illness. There's no past medical history of purposeful oversedation, her mood is definitely changes she is uncomfortable and is in a extremist at this time. She is not. Appear to be intoxicated or unkempt she is expert pain control medications but not requesting certain pain control medications is not asking for change in an administration but increasing dosages she's not insisting on certain pain control medications there's no past medical history of illicit drug use alcohol or IV drug abuse. Constitutional: no complaints, improved Eyes: no complaints ENT: no complaints Respiratory: no complaints Cardiovascular: no complaints Gastrointestinal: no complaints Genitourinary: no complaints Musculoskeletal: back pain, restricted range of motion Skin: no complaints Neurologic: no complaints Endocrine: no complaints Lymphatic: no complaints Psychological: no complaints, nl mood/affect Immunologic: no complaints Initial Consultation Hx Past Medical History Medical History: hypertension, other (Back pain, history of obesity) Home Meds Active Scripts Docusate Sodium* (Colace*) 100 Mg Capsule, 100 MG PO BID, #20 CAP Prov:ANTIONE GARCIA 08/05/18 Reported Medications Multivitamins* (Theragran*) 1 Tab Tab, 1 TAB PO DAILY, TAB 08/16/18 Tizanidine Hcl* (Tizanidine Hcl*) 2 Mg Tablet, 4 MG PO Q6H 08/16/18 Gabapentin* (Gabapentin*) 300 Mg Capsule, 300 MG PO TID for 30 Days 08/16/18 Hydromorphone Hcl (Dilaudid) 4 Mg Tab, 4 MG PO DAILY PRN for PAIN LEVEL 4-7 08/16/18 Morphine Sulfate (Morphine Sulfate ER) 15 Mg Tablet.er, 15 MG PO DAILY for 30 Days, #60 08/16/18 Hydrocodone/Acetaminophen (Huron 10-325 Tablet) 1 Each Tablet, 1 EACH PO Q4 PRN for PAIN, TAB 07/27/18 Hydromorphone Hcl* (Dilaudid*) 4 Mg Tablet, 4 MG PO Q4H PRN for PAIN, TAB 07/27/18 Carisoprodol* (Carisoprodol*) 350 Mg Tablet, 350 MG PO Q6 PRN for MUSCLE SPASMS, TAB 07/27/18 Allergies: Coded Allergies: No Known Allergy (Unverified , 08/16/18) Past Surgical History Past Surgical Hx: other (Status post cholecystectomy status post hysterectomy status post lumbar and cervical spine surgeries) Social History Alcohol Use: none Smoking Status: Never smoker Drug Use: none Exam/Review of Systems Exam/Review of Systems Exam Exam Neurological examination difficult to evaluate patient is in extreme pain. Range of motion grossly decreased bilateral lower extremity flexion extension bilateral lower extremities cannot assess straight leg sign secondary to severe pain sensory findings grossly within normal limits blood findings grossly within normal limits extensor houses tendon findings grossly within normal limits normal motor examination bilateral lower extremities limited secondary to extreme pain Constitutional: distress Head: normocephalic, atraumatic Eyes: nl conjunctiva, EOMI, nl lids, nl sclera, PERRL Neck: supple, non-tender Respiratory: clear to auscultation, normal air movement Cardiovascular: regular rate and rhythm, nl pulses Gastrointestinal: soft, nl liver, spleen, non-tender BRUCE WISE Aug 19, 2018 09:46 Consultation Date/Type/Reason Admit Date/Time Aug 17, 2018 at 15:00 Date/Time of Note DATE: 08/19/18 TIME: 09:48 Hx of Present Illness Patient Name: Sathish Brady Unit Number: [id number] Date of : 1975 Patient Status: Discharged Inpatient Attending Doctor: Zev Zhu MD Assessment/Plan Assessment/Plan Assessment/Plan Assessment/Plan (Daily) Post dated note 08/18/2018 History of low back pain Status post L5-S1 lumbar hardware removal with decompression interbody fusion History of hypertension History of depression Past medical history of cervical laminectomy Past history of obesity Status post gastric bypass surgery Will change to DESKTOP PUBLISHER and low dose of steroids till furthervrecommendations by Neurosurgery Initial Consultation HPI Consultation Date/Type/Reason Admit Date/Time July 27, 2018 at 05:44 Date/Time of Note DATE: 08/19/18 TIME: 09:37 Hx of Present Illness Patient well known to me from prior hospitalization and we presented to [facility] with lumbosacral spine pain out of control. Patient denies any radicular pain associated with this pain is been unrelenting since her last discharge quarter medical records he is missing the emergency room than one occasion. Describes the pain is 10 over 10 not alleviated with any current pain control medications. Last hospitalization she regarded DESKTOP PUBLISHER pump or workup was being completed patient states that she seen her neurosurgeon who is told her that she has screws that have been dislodged from prior surgery and she will probably need another surgical intervention. With current pain control medication she still very uncomfortable she denies nausea vomiting fevers chills warning signs itching mental cloudiness wedding fatigue pelvic anesthesia, incontinence of urine or feces, recent febrile illness. There's no past medical history of purposeful oversedation, her mood is definitely changes she is uncomfortable and is in a extremist at this time. She is not. Appear to be intoxicated or unkempt she is expert pain control medications but not requesting certain pain control medications is not asking for change in an administration but increasing dosages she's not insisting on certain pain control medications there's no past medical history of illicit drug use alcohol or IV drug abuse. Constitutional: no complaints, improved Eyes: no complaints ENT: no complaints Respiratory: no complaints Cardiovascular: no complaints Gastrointestinal: no complaints Genitourinary: no complaints Musculoskeletal: back pain, restricted range of motion Skin: no complaints Neurologic: no complaints Endocrine: no complaints Lymphatic: no complaints Psychological: no complaints, nl mood/affect Immunologic: no complaints Initial Consultation Hx Past Medical History Medical History: hypertension, other (Back pain, history of obesity) Home Meds Active Scripts Docusate Sodium* (Colace*) 100 Mg Capsule, 100 MG PO BID, #20 CAP Prov:ANTIONE GARCIA 08/05/18 Reported Medications Multivitamins* (Theragran*) 1 Tab Tab, 1 TAB PO DAILY, TAB 08/16/18 Tizanidine Hcl* (Tizanidine Hcl*) 2 Mg Tablet, 4 MG PO Q6H 08/16/18 Gabapentin* (Gabapentin*) 300 Mg Capsule, 300 MG PO TID for 30 Days 08/16/18 Hydromorphone Hcl (Dilaudid) 4 Mg Tab, 4 MG PO DAILY PRN for PAIN LEVEL 4-7 08/16/18 Morphine Sulfate (Morphine Sulfate ER) 15 Mg Tablet.er, 15 MG PO DAILY for 30 Days, #60 08/16/18 Hydrocodone/Acetaminophen (Huron 10-325 Tablet) 1 Each Tablet, 1 EACH PO Q4 PRN for PAIN, TAB 07/27/18 Hydromorphone Hcl* (Dilaudid*) 4 Mg Tablet, 4 MG PO Q4H PRN for PAIN, TAB 07/27/18 Carisoprodol* (Carisoprodol*) 350 Mg Tablet, 350 MG PO Q6 PRN for MUSCLE SPASMS, TAB 07/27/18 Allergies: Coded Allergies: No Known Allergy (Unverified , 08/16/18) Past Surgical History Past Surgical Hx: other (Status post cholecystectomy status post hysterectomy status post lumbar and cervical spine surgeries) Social History Alcohol Use: none Smoking Status: Never smoker Drug Use: none Exam/Review of Systems Exam/Review of Systems Exam Exam Neurological examination difficult to evaluate patient is in extreme pain. Range of motion grossly decreased bilateral lower extremity flexion extension bilateral lower extremities cannot assess straight leg sign secondary to severe pain sensory findings grossly within normal limits blood findings grossly within normal limits extensor houses tendon findings grossly within normal limits normal motor examination bilateral lower extremities limited secondary to extreme pain Constitutional: distress Head: normocephalic, atraumatic Eyes: nl conjunctiva, EOMI, nl lids, nl sclera, PERRL Neck: supple, non-tender Respiratory: clear to auscultation, normal air movement Cardiovascular: regular rate and rhythm, nl pulses Gastrointestinal: soft, nl liver, spleen, non-tender BRUCE WISE Aug 19, 2018 09:46 Past Medical History Home Meds Active Scripts Docusate Sodium* (Colace*) 100 Mg Capsule, 100 MG PO BID, #20 CAP Prov:ANTIONE GARCIA 08/05/18 Reported Medications Multivitamins* (Theragran*) 1 Tab Tab, 1 TAB PO DAILY, TAB 08/16/18 Tizanidine Hcl* (Tizanidine Hcl*) 2 Mg Tablet, 4 MG PO Q6H 08/16/18 Gabapentin* (Gabapentin*) 300 Mg Capsule, 300 MG PO TID for 30 Days 08/16/18 Hydromorphone Hcl (Dilaudid) 4 Mg Tab, 4 MG PO DAILY PRN for PAIN LEVEL 4-7 08/16/18 Morphine Sulfate (Morphine Sulfate ER) 15 Mg Tablet.er, 15 MG PO DAILY for 30 Days, #60 08/16/18 Hydrocodone/Acetaminophen (Huron 10-325 Tablet) 1 Each Tablet, 1 EACH PO Q4 PRN for PAIN, TAB 07/27/18 Hydromorphone Hcl* (Dilaudid*) 4 Mg Tablet, 4 MG PO Q4H PRN for PAIN, TAB 07/27/18 Carisoprodol* (Carisoprodol*) 350 Mg Tablet, 350 MG PO Q6 PRN for MUSCLE SPASMS, TAB 07/27/18 Medications Current Medications IV Flush (NS 3 ml) 3 ml PER PROTOCOL IV ; Start 08/16/18 at 21:30 Ondansetron HCl (Zofran Inj) 4 mg Q6H PRN IV NAUSEA/VOMITING; Start 08/16/18 at 21:30 Acetaminophen (Tylenol Tab) 650 mg Q6H PRN PO .PAIN 1-3 OR TEMP; Start 08/16/18 at 21:30 Enoxaparin Sodium (Lovenox) 30 mg DAILY SC Last administered on 08/19/18at 09:20; Admin Dose 30 MG; Start 08/17/18 at 09:00 Famotidine (Pepcid) 20 mg BID PO Last administered on 08/19/18at 09:19; Admin Dose 20 MG; Start 08/17/18 at 21:00 Docusate Sodium (Colace) 100 mg BID PO Last administered on 08/19/18at 09:19; Admin Dose 100 MG; Start 08/18/18 at 09:00 Hydralazine HCl (Apresoline) 25 mg Q6H PRN PO SBP>160; Start 08/18/18 at 17:00 Hydromorphone HCl (Dilaudid DESKTOP PUBLISHER) 0.5 MG/HR CONTINUOUS R... Q4PCA IV Last administered on 08/19/18at 08:23; Admin Dose 6 MG; Start 08/18/18 at 17:00 Methylprednisolone Sodium Succinate (Solu-Medrol) 60 mg Q8 IV Last administered on 08/19/18at 06:08; Admin Dose 60 MG; Start 08/18/18 at 17:00 Senna/Docusate Sodium (Senokot-S) 2 tab BID PO Last administered on 08/19/18at 09:19; Admin Dose 2 TAB; Start 08/18/18 at 21:00 Polyethylene Glycol (Miralax) 17 gm DAILY PO Last administered on 08/18/18at 18:26; Admin Dose 17 GM; Start 08/18/18 at 17:00 Allergies: Coded Allergies: No Known Allergy (Unverified , 08/16/18) Past Surgical History Past Surgical Hx: other Social History Smoking Status: Never smoker Exam/Review of Systems Exam Vitals Vital Signs Date Temp Pulse Resp B/P (MAP) Pulse Ox O2 O2 Flow FiO2 Time Delivery Rate 08/19/18 17 09:12 08/19/18 99.6 70 144/80 96 Room Air 08:30 (101) Intake and Output 08/18/18 08/18/18 08/19/18 1515:00 23:00 07:00 IntakeIntake Total 800 ml 250 ml 250 ml BalanceBalance 800 ml 250 ml 250 ml Results Result Diagram: 08/19/18 0449 08/19/18 0449 Results 24hrs Laboratory Tests Test 08/19/18 04:49 White Blood Count 7.0 Red Blood Count 3.85 L Hemoglobin 11.4 L Hematocrit 35.5 L Mean Corpuscular Volume 92.2 Mean Corpuscular Hemoglobin 29.6 Mean Corpuscular Hemoglobin Concent 32.1 Red Cell Distribution Width 12.7 Platelet Count 446 H Mean Platelet Volume 10.6 H Immature Granulocytes % 0.400 Neutrophils % 70.8 Lymphocytes % 24.6 Monocytes % 3.6 Eosinophils % 0.0 Basophils % 0.6 Nucleated Red Blood Cells % 0.0 Immature Granulocytes # 0.030 Neutrophils # 4.9 Lymphocytes # 1.7 Monocytes # 0.3 Eosinophils # 0.0 Basophils # 0.0 Nucleated Red Blood Cells # 0.0 Sodium Level 143 Potassium Level 4.2 Chloride Level 107 Carbon Dioxide Level 30 Anion Gap 6 Blood Urea Nitrogen 8 Creatinine 0.47 Est Glomerular Filtrat Rate mL/min > 60 Glucose Level 113 Calcium Level 9.1 Triglycerides Level 45 Cholesterol Level 109 LDL Cholesterol, Calculated 56 HDL Cholesterol 44 # Cholesterol/HDL Ratio 2.4 Medications Medication Current Medications IV Flush (NS 3 ml) 3 ml PER PROTOCOL IV ; Start 08/16/18 at 21:30 Ondansetron HCl (Zofran Inj) 4 mg Q6H PRN IV NAUSEA/VOMITING; Start 08/16/18 at 21:30 Acetaminophen (Tylenol Tab) 650 mg Q6H PRN PO .PAIN 1-3 OR TEMP; Start 08/16/18 at 21:30 Enoxaparin Sodium (Lovenox) 30 mg DAILY SC Last administered on 08/19/18at 09:20; Admin Dose 30 MG; Start 08/17/18 at 09:00 Famotidine (Pepcid) 20 mg BID PO Last administered on 08/19/18 09:19; Admin Dose 20 MG; Start 08/17/18 at 21:00 Docusate Sodium (Colace) 100 mg BID PO Last administered on 08/19/18 09:19; Admin Dose 100 MG; Start 08/18/18 at 09:00 Hydralazine HCl (Apresoline) 25 mg Q6H PRN PO SBP>160; Start 08/18/18 at 17:00 Hydromorphone HCl (Dilaudid DESKTOP PUBLISHER) 0.5 MG/HR CONTINUOUS R... Q4PCA IV Last administered on 08/19/18at 08:23; Admin Dose 6 MG; Start 08/18/18 at 17:00 Methylprednisolone Sodium Succinate (Solu-Medrol) 60 mg Q8 IV Last administered on 08/19/18 06:08; Admin Dose 60 MG; Start 08/18/18 at 17:00 Senna/Docusate Sodium (Senokot-S) 2 tab BID PO Last administered on 08/19/18 09:19; Admin Dose 2 TAB; Start 08/18/18 at 21:00 Polyethylene Glycol (Miralax) 17 gm DAILY PO Last administered on 08/18/18at 18:26; Admin Dose 17 GM; Start 08/18/18 at 17:00 BRUCE WISE 8, 2019 09:50
[2018-08-19] MEDS: ACETAMINOPHEN 325 MG TAB PO PRN (10:51)
[2018-08-19 14:30] VITALS: BP 145/95; PULSE 85; RESP 18
--- NOTE | 2018-08-19 15:17 | CONS ---
Assessment/Plan Assessment/Plan Hospital Course (Demo Recall) IMPRESSION: 1. Bradycardia, intermittent with stable blood pressure at this time.- no sig recurrence. Low TSH with NL T4. ? sick euthyroid 2. Abnormal electrocardiogram with isolated T-wave flattening in lead 3.-no chest pain 3. Hypertension, labile and episodic likely related to pain episodes.-ongoing 4. Status post lumbar back surgery with ongoing back pain and left lower extremity weakness. 5. Urinary tract infection. 6. Dyslipidemia with low HDL. Recc -Will start low dose antihypertensives to improve BP control and continue to improve pain control -continue steroids -ongoing NRSG eval Consultation Date/Type/Reason Admit Date/Time Aug 17, 2018 at 15:00 Initial Consult Date 08/18/18 Type of Consult Cardiology Reason for Consultation HTN/bradycardia Requesting Provider: LEILA PERES MD Date/Time of Note DATE: 08/19/18 TIME: 15:13 Exam/Review of Systems Vital Signs Vitals Vital Signs Date Temp Pulse Resp B/P (MAP) Pulse Ox O2 O2 Flow FiO2 Time Delivery Rate 08/19/18 98.2 85 18 145/95 97 Room Air 14:30 (112) Intake and Output 08/18/18 08/18/18 08/19/18 1515:00 23:00 07:00 IntakeIntake Total 800 ml 250 ml 250 ml BalanceBalance 800 ml 250 ml 250 ml Exam Exam Review of Systems: CONSTITUTIONAL: No fevers, chills. PULMONARY: No sob CARDIOVASCULAR: No chest pain/palpitations GASTROINTESTINAL: No nausea/vomiting. GENITOURINARY: No hematuria/dysuria. MUSCULOSKELETAL: PAIN IN BACK. PSYCHIATRIC: The patient denies depression. NEUROLOGIC: No weakness Constitutional: alert, oriented Psych: no complaints Head: normocephalic ENMT: mucosa pink and moist Neck: supple, jvd (8 cm water) Respiratory: clear to auscultation Cardiovascular: regular rate and rhythm Gastrointestinal: soft, non-tender Musculoskeletal: muscle tone (normal) Neurological: focal weakness (no focal deficits) Labs Result Diagram: 08/19/18 0449 08/19/189 Results 24hrs Laboratory Tests Test 08/19/18 04:49 White Blood Count 7.0 Red Blood Count 3.85 L Hemoglobin 11.4 L Hematocrit 35.5 L Mean Corpuscular Volume 92.2 Mean Corpuscular Hemoglobin 29.6 Mean Corpuscular Hemoglobin Concent 32.1 Red Cell Distribution Width 12.7 Platelet Count 446 H Mean Platelet Volume 10.6 H Immature Granulocytes % 0.400 Neutrophils % 70.8 Lymphocytes % 24.6 Monocytes % 3.6 Eosinophils % 0.0 Basophils % 0.6 Nucleated Red Blood Cells % 0.0 Immature Granulocytes # 0.030 Neutrophils # 4.9 Lymphocytes # 1.7 Monocytes # 0.3 Eosinophils # 0.0 Basophils # 0.0 Nucleated Red Blood Cells # 0.0 Sodium Level 143 Potassium Level 4.2 Chloride Level 107 Carbon Dioxide Level 30 Anion Gap 6 Blood Urea Nitrogen 8 Creatinine 0.47 Est Glomerular Filtrat Rate mL/min > 60 Glucose Level 113 Calcium Level 9.1 Triglycerides Level 45 Cholesterol Level 109 LDL Cholesterol, Calculated 56 HDL Cholesterol 44 # Cholesterol/HDL Ratio 2.4 Medications Medications Current Medications IV Flush (NS 3 ml) 3 ml PER PROTOCOL IV ; Start 08/16/18 at 21:30 Ondansetron HCl (Zofran Inj) 4 mg Q6H PRN IV NAUSEA/VOMITING; Start 08/16/18 at 21:30 Acetaminophen (Tylenol Tab) 650 mg Q6H PRN PO .PAIN 1-3 OR TEMP Last administered on 08/19/18at 10:51; Admin Dose 650 MG; Start 08/16/18 at 21:30 Enoxaparin Sodium (Lovenox) 30 mg DAILY SC Last administered on 08/19/18 09:20; Admin Dose 30 MG; Start 08/17/18 at 09:00 Famotidine (Pepcid) 20 mg BID PO Last administered on 08/19/18 09:19; Admin Dose 20 MG; Start 08/17/18 at 21:00 Docusate Sodium (Colace) 100 mg BID PO Last administered on 08/19/18 09:19; Admin Dose 100 MG; Start 08/18/18 at 09:00 Hydralazine HCl (Apresoline) 25 mg Q6H PRN PO SBP>160; Start 08/18/18 at 17:00 Hydromorphone HCl (Dilaudid COBOL ENGINEER) 0.5 MG/HR CONTINUOUS R... Q4PCA IV Last administered on 08/19/18at 12:53; Admin Dose 6 MG; Start 08/18/18 at 17:00 Methylprednisolone Sodium Succinate (Solu-Medrol) 60 mg Q8 IV Last administered on 08/19/18at 14:18; Admin Dose 60 MG; Start 08/18/18 at 17:00 Senna/Docusate Sodium (Senokot-S) 2 tab BID PO Last administered on 08/19/18at 09:19; Admin Dose 2 TAB; Start 08/18/18 at 21:00 Polyethylene Glycol (Miralax) 17 gm DAILY PO Last administered on 08/18/18at 18:26; Admin Dose 17 GM; Start 08/18/18 at 17:00 RODRIGO STEARNS Aug 19, 2018 15:17
[2018-08-19] MEDS: BENAZEPRIL 10 MG TAB PO SCH (15:50)
--- NOTE | 2018-08-19 15:54 | RADRPT ---
Vent Rate: 73 bpm RR Interval: 824 msec SD Interval: 122 msec QRS Duration: 81 msec QT Interval: 388 msec QTC Interval: 427 msec P-R-T [place]: 16 - 54 - 33 degrees Sinus rhythm...normal P axis, V-rate 50- 99 Electronically Signed By: Yobany Garcia
[2018-08-19 19:57] VITALS: BP 140/84; PULSE 91; RESP 18
[2018-08-20 02:16] VITALS: BP 137/87; PULSE 73; RESP 18
[2018-08-20] MEDS: HYDROmorphONE 0.2 MG/ML PCA IV SCH ×5 (03:02→22:18)
[2018-08-20] MEDS: METHYLPREDNISOLONE 125 MG INJ IV SCH ×3 (05:12→22:19)
[2018-08-20] MEDS: DOCUSATE SODIUM 100 MG CAP PO SCH ×2 (08:48→20:03)
[2018-08-20] MEDS: FAMOTIDINE 20 MG TAB PO SCH ×2 (08:48→20:03)
[2018-08-20] MEDS: SENNA/DOCUSATE NA (8.6MG/50MG) TAB PO SCH ×2 (08:48→20:05)
[2018-08-20] MEDS: BENAZEPRIL 10 MG TAB PO SCH (08:50)
[2018-08-20 08:51] VITALS: BP 136/78; PULSE 72; RESP 17
[2018-08-20] MEDS: ENOXAPARIN 30 MG/0.3 ML SYG SC SCH (08:52)
[2018-08-20] MEDS: POLYETHYLENE GLYCOL 17 GM PACKET PO SCH (08:53)
[2018-08-20 12:00] VITALS: BP 125/66; PULSE 98; RESP 18
[2018-08-20] MEDS: ACETAMINOPHEN 325 MG TAB PO PRN ×2 (13:53→20:03)
--- NOTE | 2018-08-20 14:01 | CONS ---
Assessment/Plan Assessment/Plan Hospital Course (Demo Recall) IMPRESSION: 1. Bradycardia, intermittent with stable blood pressure at this time.- no sig recurrence. Low TSH with NL T4. ? sick euthyroid 2. Abnormal electrocardiogram with isolated T-wave flattening in lead 3.-no chest pain 3. Hypertension, labile and episodic likely related to pain episodes.-ongoing 4. Status post lumbar back surgery with ongoing back pain and left lower extremity weakness. 5. Urinary tract infection. 6. Dyslipidemia with low HDL. Recc -Contineu newly started ACEI with well controlled BP -continue steroids and now COMMUNICATION LECTURER for pain control -ongoing NRSG eval Consultation Date/Type/Reason Admit Date/Time Aug 17, 2018 at 15:00 Initial Consult Date 08/18/18 Type of Consult Cardiology Reason for Consultation HTN Requesting Provider: LEILA PERES MD Date/Time of Note DATE: 08/20/18 TIME: 13:59 Exam/Review of Systems Vital Signs Vitals Vital Signs Date Temp Pulse Resp B/P (MAP) Pulse Ox O2 O2 Flow FiO2 Time Delivery Rate 08/20/18 18 12:57 08/20/18 98.7 98 125/66 98 Room Air 12:00 (85) Intake and Output 08/19/18 08/19/18 08/20/18 1515:00 23:00 07:00 IntakeIntake Total 680 ml OutputOutput Total 1250 ml 150 ml BalanceBalance -570 ml -150 ml Exam Exam Review of Systems: CONSTITUTIONAL: No fevers, chills. PULMONARY: No sob CARDIOVASCULAR: No chest pain/palpitations GASTROINTESTINAL: No nausea/vomiting. GENITOURINARY: No hematuria/dysuria. MUSCULOSKELETAL: back pain PSYCHIATRIC: The patient denies depression. NEUROLOGIC: No weakness Constitutional: alert Psych: no complaints Head: normocephalic ENMT: mucosa pink and moist Neck: supple, jvd (8 cm water) Respiratory: clear to auscultation Cardiovascular: regular rate and rhythm Gastrointestinal: soft, non-tender Musculoskeletal: muscle tone (normal) Extremities: edema (none) Neurological: other (NO focal deficits) Labs Result Diagram: 08/19/18 0449 08/19/18 0449 Medications Medications Current Medications IV Flush (NS 3 ml) 3 ml PER PROTOCOL IV ; Start 08/16/18 at 21:30 Ondansetron HCl (Zofran Inj) 4 mg Q6H PRN IV NAUSEA/VOMITING; Start 08/16/18 at 21:30 Acetaminophen (Tylenol Tab) 650 mg Q6H PRN PO .PAIN 1-3 OR TEMP Last administered on 08/20/18 13:53; Admin Dose 650 MG; Start 08/16/18 at 21:30 Enoxaparin Sodium (Lovenox) 30 mg DAILY SC Last administered on 08/20/18 08:52; Admin Dose 30 MG; Start 08/17/18 at 09:00 Famotidine (Pepcid) 20 mg BID PO Last administered on 08/20/18 08:48; Admin Dose 20 MG; Start 08/17/18 at 21:00 Docusate Sodium (Colace) 100 mg BID PO Last administered on 08/20/18 08:48; Admin Dose 100 MG; Start 08/18/18 at 09:00 Hydralazine HCl (Apresoline) 25 mg Q6H PRN PO SBP>160; Start 08/18/18 at 17:00 Hydromorphone HCl (Dilaudid COMMUNICATION LECTURER) 0.5 MG/HR CONTINUOUS R... Q4PCA IV Last administered on 08/20/18 12:45; Admin Dose 6 MG; Start 08/18/18 at 17:00 Methylprednisolone Sodium Succinate (Solu-Medrol) 60 mg Q8 IV Last administered on 08/20/18 05:12; Admin Dose 60 MG; Start 08/18/18 at 17:00 Senna/Docusate Sodium (Senokot-S) 2 tab BID PO Last administered on 08/20/18 08:48; Admin Dose 2 TAB; Start 08/18/18 at 21:00 Polyethylene Glycol (Miralax) 17 gm DAILY PO Last administered on 08/18/18 18:26; Admin Dose 17 GM; Start 08/18/18 at 17:00 Benazepril HCl (Lotensin) 10 mg DAILY PO Last administered on 08/20/18 08:50; Admin Dose 10 MG; Start 08/19/18 at 15:30 RODRIGO STEARNS Aug 20, 2018 14:01
[2018-08-20 14:44] VITALS: BP 129/75; PULSE 79; RESP 17
[2018-08-20 17:00] VITALS: BP 149/66; PULSE 78; RESP 18
[2018-08-20 20:00] VITALS: BP 129/72; PULSE 74; RESP 18
[2018-08-21 02:00] VITALS: BP 132/70; PULSE 70; RESP 18
[2018-08-21] MEDS: HYDROmorphONE 0.2 MG/ML PCA IV SCH ×4 (04:22→22:39)
[2018-08-21] MEDS: METHYLPREDNISOLONE 125 MG INJ IV SCH ×3 (05:21→20:00)
[2018-08-21 08:00] VITALS: BP 119/68; PULSE 64; RESP 17
[2018-08-21 09:00] VITALS: BP 127/62; PULSE 75; RESP 18
[2018-08-21] MEDS: SENNA/DOCUSATE NA (8.6MG/50MG) TAB PO SCH ×3 (09:00→20:00)
[2018-08-21] MEDS: POLYETHYLENE GLYCOL 17 GM PACKET PO SCH (09:00)
[2018-08-21] MEDS: BENAZEPRIL 10 MG TAB PO SCH (09:18)
[2018-08-21] MEDS: DOCUSATE SODIUM 100 MG CAP PO SCH ×2 (09:18→20:00)
[2018-08-21] MEDS: FAMOTIDINE 20 MG TAB PO SCH ×2 (09:18→20:00)
[2018-08-21] MEDS: ENOXAPARIN 30 MG/0.3 ML SYG SC SCH (09:19)
[2018-08-21] MEDS ORDERED: HYDROmorphONE 0.5 MG/0.5 ML SYG IV STA ×2 (11:51→19:48)
[2018-08-21 13:09] VITALS: BP 132/73; PULSE 88; RESP 18
--- NOTE | 2018-08-21 13:23 | CONS ---
Assessment/Plan Assessment/Plan Hospital Course (Demo Recall) IMPRESSION: 1. Bradycardia, intermittent with stable blood pressure at this time.- no sig recurrence. Low TSH with NL T4. ? sick euthyroid 2. Abnormal electrocardiogram with isolated T-wave flattening in lead 3.-no chest pain 3. Hypertension, labile and episodic likely related to pain episodes.-ongoing 4. Status post lumbar back surgery with ongoing back pain and left lower extremity weakness. 5. Urinary tract infection. 6. Dyslipidemia with low HDL. Recc -Contineu newly started ACEI with well controlled BP -continue steroids and now SOCIAL SECURITY SPECIALIST for pain control -ongoing NRSG eval Consultation Date/Type/Reason Admit Date/Time Aug 17, 2018 at 15:00 Initial Consult Date 08/18/18 Type of Consult Cardiology Reason for Consultation BRadycardia/HTN Requesting Provider: LEILA PERES MD Date/Time of Note DATE: 08/21/18 TIME: 13:22 Exam/Review of Systems Vital Signs Vitals Vital Signs Date Temp Pulse Resp B/P (MAP) Pulse Ox O2 O2 Flow FiO2 Time Delivery Rate 08/21/18 97.8 88 18 132/73 99 13:09 (92) 08/21/18 Room Air 08:00 Intake and Output 08/20/18 08/20/18 08/21/18 1515:00 23:00 07:00 IntakeIntake Total 400 ml 400 ml OutputOutput Total 400 ml 600 ml BalanceBalance 0 ml -200 ml Exam Exam Review of Systems: CONSTITUTIONAL: No fevers, chills. PULMONARY: No sob CARDIOVASCULAR: No chest pain/palpitations GASTROINTESTINAL: No nausea/vomiting. GENITOURINARY: No hematuria/dysuria. MUSCULOSKELETAL: back pain PSYCHIATRIC: The patient denies depression. NEUROLOGIC: No weakness Constitutional: alert Psych: no complaints Head: normocephalic ENMT: mucosa pink and moist Neck: supple, jvd (8 cm water) Cardiovascular: regular rate and rhythm Gastrointestinal: soft, non-tender Musculoskeletal: muscle tone (normal) Extremities: edema (none) Neurological: other (NO focal deficits) Labs Result Diagram: 08/21/1823 08/21/18 0723 Results 24hrs Laboratory Tests Test 08/21/18 07:23 White Blood Count 8.9 # Red Blood Count 3.76 L Hemoglobin 11.3 L Hematocrit 35.2 L Mean Corpuscular Volume 93.6 Mean Corpuscular Hemoglobin 30.1 Mean Corpuscular Hemoglobin Concent 32.1 Red Cell Distribution Width 12.5 Platelet Count 409 Mean Platelet Volume 10.9 H Immature Granulocytes % 0.600 H Neutrophils % 77.8 H Lymphocytes % 18.0 Monocytes % 3.4 Eosinophils % 0.0 Basophils % 0.2 Nucleated Red Blood Cells % 0.0 Immature Granulocytes # 0.050 H Neutrophils # 7.0 Lymphocytes # 1.6 Monocytes # 0.3 Eosinophils # 0.0 Basophils # 0.0 Nucleated Red Blood Cells # 0.0 Sodium Level 142 Potassium Level 4.3 Chloride Level 102 Carbon Dioxide Level 33 H Anion Gap 7 Blood Urea Nitrogen 11 Creatinine 0.52 Est Glomerular Filtrat Rate mL/min > 60 Glucose Level 108 Calcium Level 8.9 Medications Medications Current Medications IV Flush (NS 3 ml) 3 ml PER PROTOCOL IV ; Start 08/16/18 at 21:30 Ondansetron HCl (Zofran Inj) 4 mg Q6H PRN IV NAUSEA/VOMITING; Start 08/16/18 at 21:30 Acetaminophen (Tylenol Tab) 650 mg Q6H PRN PO .PAIN 1-3 OR TEMP Last administ ered on 08/20/18at 20:03; Admin Dose 650 MG; Start 08/16/18 at 21:30 Enoxaparin Sodium (Lovenox) 30 mg DAILY SC Last administered on 08/21/18 09:19; Admin Dose 30 MG; Start 08/17/18 at 09:00 Famotidine (Pepcid) 20 mg BID PO Last administered on 08/21/18 09:18; Admin Dose 20 MG; Start 08/17/18 at 21:00 Docusate Sodium (Colace) 100 mg BID PO Last administered on 08/21/18 09:18; Admin Dose 100 MG; Start 08/18/18 at 09:00 Hydralazine HCl (Apresoline) 25 mg Q6H PRN PO SBP>160; Start 08/18/18 at 17:00 Hydromorphone HCl (Dilaudid SOCIAL SECURITY SPECIALIST) 0.5 MG/HR CONTINUOUS R... Q4PCA IV Last administered on 08/21/18at 09:24; Admin Dose 6 MG; Start 08/18/18 at 17:00 Methylprednisolone Sodium Succinate (Solu-Medrol) 60 mg Q8 IV Last administered on 08/21/18at 05:21; Admin Dose 60 MG; Start 08/18/18 at 17:00 Senna/Docusate Sodium (Senokot-S) 2 tab BID PO Last administered on 08/20/18at 08:48; Admin Dose 2 TAB; Start 08/18/18 at 21:00 Polyethylene Glycol (Miralax) 17 gm DAILY PO Last administered on 08/18/18at 18:26; Admin Dose 17 GM; Start 08/18/18 at 17:00 Benazepril HCl (Lotensin) 10 mg DAILY PO Last administered on 08/21/18at 09:18; Admin Dose 10 MG; Start 08/19/18 at 15:30 RODRIGO STEARNS Aug 21, 2018 13:23
[2018-08-21 17:05] VITALS: BP 145/76; PULSE 73; RESP 18
--- NOTE | 2018-08-21 18:21 | PN ---
Date/Time of Note Date/Time of Note DATE: 08/21/18 TIME: 18:20 Assessment/Plan VTE Prophylaxis Risk score (from Nsg)>0 risk: 3 SCD applied (from Nsg): Yes Pharmacological prophylaxis: LMWH Lines/Catheters IV Catheter Type (from Nrsg): Peripheral IV Assessment/Plan Hospital Course Patient is currently on Dilaudid CUSTOMS CONSULTANT and Solu-Medrol, continue current management, follow-up neurosurgery recommendations. Assessment/Plan -Intractable low back pain. Dr. Pabon is following in pain management consultation. Dr. Jordan is following in neurosurgery consultation. -Opioid dependence -Hypertension, continue benazepril. -History of L5-S1 lumbar hardware removal with decompression and interbody fusion by Dr. Jordan on 07/27/2018 for mechanical low back pain and with lower extremity radiculopathy. -Depression -History of posterior cervical laminectomy and foraminotomies with instrumental fusion of C3-C7. -Obesity Further recommendations based on clinical course. Plan of care discussed with Dr. Zhu. Result Diagram: 08/21/18 0723 08/21/18 0723 Results 24hrs Laboratory Tests Test 08/21/18 07:23 White Blood Count 8.9 # Red Blood Count 3.76 L Hemoglobin 11.3 L Hematocrit 35.2 L Mean Corpuscular Volume 93.6 Mean Corpuscular Hemoglobin 30.1 Mean Corpuscular Hemoglobin Concent 32.1 Red Cell Distribution Width 12.5 Platelet Count 409 Mean Platelet Volume 10.9 H Immature Granulocytes % 0.600 H Neutrophils % 77.8 H Lymphocytes % 18.0 Monocytes % 3.4 Eosinophils % 0.0 Basophils % 0.2 Nucleated Red Blood Cells % 0.0 Immature Granulocytes # 0.050 H Neutrophils # 7.0 Lymphocytes # 1.6 Monocytes # 0.3 Eosinophils # 0.0 Basophils # 0.0 Nucleated Red Blood Cells # 0.0 Sodium Level 142 Potassium Level 4.3 Chloride Level 102 Carbon Dioxide Level 33 H Anion Gap 7 Blood Urea Nitrogen 11 Creatinine 0.52 Est Glomerular Filtrat Rate mL/min > 60 Glucose Level 108 Calcium Level 8.9 Exam/Review of Systems Exam Vitals Vital Signs Date Temp Pulse Resp B/P (MAP) Pulse Ox O2 O2 Flow FiO2 Time Delivery Rate 08/21/18 18 17:09 08/21/18 98.5 73 145/76 99 17:05 (99) 08/21/18 Room Air 08:00 Intake and Output 08/20/18 08/20/18 08/21/18 1515:00 23:00 07:00 IntakeIntake Total 400 ml 400 ml OutputOutput Total 400 ml 600 ml BalanceBalance 0 ml -200 ml Exam Constitutional: alert, oriented Respiratory: clear to auscultation Cardiovascular: nl pulses Gastrointestinal: soft, non-tender Musculoskeletal: nl extremities to inspection Extremities: normal pulses Neurological: nl mental status Skin: nl turgor, other (lower back surgical incision) Results Results 24hrs Laboratory Tests Test 08/21/18 07:23 White Blood Count 8.9 # Red Blood Count 3.76 L Hemoglobin 11.3 L Hematocrit 35.2 L Mean Corpuscular Volume 93.6 Mean Corpuscular Hemoglobin 30.1 Mean Corpuscular Hemoglobin Concent 32.1 Red Cell Distribution Width 12.5 Platelet Count 409 Mean Platelet Volume 10.9 H Immature Granulocytes % 0.600 H Neutrophils % 77.8 H Lymphocytes % 18.0 Monocytes % 3.4 Eosinophils % 0.0 Basophils % 0.2 Nucleated Red Blood Cells % 0.0 Immature Granulocytes # 0.050 H Neutrophils # 7.0 Lymphocytes # 1.6 Monocytes # 0.3 Eosinophils # 0.0 Basophils # 0.0 Nucleated Red Blood Cells # 0.0 Sodium Level 142 Potassium Level 4.3 Chloride Level 102 Carbon Dioxide Level 33 H Anion Gap 7 Blood Urea Nitrogen 11 Creatinine 0.52 Est Glomerular Filtrat Rate mL/min > 60 Glucose Level 108 Calcium Level 8.9 Medications Medication Current Medications IV Flush (NS 3 ml) 3 ml PER PROTOCOL IV ; Start 08/16/18 at 21:30 Ondansetron HCl (Zofran Inj) 4 mg Q6H PRN IV NAUSEA/VOMITING; Start 08/16/18 at 21:30 Acetaminophen (Tylenol Tab) 650 mg Q6H PRN PO .PAIN 1-3 OR TEMP Last administered on 08/20/18at 20:03; Admin Dose 650 MG; Start 08/16/18 at 21:30 Enoxaparin Sodium (Lovenox) 30 mg DAILY SC Last administered on 08/21/18at 09:19; Admin Dose 30 MG; Start 08/17/18 at 09:00 Famotidine (Pepcid) 20 mg BID PO Last administered on 08/21/18 09:18; Admin Dose 20 MG; Start 08/17/18 at 21:00 Docusate Sodium (Colace) 100 mg BID PO Last administered on 08/21/18 09:18; Admin Dose 100 MG; Start 08/18/18 at 09:00 Hydralazine HCl (Apresoline) 25 mg Q6H PRN PO SBP>160; Start 08/18/18 at 17:00 Hydromorphone HCl (Dilaudid CUSTOMS CONSULTANT) 0.5 MG/HR CONTINUOUS R... Q4PCA IV Last administered on 08/21/18 18:16; Admin Dose 6 MG; Start 08/18/18 at 17:00 Methylprednisolone Sodium Succinate (Solu-Medrol) 60 mg Q8 IV Last administered on 08/21/18 14:34; Admin Dose 60 MG; Start 08/18/18 at 17:00 Senna/Docusate Sodium (Senokot-S) 2 tab BID PO Last administered on 08/20/18 08:48; Admin Dose 2 TAB; Start 08/18/18 at 21:00 Polyethylene Glycol (Miralax) 17 gm DAILY PO Last administered on 08/18/18 18:26; Admin Dose 17 GM; Start 08/18/18 at 17:00 Benazepril HCl (Lotensin) 10 mg DAILY PO Last administered on 08/21/18 09:18; Admin Dose 10 MG; Start 08/19/18 at 15:30 JÚNIOR DOLAN Aug 21, 2018 18:21
[2018-08-21 20:50] VITALS: BP 128/72; PULSE 66; RESP 18
[2018-08-22] MEDS: ZOLPIDEM 5 MG TAB PO PRN ×2 (00:51→21:40)
[2018-08-22 02:00] VITALS: BP 143/76; PULSE 61; RESP 17
[2018-08-22] MEDS: METHYLPREDNISOLONE 125 MG INJ IV SCH ×3 (05:18→21:40)
[2018-08-22] MEDS: HYDROmorphONE 0.2 MG/ML PCA IV SCH ×4 (05:18→19:56)
[2018-08-22 07:25] VITALS: BP 138/66; PULSE 62; RESP 18
[2018-08-22] MEDS: POLYETHYLENE GLYCOL 17 GM PACKET PO SCH ×2 (09:00→09:21)
[2018-08-22] MEDS: SENNA/DOCUSATE NA (8.6MG/50MG) TAB PO SCH ×3 (09:00→20:12)
[2018-08-22] MEDS: BENAZEPRIL 10 MG TAB PO SCH (09:20)
[2018-08-22] MEDS: DOCUSATE SODIUM 100 MG CAP PO SCH ×2 (09:20→20:09)
[2018-08-22] MEDS: FAMOTIDINE 20 MG TAB PO SCH ×2 (09:20→20:09)
[2018-08-22] MEDS: ENOXAPARIN 30 MG/0.3 ML SYG SC SCH (09:24)
--- NOTE | 2018-08-22 10:47 | CONS ---
Consult Date/Type/Reason Admit Date/Time Aug 17, 2018 at 15:00 Initial Consult Date Requesting Provider: LEILA PERES MD Date/Time of Note DATE: 08/22/18 TIME: 10:45 Subjective NO acute events - pt stable overall - BP in good range now. ROS: No fever, no chills, no nausea, no vomiting, no diarrhea/constipation - con't pain Rx No recent weight changes No chest pain, no PND, no orthopnea No dizziness, blurred vision No thirst, no heat or cold intolerance Objective Vitals Vital Signs Date Temp Pulse Resp B/P (MAP) Pulse Ox O2 O2 Flow FiO2 Time Delivery Rate 08/22/18 16 09:00 08/22/18 98.3 62 138/66 97 Room Air 07:25 (90) Intake and Output 08/21/18 08/21/18 08/22/18 1515:00 23:00 07:00 IntakeIntake Total 300 ml BalanceBalance 300 ml Exam General: WN/WD/NAD, AOx 3 HEENT: Unicetric/atraumatic/EOMI (follows commands) NECK: JVD elevated, no thyromegaly Lymph: no lymphadenopathy HEART: regular with no S3, II/ systolic murmur at apex, PMI L LUNGS: Coarse sounds ABD: soft, NT, ND, +BS : Intact Neuro: non focal SKIN: chronic changes EXT: trace edema Results/Medications Result Diagram: 08/21/1872208/21/18722 Home Meds Active Scripts Docusate Sodium* (Colace*) 100 Mg Capsule, 100 MG PO BID, #20 CAP Prov:ANTIONE GARCIA 08/05/18 Reported Medications Multivitamins* (Theragran*) 1 Tab Tab, 1 TAB PO DAILY, TAB 08/16/18 Tizanidine Hcl* (Tizanidine Hcl*) 2 Mg Tablet, 4 MG PO Q6H 08/16/18 Gabapentin* (Gabapentin*) 300 Mg Capsule, 300 MG PO TID for 30 Days 08/16/18 Hydromorphone Hcl (Dilaudid) 4 Mg Tab, 4 MG PO DAILY PRN for PAIN LEVEL 4-7 08/16/18 Morphine Sulfate (Morphine Sulfate ER) 15 Mg Tablet.er, 15 MG PO DAILY for 30 Days, #60 08/16/18 Hydrocodone/Acetaminophen ([place] 10-325 Tablet) 1 Each Tablet, 1 EACH PO Q4 PRN for PAIN, TAB 07/27/18 Hydromorphone Hcl* (Dilaudid*) 4 Mg Tablet, 4 MG PO Q4H PRN for PAIN, TAB 07/27/18 Carisoprodol* (Carisoprodol*) 350 Mg Tablet, 350 MG PO Q6 PRN for MUSCLE SPASMS, TAB 07/27/18 Medications Current Medications IV Flush (NS 3 ml) 3 ml PER PROTOCOL IV ; Start 08/16/18 at 21:30 Ondansetron HCl (Zofran Inj) 4 mg Q6H PRN IV NAUSEA/VOMITING; Start 08/16/18 at 21:30 Acetaminophen (Tylenol Tab) 650 mg Q6H PRN PO .PAIN 1-3 OR TEMP Last administered on 08/20/18at 20:03; Admin Dose 650 MG; Start 08/16/18 at 21:30 Enoxaparin Sodium (Lovenox) 30 mg DAILY SC Last administered on 08/22/18at 09:24; Admin Dose 30 MG; Start 08/17/18 at 09:00 Famotidine (Pepcid) 20 mg BID PO Last administered on 08/22/18 09:20; Admin Dose 20 MG; Start 08/17/18 at 21:00 Docusate Sodium (Colace) 100 mg BID PO Last administered on 08/22/18at 09:20; Admin Dose 100 MG; Start 08/18/18 at 09:00 Hydralazine HCl (Apresoline) 25 mg Q6H PRN PO SBP>160; Start 08/18/18 at 17:00 Hydromorphone HCl (Dilaudid SIZE CUTTER) 0.5 MG/HR CONTINUOUS R... Q4PCA IV Last administered on 08/22/18 05:18; Admin Dose 6 MG; Start 08/18/18 at 17:00 Methylprednisolone Sodium Succinate (Solu-Medrol) 60 mg Q8 IV Last administered on 08/22/18 05:18; Admin Dose 60 MG; Start 08/18/18 at 17:00 Senna/Docusate Sodium (Senokot-S) 2 tab BID PO Last administered on 08/20/18at 08:48; Admin Dose 2 TAB; Start 08/18/18 at 21:00 Polyethylene Glycol (Miralax) 17 gm DAILY PO Last administered on 08/18/18at 18:26; Admin Dose 17 GM; Start 08/18/18 at 17:00 Benazepril HCl (Lotensin) 10 mg DAILY PO Last administered on 08/22/18at 09:20; Admin Dose 10 MG; Start 08/19/18 at 15:30 Zolpidem Tartrate (Ambien) 5 mg HS PRN PO INSOMNIA Last administered on 08/22/18at 00:51; Admin Dose 5 MG; Start 08/22/18 at 01:00 Dexamethasone (Decadron) 4 mg Q6 IV ; Start 08/22/18 at 12:00 Gabapentin (Neurontin Liquid) 200 mg TID NGT ; Start 08/22/18 at 13:00 Assessment/Plan Hospital Course (Demo Recall) 1. Bradycardia, intermittent with stable blood pressure at this time.- no sig recurrence. Low TSH with NL T4. ? sick euthyroid - rate controlled, off tele now. 2. Abnormal electrocardiogram with isolated T-wave flattening in lead 3-no chest pain - no indication for pacer now. 3. Hypertension, labile and episodic likely related to pain episodes.-ongoing - better treated now. 4. Status post lumbar back surgery with ongoing back pain and left lower extremity weakness. 5. Urinary tract infection- Rx with anti-bx. 6. Dyslipidemia with low HDL. CANDELARIO JOY MD Aug 22, 2018 10:47
--- NOTE | 2018-08-22 11:31 | PN ---
Date/Time of Note Date/Time of Note DATE: 08/22/18 TIME: 11:28 Assessment/Plan VTE Prophylaxis Risk score (from Nsg)>0 risk: 3 SCD applied (from Ns): Yes SCD contraindicated: low risk/ambulating Pharmacological prophylaxis: NA/contraindicated Pharm contraindication: low risk/ambulating Lines/Catheters IV Catheter Type (from Nrsg): Saline Lock Central line still needed: No Urinary Cath still in place: No Assessment/Plan Hospital Course Neurosurgery Update CT Lspine revied and noted (08/21) No further surgical intervention required. Possible asim fragment and/or Osteophytes. Does not look like graft material Plan - Pain management, Decadron 4mg Q6 for few days, Neurontin, and Pain Management Result Diagram: 08/21/1872208/21/18 07 Subjective 24 Hr Interval Summary Free Text/Dictation Neurosurgery update Exam/Review of Systems Exam Vitals Vital Signs Date Temp Pulse Resp B/P (MAP) Pulse Ox O2 O2 Flow FiO2 Time Delivery Rate 08/22/18 18 10:54 08/22/18 98.3 62 138/66 97 Room Air 07:25 (90) Intake and Output 08/21/18 08/21/18 08/22/18 1515:00 23:00 07:00 IntakeIntake Total 300 ml BalanceBalance 300 ml Medications Medication Current Medications IV Flush (NS 3 ml) 3 ml PER PROTOCOL IV ; Start 08/16/18 at 21:30 Ondansetron HCl (Zofran Inj) 4 mg Q6H PRN IV NAUSEA/VOMITING; Start 08/16/18 at 21:30 Acetaminophen (Tylenol Tab) 650 mg Q6H PRN PO .PAIN 1-3 OR TEMP Last administered on 08/20/18at 20:03; Admin Dose 650 MG; Start 08/16/18 at 21:30 Enoxaparin Sodium (Lovenox) 30 mg DAILY SC Last administered on 08/22/18at 09:24; Admin Dose 30 MG; Start 08/17/18 at 09:00 Famotidine (Pepcid) 20 mg BID PO Last administered on 08/22/18at 09:20; Admin Dose 20 MG; Start 08/17/18 at 21:00 Docusate Sodium (Colace) 100 mg BID PO Last administered on 6/11/19at 09:20; Admin Dose 100 MG; Start 08/18/18 at 09:00 Hydralazine HCl (Apresoline) 25 mg Q6H PRN PO SBP>160; Start 08/18/18 at 17:00 Hydromorphone HCl (Dilaudid MIX HOUSE OPERATOR) 0.5 MG/HR CONTINUOUS R... Q4PCA IV Last administered on 08/22/18at 10:52; Admin Dose 6 MG; Start 08/18/18 at 17:00 Methylprednisolone Sodium Succinate (Solu-Medrol) 60 mg Q8 IV Last administered on 08/22/18 05:18; Admin Dose 60 MG; Start 08/18/18 at 17:00 Senna/Docusate Sodium (Senokot-S) 2 tab BID PO Last administered on 08/20/18 08:48; Admin Dose 2 TAB; Start 08/18/18 at 21:00 Polyethylene Glycol (Miralax) 17 gm DAILY PO Last administered on 08/18/18 18:26; Admin Dose 17 GM; Start 08/18/18 at 17:00 Benazepril HCl (Lotensin) 10 mg DAILY PO Last administered on 08/22/18 09:20; Admin Dose 10 MG; Start 08/19/18 at 15:30 Zolpidem Tartrate (Ambien) 5 mg HS PRN PO INSOMNIA Last administered on 08/22/18 00:51; Admin Dose 5 MG; Start 08/22/18 at 01:00 Dexamethasone (Decadron) 4 mg Q6 IV ; Start 08/22/18 at 12:00 Gabapentin (Neurontin Liquid) 200 mg TID NGT ; Start 08/22/18 at 13:00 RUPA REYES MD Aug 22, 2018 11:30
[2018-08-22] MEDS: DEXAMETHASONE 4 MG/ML 1 ML INJ IV SCH ×2 (12:00→18:45)
[2018-08-22] MEDS ORDERED: GABAPENTIN (50 MG/ML PO SYG) PO SCH (13:00)
[2018-08-22] MEDS ORDERED: GABAPENTIN (50 MG/ML PO SYG) NGT SCH ×2 (13:00)
[2018-08-22] MEDS: GABAPENTIN 100 MG CAP PO SCH ×2 (13:47→20:09)
[2018-08-22 14:10] VITALS: BP 131/73; PULSE 61; RESP 16
--- NOTE | 2018-08-22 17:13 | PN ---
Date/Time of Note Date/Time of Note DATE: 08/22/18 TIME: 17:10 Assessment/Plan VTE Prophylaxis Risk score (from Nsg)>0 risk: 3 SCD applied (from Nsg): Yes Pharmacological prophylaxis: LMWH Lines/Catheters IV Catheter Type (from Nrsg): Saline Lock Urinary Cath still in place: No Assessment/Plan Hospital Course Patient waiting FRONT DESK MANAGER Dilaudid is working however she still has a lot of pain, currently on Dilaudid FRONT DESK MANAGER and Solu-Medrol, asked RN to call Dr. Pabon, continue current management, follow-up neurosurgery recommendations. Assessment/Plan -Intractable low back pain. Dr. Pabon is following in pain management consultation. Dr. Jordan is following in neurosurgery consultation. -Opioid dependence -Hypertension, continue benazepril. -History of L5-S1 lumbar hardware removal with decompression and interbody fusion by Dr. Jordan on 07/27/2018 for mechanical low back pain and with lower extremity radiculopathy. -Depression -History of posterior cervical laminectomy and foraminotomies with instrumental fusion of C3-C7. -Obesity Further recommendations based on clinical course. Plan of care discussed with Dr. Zhu. Result Diagram: 08/21/1872208/21/18722 Exam/Review of Systems Exam Vitals Vital Signs Date Temp Pulse Resp B/P (MAP) Pulse Ox O2 O2 Flow FiO2 Time Delivery Rate 08/22/18 95 Room Air 16:03 08/22/18 18 15:06 08/22/18 98.0 61 131/73 14:10 (92) Intake and Output 08/21/18 08/21/18 08/22/18 1515:00 23:00 07:00 IntakeIntake Total 300 ml BalanceBalance 300 ml Exam Constitutional: alert, oriented Respiratory: clear to auscultation Cardiovascular: nl pulses Gastrointestinal: soft, non-tender Musculoskeletal: nl extremities to inspection Extremities: normal pulses Neurological: nl mental status Skin: nl turgor, other (lower back surgical incision) Medications Medication Current Medications IV Flush (NS 3 ml) 3 ml PER PROTOCOL IV ; Start 08/16/18 at 21:30 Ondansetron HCl (Zofran Inj) 4 mg Q6H PRN IV NAUSEA/VOMITING; Start 08/16/18 at 21:30 Acetaminophen (Tylenol Tab) 650 mg Q6H PRN PO .PAIN 1-3 OR TEMP Last administered on 08/20/18 20:03; Admin Dose 650 MG; Start 08/16/18 at 21:30 Enoxaparin Sodium (Lovenox) 30 mg DAILY SC Last administered on 08/22/18 09:24; Admin Dose 30 MG; Start 08/17/18 at 09:00 Famotidine (Pepcid) 20 mg BID PO Last administered on 08/22/18 09:20; Admin Dose 20 MG; Start 08/17/18 at 21:00 Docusate Sodium (Colace) 100 mg BID PO Last administered on 08/22/18 09:20; Admin Dose 100 MG; Start 08/18/18 at 09:00 Hydralazine HCl (Apresoline) 25 mg Q6H PRN PO SBP>160; Start 08/18/18 at 17:00 Hydromorphone HCl (Dilaudid FRONT DESK MANAGER) 0.5 MG/HR CONTINUOUS R... Q4PCA IV Last administered on 08/22/18 15:05; Admin Dose 6 MG; Start 08/18/18 at 17:00 Methylprednisolone Sodium Succinate (Solu-Medrol) 60 mg Q8 IV Last administered on 08/22/18 13:48; Admin Dose 60 MG; Start 08/18/18 at 17:00 Senna/Docusate Sodium (Senokot-S) 2 tab BID PO Last administered on 08/20/18 08:48; Admin Dose 2 TAB; Start 08/18/18 at 21:00 Polyethylene Glycol (Miralax) 17 gm DAILY PO Last administered on 08/18/18 18:26; Admin Dose 17 GM; Start 08/18/18 at 17:00 Benazepril HCl (Lotensin) 10 mg DAILY PO Last administered on 08/22/18 09:20; Admin Dose 10 MG; Start 08/19/18 at 15:30 Zolpidem Tartrate (Ambien) 5 mg HS PRN PO INSOMNIA Last administered on 08/22/18 00:51; Admin Dose 5 MG; Start 08/22/18 at 01:00 Dexamethasone (Decadron) 4 mg Q6 IV Last administered on 08/22/18 12:00; Admin Dose 4 MG; Start 08/22/18 at 12:00 Gabapentin (Neurontin) 200 mg TID PO Last administered on 08/22/18at 13:47; Admin Dose 200 MG; Start 08/22/18 at 13:00 JÚNIOR DOLAN Aug 22, 2018 17:13
[2018-08-22] MEDS ORDERED: HYDROmorphONE 0.5 MG/0.5 ML SYG IV STA (19:50)
[2018-08-22 20:29] VITALS: BP 121/69; PULSE 58; RESP 20
[2018-08-23] VITALS (9 sets, daily range): BP systolic 124–139; BP diastolic 71–85; PULSE 54–96; RESP 10–20
[2018-08-23] MEDS: DEXAMETHASONE 4 MG/ML 1 ML INJ IV SCH ×4 (00:29→18:05)
[2018-08-23] MEDS: HYDROmorphONE 0.2 MG/ML PCA IV SCH ×4 (00:52→15:46)
[2018-08-23] MEDS: POLYETHYLENE GLYCOL 17 GM PACKET PO SCH (09:00)
[2018-08-23] MEDS: DOCUSATE SODIUM 100 MG CAP PO SCH ×2 (09:47→22:46)
[2018-08-23] MEDS: SENNA/DOCUSATE NA (8.6MG/50MG) TAB PO SCH ×2 (09:47→21:00)
[2018-08-23] MEDS: BENAZEPRIL 10 MG TAB PO SCH (09:48)
[2018-08-23] MEDS: FAMOTIDINE 20 MG TAB PO SCH ×2 (09:48→22:46)
[2018-08-23] MEDS: GABAPENTIN 100 MG CAP PO SCH ×3 (09:48→22:46)
[2018-08-23] MEDS: ENOXAPARIN 30 MG/0.3 ML SYG SC SCH (09:49)
--- NOTE | 2018-08-23 09:50 | PN ---
Date/Time of Note Date/Time of Note DATE: 08/23/18 TIME: 09:47 Assessment/Plan VTE Prophylaxis Risk score (from Ns)>0 risk: 2 SCD applied (from Ns): Yes SCD contraindicated: low risk/ambulating Pharmacological prophylaxis: NA/contraindicated Pharm contraindication: low risk/ambulating Lines/Catheters IV Catheter Type (from Nrsg): Saline Lock Central line still needed: No Urinary Cath still in place: No Assessment/Plan Hospital Course Neurosurgery Update CT Lspine revied and noted (08/21) discussed with patient in detail. L4-5 cage is intact Pt c/o left SI joint tenderness , ? left hip pain pt on decadron and neurontin Plan MRI Left Hip r/o avascular necrosis MRI Left SI joint cont pain management may need Left SI Joint injection in am Result Diagram: 08/21/18 0723 08/21/18 0723 Subjective 24 Hr Interval Summary Free Text/Dictation Neurosurgery Patient seen and examined Exam/Review of Systems Exam Vitals Vital Signs Date Temp Pulse Resp B/P (MAP) Pulse Ox O2 O2 Flow FiO2 Time Delivery Rate 08/23/18 17 09:00 08/23/18 98.6 96 136/84 96 08:00 (101) 08/22/18 Room Air 16:03 Intake and Output 08/22/18 08/22/18 08/23/18 1414:59 22:59 06:59 IntakeIntake Total 660 ml 300 ml 450 ml BalanceBalance 660 ml 300 ml 450 ml Neurological: other (MS: AAOX4 CN: PERRL M: FC x 4 , left si join/hip tenderness) Medications Medication Current Medications IV Flush (NS 3 ml) 3 ml PER PROTOCOL IV ; Start 08/16/18 at 21:30 Ondansetron HCl (Zofran Inj) 4 mg Q6H PRN IV NAUSEA/VOMITING; Start 08/16/18 at 21:30 Acetaminophen (Tylenol Tab) 650 mg Q6H PRN PO .PAIN 1-3 OR TEMP Last administered on 08/20/18at 20:03; Admin Dose 650 MG; Start 08/16/18 at 21:30 Enoxaparin Sodium (Lovenox) 30 mg DAILY SC Last administered on 08/22/18at 09:24; Admin Dose 30 MG; Start 08/17/18 at 09:00 Famotidine (Pepcid) 20 mg BID PO Last administered on 08/22/18 20:09; Admin Dose 20 MG; Start 08/17/18 at 21:00 Docusate Sodium (Colace) 100 mg BID PO Last administered on 08/22/18 20:09; Admin Dose 100 MG; Start 08/18/18 at 09:00 Hydralazine HCl (Apresoline) 25 mg Q6H PRN PO SBP>160; Start 08/18/18 at 17:00 Hydromorphone HCl (Dilaudid TOUR CONSULTANT) 0.5 MG/HR CONTINUOUS R... Q4PCA IV Last administered on 08/23/18 06:19; Admin Dose 6 MG; Start 08/18/18 at 17:00 Senna/Docusate Sodium (Senokot-S) 2 tab BID PO Last administered on 08/20/18 08:48; Admin Dose 2 TAB; Start 08/18/18 at 21:00 Polyethylene Glycol (Miralax) 17 gm DAILY PO Last administered on 08/18/18 18:26; Admin Dose 17 GM; Start 08/18/18 at 17:00 Benazepril HCl (Lotensin) 10 mg DAILY PO Last administered on 08/22/18 09:20; Admin Dose 10 MG; Start 08/19/18 at 15:30 Zolpidem Tartrate (Ambien) 5 mg HS PRN PO INSOMNIA Last administered on 08/22/18 21:40; Admin Dose 5 MG; Start 08/22/18 at 01:00 Dexamethasone (Decadron) 4 mg Q6 IV Last administered on 08/23/18 06:11; Admin Dose 4 MG; Start 08/22/18 at 12:00 Gabapentin (Neurontin) 200 mg TID PO Last administered on 08/22/18 20:09; Admin Dose 200 MG; Start 08/22/18 at 13:00 RUPA REYES MD Aug 23, 2018 09:50
--- NOTE | 2018-08-23 12:59 | PN ---
Date/Time of Note Date/Time of Note DATE: 08/23/18 TIME: 12:55 Assessment/Plan VTE Prophylaxis Risk score (from Ns)>0 risk: 2 SCD applied (from Ns): Yes Pharmacological prophylaxis: LMWH Lines/Catheters IV Catheter Type (from Nrsg): Saline Lock Urinary Cath still in place: No Assessment/Plan Hospital Course Patient continues on MACHINE CELL TUBER Dilaudid. Pending MRI Left Hip r/o avascular necrosis. Assessment/Plan -Intractable low back pain. Dr. Pabon is following in pain management consultation. Dr. Jordan is following in neurosurgery consultation. L4-5 cage is intact per imaging, no surgery planned per neurosurgery, continue steroids and Neurontin. -Opioid dependence -Hypertension, continue benazepril. -History of L5-S1 lumbar hardware removal with decompression and interbody fusion by Dr. Jordan on 07/27/2018 for mechanical low back pain and with lower extremity radiculopathy. -Depression -History of posterior cervical laminectomy and foraminotomies with instrumental fusion of C3-C7. -Obesity Further recommendations based on clinical course. Plan of care discussed with Dr. Zhu. Result Diagram: 08/21/1872208/21/18722 Exam/Review of Systems Exam Vitals Vital Signs Date Temp Pulse Resp B/P (MAP) Pulse Ox O2 O2 Flow FiO2 Time Delivery Rate 08/23/18 16 11:02 08/23/18 98.6 96 136/84 96 08:00 (101) 08/22/18 Room Air 16:03 Intake and Output 08/22/18 08/22/18 08/23/18 1515:00 23:00 07:00 IntakeIntake Total 660 ml 300 ml 450 ml BalanceBalance 660 ml 300 ml 450 ml Exam Constitutional: alert, oriented Respiratory: clear to auscultation Cardiovascular: nl pulses Gastrointestinal: soft, non-tender Musculoskeletal: nl extremities to inspection Extremities: normal pulses Neurological: nl mental status Skin: nl turgor, other (lower back surgical incision) Medications Medication Current Medications IV Flush (NS 3 ml) 3 ml PER PROTOCOL IV ; Start 08/16/18 at 21:30 Ondansetron HCl (Zofran Inj) 4 mg Q6H PRN IV NAUSEA/VOMITING; Start 08/16/18 at 21:30 Acetaminophen (Tylenol Tab) 650 mg Q6H PRN PO .PAIN 1-3 OR TEMP Last administered on 08/20/18 20:03; Admin Dose 650 MG; Start 08/16/18 at 21:30 Enoxaparin Sodium (Lovenox) 30 mg DAILY SC Last administered on 08/23/18 09:49; Admin Dose 30 MG; Start 08/17/18 at 09:00 Famotidine (Pepcid) 20 mg BID PO Last administered on 08/23/18 09:48; Admin Dose 20 MG; Start 08/17/18 at 21:00 Docusate Sodium (Colace) 100 mg BID PO Last administered on 08/23/18 09:47; Admin Dose 100 MG; Start 08/18/18 at 09:00 Hydralazine HCl (Apresoline) 25 mg Q6H PRN PO SBP>160; Start 08/18/18 at 17:00 Hydromorphone HCl (Dilaudid MACHINE CELL TUBER) 0.5 MG/HR CONTINUOUS R... Q4PCA IV Last administered on 08/23/18 10:52; Admin Dose 6 MG; Start 08/18/18 at 17:00 Senna/Docusate Sodium (Senokot-S) 2 tab BID PO Last administered on 08/23/18 09:47; Admin Dose 2 TAB; Start 08/18/18 at 21:00 Polyethylene Glycol (Miralax) 17 gm DAILY PO Last administered on 08/18/18 18:26; Admin Dose 17 GM; Start 08/18/18 at 17:00 Benazepril HCl (Lotensin) 10 mg DAILY PO Last administered on 08/23/18 09:48; Admin Dose 10 MG; Start 08/19/18 at 15:30 Zolpidem Tartrate (Ambien) 5 mg HS PRN PO INSOMNIA Last administered on 08/22/18 21:40; Admin Dose 5 MG; Start 08/22/18 at 01:00 Dexamethasone (Decadron) 4 mg Q6 IV Last administered on 08/23/18 06:11; Admin Dose 4 MG; Start 08/22/18 at 12:00 Gabapentin (Neurontin) 200 mg TID PO Last administered on 08/23/18 09:48; Admin Dose 200 MG; Start 08/22/18 at 13:00 JÚNIOR DOLAN Aug 23, 2018 12:59
--- NOTE | 2018-08-23 15:04 | CONS ---
Assessment/Plan Assessment/Plan Hospital Course (Demo Recall) IMPRESSION: 1. Bradycardia, intermittent with stable blood pressure at this time.- no sig recurrence. Low TSH with NL T4. ? sick euthyroid 2. Abnormal electrocardiogram with isolated T-wave flattening in lead 3.-no chest pain 3. Hypertension, labile and episodic likely related to pain episodes.-ongoing 4. Status post lumbar back surgery with ongoing back pain and left lower extremity weakness. 5. Urinary tract infection. 6. Dyslipidemia with low HDL. Recc -Contineu ACEI with reasonable BP control -continue steroids and now TAPE RECORDER REPAIRER for pain control -ongoing NRSG eval with possible need for injection -f/u MRI's Consultation Date/Type/Reason Admit Date/Time Aug 17, 2018 at 15:00 Initial Consult Date 08/18/18 Type of Consult Cardiology Reason for Consultation HTN Requesting Provider: LEILA PERES MD Date/Time of Note DATE: 08/23/18 TIME: 15:03 Exam/Review of Systems Vital Signs Vitals Vital Signs Date Temp Pulse Resp B/P (MAP) Pulse Ox O2 O2 Flow FiO2 Time Delivery Rate 08/23/18 17 13:00 08/23/18 98.6 96 136/84 96 08:00 (101) 08/22/18 Room Air 16:03 Intake and Output 08/22/18 08/22/18 08/23/18 1515:00 23:00 07:00 IntakeIntake Total 660 ml 300 ml 450 ml BalanceBalance 660 ml 300 ml 450 ml Exam Exam Review of Systems: CONSTITUTIONAL: No fevers, chills. PULMONARY: No sob CARDIOVASCULAR: No chest pain/palpitations GASTROINTESTINAL: No nausea/vomiting. GENITOURINARY: No hematuria/dysuria. MUSCULOSKELETAL: back pain PSYCHIATRIC: The patient denies depression. NEUROLOGIC: No weakness Constitutional: alert, oriented Psych: no complaints Head: normocephalic ENMT: mucosa pink and moist Neck: supple, jvd (9 cm water) Respiratory: clear to auscultation Cardiovascular: regular rate and rhythm Gastrointestinal: soft, non-tender Musculoskeletal: muscle tone (normal) Extremities: edema (none) Labs Result Diagram: 08/21/1872208/21/18722 Medications Medications Current Medications IV Flush (NS 3 ml) 3 ml PER PROTOCOL IV ; Start 08/16/18 at 21:30 Ondansetron HCl (Zofran Inj) 4 mg Q6H PRN IV NAUSEA/VOMITING; Start 08/16/18 at 21:30 Acetaminophen (Tylenol Tab) 650 mg Q6H PRN PO .PAIN 1-3 OR TEMP Last administered on 08/20/18 20:03; Admin Dose 650 MG; Start 08/16/18 at 21:30 Enoxaparin Sodium (Lovenox) 30 mg DAILY SC Last administered on 08/23/18 09:49; Admin Dose 30 MG; Start 08/17/18 at 09:00 Famotidine (Pepcid) 20 mg BID PO Last administered on 08/23/18 09:48; Admin Do se 20 MG; Start 08/17/18 at 21:00 Docusate Sodium (Colace) 100 mg BID PO Last administered on 08/23/18 09:47; Admin Dose 100 MG; Start 08/18/18 at 09:00 Hydralazine HCl (Apresoline) 25 mg Q6H PRN PO SBP>160; Start 08/18/18 at 17:00 Hydromorphone HCl (Dilaudid TAPE RECORDER REPAIRER) 0.5 MG/HR CONTINUOUS R... Q4PCA IV Last administered on 08/23/18 10:52; Admin Dose 6 MG; Start 08/18/18 at 17:00 Senna/Docusate Sodium (Senokot-S) 2 tab BID PO Last administered on 08/23/18 09:47; Admin Dose 2 TAB; Start 08/18/18 at 21:00 Polyethylene Glycol (Miralax) 17 gm DAILY PO Last administered on 08/18/18 18:26; Admin Dose 17 GM; Start 08/18/18 at 17:00 Benazepril HCl (Lotensin) 10 mg DAILY PO Last administered on 08/23/18 09:48; Admin Dose 10 MG; Start 08/19/18 at 15:30 Zolpidem Tartrate (Ambien) 5 mg HS PRN PO INSOMNIA Last administered on 08/22/18 21:40; Admin Dose 5 MG; Start 08/22/18 at 01:00 Dexamethasone (Decadron) 4 mg Q6 IV Last administered on 08/23/18 13:46; Admin Dose 4 MG; Start 08/22/18 at 12:00 Gabapentin (Neurontin) 200 mg TID PO Last administered on 08/23/18at 13:46; Admin Dose 200 MG; Start 08/22/18 at 13:00 RODRIGO STEARNS Aug 23, 2018 15:04
[2018-08-23] MEDS ORDERED: HYDROmorphONE 0.5 MG/0.5 ML SYG IV STA (15:53)
[2018-08-23] MEDS ORDERED: HYDROmorphONE 1 MG/ML SYG IV ONE ×2 (18:00→23:00)
--- NOTE | 2018-08-23 20:59 | PREAC ---
Date/Time of Note Date/Time of Note DATE: 08/23/18 TIME: 20:57 Anesthesia Eval and Record Evaluation Time Pre-Procedure Interview DATE: 08/23/18 TIME: 20:57 Age 43 Sex female NPO: 8 hrs Preoperative diagnosis Lt hip trigger point Planned procedure Lt Hip trigger point injection Past Medical History Past Medical History: Includes GI: Morbid obesity Surgery & Anesthesia Issues No known issue Meds Anticoagulation: No Beta Alisha within 24 hr: No Reason Beta Alisha not given: Pt. not on B-Alisha Active Scripts Docusate Sodium* (Colace*) 100 Mg Capsule, 100 MG PO BID, #20 CAP Prov:MILTON GARCIABIR 08/05/18 Reported Medications Multivitamins* (Theragran*) 1 Tab Tab, 1 TAB PO DAILY, TAB 08/16/18 Tizanidine Hcl* (Tizanidine Hcl*) 2 Mg Tablet, 4 MG PO Q6H 08/16/18 Gabapentin* (Gabapentin*) 300 Mg Capsule, 300 MG PO TID for 30 Days 08/16/18 Hydromorphone Hcl (Dilaudid) 4 Mg Tab, 4 MG PO DAILY PRN for PAIN LEVEL 4-7 08/16/18 Morphine Sulfate (Morphine Sulfate ER) 15 Mg Tablet.er, 15 MG PO DAILY for 30 Days, #60 08/16/18 Hydrocodone/Acetaminophen (Castile 10-325 Tablet) 1 Each Tablet, 1 EACH PO Q4 PRN for PAIN, TAB 07/27/18 Hydromorphone Hcl* (Dilaudid*) 4 Mg Tablet, 4 MG PO Q4H PRN for PAIN, TAB 07/27/18 Carisoprodol* (Carisoprodol*) 350 Mg Tablet, 350 MG PO Q6 PRN for MUSCLE SPASMS, TAB 07/27/18 Current Medications IV Flush (NS 3 ml) 3 ml PER PROTOCOL IV ; Start 08/16/18 at 21:30 Ondansetron HCl (Zofran Inj) 4 mg Q6H PRN IV NAUSEA/VOMITING; Start 08/16/18 at 21:30 Acetaminophen (Tylenol Tab) 650 mg Q6H PRN PO .PAIN 1-3 OR TEMP Last a dministered on 08/20/18at 20:03; Admin Dose 650 MG; Start 08/16/18 at 21:30 Enoxaparin Sodium (Lovenox) 30 mg DAILY SC Last administered on 08/23/18 09:49; Admin Dose 30 MG; Start 08/17/18 at 09:00 Famotidine (Pepcid) 20 mg BID PO Last administered on 08/23/18 09:48; Admin Dose 20 MG; Start 08/17/18 at 21:00 Docusate Sodium (Colace) 100 mg BID PO Last administered on 08/23/18 09:47; Admin Dose 100 MG; Start 08/18/18 at 09:00 Hydralazine HCl (Apresoline) 25 mg Q6H PRN PO SBP>160; Start 08/18/18 at 17:00 Hydromorphone HCl (Dilaudid OR DIRECTOR) 0.5 MG/HR CONTINUOUS R... Q4PCA IV Last administered on 08/23/18 15:46; Admin Dose 6 MG; Start 08/18/18 at 17:00 Senna/Docusate Sodium (Senokot-S) 2 tab BID PO Last administered on 08/23/18 09:47; Admin Dose 2 TAB; Start 08/18/18 at 21:00 Polyethylene Glycol (Miralax) 17 gm DAILY PO Last administered on 08/18/18 18:26; Admin Dose 17 GM; Start 08/18/18 at 17:00 Benazepril HCl (Lotensin) 10 mg DAILY PO Last administered on 08/23/18 09:48; Admin Dose 10 MG; Start 08/19/18 at 15:30 Zolpidem Tartrate (Ambien) 5 mg HS PRN PO INSOMNIA Last administered on 08/22/18 21:40; Admin Dose 5 MG; Start 08/22/18 at 01:00 Dexamethasone (Decadron) 4 mg Q6 IV Last administered on 08/23/18 18:05; Admin Dose 4 MG; Start 08/22/18 at 12:00 Gabapentin (Neurontin) 200 mg TID PO Last administered on 08/23/18 13:46; Admin Dose 200 MG; Start 08/22/18 at 13:00 Multivitamins/ Minerals (Theragran-M) 1 tab DAILY PO ; Start 08/24/18 at 09:00 Meds reviewed: Yes Allergies Coded Allergies: No Known Allergy (Unverified , 08/16/18) Allergies Reviewed: Yes Labs/Studies Labs Reviewed: Reviewed by anesthesiologist Result Diagram: 08/21/1872208/21/18722 test: Negative Studies: ECG Pre-procedure Exam Last vitals Vital Signs Date Temp Pulse Resp B/P (MAP) Pulse Ox O2 O2 Flow FiO2 Time Delivery Rate 08/23/18 18 17:00 08/23/18 98.6 72 124/71 96 14:00 (88) 08/22/18 Room Air 16:03 Airway: Adequate mouth opening, Adequate thyromental dist Mallampati: Mallampati II Teeth: Normal Lung: Normal Heart: Normal ASA Physical Status ASA physical status: 2 Emergency: None Planned Anesthetic General/MAC: MAC Planned Pain Management Parenteral pain med Pre-operative Attestations Prior to commencing anesthesia and surgery, the patient was re-evaluated, there was verification of: *The patient's identity *The results of appropriate recent lab work and preoperative vital signs *The above evaluation not changing prior to induction *Anesthetic plan, risk benefits, alternative and complications discussed with patient/family; questions answered; patient/family understands, accepts and wishes to proceed. DARLINE BOWEN MD Aug 23, 2018 20:59
[2018-08-23] MEDS ORDERED: METHYLPREDNISOLONE ACET 80 MG/ML 1 ML INJ ONE ×2 (21:00)
[2018-08-23] MEDS ORDERED: ROPIVACAINE 0.5 % 30 ML VIAL INJ ONE ×2 (21:00)
--- NOTE | 2018-08-23 21:23 | OPPN ---
Date/Time of Note Date/Time of Note DATE: 08/23/18 TIME: 21:21 Operative Report Preoperative Diagnosis Left sacro iliac joint arthritis Postoperative Diagnosis same Operation/Procedure Performed L sacroiliac joint and left lumbar trigger points injection. Surgeon see signature line catalog library assistant none Anesthesia: MAC Estimated blood loss: minimal Transfusion Required none Specimen none Grafts/Implants none Complications none RUPA REYES MD Aug 23, 2018 21:23
--- NOTE | 2018-08-23 21:30 | PAC ---
Date/Time of Note Date/Time of Note DATE: 08/23/18 TIME: 21:30 Post-Anesthesia Notes Post-Anesthesia Note Last documented vital signs Vital Signs Date Temp Pulse Resp B/P (MAP) Pulse Ox O2 O2 Flow FiO2 Time Delivery Rate 08/23/18 18 17:00 08/23/18 98.6 72 124/71 96 14:00 (88) 08/22/18 Room Air 16:03 Activity: WNL Respiratory function: WNL Cardiovascular function: WNL Mental status: Baseline Pain reasonably controlled: Yes Hydration appropriate: Yes Nausea/Vomiting absent: Yes Comments BP:120/56, P:78, Spo2:100%, T:98,8 DARLINE BOWEN MD Aug 23, 2018 21:30
[2018-08-23] MEDS: ZOLPIDEM 5 MG TAB PO PRN (23:30)
[2018-08-24] MEDS: DEXAMETHASONE 4 MG/ML 1 ML INJ IV SCH ×4 (00:42→17:39)
[2018-08-24 02:00] VITALS: BP 117/64; PULSE 64; RESP 18
[2018-08-24] MEDS ORDERED: HYDROmorphONE 1 MG/ML SYG IV ONE (06:00)
[2018-08-24] MEDS: HYDROmorphONE 0.2 MG/ML PCA IV SCH ×5 (06:32→20:22)
[2018-08-24 08:00] VITALS: BP 121/62; PULSE 76; RESP 20
[2018-08-24] MEDS: POLYETHYLENE GLYCOL 17 GM PACKET PO SCH (09:00)
[2018-08-24] MEDS: MULTIVITAMINS/MINERALS TAB PO SCH (09:36)
[2018-08-24] MEDS: ENOXAPARIN 30 MG/0.3 ML SYG SC SCH (09:36)
[2018-08-24] MEDS: GABAPENTIN 100 MG CAP PO SCH ×3 (09:37→21:24)
[2018-08-24] MEDS: FAMOTIDINE 20 MG TAB PO SCH ×2 (09:37→21:24)
[2018-08-24] MEDS: SENNA/DOCUSATE NA (8.6MG/50MG) TAB PO SCH ×3 (09:37→21:26)
[2018-08-24] MEDS: BENAZEPRIL 10 MG TAB PO SCH (09:37)
[2018-08-24] MEDS: DOCUSATE SODIUM 100 MG CAP PO SCH ×2 (09:37→21:24)
--- NOTE | 2018-08-24 13:56 | PN ---
Date/Time of Note Date/Time of Note DATE: 08/24/18 TIME: 13:56 Assessment/Plan VTE Prophylaxis Risk score (from Nsg)>0 risk: 3 SCD applied (from Nsg): Yes Lines/Catheters IV Catheter Type (from Nrsg): Peripheral IV Urinary Cath still in place: No Assessment/Plan Hospital Course Neurosurgery Update CT Lspine revied and noted (08/21) discussed with patient in detail. L4-5 cage is intact Pt c/o left SI joint tenderness , ? left hip pain pt on decadron and neurontin Plan MRI Left Hip r/o avascular necrosis MRI Left SI joint cont pain management may need Left SI Joint injection in am Result Diagram: 08/21/18 0723 08/21/18 0723 Results 24hrs Laboratory Tests Test 08/24/18 10:13 Urine Test NEGATIVE Exam/Review of Systems Exam Vitals Vital Signs Date Temp Pulse Resp B/P (MAP) Pulse Ox O2 O2 Flow FiO2 Time Delivery Rate 08/24/18 18 13:00 08/24/18 98.6 76 121/62 96 08:00 (81) 08/23/18 Room Air 22:51 Intake and Output 08/23/18 08/23/18 08/24/18 1515:00 23:00 07:00 IntakeIntake Total 350 ml 200 ml OutputOutput Total 2 ml BalanceBalance 350 ml 198 ml Results Results 24hrs Laboratory Tests Test 08/24/18 10:13 Urine Test NEGATIVE Medications Medication Current Medications IV Flush (NS 3 ml) 3 ml PER PROTOCOL IV ; Start 08/16/18 at 21:30 Ondansetron HCl (Zofran Inj) 4 mg Q6H PRN IV NAUSEA/VOMITING; Start 08/16/18 at 21:30 Acetaminophen (Tylenol Tab) 650 mg Q6H PRN PO .PAIN 1-3 OR TEMP Last administered on 08/20/18at 20:03; Admin Dose 650 MG; Start 08/16/18 at 21:30 Enoxaparin Sodium (Lovenox) 30 mg DAILY SC Last administered on 08/24/18at 09:36; Admin Dose 30 MG; Start 08/17/18 at 09:00 Famotidine (Pepcid) 20 mg BID PO Last administered on 08/24/18at 09:37; Admin Dose 20 MG; Start 08/17/18 at 21:00 Docusate Sodium (Colace) 100 mg BID PO Last administered on 08/24/18 09:37; Admin Dose 100 MG; Start 08/18/18 at 09:00 Hydralazine HCl (Apresoline) 25 mg Q6H PRN PO SBP>160; Start 08/18/18 at 17:00 Hydromorphone HCl (Dilaudid PLASTICS ENGINEERING TEACHER) 0.5 MG/HR CONTINUOUS R... Q4PCA IV Last administered on 08/24/18 11:59; Admin Dose 6 MG; Start 08/18/18 at 17:00 Senna/Docusate Sodium (Senokot-S) 2 tab BID PO Last administered on 08/24/18 09:37; Admin Dose 2 TAB; Start 08/18/18 at 21:00 Polyethylene Glycol (Miralax) 17 gm DAILY PO Last administered on 08/18/18 18:26; Admin Dose 17 GM; Start 08/18/18 at 17:00 Benazepril HCl (Lotensin) 10 mg DAILY PO Last administered on 08/24/18 09:37; Admin Dose 10 MG; Start 08/19/18 at 15:30 Zolpidem Tartrate (Ambien) 5 mg HS PRN PO INSOMNIA Last administered on 08/23/18 23:30; Admin Dose 5 MG; Start 08/22/18 at 01:00 Dexamethasone (Decadron) 4 mg Q6 IV Last administered on 08/24/18 13:17; Admin Dose 4 MG; Start 08/22/18 at 12:00 Gabapentin (Neurontin) 200 mg TID PO Last administered on 08/24/18 13:17; Admin Dose 200 MG; Start 08/22/18 at 13:00 Multivitamins/ Minerals (Theragran-M) 1 tab DAILY PO Last administered on 08/24/18 09:36; Admin Dose 1 TAB; Start 08/24/18 at 09:00 RUPA REYES MD Aug 24, 2018 13:56
[2018-08-24 14:00] VITALS: BP 139/77; PULSE 96; RESP 20
--- NOTE | 2018-08-24 17:15 | CONS ---
Assessment/Plan Assessment/Plan Assessment/Plan (Daily) I have been on vacation last seen patient August 17, 2018. In the interim she has had one SI joint injection by Dr. Jordan. However she still complains of pain out of control in her left hip left leg and states that she is beginning to lose function and complains that she has noticed left lateral rotation of her hip. Denies warning signs. Continues ask for higher doses of IV push Dilaudid. She is also on corticosteroids and gabapentin. We will increase her demand dose to 0.5 mg only and will consult with Dr. Jordan tomorrow morning concerns of goals of care. Patient does have a primary care pain management doctor in the community. Patient very tolerant to high doses of IV pain control medications. It would be optimal to switch her to the oral pain control medications however until Dr. Jordan discusses treatment plan and outpatient therapy with her we will continue with current pain management. Consultation Date/Type/Reason Admit Date/Time Aug 17, 2018 at 15:00 Initial Consult Date Requesting Provider: LEILA PERES MD Date/Time of Note DATE: 08/24/18 TIME: 17:13 Exam/Review of Systems Exam Vitals Vital Signs Date Temp Pulse Resp B/P (MAP) Pulse Ox O2 O2 Flow FiO2 Time Delivery Rate 08/24/18 0 16:30 08/24/18 98.6 96 139/77 96 14:00 (97) 08/23/18 Room Air 22:51 Intake and Output 08/23/18 08/23/18 08/24/18 1515:00 23:00 07:00 IntakeIntake Total 350 ml 200 ml OutputOutput Total 2 ml BalanceBalance 350 ml 198 ml Constitutional: alert, oriented, well developed, other (No acute distress) Psych: anxiety Musculoskeletal: nl extremities to inspection, nl gait and stance Neurological: DEVOPS SOLUTIONS ARCHITECT II-XII intact, nl mental status, nl speech, nl strength Results Result Diagram: 08/21/1872208/21/1823 Results 24hrs Laboratory Tests Test 08/24/18 10:13 Urine Test NEGATIVE Medications Medication Current Medications IV Flush (NS 3 ml) 3 ml PER PROTOCOL IV ; Start 08/16/18 at 21:30 Ondansetron HCl (Zofran Inj) 4 mg Q6H PRN IV NAUSEA/VOMITING; Start 08/16/18 at 21:30 Acetaminophen (Tylenol Tab) 650 mg Q6H PRN PO .PAIN 1-3 OR TEMP Last admini stered on 08/20/18 20:03; Admin Dose 650 MG; Start 08/16/18 at 21:30 Enoxaparin Sodium (Lovenox) 30 mg DAILY SC Last administered on 08/24/18 09:36; Admin Dose 30 MG; Start 08/17/18 at 09:00 Famotidine (Pepcid) 20 mg BID PO Last administered on 08/24/18 09:37; Admin Dose 20 MG; Start 08/17/18 at 21:00 Docusate Sodium (Colace) 100 mg BID PO Last administered on 08/24/18 09:37; Admin Dose 100 MG; Start 08/18/18 at 09:00 Hydralazine HCl (Apresoline) 25 mg Q6H PRN PO SBP>160; Start 08/18/18 at 17:00 Hydromorphone HCl (Dilaudid DISTRICT WIRE CHIEF) 0.5 MG/HR CONTINUOUS R... Q4PCA IV Last administered on 08/24/18 16:28; Admin Dose 6 MG; Start 08/18/18 at 17:00 Senna/Docusate Sodium (Senokot-S) 2 tab BID PO Last administered on 08/24/18 09:37; Admin Dose 2 TAB; Start 08/18/18 at 21:00 Polyethylene Glycol (Miralax) 17 gm DAILY PO Last administered on 08/18/18 18:26; Admin Dose 17 GM; Start 08/18/18 at 17:00 Benazepril HCl (Lotensin) 10 mg DAILY PO Last administered on 08/24/18 09:37; Admin Dose 10 MG; Start 08/19/18 at 15:30 Zolpidem Tartrate (Ambien) 5 mg HS PRN PO INSOMNIA Last administered on 23:30; Admin Dose 5 MG; Start 08/22/18 at 01:00 Dexamethasone (Decadron) 4 mg Q6 IV Last administered on 08/24/18 13:17; Admin Dose 4 MG; Start 08/22/18 at 12:00 Gabapentin (Neurontin) 200 mg TID PO Last administered on 6/13/19at 13:17; Admin Dose 200 MG; Start 08/22/18 at 13:00 Multivitamins/ Minerals (Theragran-M) 1 tab DAILY PO Last administered on 08/24/18at 09:36; Admin Dose 1 TAB; Start 08/24/18 at 09:00 BRUCE WISE Aug 24, 2018 17:15
--- NOTE | 2018-08-24 18:34 | PN ---
Date/Time of Note Date/Time of Note DATE: 08/24/18 TIME: 18:34 Assessment/Plan VTE Prophylaxis Risk score (from Nsg)>0 risk: 3 SCD applied (from Nsg): Yes Pharmacological prophylaxis: LMWH Lines/Catheters IV Catheter Type (from Nrsg): Peripheral IV Urinary Cath still in place: No Assessment/Plan Hospital Course Pt is s/p Left SI Joint injection, continues on DRUG ABUSE WORKER Dilaudid and Decadron. Assessment/Plan -Intractable low back pain. Dr. Pabon is following in pain management consultation. Dr. Jordan is following in neurosurgery consultation. L4-5 cage is intact per imaging, no surgery planned per neurosurgery, continue steroids and Neurontin. -Left hip pain, MRI of the hip is negative for avascular necrosis. Status post left SI joint injection. -Opioid dependence -Hypertension, continue benazepril. -History of L5-S1 lumbar hardware removal with decompression and interbody fusion by Dr. Jordan on 07/27/2018 for mechanical low back pain and with lower extremity radiculopathy. -Depression -History of posterior cervical laminectomy and foraminotomies with instrumental fusion of C3-C7. -Obesity Further recommendations based on clinical course. Plan of care discussed with Dr. Zhu. Result Diagram: 08/21/18 0723 08/21/18 0723 Results 24hrs Laboratory Tests Test 08/24/18 10:13 Urine Test NEGATIVE Subjective 24 Hr Interval Summary Free Text/Dictation Constitutional: alert, oriented Respiratory: clear to auscultation Cardiovascular: nl pulses Gastrointestinal: soft, non-tender Musculoskeletal: nl extremities to inspection Extremities: normal pulses Neurological: nl mental status Skin: nl turgor, other (lower back surgical incision) Exam/Review of Systems Exam Vitals Vital Signs Date Temp Pulse Resp B/P (MAP) Pulse Ox O2 O2 Flow FiO2 Time Delivery Rate 08/24/18 18 17:28 08/24/18 98.6 96 139/77 96 14:00 (97) 08/23/18 Room Air 22:51 Intake and Output 08/23/18 08/23/18 08/24/18 1515:00 23:00 07:00 IntakeIntake Total 350 ml 200 ml OutputOutput Total 2 ml BalanceBalance 350 ml 198 ml Results Results 24hrs Laboratory Tests Test 08/24/18 10:13 Urine Test NEGATIVE Medications Medication Current Medications IV Flush (NS 3 ml) 3 ml PER PROTOCOL IV ; Start 08/16/18 at 21:30 Ondansetron HCl (Zofran Inj) 4 mg Q6H PRN IV NAUSEA/VOMITING; Start 08/16/18 at 21:30 Acetaminophen (Tylenol Tab) 650 mg Q6H PRN PO .PAIN 1-3 OR TEMP Last adm inistered on 08/20/18 20:03; Admin Dose 650 MG; Start 08/16/18 at 21:30 Enoxaparin Sodium (Lovenox) 30 mg DAILY SC Last administered on 08/24/18 09:36; Admin Dose 30 MG; Start 08/17/18 at 09:00 Famotidine (Pepcid) 20 mg BID PO Last administered on 08/24/18 09:37; Admin Dose 20 MG; Start 08/17/18 at 21:00 Docusate Sodium (Colace) 100 mg BID PO Last administered on 08/24/18 09:37; Admin Dose 100 MG; Start 08/18/18 at 09:00 Hydralazine HCl (Apresoline) 25 mg Q6H PRN PO SBP>160; Start 08/18/18 at 17:00 Hydromorphone HCl (Dilaudid DRUG ABUSE WORKER) 0.5 MG/HR CONTINUOUS R... Q4PCA IV Last administered on 08/24/18 16:28; Admin Dose 6 MG; Start 08/18/18 at 17:00 Senna/Docusate Sodium (Senokot-S) 2 tab BID PO Last administered on 08/24/18 09:37; Admin Dose 2 TAB; Start 08/18/18 at 21:00 Polyethylene Glycol (Miralax) 17 gm DAILY PO Last administered on 08/18/18 18:26; Admin Dose 17 GM; Start 08/18/18 at 17:00 Benazepril HCl (Lotensin) 10 mg DAILY PO Last administered on 08/24/18 09:37; Admin Dose 10 MG; Start 08/19/18 at 15:30 Zolpidem Tartrate (Ambien) 5 mg HS PRN PO INSOMNIA Last administered on 23:30; Admin Dose 5 MG; Start 08/22/18 at 01:00 Dexamethasone (Decadron) 4 mg Q6 IV Last administered on 08/24/18at 17:39; Admin Dose 4 MG; Start 08/22/18 at 12:00 Gabapentin (Neurontin) 200 mg TID PO Last administered on 08/24/18at 13:17; Admin Dose 200 MG; Start 08/22/18 at 13:00 Multivitamins/ Minerals (Theragran-M) 1 tab DAILY PO Last administered on 08/24/18at 09:36; Admin Dose 1 TAB; Start 08/24/18 at 09:00 JÚNIOR DOLAN Aug 24, 2018 18:34
[2018-08-24 20:07] VITALS: BP 121/66; PULSE 69; RESP 18
--- NOTE | 2018-08-24 20:29 | CONS ---
Assessment/Plan Assessment/Plan Hospital Course (Demo Recall) IMPRESSION: 1. Bradycardia, intermittent with stable blood pressure at this time.- no sig recurrence. Low TSH with NL T4. ? sick euthyroid 2. Abnormal electrocardiogram with isolated T-wave flattening in lead 3.-no chest pain 3. Hypertension, labile and episodic likely related to pain episodes.-ongoing 4. Status post lumbar back surgery with ongoing back pain and left lower extremity weakness. 5. Urinary tract infection. 6. Dyslipidemia with low HDL. Recc -Contineu ACEI with reasonable BP control -continue steroids and now SUPERVISOR COLD ROLLING for pain control -ongoing NRSG eval with possible need for injection -s/p MRI's Consultation Date/Type/Reason Admit Date/Time Aug 17, 2018 at 15:00 Initial Consult Date 08/18/18 Type of Consult Cardiology Reason for Consultation bradycardia/HTN Requesting Provider: LEILA PERES MD Date/Time of Note DATE: 08/24/18 TIME: 20:28 Exam/Review of Systems Vital Signs Vitals Vital Signs Date Temp Pulse Resp B/P (MAP) Pulse Ox O2 O2 Flow FiO2 Time Delivery Rate 08/24/18 98.0 69 18 121/66 69 20:07 (84) 08/23/18 Room Air 22:51 Intake and Output 08/23/18 08/23/18 08/24/18 1515:00 23:00 07:00 IntakeIntake Total 350 ml 200 ml OutputOutput Total 2 ml BalanceBalance 350 ml 198 ml Exam Exam Review of Systems: CONSTITUTIONAL: No fevers, chills. PULMONARY: No sob CARDIOVASCULAR: No chest pain/palpitations GASTROINTESTINAL: No nausea/vomiting. GENITOURINARY: No hematuria/dysuria. MUSCULOSKELETAL: back pain PSYCHIATRIC: The patient denies depression. NEUROLOGIC: No weakness Constitutional: alert, oriented Psych: no complaints Head: normocephalic ENMT: mucosa pink and moist Neck: supple, jvd (9 cm water) Respiratory: clear to auscultation Cardiovascular: regular rate and rhythm Gastrointestinal: soft, non-tender Musculoskeletal: muscle tone (normal) Extremities: edema (none) Neurological: other (No focal deficits) Labs Result Diagram: 08/21/18 0723 08/21/18 0723 Results 24hrs Laboratory Tests Test 08/24/18 10:13 Urine Test NEGATIVE Medications Medications Current Medications IV Flush (NS 3 ml) 3 ml PER PROTOCOL IV ; Start 08/16/18 at 21:30 Ondansetron HCl (Zofran Inj) 4 mg Q6H PRN IV NAUSEA/VOMITING; Start 08/16/18 at 21:30 Acetaminophen (Tylenol Tab) 650 mg Q6H PRN PO .PAIN 1-3 OR TEMP Last administered on 08/20/18 20:03; Admin Dose 650 MG; Start 08/16/18 at 21:30 Enoxaparin Sodium (Lovenox) 30 mg DAILY SC Last administered on 08/24/18 09:36; Admin Dose 30 MG; Start 08/17/18 at 09:00 Famotidine (Pepcid) 20 mg BID PO Last administered on 08/24/18 09:37; Admin Dose 20 MG; Start 08/17/18 at 21:00 Docusate Sodium (Colace) 100 mg BID PO Last administered on 08/24/18 09:37; Admin Dose 100 MG; Start 08/18/18 at 09:00 Hydralazine HCl (Apresoline) 25 mg Q6H PRN PO SBP>160; Start 08/18/18 at 17:00 Hydromorphone HCl (Dilaudid SUPERVISOR COLD ROLLING) 0.5 MG/HR CONTINUOUS R... Q4PCA IV Last ad ministered on 08/24/18 20:22; Admin Dose 6 MG; Start 08/18/18 at 17:00 Senna/Docusate Sodium (Senokot-S) 2 tab BID PO Last administered on 08/24/18 09:37; Admin Dose 2 TAB; Start 08/18/18 at 21:00 Polyethylene Glycol (Miralax) 17 gm DAILY PO Last administered on 08/18/18 18:26; Admin Dose 17 GM; Start 08/18/18 at 17:00 Benazepril HCl (Lotensin) 10 mg DAILY PO Last administered on 08/24/18 09:37; Admin Dose 10 MG; Start 08/19/18 at 15:30 Zolpidem Tartrate (Ambien) 5 mg HS PRN PO INSOMNIA Last administered on 08/23/18 23:30; Admin Dose 5 MG; Start 08/22/18 at 01:00 Dexamethasone (Decadron) 4 mg Q6 IV Last administered on 08/24/18at 17:39; Admin Dose 4 MG; Start 08/22/18 at 12:00 Gabapentin (Neurontin) 200 mg TID PO Last administered on 08/24/18at 13:17; Admin Dose 200 MG; Start 08/22/18 at 13:00 Multivitamins/ Minerals (Theragran-M) 1 tab DAILY PO Last administered on 08/24/18at 09:36; Admin Dose 1 TAB; Start 08/24/18 at 09:00 RODRIGO STEARNS Aug 24, 2018 20:29
[2018-08-24] MEDS: ZOLPIDEM 5 MG TAB PO PRN (22:10)
[2018-08-25] MEDS: DEXAMETHASONE 4 MG/ML 1 ML INJ IV SCH ×3 (00:11→12:26)
[2018-08-25] MEDS: HYDROmorphONE 0.2 MG/ML PCA IV SCH ×7 (00:16→23:13)
[2018-08-25 02:26] VITALS: BP 114/65; PULSE 62; RESP 20
--- NOTE | 2018-08-25 05:11 | PN ---
Date/Time of Note Date/Time of Note DATE: 08/25/18 TIME: 05:10 Assessment/Plan VTE Prophylaxis Risk score (from Nsg)>0 risk: 3 SCD applied (from Nsg): Yes Lines/Catheters IV Catheter Type (from Nrsg): Peripheral IV Urinary Cath still in place: No Assessment/Plan Assessment/Plan -Intractable low back pain. Dr. Pabon is following in pain management consultation. Dr. Jordan is following in neurosurgery consultation. L4-5 cage is intact per imaging, no surgery planned per neurosurgery, continue steroids and Neurontin. -Left hip pain, MRI of the hip is negative for avascular necrosis. Status post left SI joint injection. -Opioid dependence -Hypertension, continue benazepril. -History of L5-S1 lumbar hardware removal with decompression and interbody fusion by Dr. Jordan on 07/27/2018 for mechanical low back pain and with lower extremity radiculopathy. -Depression -History of posterior cervical laminectomy and foraminotomies with instrumental fusion of C3-C7. -Obesity Further recommendations based on clinical course. Plan of care discussed with Dr. Zhu. Result Diagram: 08/21/1872208/21/1823 Results 24hrs Laboratory Tests Test 08/24/18 10:13 Urine Test NEGATIVE Subjective 24 Hr Interval Summary Free Text/Dictation On GREENHOUSE TECHNICIAN Dilaudid; pain management follows need to dw Dr Jordan for evaluation Exam/Review of Systems Exam Vitals Vital Signs Date Temp Pulse Resp B/P (MAP) Pulse Ox O2 O2 Flow FiO2 Time Delivery Rate 08/25/18 97.9 62 20 114/65 98 02:26 (81) 08/23/18 Room Air 22:51 Intake and Output 08/24/18 08/24/18 08/25/18 1515:00 23:00 07:00 IntakeIntake Total 700 ml 240 ml BalanceBalance 700 ml 240 ml Results Results 24hrs Laboratory Tests Test 08/24/18 10:13 Urine Test NEGATIVE Medications Medication Current Medications IV Flush (NS 3 ml) 3 ml PER PROTOCOL IV ; Start 08/16/18 at 21:30 Ondansetron HCl (Zofran Inj) 4 mg Q6H PRN IV NAUSEA/VOMITING; Start 08/16/18 at 21:30 Acetaminophen (Tylenol Tab) 650 mg Q6H PRN PO .PAIN 1-3 OR TEMP Last administered on 08/20/18 20:03; Admin Dose 650 MG; Start 08/16/18 at 21:30 Enoxaparin Sodium (Lovenox) 30 mg DAILY SC Last administered on 08/24/18 09:36; Admin Dose 30 MG; Start 08/17/18 at 09:00 Famotidine (Pepcid) 20 mg BID PO Last administered on 08/24/18 21:24; Admin Dose 20 MG; Start 08/17/18 at 21:00 Docusate Sodium (Colace) 100 mg BID PO Last administered on 08/24/18 21:24; Admin Dose 100 MG; Start 08/18/18 at 09:00 Hydralazine HCl (Apresoline) 25 mg Q6H PRN PO SBP>160; Start 08/18/18 at 17:00 Hydromorphone HCl (Dilaudid GREENHOUSE TECHNICIAN) 0.5 MG/HR CONTINUOUS R... Q4PCA IV Last administered on 08/25/18 00:16; Admin Dose 6 MG; Start 08/18/18 at 17:00 Senna/Docusate Sodium (Senokot-S) 2 tab BID PO Last administered on 08/24/18 09:37; Admin Dose 2 TAB; Start 08/18/18 at 21:00 Polyethylene Glycol (Miralax) 17 gm DAILY PO Last administered on 08/18/18 18:26; Admin Dose 17 GM; Start 08/18/18 at 17:00 Benazepril HCl (Lotensin) 10 mg DAILY PO Last administered on 08/24/18 09:37; Admin Dose 10 MG; Start 08/19/18 at 15:30 Zolpidem Tartrate (Ambien) 5 mg HS PRN PO INSOMNIA Last administered on 08/24/18 22:10; Admin Dose 5 MG; Start 08/22/18 at 01:00 Dexamethasone (Decadron) 4 mg Q6 IV Last administered on 08/25/18 00:11; Admin Dose 4 MG; Start 08/22/18 at 12:00 Gabapentin (Neurontin) 200 mg TID PO Last administered on 08/24/18 21:24; Admin Dose 200 MG; Start 08/22/18 at 13:00 Multivitamins/ Minerals (Theragran-M) 1 tab DAILY PO Last administered on 08/24/18at 09:36; Admin Dose 1 TAB; Start 08/24/18 at 09:00 ANTIONE GARCIA Aug 25, 2018 05:11
[2018-08-25] MEDS: KETOROLAC 30 MG INJ IV PRN ×2 (06:18→22:25)
[2018-08-25 08:00] VITALS: BP 127/77; PULSE 80; RESP 18
[2018-08-25] MEDS: MULTIVITAMINS/MINERALS TAB PO SCH (08:54)
[2018-08-25] MEDS: DOCUSATE SODIUM 100 MG CAP PO SCH ×2 (08:54→19:54)
[2018-08-25] MEDS: ENOXAPARIN 30 MG/0.3 ML SYG SC SCH (08:54)
[2018-08-25] MEDS: SENNA/DOCUSATE NA (8.6MG/50MG) TAB PO SCH ×2 (08:54→19:54)
[2018-08-25] MEDS: GABAPENTIN 100 MG CAP PO SCH ×3 (08:55→19:55)
[2018-08-25] MEDS: FAMOTIDINE 20 MG TAB PO SCH ×2 (08:55→19:54)
[2018-08-25] MEDS: POLYETHYLENE GLYCOL 17 GM PACKET PO SCH (08:55)
[2018-08-25] MEDS: BENAZEPRIL 10 MG TAB PO SCH (08:55)
[2018-08-25 12:00] VITALS: BP 112/67; PULSE 72; RESP 18
[2018-08-25 16:00] VITALS: BP 114/63; PULSE 59; RESP 18
--- NOTE | 2018-08-25 17:02 | CONS ---
Assessment/Plan Assessment/Plan Hospital Course (Demo Recall) IMPRESSION: 1. Bradycardia, intermittent with stable blood pressure at this time.- no sig recurrence. Low TSH with NL T4. ? sick euthyroid 2. Abnormal electrocardiogram with isolated T-wave flattening in lead 3.-no chest pain 3. Hypertension, labile and episodic likely related to pain episodes.-ongoing 4. Status post lumbar back surgery with ongoing back pain and left lower extremity weakness. 5. Urinary tract infection. 6. Dyslipidemia with low HDL. Recc -Contineu ACEI with reasonable BP control -continue steroids and now TAKE AWAY ATTENDANT for pain control -For injection today Consultation Date/Type/Reason Admit Date/Time Aug 17, 2018 at 15:00 Initial Consult Date 08/18/18 Type of Consult Cardiology Reason for Consultation bradycardia Requesting Provider: LEILA PERES MD Date/Time of Note DATE: 08/25/18 TIME: 17:01 Exam/Review of Systems Vital Signs Vitals Vital Signs Date Temp Pulse Resp B/P (MAP) Pulse Ox O2 O2 Flow FiO2 Time Delivery Rate 08/25/18 98.2 59 18 114/63 97 16:00 (80) 08/23/18 Room Air 22:51 Intake and Output 08/24/18 08/24/18 08/25/18 1515:00 23:00 07:00 IntakeIntake Total 700 ml 240 ml 500 ml BalanceBalance 700 ml 240 ml 500 ml Exam Exam Review of Systems: CONSTITUTIONAL: No fevers, chills. PULMONARY: No sob CARDIOVASCULAR: No chest pain/palpitations GASTROINTESTINAL: No nausea/vomiting. GENITOURINARY: No hematuria/dysuria. MUSCULOSKELETAL: No myagias/arthalgias. PSYCHIATRIC: The patient denies depression. NEUROLOGIC: No weakness Constitutional: alert Psych: no complaints Head: normocephalic ENMT: mucosa pink and moist Neck: supple, jvd (9 cm water) Respiratory: diminished breath sounds Cardiovascular: regular rate and rhythm Gastrointestinal: soft, non-tender Musculoskeletal: muscle tone (normal) Extremities: edema (none) Neurological: other (No focal deficits) Labs Result Diagram: 08/21/1823 08/21/18722 Medications Medications Current Medications IV Flush (NS 3 ml) 3 ml PER PROTOCOL IV ; Start 08/16/18 at 21:30 Ondansetron HCl (Zofran Inj) 4 mg Q6H PRN IV NAUSEA/VOMITING; Start 08/16/18 at 21:30 Acetaminophen (Tylenol Tab) 650 mg Q6H PRN PO .PAIN 1-3 OR TEMP Last administered on 08/20/18 20:03; Admin Dose 650 MG; Start 08/16/18 at 21:30 Enoxaparin Sodium (Lovenox) 30 mg DAILY SC Last administered on 08/25/18 08:54; Admin Dose 30 MG; Start 08/17/18 at 09:00 Famotidine (Pepcid) 20 mg BID PO Last administered on 08/25/18 08:55; Admin Dose 20 MG; Start 08/17/18 at 21:00 Docusate Sodium (Colace) 100 mg BID PO Last administered on 08/25/18 08:54; Admin Dose 100 MG; Start 08/18/18 at 09:00 Hydralazine HCl (Apresoline) 25 mg Q6H PRN PO SBP>160; Start 08/18/18 at 17:00 Hydromorphone HCl (Dilaudid TAKE AWAY ATTENDANT) 0.5 MG/HR CONTINUOUS R... Q4PCA IV Last administered on 08/25/18 16:12; Admin Dose 6 MG; Start 08/18/18 at 17:00 Senna/Docusate Sodium (Senokot-S) 2 tab BID PO Last administered on 08/25/18 08:54; Admin Dose 2 TAB; Start 08/18/18 at 21:00 Polyethylene Glycol (Miralax) 17 gm DAILY PO Last administered on 08/18/18 18:26; Admin Dose 17 GM; Start 08/18/18 at 17:00 Benazepril HCl (Lotensin) 10 mg DAILY PO Last administered on 08/25/18 08:55; Admin Dose 10 MG; Start 08/19/18 at 15:30 Zolpidem Tartrate (Ambien) 5 mg HS PRN PO INSOMNIA Last administered on 08/24/18 22:10; Admin Dose 5 MG; Start 08/22/18 at 01:00 Gabapentin (Neurontin) 200 mg TID PO Last administered on 08/25/18 12:26; Admin Dose 200 MG; Start 08/22/18 at 13:00 Multivitamins/ Minerals (Theragran-M) 1 tab DAILY PO Last administered on 08/25/18at 08:54; Admin Dose 1 TAB; Start 08/24/18 at 09:00 Ketorolac Tromethamine (Toradol) 30 mg Q6H PRN IV PAIN LEVEL 1-3 Last administered on 08/25/18at 06:18; Admin Dose 30 MG; Start 08/25/18 at 06:00; Stop 08/28/18 at 05:59 RODRIGO STEARNS Aug 25, 2018 17:02
[2018-08-25 20:00] VITALS: BP 125/68; PULSE 69; RESP 20
[2018-08-25] MEDS: ZOLPIDEM 5 MG TAB PO PRN (22:17)
[2018-08-26 02:06] VITALS: BP 113/63; PULSE 60; RESP 18
[2018-08-26] MEDS: HYDROmorphONE 0.2 MG/ML PCA IV SCH ×5 (04:02→20:48)
[2018-08-26] MEDS: KETOROLAC 30 MG INJ IV PRN ×3 (07:04→19:41)
[2018-08-26 07:38] VITALS: BP 116/57; PULSE 62; RESP 16
[2018-08-26] MEDS: POLYETHYLENE GLYCOL 17 GM PACKET PO SCH (09:12)
[2018-08-26] MEDS: DOCUSATE SODIUM 100 MG CAP PO SCH ×2 (09:13→20:19)
[2018-08-26] MEDS: ENOXAPARIN 30 MG/0.3 ML SYG SC SCH (09:13)
[2018-08-26] MEDS: GABAPENTIN 100 MG CAP PO SCH ×3 (09:13→20:20)
[2018-08-26] MEDS: MULTIVITAMINS/MINERALS TAB PO SCH (09:13)
[2018-08-26] MEDS: FAMOTIDINE 20 MG TAB PO SCH ×2 (09:13→20:20)
[2018-08-26] MEDS: SENNA/DOCUSATE NA (8.6MG/50MG) TAB PO SCH ×2 (09:13→20:20)
[2018-08-26] MEDS: BENAZEPRIL 10 MG TAB PO SCH (09:14)
--- NOTE | 2018-08-26 11:47 | PN ---
Date/Time of Note Date/Time of Note DATE: 08/26/18 TIME: 11:46 Assessment/Plan VTE Prophylaxis Risk score (from Nsg)>0 risk: 3 SCD applied (from Nsg): Yes Pharmacological prophylaxis: LMWH Lines/Catheters IV Catheter Type (from Nrsg): Peripheral IV Urinary Cath still in place: No Assessment/Plan Hospital Course -Intractable low back pain. Dr. Pabon is following in pain management consultation. Dr. Jordan is following in neurosurgery consultation. L4-5 cage is intact per imaging, no surgery planned per neurosurgery, continue steroids and Neurontin. -Left hip pain, MRI of the hip is negative for avascular necrosis. Status post left SI joint injection. -Opioid dependence -Hypertension, continue benazepril. -History of L5-S1 lumbar hardware removal with decompression and interbody fusion by Dr. Jordan on 07/27/2018 for mechanical low back pain and with lower extremity radiculopathy. -Depression -History of posterior cervical laminectomy and foraminotomies with instrumental fusion of C3-C7. -Obesity Subjective 24 Hr Interval Summary Free Text/Dictation Patient still with back pain Exam/Review of Systems Exam Vitals Vital Signs Date Temp Pulse Resp B/P (MAP) Pulse Ox O2 O2 Flow FiO2 Time Delivery Rate 08/26/18 18 09:00 08/26/18 98.4 62 116/57 98 Room Air 07:38 (76) Intake and Output 08/25/18 08/25/18 08/26/18 1515:00 23:00 07:00 IntakeIntake Total 240 ml OutputOutput Total 2 ml BalanceBalance 238 ml Constitutional: well developed Head: normocephalic, atraumatic Neck: supple Respiratory: clear to auscultation Cardiovascular: regular rate and rhythm Gastrointestinal: soft, non-tender Extremities: normal pulses Medications Medication Current Medications IV Flush (NS 3 ml) 3 ml PER PROTOCOL IV ; Start 08/16/18 at 21:30 Ondansetron HCl (Zofran Inj) 4 mg Q6H PRN IV NAUSEA/VOMITING; Start 08/16/18 at 21:30 Acetaminophen (Tylenol Tab) 650 mg Q6H PRN PO .PAIN 1-3 OR TEMP Last administered on 08/20/18at 20:03; Admin Dose 650 MG; Start 08/16/18 at 21:30 Enoxaparin Sodium (Lovenox) 30 mg DAILY SC Last administered on 08/26/18 09:13; Admin Dose 30 MG; Start 08/17/18 at 09:00 Famotidine (Pepcid) 20 mg BID PO Last administered on 08/26/18 09:13; Admin Dose 20 MG; Start 08/17/18 at 21:00 Docusate Sodium (Colace) 100 mg BID PO Last administered on 08/26/18 09:13; Admin Dose 100 MG; Start 08/18/18 at 09:00 Hydralazine HCl (Apresoline) 25 mg Q6H PRN PO SBP>160; Start 08/18/18 at 17:00 Hydromorphone HCl (Dilaudid COURT CRIER) 0.5 MG/HR CONTINUOUS R... Q4PCA IV Last admini stered on 08/26/18 08:17; Admin Dose 6 MG; Start 08/18/18 at 17:00 Senna/Docusate Sodium (Senokot-S) 2 tab BID PO Last administered on 08/26/18 09:13; Admin Dose 2 TAB; Start 08/18/18 at 21:00 Polyethylene Glycol (Miralax) 17 gm DAILY PO Last administered on 08/26/18 09:12; Admin Dose 17 GM; Start 08/18/18 at 17:00 Benazepril HCl (Lotensin) 10 mg DAILY PO Last administered on 08/26/18 09:14; Admin Dose 10 MG; Start 08/19/18 at 15:30 Zolpidem Tartrate (Ambien) 5 mg HS PRN PO INSOMNIA Last administered on 08/25/18 22:17; Admin Dose 5 MG; Start 08/22/18 at 01:00 Gabapentin (Neurontin) 200 mg TID PO Last administered on 08/26/18 09:13; Admin Dose 200 MG; Start 08/22/18 at 13:00 Multivitamins/ Minerals (Theragran-M) 1 tab DAILY PO Last administered on 08/12 09:13; Admin Dose 1 TAB; Start 08/24/18 at 09:00 Ketorolac Tromethamine (Toradol) 30 mg Q6H PRN IV PAIN LEVEL 1-3 Last a dministered on 6/15/19at 07:04; Admin Dose 30 MG; Start 08/25/18 at 06:00; Stop 08/28/18 at 05:59 SISSY GOMES Aug 26, 2018 11:47
[2018-08-26 12:00] VITALS: BP 115/59; PULSE 66; RESP 18
[2018-08-26 14:25] VITALS: BP 101/58; PULSE 84; RESP 16
[2018-08-26 16:00] VITALS: BP 109/57; PULSE 69; RESP 18
--- NOTE | 2018-08-26 16:50 | CONS ---
Assessment/Plan Assessment/Plan Assessment/Plan (Daily) Bradycardia Abnormal electrocardiogram Hypertension Status post lumbar back surgery Urinary tract infection. Dyslipidemia Continue Benzepril Continue GI and DVT Prophylaxis Pain control as scheduled Consultation Date/Type/Reason Admit Date/Time Aug 17, 2018 at 15:00 Type of Consult Cardiology Date/Time of Note DATE: 08/26/18 TIME: 16:48 Past Medical History Home Meds Active Scripts Docusate Sodium* (Colace*) 100 Mg Capsule, 100 MG PO BID, #20 CAP Prov:MILTON GARCIABIR 08/05/18 Reported Medications Multivitamins* (Theragran*) 1 Tab Tab, 1 TAB PO DAILY, TAB 08/16/18 Tizanidine Hcl* (Tizanidine Hcl*) 2 Mg Tablet, 4 MG PO Q6H 08/16/18 Gabapentin* (Gabapentin*) 300 Mg Capsule, 300 MG PO TID for 30 Days 08/16/18 Hydromorphone Hcl (Dilaudid) 4 Mg Tab, 4 MG PO DAILY PRN for PAIN LEVEL 4-7 08/16/18 Morphine Sulfate (Morphine Sulfate ER) 15 Mg Tablet.er, 15 MG PO DAILY for 30 Days, #60 08/16/18 Hydrocodone/Acetaminophen (Rayle 10-325 Tablet) 1 Each Tablet, 1 EACH PO Q4 PRN for PAIN, TAB 07/27/18 Hydromorphone Hcl* (Dilaudid*) 4 Mg Tablet, 4 MG PO Q4H PRN for PAIN, TAB 07/27/18 Carisoprodol* (Carisoprodol*) 350 Mg Tablet, 350 MG PO Q6 PRN for MUSCLE SPASMS, TAB 07/27/18 Medications Current Medications IV Flush (NS 3 ml) 3 ml PER PROTOCOL IV ; Start 08/16/18 at 21:30 Ondansetron HCl (Zofran Inj) 4 mg Q6H PRN IV NAUSEA/VOMITING; Start 08/16/18 at 21:30 Acetaminophen (Tylenol Tab) 650 mg Q6H PRN PO .PAIN 1-3 OR TEMP Last administered on 08/20/18at 20:03; Admin Dose 650 MG; Start 08/16/18 at 21:30 Enoxaparin Sodium (Lovenox) 30 mg DAILY SC Last administered on 08/26/18at 09:13; Admin Dose 30 MG; Start 08/17/18 at 09:00 Famotidine (Pepcid) 20 mg BID PO Last administered on 08/26/18 09:13; Admin Dose 20 MG; Start 08/17/18 at 21:00 Docusate Sodium (Colace) 100 mg BID PO Last administered on 08/26/18 09:13; Admin Dose 100 MG; Start 08/18/18 at 09:00 Hydralazine HCl (Apresoline) 25 mg Q6H PRN PO SBP>160; Start 08/18/18 at 17:00 Hydromorphone HCl (Dilaudid CLEANER AND DYER) 0.5 MG/HR CONTINUOUS R... Q4PCA IV Last administered on 08/26/18 12:44; Admin Dose 6 MG; Start 08/18/18 at 17:00 Senna/Docusate Sodium (Senokot-S) 2 tab BID PO Last administered on 08/26/18 09:13; Admin Dose 2 TAB; Start 08/18/18 at 21:00 Polyethylene Glycol (Miralax) 17 gm DAILY PO Last administered on 08/26/18 09:12; Admin Dose 17 GM; Start 08/18/18 at 17:00 Benazepril HCl (Lotensin) 10 mg DAILY PO Last administered on 08/26/18 09:14; Admin Dose 10 MG; Start 08/19/18 at 15:30 Zolpidem Tartrate (Ambien) 5 mg HS PRN PO INSOMNIA Last administered on 08/25/18 22:17; Admin Dose 5 MG; Start 08/22/18 at 01:00 Gabapentin (Neurontin) 200 mg TID PO Last administered on 08/26/18 12:40; Admin Dose 200 MG; Start 08/22/18 at 13:00 Multivitamins/ Minerals (Theragran-M) 1 tab DAILY PO Last administered on 08/26/18 09:13; Admin Dose 1 TAB; Start 08/24/18 at 09:00 Ketorolac Tromethamine (Toradol) 30 mg Q6H PRN IV PAIN LEVEL 1-3 Last administered on 08/26/18 13:03; Admin Dose 30 MG; Start 08/25/18 at 06:00; Stop 08/28/18 at 05:59 Allergies: Coded Allergies: No Known Allergy (Unverified , 08/16/18) Past Surgical History Past Surgical Hx: other (Status post hysterectomy status post multiple cervical and lumbar spine surgeries) Social History Alcohol Use: none Smoking Status: Never smoker Drug Use: none Exam/Review of Systems Vital Signs Vitals Vital Signs Date Temp Pulse Resp B/P (MAP) Pulse Ox O2 O2 Flow FiO2 Time Delivery Rate 08/26/18 98.1 84 16 101/58 98 Room Air 14:25 (72) Intake and Output 08/25/18 08/25/18 08/26/18 1515:00 23:00 07:00 IntakeIntake Total 240 ml OutputOutput Total 2 ml BalanceBalance 238 ml Exam Constitutional: alert Head: normocephalic, atraumatic Neck: supple, non-tender Respiratory: clear to auscultation Cardiovascular: regular rate and rhythm (no m/r/g) Gastrointestinal: soft, non-tender Extremities: normal pulses Medications Medications Current Medications IV Flush (NS 3 ml) 3 ml PER PROTOCOL IV ; Start 08/16/18 at 21:30 Ondansetron HCl (Zofran Inj) 4 mg Q6H PRN IV NAUSEA/VOMITING; Start 08/16/18 at 21:30 Acetaminophen (Tylenol Tab) 650 mg Q6H PRN PO .PAIN 1-3 OR TEMP Last ad ministered on 08/20/18at 20:03; Admin Dose 650 MG; Start 08/16/18 at 21:30 Enoxaparin Sodium (Lovenox) 30 mg DAILY SC Last administered on 08/26/18at 09:13; Admin Dose 30 MG; Start 08/17/18 at 09:00 Famotidine (Pepcid) 20 mg BID PO Last administered on 08/26/18at 09:13; Admin Dose 20 MG; Start 08/17/18 at 21:00 Docusate Sodium (Colace) 100 mg BID PO Last administered on 08/26/18at 09:13; Admin Dose 100 MG; Start 08/18/18 at 09:00 Hydralazine HCl (Apresoline) 25 mg Q6H PRN PO SBP>160; Start 08/18/18 at 17:00 Hydromorphone HCl (Dilaudid CLEANER AND DYER) 0.5 MG/HR CONTINUOUS R... Q4PCA IV Last administered on 08/26/18 12:44; Admin Dose 6 MG; Start 08/18/18 at 17:00 Senna/Docusate Sodium (Senokot-S) 2 tab BID PO Last administered on 08/26/18 09:13; Admin Dose 2 TAB; Start 08/18/18 at 21:00 Polyethylene Glycol (Miralax) 17 gm DAILY PO Last administered on 08/26/18 09:12; Admin Dose 17 GM; Start 08/18/18 at 17:00 Benazepril HCl (Lotensin) 10 mg DAILY PO Last administered on 08/26/18 09:14; Admin Dose 10 MG; Start 08/19/18 at 15:30 Zolpidem Tartrate (Ambien) 5 mg HS PRN PO INSOMNIA Last administered on 08/25/18 22:17; Admin Dose 5 MG; Start 08/22/18 at 01:00 Gabapentin (Neurontin) 200 mg TID PO Last administered on 08/26/18 12:40; Admin Dose 200 MG; Start 08/22/18 at 13:00 Multivitamins/ Minerals (Theragran-M) 1 tab DAILY PO Last administered on 08/26/18 09:13; Admin Dose 1 TAB; Start 08/24/18 at 09:00 Ketorolac Tromethamine (Toradol) 30 mg Q6H PRN IV PAIN LEVEL 1-3 Last administered on 08/26/18 13:03; Admin Dose 30 MG; Start 08/25/18 at 06:00; Stop 08/28/18 at 05:59 OSVALDO SANTACRUZ M.D. Aug 26, 2018 16:50
[2018-08-26 21:14] VITALS: BP 107/64; PULSE 79; RESP 18
[2018-08-26] MEDS: ZOLPIDEM 5 MG TAB PO PRN (21:51)
[2018-08-27] MEDS: HYDROmorphONE 0.2 MG/ML PCA IV SCH ×7 (01:44→23:29)
[2018-08-27] MEDS: KETOROLAC 30 MG INJ IV PRN ×4 (01:49→20:11)
[2018-08-27 02:47] VITALS: BP 121/69; PULSE 58; RESP 18
[2018-08-27 08:00] VITALS: BP 105/59; PULSE 65; RESP 18
[2018-08-27] MEDS: BENAZEPRIL 10 MG TAB PO SCH (09:00)
[2018-08-27] MEDS: POLYETHYLENE GLYCOL 17 GM PACKET PO SCH (09:00)
[2018-08-27] MEDS: SENNA/DOCUSATE NA (8.6MG/50MG) TAB PO SCH ×2 (09:03→20:09)
[2018-08-27] MEDS: GABAPENTIN 100 MG CAP PO SCH ×3 (09:03→20:09)
[2018-08-27] MEDS: DOCUSATE SODIUM 100 MG CAP PO SCH ×2 (09:04→20:09)
[2018-08-27] MEDS: FAMOTIDINE 20 MG TAB PO SCH ×2 (09:04→20:09)
[2018-08-27] MEDS: MULTIVITAMINS/MINERALS TAB PO SCH (09:04)
[2018-08-27] MEDS: ENOXAPARIN 30 MG/0.3 ML SYG SC SCH (09:06)
--- NOTE | 2018-08-27 11:40 | PN ---
Date/Time of Note Date/Time of Note DATE: 08/27/18 TIME: 11:40 Assessment/Plan VTE Prophylaxis Risk score (from Ns)>0 risk: 4 SCD applied (from Ns): No SCD contraindicated: other Pharmacological prophylaxis: LMWH Lines/Catheters IV Catheter Type (from Nrsg): Peripheral IV Urinary Cath still in place: No Assessment/Plan Hospital Course -Intractable low back pain. Dr. Pabon is following in pain management consultation. Dr. Jordan is following in neurosurgery consultation. L4-5 cage is intact per imaging, no surgery planned per neurosurgery, continue steroids and Neurontin. -Left hip pain, MRI of the hip is negative for avascular necrosis. Status post left SI joint injection. -Opioid dependence -Hypertension, continue benazepril. -History of L5-S1 lumbar hardware removal with decompression and interbody fusion by Dr. Jordan on 07/27/2018 for mechanical low back pain and with lower extremity radiculopathy. -Depression -History of posterior cervical laminectomy and foraminotomies with instrumental fusion of C3-C7. -Obesity Subjective 24 Hr Interval Summary Free Text/Dictation Patient still have back pain Exam/Review of Systems Exam Vitals Vital Signs Date Temp Pulse Resp B/P (MAP) Pulse Ox O2 O2 Flow FiO2 Time Delivery Rate 08/27/18 98.0 65 18 105/59 98 Room Air 08:00 (74) Intake and Output 08/26/18 08/26/18 08/27/18 1515:00 23:00 07:00 IntakeIntake Total 540 ml 300 ml BalanceBalance 540 ml 300 ml Constitutional: well developed Head: normocephalic, atraumatic Neck: supple Respiratory: clear to auscultation Cardiovascular: regular rate and rhythm Gastrointestinal: soft, non-tender Extremities: normal pulses Medications Medication Current Medications IV Flush (NS 3 ml) 3 ml PER PROTOCOL IV ; Start 08/16/18 at 21:30 Ondansetron HCl (Zofran Inj) 4 mg Q6H PRN IV NAUSEA/VOMITING; Start 08/16/18 at 21:30 Acetaminophen (Tylenol Tab) 650 mg Q6H PRN PO .PAIN 1-3 OR TEMP Last administered on 08/20/18at 20:03; Admin Dose 650 MG; Start 08/16/18 at 21:30 Enoxaparin Sodium (Lovenox) 30 mg DAILY SC Last administered on 08/27/18 09:06; Admin Dose 30 MG; Start 08/17/18 at 09:00 Famotidine (Pepcid) 20 mg BID PO Last administered on 08/27/18 09:04; Admin Dose 20 MG; Start 08/17/18 at 21:00 Docusate Sodium (Colace) 100 mg BID PO Last administered on 08/27/18 09:04; Admin Dose 100 MG; Start 08/18/18 at 09:00 Hydralazine HCl (Apresoline) 25 mg Q6H PRN PO SBP>160; Start 08/18/18 at 17:00 Hydromorphone HCl (Dilaudid S[employer]ING [employer]LE OPERATOR) 0.5 MG/HR CONTINUOUS R... Q4PCA IV Last administered on 08/27/18 09:31; Admin Dose 6 MG; Start 08/18/18 at 17:00 Senna/Docusate Sodium (Senokot-S) 2 tab BID PO Last administered on 08/27/18 09:03; Admin Dose 2 TAB; Start 08/18/18 at 21:00 Polyethylene Glycol (Miralax) 17 gm DAILY PO Last administered on 08/26/18 09:12; Admin Dose 17 GM; Start 08/18/18 at 17:00 Benazepril HCl (Lotensin) 10 mg DAILY PO Last administered on 08/26/18 09:14; Admin Dose 10 MG; Start 08/19/18 at 15:30 Zolpidem Tartrate (Ambien) 5 mg HS PRN PO INSOMNIA Last administered on 08/26/18 21:51; Admin Dose 5 MG; Start 08/22/18 at 01:00 Gabapentin (Neurontin) 200 mg TID PO Last administered on 08/27/18 09:03; Admin Dose 200 MG; Start 08/22/18 at 13:00 Multivitamins/ Minerals (Theragran-M) 1 tab DAILY PO Last administered on 08/27/18 09:04; Admin Dose 1 TAB; Start 08/24/18 at 09:00 Ketorolac Tromethamine (Toradol) 30 mg Q6H PRN IV PAIN LEVEL 1-3 Last administered on 08/27/18 08:00; Admin Dose 30 MG; Start 08/25/18 at 06:00; Stop 08/28/18 at 05:59 SISSY GOMES Aug 27, 2018 11:40
--- NOTE | 2018-08-27 13:59 | CONS ---
Assessment/Plan Assessment/Plan Assessment/Plan (Daily) Bradycardia resolved Abnormal electrocardiogram Hypertension Status post lumbar back surgery Urinary tract infection. Dyslipidemia Avoid AV Camille Blockers Continue Benazepril Continue GI and DVT Prophylaxis Pain control as scheduled Consultation Date/Type/Reason Admit Date/Time Aug 17, 2018 at 15:00 Initial Consult Date Type of Consult Cardiology Requesting Provider: LEILA PERES MD Date/Time of Note DATE: 08/27/18 TIME: 13:58 Exam/Review of Systems Vital Signs Vitals Vital Signs Date Temp Pulse Resp B/P (MAP) Pulse Ox O2 O2 Flow FiO2 Time Delivery Rate 08/27/18 98.0 65 18 105/59 98 Room Air 08:00 (74) Intake and Output 08/26/18 08/26/18 08/27/18 1515:00 23:00 07:00 IntakeIntake Total 540 ml 300 ml BalanceBalance 540 ml 300 ml Exam Exam Constitutional: alert Head: normocephalic, atraumatic Neck: supple, non-tender Respiratory: clear to auscultation Cardiovascular: regular rate and rhythm (no m/r/g) Gastrointestinal: soft, non-tender Extremities: normal pulses Medications Medications Current Medications IV Flush (NS 3 ml) 3 ml PER PROTOCOL IV ; Start 08/16/18 at 21:30 Ondansetron HCl (Zofran Inj) 4 mg Q6H PRN IV NAUSEA/VOMITING; Start 08/16/18 at 21:30 Acetaminophen (Tylenol Tab) 650 mg Q6H PRN PO .PAIN 1-3 OR TEMP Last administered on 08/20/18at 20:03; Admin Dose 650 MG; Start 08/16/18 at 21:30 Enoxaparin Sodium (Lovenox) 30 mg DAILY SC Last administered on 08/27/18at 09:06; Admin Dose 30 MG; Start 08/17/18 at 09:00 Famotidine (Pepcid) 20 mg BID PO Last administered on 08/27/18at 09:04; Admin Dose 20 MG; Start 08/17/18 at 21:00 Docusate Sodium (Colace) 100 mg BID PO Last administered on 08/27/18at 09:04; Admin Dose 100 MG; Start 08/18/18 at 09:00 Hydralazine HCl (Apresoline) 25 mg Q6H PRN PO SBP>160; Start 08/18/18 at 17:00 Hydromorphone HCl (Dilaudid [employer]) 0.5 MG/HR CONTINUOUS R... Q4PCA IV Last administered on 08/27/18 12:46; Admin Dose 6 MG; Start 08/18/18 at 17:00 Senna/Docusate Sodium (Senokot-S) 2 tab BID PO Last administered on 08/27/18 09:03; Admin Dose 2 TAB; Start 08/18/18 at 21:00 Polyethylene Glycol (Miralax) 17 gm DAILY PO Last administered on 08/26/18 09:12; Admin Dose 17 GM; Start 08/18/18 at 17:00 Benazepril HCl (Lotensin) 10 mg DAILY PO Last administered on 08/26/18 09:14; Admin Dose 10 MG; Start 08/19/18 at 15:30 Zolpidem Tartrate (Ambien) 5 mg HS PRN PO INSOMNIA Last administered on 08/26/18 21:51; Admin Dose 5 MG; Start 08/22/18 at 01:00 Gabapentin (Neurontin) 200 mg TID PO Last administered on 08/27/18 12:17; Admin Dose 200 MG; Start 08/22/18 at 13:00 Multivitamins/ Minerals (Theragran-M) 1 tab DAILY PO Last administered on 08/27/18 09:04; Admin Dose 1 TAB; Start 08/24/18 at 09:00 Ketorolac Tromethamine (Toradol) 30 mg Q6H PRN IV PAIN LEVEL 1-3 Last administered on 08/27/18 08:00; Admin Dose 30 MG; Start 08/25/18 at 06:00; Stop 08/28/18 at 05:59 OSVALDO SANTACRUZ M.D. Aug 27, 2018 13:59
[2018-08-27 14:00] VITALS: BP 109/65; PULSE 89; RESP 18
[2018-08-27 20:20] VITALS: BP 114/56; PULSE 72; RESP 20
[2018-08-27] MEDS: ZOLPIDEM 5 MG TAB PO PRN (21:53)
[2018-08-28 02:35] VITALS: BP 105/59; PULSE 71; RESP 20
[2018-08-28] MEDS: KETOROLAC 30 MG INJ IV PRN (03:36)
[2018-08-28] MEDS: HYDROmorphONE 0.2 MG/ML PCA IV SCH ×3 (04:12→11:39)
[2018-08-28 08:38] VITALS: BP 124/67; PULSE 69; RESP 17
[2018-08-28] MEDS: POLYETHYLENE GLYCOL 17 GM PACKET PO SCH (09:00)
[2018-08-28] MEDS: DOCUSATE SODIUM 100 MG CAP PO SCH ×2 (09:00→20:32)
[2018-08-28] MEDS: SENNA/DOCUSATE NA (8.6MG/50MG) TAB PO SCH ×2 (09:00→20:32)
[2018-08-28] MEDS: GABAPENTIN 100 MG CAP PO SCH ×3 (09:04→20:31)
[2018-08-28] MEDS: FAMOTIDINE 20 MG TAB PO SCH ×2 (09:05→20:31)
[2018-08-28] MEDS: MULTIVITAMINS/MINERALS TAB PO SCH (09:05)
[2018-08-28] MEDS: BENAZEPRIL 10 MG TAB PO SCH (09:05)
[2018-08-28] MEDS: ENOXAPARIN 30 MG/0.3 ML SYG SC SCH (09:12)
[2018-08-28 13:00] VITALS: BP 125/66; PULSE 68; RESP 18
[2018-08-28 14:37] VITALS: BP 102/59; PULSE 80; RESP 18
--- NOTE | 2018-08-28 15:28 | PN ---
Date/Time of Note Date/Time of Note DATE: 08/28/18 TIME: 15:23 Assessment/Plan VTE Prophylaxis Risk score (from Nsg)>0 risk: 3 SCD applied (from Nsg): Yes Pharmacological prophylaxis: LMWH Lines/Catheters IV Catheter Type (from Nrsg): Peripheral IV Urinary Cath still in place: No Assessment/Plan Hospital Course Patient is currently on LEAD WAREHOUSE ASSOCIATE Dilaudid stating that her pain is adequately controlled, patient asking to be discharged home will DC Dilaudid, start Roxicodone twice daily and Dilaudid IV as needed for breakthrough pain, PT eval. Assessment/Plan -Intractable low back pain. Dr. Pabon is following in pain management consultation. Dr. Jordan is following in neurosurgery consultation. L4-5 cage is intact per imaging, no surgery planned per neurosurgery, continue steroids and Neurontin. -Left hip pain, MRI of the hip is negative for avascular necrosis. Status post left SI joint injections by Dr Jordan.. -Opioid dependence -Hypertension, continue benazepril. -History of L5-S1 lumbar hardware removal with decompression and interbody fusion by Dr. Jordan on 07/27/2018 for mechanical low back pain and with lower extremity radiculopathy. -Depression -History of posterior cervical laminectomy and foraminotomies with instrumental fusion of C3-C7. -Obesity Further recommendations based on clinical course. Plan of care discussed with Dr. Zhu. Exam/Review of Systems Exam Vitals Vital Signs Date Temp Pulse Resp B/P (MAP) Pulse Ox O2 O2 Flow FiO2 Time Delivery Rate 08/28/18 98.3 80 18 102/59 98 Room Air 14:37 (73) Intake and Output 08/27/18 08/27/18 08/28/18 1515:00 23:00 07:00 IntakeIntake Total 520 ml 1200 ml 480 ml BalanceBalance 520 ml 1200 ml 480 ml Exam Constitutional: alert, oriented Respiratory: clear to auscultation Cardiovascular: nl pulses Gastrointestinal: soft, non-tender Musculoskeletal: nl extremities to inspection Extremities: normal pulses Neurological: nl mental status Skin: nl turgor, other (lower back surgical incision) Medications Medication Current Medications IV Flush (NS 3 ml) 3 ml PER PROTOCOL IV ; Start 08/16/18 at 21:30 Ondansetron HCl (Zofran Inj) 4 mg Q6H PRN IV NAUSEA/VOMITING; Start 08/16/18 at 21:30 Acetaminophen (Tylenol Tab) 650 mg Q6H PRN PO .PAIN 1-3 OR TEMP Last administered on 08/20/18 20:03; Admin Dose 650 MG; Start 08/16/18 at 21:30 Enoxaparin Sodium (Lovenox) 30 mg DAILY SC Last administered on 08/28/18 09:12; Admin Dose 30 MG; Start 08/17/18 at 09:00 Famotidine (Pepcid) 20 mg BID PO Last administered on 08/28/18 09:05; Admin Dose 20 MG; Start 08/17/18 at 21:00 Docusate Sodium (Colace) 100 mg BID PO Last administered on 08/27/18 20:09; Admin Dose 100 MG; Start 08/18/18 at 09:00 Hydralazine HCl (Apresoline) 25 mg Q6H PRN PO SBP>160; Start 08/18/18 at 17:00 Hydromorphone HCl (Dilaudid LEAD W[employer]HOUSE ASSOCIATE) 0.5 MG/HR CONTINUOUS R... Q4PCA IV Last administered on 08/28/18 11:39; Admin Dose 6 MG; Start 08/18/18 at 17:00 Senna/Docusate Sodium (Senokot-S) 2 tab BID PO Last administered on 08/27/18 20:09; Admin Dose 2 TAB; Start 08/18/18 at 21:00 Polyethylene Glycol (Miralax) 17 gm DAILY PO Last administered on 08/26/18 09:12; Admin Dose 17 GM; Start 08/18/18 at 17:00 Benazepril HCl (Lotensin) 10 mg DAILY PO Last administered on 08/28/18 09:05; Admin Dose 10 MG; Start 08/19/18 at 15:30 Zolpidem Tartrate (Ambien) 5 mg HS PRN PO INSOMNIA Last administered on 08/27/18 21:53; Admin Dose 5 MG; Start 08/22/18 at 01:00 Gabapentin (Neurontin) 200 mg TID PO Last administered on 08/28/18 12:24; Admin Dose 200 MG; Start 08/22/18 at 13:00 Multivitamins/ Minerals (Theragran-M) 1 tab DAILY PO Last administered on 08/28/18at 09:05; Admin Dose 1 TAB; Start 08/24/18 at 09:00 JÚNIOR DOLAN Aug 28, 2018 15:28
[2018-08-28] MEDS ORDERED: oxyCODONE 5 MG TAB PO PRN (15:30)
[2018-08-28] MEDS: HYDROmorphONE 1 MG/ML SYG IV PRN ×3 (15:34→22:28)
--- NOTE | 2018-08-28 18:16 | CONS ---
Assessment/Plan Assessment/Plan Hospital Course (Demo Recall) IMPRESSION: 1. Bradycardia, intermittent with stable blood pressure at this time.- no sig recurrence. Low TSH with NL T4. ? sick euthyroid 2. Abnormal electrocardiogram with isolated T-wave flattening in lead 3.-no chest pain 3. Hypertension, labile and episodic likely related to pain episodes.-ongoing 4. Status post lumbar back surgery with ongoing back pain and left lower extremity weakness s/p inh=jection by NRSG 5. Urinary tract infection. 6. Dyslipidemia with low HDL. Recc -Contineu ACEI with reasonable BP control -continue steroids/neurontin/dilaudid Consultation Date/Type/Reason Admit Date/Time Aug 17, 2018 at 15:00 Initial Consult Date 08/18/18 Type of Consult Cardiology Reason for Consultation HTN Requesting Provider: LEILA PERES MD Date/Time of Note DATE: 08/28/18 TIME: 18:15 Exam/Review of Systems Vital Signs Vitals Vital Signs Date Temp Pulse Resp B/P (MAP) Pulse Ox O2 O2 Flow FiO2 Time Delivery Rate 08/28/18 18 15:15 08/28/18 98.3 80 102/59 98 Room Air 14:37 (73) Intake and Output 08/27/18 08/27/18 08/28/18 1515:00 23:00 07:00 IntakeIntake Total 520 ml 1200 ml 480 ml BalanceBalance 520 ml 1200 ml 480 ml Exam Exam Review of Systems: CONSTITUTIONAL: No fevers, chills. PULMONARY: No sob CARDIOVASCULAR: No chest pain/palpitations GASTROINTESTINAL: No nausea/vomiting. GENITOURINARY: No hematuria/dysuria. MUSCULOSKELETAL: No myagias/arthalgias. PSYCHIATRIC: The patient denies depression. NEUROLOGIC: No weakness Constitutional: alert, oriented Psych: no complaints Head: normocephalic ENMT: mucosa pink and moist Neck: supple, jvd (9 cm water) Respiratory: diminished breath sounds Cardiovascular: regular rate and rhythm Gastrointestinal: soft, non-tender Musculoskeletal: muscle tone (normal) Extremities: edema (none) Medications Medications Current Medications IV Flush (NS 3 ml) 3 ml PER PROTOCOL IV ; Start 08/16/18 at 21:30 Ondansetron HCl (Zofran Inj) 4 mg Q6H PRN IV NAUSEA/VOMITING; Start 08/16/18 at 21:30 Acetaminophen (Tylenol Tab) 650 mg Q6H PRN PO .PAIN 1-3 OR TEMP Last administered on 08/20/18 20:03; Admin Dose 650 MG; Start 08/16/18 at 21:30 Enoxaparin Sodium (Lovenox) 30 mg DAILY SC Last administered on 08/28/18 09:12; Admin Dose 30 MG; Start 08/17/18 at 09:00 Famotidine (Pepcid) 20 mg BID PO Last administered on 08/28/18 09:05; Admin Dose 20 MG; Start 08/17/18 at 21:00 Docusate Sodium (Colace) 100 mg BID PO Last administered on 08/27/18 20:09; Admin Dose 100 MG; Start 08/18/18 at 09:00 Hydralazine HCl (Apresoline) 25 mg Q6H PRN PO SBP>160; Start 08/18/18 at 17:00 Senna/Docusate Sodium (Senokot-S) 2 tab BID PO Last administered on 08/27/18 20:09; Admin Dose 2 TAB; Start 08/18/18 at 21:00 Polyethylene Glycol (Miralax) 17 gm DAILY PO Last administered on 08/26/18 09:12; Admin Dose 17 GM; Start 08/18/18 at 17:00 Benazepril HCl (Lotensin) 10 mg DAILY PO Last administered on 08/28/18 09:05; Admin Dose 10 MG; Start 08/19/18 at 15:30 Zolpidem Tartrate (Ambien) 5 mg HS PRN PO INSOMNIA Last administered on 08/27/18 21:53; Admin Dose 5 MG; Start 08/22/18 at 01:00 Gabapentin (Neurontin) 200 mg TID PO Last administered on 08/28/18 12:24; Admin Dose 200 MG; Start 08/22/18 at 13:00 Multivitamins/ Minerals (Theragran-M) 1 tab DAILY PO Last administered on 08/28/18 09:05; Admin Dose 1 TAB; Start 08/24/18 at 09:00 Hydromorphone HCl (Dilaudid) 1 mg Q3H PRN IV SEVERE PAIN LEVEL 7-10 Last administered on 08/28/18 15:34; Admin Dose 1 MG; Start 08/28/18 at 15:30 Oxycodone HCl (Oxycontin) 10 mg BID PO ; Start 08/28/18 at 21:00 RODRIGO STEARNS Aug 28, 2018 18:16
[2018-08-28] MEDS: oxyCODONE (CR) 10 MG TAB [oxyCONTIN] PO SCH (20:32)
[2018-08-28] MEDS ORDERED: oxyCODONE 5 MG TAB PO SCH (21:00)
[2018-08-28 21:03] VITALS: BP 121/58; PULSE 73; RESP 20
[2018-08-28] MEDS: ZOLPIDEM 5 MG TAB PO PRN (22:33)
[2018-08-29] MEDS: HYDROmorphONE 1 MG/ML SYG IV PRN ×3 (01:26→07:39)
[2018-08-29 03:31] VITALS: BP 107/62; PULSE 84; RESP 18
[2018-08-29 07:37] VITALS: BP 133/78; PULSE 103; RESP 16
[2018-08-29] MEDS: oxyCODONE (CR) 10 MG TAB [oxyCONTIN] PO SCH (08:33)
[2018-08-29] MEDS: BENAZEPRIL 10 MG TAB PO SCH (08:34)
[2018-08-29] MEDS: MULTIVITAMINS/MINERALS TAB PO SCH (08:34)
[2018-08-29] MEDS: FAMOTIDINE 20 MG TAB PO SCH (08:34)
[2018-08-29] MEDS: DOCUSATE SODIUM 100 MG CAP PO SCH (08:35)
[2018-08-29] MEDS: GABAPENTIN 100 MG CAP PO SCH (08:35)
[2018-08-29] MEDS: POLYETHYLENE GLYCOL 17 GM PACKET PO SCH (09:00)
[2018-08-29] MEDS: ENOXAPARIN 30 MG/0.3 ML SYG SC SCH (09:00)
[2018-08-29] MEDS: SENNA/DOCUSATE NA (8.6MG/50MG) TAB PO SCH (09:00)
--- NOTE | 2018-08-29 22:11 | DS ---
Date/Time of Note Date/Time of Note DATE: 08/29/18 TIME: 22:09 Discharge Summary Admission/Discharge Info Admit Date/Time Aug 17, 2018 at 15:00 Discharge Date/Time Aug 29, 2018 at 09:40 Hx of Present Illness The patient is a 43-year-old female known to me from previous admission. Patient has multiple cervical and lumbar spine fusions, patient with history of hypertension depression and obesity. Patient underwent L5-S1 hardware removal with L4-5 transforaminal lumbar lumbar interbody fusion and L4-S1 intraspinal cefoxitin of placement on July 27, 2018. While in hospital patient was followed by pain management physician and underwent extensive physical therapy, and was discharged home in stable condition. Patient continues to have severe pain despite high dose of morphine at home. Patient was seen in Dr. Jordan office and was sent to emergency room for pain management and further imaging. Patient also complains of feeling dizzy and losing her balance, and weakness in left lower extremity. Patient denies any fever denies chest pain denies shortness of breath patient denies any loss of bowel or bladder control, denies slurred speech denies any loss of consciousness. Hospital Course Patient left AMA Assessment/Plan -Intractable low back pain. Dr. Pabon is following in pain management consultation. Dr. Jordan is following in neurosurgery consultation. L4-5 cage is intact per imaging, no surgery planned per neurosurgery, continue steroids and Neurontin. Pt was on RESOURCE AGENT Dilaudid which was d/chino last night. Continue Roxicodone BID and Dilaudid fro break through pain. -Left hip pain, MRI of the hip is negative for avascular necrosis. Status post left SI joint injections by Dr Jordan.. -Opioid dependence -Hypertension, continue benazepril. -History of L5-S1 lumbar hardware removal with decompression and interbody fusion by Dr. Jordan on 07/27/2018 for mechanical low back pain and with lower extremity radiculopathy. -Depression -History of posterior cervical laminectomy and foraminotomies with instrumental fusion of C3-C7. -Obesity Plan of care discussed with Dr. Zhu. Home Meds Active Scripts Docusate Sodium* (Colace*) 100 Mg Capsule, 100 MG PO BID, #20 CAP Prov:ANTIONE GARCIA 08/05/18 Reported Medications Multivitamins* (Theragran*) 1 Tab Tab, 1 TAB PO DAILY, TAB 08/16/18 Tizanidine Hcl* (Tizanidine Hcl*) 2 Mg Tablet, 4 MG PO Q6H 08/16/18 Gabapentin* (Gabapentin*) 300 Mg Capsule, 300 MG PO TID for 30 Days 08/16/18 Hydromorphone Hcl (Dilaudid) 4 Mg Tab, 4 MG PO DAILY PRN for PAIN LEVEL 4-7 08/16/18 Morphine Sulfate (Morphine Sulfate ER) 15 Mg Tablet.er, 15 MG PO DAILY for 30 Days, #60 08/16/18 Hydrocodone/Acetaminophen ([place] 10-325 Tablet) 1 Each Tablet, 1 EACH PO Q4 PRN for PAIN, TAB 07/27/18 Hydromorphone Hcl* (Dilaudid*) 4 Mg Tablet, 4 MG PO Q4H PRN for PAIN, TAB 07/27/18 Carisoprodol* (Carisoprodol*) 350 Mg Tablet, 350 MG PO Q6 PRN for MUSCLE SPASMS, TAB 07/27/18 Primary Care Provider Zev Zhu MD Pending Labs Laboratory Tests Test 08/29/18 06:02 White Blood Count 8.2 10^3/ul (4.8-10.8) Red Blood Count 3.90 10^6/ul (4.20-5.40) Hemoglobin 11.7 g/dl (12.0-16.0) Hematocrit 36.8 % (37.0-47.0) Mean Corpuscular Volume 94.4 fl (82.0-101.0) Mean Corpuscular Hemoglobin 30.0 pg (29.0-33.0) Mean Corpuscular Hemoglobin Concent 31.8 g/dl (32.0-37.0) Red Cell Distribution Width 12.6 % (11.5-14.5) Platelet Count 330 10^3/UL (140-415) Mean Platelet Volume 10.5 fl (7.4-10.4) Immature Granulocytes % 0.400 % (0.001-0.429) Neutrophils % 46.1 % (39.0-77.0) Lymphocytes % 37.0 % (15.0-51.0) Monocytes % 10.1 % (0.0-11.0) Eosinophils % 6.2 % (0.0-7.0) Basophils % 0.2 % (0.0-2.0) Nucleated Red Blood Cells % 0.0 /100WBC (0.0-0.0) Immature Granulocytes # 0.030 10^3/ul (0.0-0.031) Neutrophils # 3.8 10^3/ul (1.6-7.5) Lymphocytes # 3.0 10^3/ul (0.8-2.9) Monocytes # 0.8 10^3/ul (0.3-0.9) Eosinophils # 0.5 10^3/ul (0.0-0.5) Basophils # 0.0 10^3/ul (0.0-0.1) Nucleated Red Blood Cells # 0.0 10^3/ul (0.0-0.0) Sodium Level 142 mmol/L (135-144) Potassium Level 4.6 mmol/L (3.5-5.1) Chloride Level 103 mmol/L (97-110) Carbon Dioxide Level 33 mmol/L (21-31) Anion Gap 6 (5-13) Blood Urea Nitrogen 8 mg/dl (7-20) Creatinine 0.56 mg/dl (0.44-1.00) Est Glomerular Filtrat Rate mL/min > 60 mL/min (>60) Glucose Level 87 mg/dl (70-220) Calcium Level 8.5 mg/dl (8.4-10.2) JÚNIOR DOLAN Aug 29, 2018 22:11
== END 2018-08-29 09:40 | disposition left against medical advice (07) | DRG 552 ==
LOC: E/R 16:05 → PP2 21:24 → OBSVTOIN 08-17 15:00
PROVIDERS: ADMIT Internal Medicine; ATTEND Internal Medicine
PROC: 3E0U33Z Introduction of Anti-inflammatory into Joints, Percutaneous Approach (ICD-10-PCS; 2018-08-23)
PROC: 3E0233Z Introduction of Anti-inflammatory into Muscle, Percutaneous Approach (ICD-10-PCS; 2018-08-23)
PROC: 3E023BZ Introduction of Anesthetic Agent into Muscle, Percutaneous Approach (ICD-10-PCS; 2018-08-23)
PROC: 3E0U3BZ Introduction of Anesthetic Agent into Joints, Percutaneous Approach (ICD-10-PCS; principal; 2018-08-23 20:00)
DX: M46.1 Sacroiliitis, not elsewhere classified (principal); F11.20 Opioid dependence, uncomplicated; N39.0 Urinary tract infection, site not specified; I10 Essential (primary) hypertension; E78.5 Hyperlipidemia, unspecified; E66.9 Obesity, unspecified; F32.9 Major depressive disorder, single episode, unspecified; G89.18 Other acute postprocedural pain; M54.5 Low back pain; M25.552 Pain in left hip; R00.1 Bradycardia, unspecified; R94.31 Abnormal electrocardiogram [ECG] [EKG]; Z98.1 Arthrodesis status; Z98.84 Bariatric surgery status; Z68.29 Body mass index [BMI] 29.0-29.9, adult
CPT/HCPCS: 36415; 72131; 72158; 72195; 73500; 73721; 80048; 80053; 80061; 81001; 83036; 84439; 84443; 84703; 85025; 85610; 85730; 93005; 93306; 96374; G0378; J1040; J1100; J1170; J1650; J1885; J2795; J2920; J2930; J7120